=== PATIENT | male | born 1955 | race African-American/Black ===

== ENCOUNTER 2017-06-18 09:48 | Emergency (ER) | END 2017-06-18 13:04 | disposition home or self-care (01) ==

== ENCOUNTER 2017-07-08 11:48 | Inpatient (IN) | END 2017-07-15 22:40 | DRG 811 ==

== ENCOUNTER 2017-07-18 11:50 | Emergency (ER) | END 2017-07-18 18:47 | disposition home or self-care (01) ==

== ENCOUNTER 2017-11-03 09:43 | Inpatient (IN) | END 2017-11-07 19:25 | DRG 689 ==

== ENCOUNTER 2018-09-28 12:31 | Inpatient (IN) | payer MEDICARE, OTHER ==
[~2018-09-28] VITALS: Ht 177.8 cm; Wt 58.7 kg
[2018-09-28] VITALS (27 sets, daily range): BP systolic 74–115; BP diastolic 57–80; PULSE 72–76; RESP 20–21; Ht 177.8 cm; Wt 58.7 kg
[~2018-09-28 12:31] MED LIST: ACET-2047 PO; AMIN887L6 GTB; ASCO500C7 GTB; ASPI-817 GTB; ATOR20TA38 GTB; DONE5TAB46 GTB; FOLI-49 GTB; HYDR-3671 GTB; HYDR-4011 PO; ISOS10TA2 GTB; MULTI GTB; NIFE10CA GTB; PANT40TA4 PO; SULF1TAB31 PO
[2018-09-28] MEDS ORDERED: NORepinephrine 8MG/250 ML (PMX 250 ML ONE (12:38)
[2018-09-28] MEDS ORDERED: SODIUM CHLORIDE 0.9% 500 ML BAG IV* STA (12:42)
[2018-09-28] MEDS ORDERED: MEROPENEM 1 GM/50ML(PMX) 50 ML IVPB STA (13:19)
[2018-09-28] MEDS ORDERED: NORepinephrine 8MG/250 ML (PMX 250 ML IV SCH (13:30)
[2018-09-28] MEDS ORDERED: VANCOMYCIN 1 GM (PMX) 250 ML IVPB ONE (13:30)
[2018-09-28] MEDS ORDERED: SODIUM CHLORIDE 0.9% 1L BAG IV* STA (13:30)
--- NOTE | 2018-09-28 14:17 | ERD ---
ER Documentation Chief Complaint Chief Complaint SP FULL ARREST AND RETURN OF SPONTANEOUS CIRC AFTER 5 EPI IN FIELD. HPI The patient is a 73-year-old male, presenting to the ER because of acute cardiac arrest. The history is obtained from EMS. He is being treated for pneumonia with Fortaz and amikacin He was last seen normal around 11:30 PM. When EMS arrived at 12pm, he was being CPR for approximately 7 minutes by the nursing staff. He has tracheostomy, was having CPR and received 5 epinephrine IV proximally 3-5 minutes apart. He had ROSC at 12:20 PM upon arrival to the emergency department The history is obtained from EMS and medical record Past medical history: COPD, chronic respiratory failure, dysphagia, CAD, dy slipidemia, history of CVA, chronic encephalopathy, extremity contracture Past surgical history: Unknown except tracheostomy and G-tube ROS All systems reviewed and are negative except as per history of present illness. Medications Home Meds Reported Medications Magnesium Hydroxide* (Milk Of Magnesia*) 400 Mg/5 Ml Oral.susp, 30 ML GTB DAILY, ML 09/28/18 Docusate Sodium* (Colace*) 100 Mg Capsule, 100 MG GTB DAILY, #30 CAP 09/28/18 Acetaminophen* (Acetaminophen*) 650 Mg Tablet, 650 MG GTB Q4 PRN for PAIN LEVEL 1-3, #30 TAB 09/28/18 Acetaminophen* (Acetaminophen*) 500 MG Extra Strength Tablet, 1000 MG GTB Q4 PRN for PAIN LEVELL 4-10, TAB 09/28/18 Chlorhexidine Gluconate (Peridex) 473 Ml Mouthwash, 15 ML MM Q12, BOTTLE 09/28/18 Pantoprazole* (Protonix*) 40 Mg Tablet.dr, 40 MG GTB DAILY, TAB 09/28/18 Tamsulosin Hcl* (Flomax*) 0.4 Mg Cap.er.24h, 0.4 MG GTB DAILY, CAP 09/28/18 Famotidine* (Famotidine*) 20 Mg Tablet, 20 MG GTB DAILY, #30 TAB 09/28/18 Donepezil* (Aricept*) 5 Mg Tablet, 5 MG GTB DAILY, TAB 07/18/17 Atorvastatin Calcium* (Atorvastatin Calcium*) 20 Mg Tablet, 20 MG GTB QHS, #30 TAB 07/08/17 Discontinued Reported Medications Amino Acids/Protein Hydrolys (PRO-STAT AWC LIQUID) 887 Ml Liquid, 30 ML GTB TID 11/03/17 Acetaminophen* (Acetaminophen*) 650 Mg Tablet, 650 MG PO Q6H PRN for PAIN AND OR ELEVATED TEMP, #30 TAB 11/03/17 Pantoprazole* (Pantoprazole*) 40 Mg Tablet.dr, 40 MG PO BID, TAB 11/03/17 Ascorbic Acid* (Vitamin C*) 500 Mg Capsule.sa, 500 MG GTB DAILY, CAP 11/03/17 Hydrocodone/Acetaminophen ([place] 5-325 Tablet) 1 Each Tablet, 1 EACH PO Q4 PRN for SEVERE PAIN LEVEL 7-10, TAB 11/03/17 Isosorbide Dinitrate* (Isosorbide Dinitrate*) 10 Mg Tablet, 10 MG GTB TID, TAB 07/08/17 Multivitamins* (Theragran*) 1 Tab Tab, 1 TAB GTB DAILY, TAB 07/08/17 Folic Acid* (Folic Acid*) 1 Mg Tablet, 1 MG GTB DAILY, TAB 07/08/17 Aspirin* (Aspirin* EC) 81 Mg Tablet.dr, 81 MG GTB DAILY, TAB 07/08/17 Discontinued Scripts Nifedipine* (Procardia*) 10 Mg Capsule, 20 MG GTB TID, #30 CAP Prov:FREGOSO,MADDY V. CLAY MOLDER 11/07/17 Hydralazine Hcl* (Hydralazine Hcl*) 25 Mg Tab, 50 MG GTB TID, #90 TAB Prov:FREGOSO,MADDY V. CLAY MOLDER 11/07/17 Sulfamethoxazole/Trimethoprim* (Bactrim Ds* Tablet) 1 Each Tablet, 1 TAB PO BID for 7 Days, #14 TAB Prov:FREGOSO,MADDY V. CLAY MOLDER 11/06/17 Allergies Allergies: Coded Allergies: No Known Allergy (Unverified , 09/28/18) PMhx/Soc History of Surgery: Yes (gtube placement) Anesthesia Reaction: No Hx Neurological Disorder: Yes (dementia) Hx Respiratory Disorders: No Hx Cardiac Disorders: No Hx Psychiatric Problems: No Hx Alcohol Use: Yes (social drinking) Hx Substance Use: No Hx Tobacco Use: Yes Physical Exam Vitals Vital Signs Date Temp Pulse Resp B/P (MAP) Pulse Ox O2 O2 Flow FiO2 Time Delivery Rate 09/28/18 94.5 75 20 149/90 99 Mechanical 15:26 (109) Ventilator 09/28/18 50 23 98 40 15:12 09/28/18 95.0 78 20 154/95 99 Mechanical 15:00 (114) Ventilator 09/28/18 94.0 81 20 170/100 99 Mechanical 14:45 (123) Ventilator 09/28/18 81 20 157/105 99 Mechanical 14:30 (122) Ventilator 09/28/18 82 20 172/100 99 Mechanical 14:15 (124) Ventilator 09/28/18 84 20 146/90 99 Mechanical 14:00 (108) Ventilator 09/28/18 94.1 82 20 105/71 99 Mechanical 13:45 (82) Ventilator 09/28/18 84 20 135/85 99 Mechanical 13:30 (102) Ventilator 09/28/18 80 20 115/100 99 Mechanical 13:15 (105) Ventilator 09/28/18 43 20 96 100 13:05 09/28/18 94.0 83 20 102/72 99 Mechanical 13:00 (82) Ventilator 09/28/18 93.9 75 20 105/60 99 Mechanical 12:45 (75) Ventilator 09/28/18 95.0 65 20 55/32 (40) 98 12:35 Physical Exam Const: Severe acute distress. Head: Atraumatic. Eyes: Normal Conjunctiva. ENT: Normal External Ears, Nose and Mouth. Neck: Full range of motion. No meningismus.Trach Resp: Clear to auscultation anteriorly and laterally. Cardio: Regular bradycardic Abd: Soft, non distended, normal bowel sounds, non tender.GT Skin: Ecchymosis Back: No midline or flank tenderness. Ext: Contracted Neur: Unable to perform due to his condition Psych: Unable to perform due to his condition Result Diagram: 09/28/18 1330 09/28/18 1330 Results 24 hrs Laboratory Tests Test 09/28/18 12:34 09/28/18 12:39 09/28/18 13:30 09/28/18 13:31 Bedside Glucose 209 mg/dL 166 mg/dL Blood Gas Blood arterial Specimen Source Arterial Blood 09/28/2018 2:50:2 Date Drawn 9 PM Arterial Blood 7.480 pH (Temp corrected) Arterial Blood 33.2 mmhg pCO2 (Temp correct) Arterial Blood 578.2 mmHG pO2 (Temp corrected) Arterial Blood 24.2 mmol/L HCO3 Arterial Blood 1.1 mmol/L Base Excess Arterial Blood 99.7 mmHG Oxygen Saturatio n Amadeo Test ACCEPTAB Arterial Blood Left Radial Gas Puncture Site Arterial 0.3 % Blood Carboxyhem oglobin Arterial Blood 0.3 % Methemoglobin Blood Gas A-a O2 101.6 mmHg Differential Oxyhemoglobin 99.1 % Percent Blood Gas 37.0 C Temperature Blood Gas 20.0 Respiration Rate Blood Gas Actual 23 Respiration Rate Blood Gas VENT - AC Modality FiO2 100.0 % Blood Gas Tidal 500.0 mL Volume Blood Gas High 0 cmH2O PEEP Setting Blood Gas RT Notified Whom Blood Gas 09/28/2018 3:05:1 Notified Time 1 PM White Blood 22.9 10^3/ul Count Red Blood Count 3.84 10^6/ul Hemoglobin 9.9 g/dl Hematocrit 31.7 % Mean Corpuscular 82.6 fl Volume Mean Corpuscular 25.8 pg Hemoglobin Mean Corpuscular 31.2 g/dl Hemoglobin Eve nt Red Cell 21.2 % Distribution Width Platelet Count 271 10^3/UL Mean Platelet 10.6 fl Volume Immature 8.800 % Granulocytes % Neutrophils % % Segmented 59 % Neutrophils % (Manual) Band Neutrophils 12 % % (Manual) Lymphocytes % % Lymphocytes % 24 % (Manual) Monocytes % % Monocytes % 1 % (Manual) Eosinophils % % Eosinophils % 1 % (Manual) Basophils % % Metamyelocytes % 1 % (manual) Myelocytes % 2 % (Manual) Nucleated Red 0.4 /100WBC Blood Cells % Immature 2.010 10^3/ul Granulocytes # Neutrophils # 10^3/ul Neutrophils # 14.1 10^3/ul (Manual) Band Neutrophils 2.7 10^3/ul # Lymphocytes 5.4 10^3/ul (Manual) Lymphocytes # 10^3/ul Monocytes # 10^3/ul Monocytes # 0.2 10^3/ul (Manual) Eosinophils # 10^3/ul Basophils # 10^3/ul Metamyelocytes # 0.2 10^3/ul Myelocytes # 0.4 10^3/ul Nucleated Red 10^3/ul Blood Cells # Platelet NORMAL Estimate Giant Platelets 1 % Polychromasia 3+ Poikilocytosis 1+ Anisocytosis 2+ Microcytosis 2+ Prothrombin Time 16.7 Sec Prothrombin Time 1.3 Ratio INR 1.34 International Normalized Ratio Activated 47.0 Sec Partial Thrombop last Time Sodium Level 134 mmol/L Potassium Level 5.1 mmol/L Chloride Level 96 mmol/L Carbon Dioxide 24 mmol/L Level Anion Gap 14 Blood Urea 24 mg/dl Nitrogen Creatinine 0.69 mg/dl Est Glomerular > 60 mL/min Filtrat Rate mL/min Glucose Level 164 mg/dl Calcium Level 9.3 mg/dl Phosphorus Level 8.2 mg/dl Magnesium Level 2.0 mg/dl Total Bilirubin 0.3 mg/dl Direct Bilirubin 0.00 mg/dl Indirect 0.3 mg/dl Bilirubin Aspartate Amino 393 IU/L Transf (AST/SGOT ) Alanine 190 IU/L Aminotransferase (ALT/SGPT) Alkaline 322 IU/L Phosphatase Troponin I 0.127 ng/ml Total Protein 8.7 g/dl Albumin 3.1 g/dl Globulin 5.60 g/dl Albumin/Globulin 0.55 Ratio Lipase 160 U/L Ethyl Alcohol < 10.0 mg/dl Level Test 09/28/18 13:47 POC Venous 6.5 mmol/L Lactate Current Medications Medications Dose Sig/Deshawn Start Time Status Last (Trade) Ordered Route PRN Stop Time Admin Dose Reason Admin Sodium 500 ml ONCE STAT 09/28/18 DC 09/28/18 Chloride IV* 12:42 16:00 (NS) 09/28/18 13:17 Vancomycin 250 ml @ ONCE ONCE 09/28/18 DC HCl 125 mls/hr IVPB 13:30 09/28/18 15:29 50 ml @ ONCE STAT 09/28/18 DC 09/28/18 Meropenem/Sod 100 mls/hr IVPB 13:19 17:00 ium Chloride 09/28/18 13:48 250 ml @ TITRATE IV 09/28/18 DC 09/28/18 Norepinephrin 1.875 mls/ 13:30 12:30 e hr 09/28/18 19:28 Sodium 1,410 ml BOLUS OVER 2 09/28/18 DC 09/28/18 Chloride HOURS STAT 13:30 12:45 (NS) IV* 09/28/18 13:31 250 ml @ ud STK-MED 09/28/18 DC Norepinephrin ONCE .ROUTE 12:38 e 09/28/18 14:26 Aspirin 300 mg ONCE ONCE 09/28/18 DC (Aspirin) TX 15:30 09/28/18 15:31 Procedures/MDM [facility] [address] [address] Radiology Main Line: [phone] DIAGNOSTIC IMAGING REPORT Patient: JANETT CUEVAS : 1955 Age: 63 Sex: M MR #: [id number] DOS: 09/28/18 1239 Ordering MD: JOSE ANGEL PRESTON MD Location: E/R Room/Bed: PROCEDURE: CT Brain without contrast CLINICAL INDICATION: Return of spontaneous circulation TECHNIQUE: A CT of the brain was performed on multidetector high-resolution CT scanner utilizing axial sections from the skull base through the vertex without contrast. The scan was reviewed in soft tissue brain and high frequency resolution bone algorithm windows. Images were reviewed on a high-resolution PACS workstation. DICOM images are available. CTDI (mGy): 79.03 mGy and DLP(mGy-cm): 713.51 mGy.cm One or more of the following dose reduction techniques were used: - Automated exposure control. - Adjustment of the mA and/or kV according to patient size. Use of iterative reconstruction technique. COMPARISON: None available FINDINGS: Head positioning, obliquity and patient motion degrade image quality, potentially reducing diagnostic sensitivity for detection. The ventricles and sulci appear symmetric and normal in size and morphology, allowing for obliquity. There is no evidence of intracranial hemorrhage, mass effect, edema or midline shift, allowing for patient motion. No abnormal intra- axial or extra-axial fluid collections are seen. There is extensive low attenuation in the subcortical and periventricular white matter in the frontoparietal lobes. A low attenuation focus is identified in the inferior right frontal lobe at the level of the anterior commissure, either representing asymmetric perivascular space or lacunar infarct. Bilateral large cerebellar infarcts are identified. At the level of the foramen magnum, there are multiple osseous fragments, narrowing the canal at the cervicomedullary junction. There is diffuse asymmetric opacification of the left mastoid air cells. There is mild dependent opacification of the right mastoid air cells. There is mild mucosal thickening of the visualized ethmoid air cells. No acute osseous abnormality identified including the bony calvarium. The overlying scalp tissues are unremarkable. IMPRESSION: 1. No CT evidence of acute intracranial changes such as hemorrhage, mass effect, midline shift or herniation, allowing for obliquity and patient motion. 2. Extensive low attenuation in the subcortical and periventricular white matter in the frontoparietal lobes. Though commonly attributable to chronic small vessel ischemic disease, vasogenic edema or watershed ischemia cannot entirely be excluded in the acute setting. Bilateral cerebellar infarcts. Possible right basal ganglion infarct. Brain MRI is more suitable for the assessment of these findings. 3. Multiple osseous fragments within the foramen magnum, narrowing the canal. Again brain MRI can be helpful in assessing the cervicomedullary junction. If MRI is not an option, further imaging with cervical spine CT is also recommended. 4. Asymmetric diffuse opacification of the left mastoid air cells, which can be secondary to prolonged recumbency. Additional clinical correlation is recommended to exclude mastoiditis. These findings were discussed with ED physician Jose Angel Franklin at 09/28/2018 3:18:13 PM. RPTAT: EE Physician Francesca Date Time Electronically viewed and signed by Shaneka Jimenez Physician on 09/28/2018 15:20 BP/ CC: JOSE ANGEL PRESTON MD [phone] [address] [place] [address] Radiology Main Line: [phone] DIAGNOSTIC IMAGING REPORT Patient: JANETT CUEVAS : 1955 Age: 63 Sex: M MR #: [id number] DOS: 09/28/18 1239 Ordering MD: JOSE ANGEL PRESTON MD Location: E/R Room/Bed: PROCEDURE: XR Chest. CLINICAL INDICATION: Chest pain TECHNIQUE: Single frontal view of the chest was obtained COMPARISON: DR DOWLING 11/03/2017 FINDINGS: The heart is enlarged. The thoracic aorta is calcified. There is a tracheostomy tube in place. There is a right-sided transvenous catheter with its tip overlying the cavo- atrial junction. There are mild increased interstitial changes throughout the lungs. There is no pleural effusion or pneumothorax. RPTAT: AA IMPRESSION: Mild cardiomegaly. Mild pulmonary vascular congestion. Right-sided central line in place with no pneumothorax. Calcified aorta consistent with atherosclerotic disease. .Kevin Carranza MD, MD Date Time Electronically viewed and signed by .Kevin Carranza MD, MD on 09/28/2018 13:45 .S/ CC: JOSE ANGEL PRESTON MD [phone] UA Pending EKG: Read by emergency physician Rate/Rhythm: Normal Sinus Rhythm 84 beats/min QRS, ST, T-waves: No ST elevation, no T inversion, RBBB, LAFB, LVH Impression: Abnormal EKG MEDICAL MAKING DECISION: The patient is a 33-year-old male, presenting with ac layla cardiac arrest, status post PEA, acute septic shock, acute troponin elevation. He was treated with normal saline 30 mm/kg IV, Levophed drip, vancomycin IV, meropenem IV due to acute septic shock He did go to PEA at 1243p, treated with 1 mg of epinephrine IV with return of spontaneous circulation at 1245p He was treated with aspirin 300 mg suppository for acute troponin elevation The differential diagnoses considered include but are not limited to ACS, non- STEMI, aspiration pneumonia, UTI, pneumonia, pyelonephritis Central Line Placement by me: After the patient was consented and a time out was performed, appropriate hand hygiene was performed, the skin site was fully prepped and maximal sterile barrier technique was employed where the patient was sterilely draped, and the provider wore a mask and sterile gown and gloves. Anesthesia: 1% lidocaine locally Location: RIJ Device: Multiple lumen Technique: Seldinger technique. Secured with suture. Results: Venous return from all ports with easy saline flush. No complications. []Guide wire retrieved and disposed of. ED Ultrasound: Central line placed by me using concurrent ultrasound guidance done using sterile technique. Real time image archived in the medical record confirms vascular anatomy. Chest X-ray 1V Interpreted by me: Central line in SVC, Normal soft tissue, No evidence of pneumothorax. MDM: Patient's infectious symptoms have not stabilized and the patient is at risk of rapid decompensation. The patient will be admitted for careful hydration, antibiotic therapy, and infectious source control. SEVERE SEPSIS CRITERIA: Infectious source: unknown End organ damage indicated by: [Lactate > 2.0 mmol/L Hypotension (SBP < 90 or >40 mmHG drop or MAP < 65) Acute Resp Failure (sat < 92% w/o oxygen) SEPSIS MANAGEMENT Time of recognition of septic shock: 1400hr. 3 HOUR BUNDLE Blood cultures x 2 before broad-spectrum antibiotics: [Yes] 30 ml/kg NS bolus [Completed] Initial lactate []6.5 Repeat lactate Pending SEPTIC SHOCK ASSESSMENT: [Y] lactic acid > 4.0 [Y] Persistent hypotension (SBP < 90 or 40 mmHg drop, MAP < 65) despite 30 mL/kg IV fluid bolus VOLUME REASSESSMENT FOR SEPTIC SHOCK: Reevaluation Time: []1300 hr Temp []94, BP []102/72, HR []53, RR[]20, Pox []99% 100% Heart [bradycardic] Lungs [No crackles] Skin [Warm & dry] Cap Refill [Less than 2 seconds] Peripheral pulses [Radially present] PERSISTENT HYPOTENSION TREATMENT: Comfort care [No] Central line [Required] Vasopressor started Levophed I considered further perfusion assessment with CVP measurement, SCVO2, bedside ultrasound volume assessment, passive leg raise, trial of further fluid bolus. And proceeded with [30 ml/kg fluid bolus of NSS, broad spectrum antibiotics, and admission.] CRITICAL CARE Critical care time [35] minutes Emergent fluid management while maintaining close respiratory support. Provision of immediate and broad-spectrum antibiotic therapy. Simultaneous assessment for possible sources in order to direct targeted therapy. Consid eration for invasive and chemical support to prevent cardiopulmonary collapse. Critical care time is independent of procedures performed. Departure Diagnosis: Primary Impression: Cardiac arrest Additional Impressions: Septic shock Elevated troponin Anemia Abnormal LFTs Condition: Critical Comments I discussed the findings with the patient. I discussed the patient with Dr Mendoza at 3:20p , who was made aware of the lab, the treatment, the patient condition. The patient is admitted to ICU Disclaimer: Inadvertent spelling and grammatical errors are likely due to E HR/dictation software use and do not reflect on the overall quality of patient care. Also, please note that the electronic time recorded on this note does not necessarily reflect the actual time of the patient encounter. JOSE ANGEL PRESTON MD September 28, 2018 14:17
[2018-09-28] MEDS ORDERED: TAMS-14 GTB (14:24)
[2018-09-28] MEDS ORDERED: FAMO20TA18 GTB (14:24)
[2018-09-28] MEDS ORDERED: PANT40TA3 GTB (14:25)
[2018-09-28] MEDS ORDERED: CHLO473M4 MM (14:26)
[2018-09-28] MEDS ORDERED: ACET-141 GTB (14:28)
[2018-09-28] MEDS ORDERED: ACET-2047 GTB (14:28)
[2018-09-28] MEDS ORDERED: MAGN400O19 GTB (14:33)
[2018-09-28] MEDS ORDERED: DOCU-144 GTB (14:33)
[2018-09-28] MEDS ORDERED: ASPIRIN 300 MG SUPP PR ONE (15:30)
[2018-09-28] MEDS ORDERED: NACL 0.9% 3 ML SYG IV SCH (17:30)
[2018-09-28] MEDS ORDERED: ONDANSETRON 4 MG INJ IV PRN (17:30)
--- NOTE | 2018-09-28 17:43 | HP ---
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 #Cardiac arrest - Etiology unclear. Was PEA on arrival to ED. May have been hypoxic arrest related to trach like mucous plug or occlusion. - Patient has known very severe neurologic deficit. This precludes his eligibility for hypothermia protocol. - Currently off pressors, back on minimal vent settings. - Admit to ICU for overnight observation, then likely can downgrade to telemetry - Also infectious workup with blood, urine cultures - Per discussion with sister, patient is full code although I do not believe this is ethically the right decision. #Chronic disability after stroke - Patient trached, vent, not responsive, contractures - Supportive care - Continue tube feeds. #Acute diarrhea - After cardiac arrest patient is having unusual serous colored fluid, very large volume, coming from rectal tube. There is no stool. - Resume tube feeds. #Gastritis - Cont home H2 merlyn and PPI #Dyslipidemia - Cont home statin DVT: SCDs GI: PPI Result Diagram: 09/28/18 1330 09/28/18 1330 HPI/ROS Admit Date/Time Admit Date/Time September 28, 2018 Hx of Present Illness Mr. Alejandro is a 73 yo man trached and vent dependent who presents in acute cardiac arrest. History taken per sister via phone and per prior charting. Apparently the patient had several strokes, about 3 or 4, which left him severely disabled. For about 5 years he has been bedridden, minimally responsive, able to track with his eyes but unable to speak, write, or otherwise communicate. About 1 month ago he was hospitalized for L arm swelling. He developed pneumonia during this hospitalization and required tracheostomy, which he still has now. [facility] he was on a course of amikacin and ceftazidime. He was last seen normal around 11:30 PM last night. When EMS arrived at 12 noon, he was undergoing CPR for approximately 7 minutes by the nursing staff. He has tracheostomy, was having CPR and received 5 epinephrine IV proximally 3-5 minutes apart. He had ROSC at 12:20 PM upon arrival to the emergency department The patient arrived with a POLST signed by his sister Ana Maria Pelletier which says full code. I spoke to her on the phone and she confirmed this decision stands. She was unable to clarify further; as she was driving. ROS Subjective hx not possible: pt critical PMH/Family/Social Past Medical History Past medical history: COPD, chronic respiratory failure, dysphagia, CAD, dyslipidemia, history of CVA, chronic encephalopathy, extremity contracture Medications Current Medications Norepinephrine 250 ml @ 1.875 mls/ hr TITRATE IV Last administered on 09/28/18at 12:30; Admin Dose 1.875 MLS/HR; Start 09/28/18 at 13:30 IV Flush (NS 3 ml) 3 ml PER PROTOCOL IV ; Start 09/28/18 at 17:30 Ondansetron HCl (Zofran Inj) 4 mg Q6H PRN IV NAUSEA/VOMITING; Start 09/28/18 at 17:30 Pantoprazole (Protonix Iv) 40 mg DAILY@06 IV ; Start 09/29/18 at 06:00; Status UNV Coded Allergies: No Known Allergy (Unverified , 09/28/18) Past Surgical History Past surgical history: Unknown except tracheostomy and G-tube Family History Significant Family History: hypertension Social History Alcohol Use: none Smoking Status: Former smoker Drug Use: none Exam/Review of Systems Vital Signs Vitals Vital Signs Date Temp Pulse Resp B/P (MAP) Pulse Ox O2 O2 Flow FiO2 Time Delivery Rate 09/28/18 94.5 75 20 149/90 99 Mechanical 15:26 (109) Ventilator 09/28/18 40 15:12 Exam Exam Gen: Frail appearing man unresponsive in [facility]. Eyes: Pinpoint, nonreactive pupils bilaterally. No corneal reflex. Not tracking. HEENT: Drooling. Moist mucous membranes. Neck: No lymphadenopathy, no JVD. Card: Regular rate and rhythm; no murmurs Pulm: Ventilated breath sounds bilaterally. Abd: G tube in place, clean and dry. Soft nondistended. Ext: No cyanosis/clubbing/edema. Severely atrophied muscles. Neuro: Pupils pinpoint, nonreactive. Eyes don't open. Not responsive to sternal rub. Skin: Large keloid-like structure on right axilla and smaller nodule at G tube site. Rectal: rectal tube in place with serous light-orange colored fluid, no stool. ROSSANA MCKEON MD September 28, 2018 17:41
[2018-09-28] MEDS: FAMOTIDINE 20 MG INJ IV SCH ×2 (18:00→22:10)
--- NOTE | 2018-09-28 19:28 | CONS ---
Assessment/Plan Assessment/Plan Hospital Course (Demo Recall) 63-year-old -Malagasy male, resident of his nursing home facility, was brought to the emergency room because of cardiac arrest. Attempts in the emergency room to insert a Gilman catheter were not successful. A urologic consultation was requested. The patient himself is not communicative he is on a respirator through the tracheostomy which he had for a while also he does have a G-tube. 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 His bladder did not seem to be distended. I did prep the genital area and then tried a 16 [place]uran coud catheter and that was met with resistance. Therefore I proceeded to do urethral dilatation using filiforms and followers. I used a 3 [place]uran 4 [place]uran spiral tip and straight tip filiforms and attempted to have these go into his bladder but that was not successful I tried at one time to see if I could advance the follower on the filiform but that also did not go into the bladder. I therefore did not any further attempt to insert the catheter. We will place a condom catheter on him and should he not urinate and go into urinary retention then I could put a suprapubic tube. Consultation Date/Type/Reason Admit Date/Time September 28, 2018 Date of Consultation: September 28, 2018 Type of Consult Urology Reason for Consultation Difficulty inserting a Gilman catheter Requesting Provider: ROSSANA MCKEON MD Date/Time of Note DATE: 09/28/18 TIME: 19:17 Hx of Present Illness 63-year-old -Malagasy male, resident of his nursing home facility, was brought to the emergency room because of cardiac arrest. Attempts in the emergency room to insert a Gilman catheter were not successful. A urologic consultation was requested. The patient himself is not communicative he is on a respirator through the tracheostomy which he had for a while also he does have a G-tube. 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 Subjective hx not possible: pt non-verbal Eyes: no complaints Respiratory: other (Patient is on a respirator) Cardiovascular: other (Patient is status post cardiac arrest) Gastrointestinal: No vomiting Genitourinary: other (The penis has some edema at the frenular area) Musculoskeletal: no complaints Skin: no complaints Neurologic: other (Encephalopathic) Past Medical History Medical History: coronary artery disease, high cholesterol, other (History of strokes and dysphagia and respiratory failure, COPD) Home Meds Reported Medications Magnesium Hydroxide* (Milk Of Magnesia*) 400 Mg/5 Ml Oral.susp, 30 ML GTB DAILY, ML 09/28/18 Docusate Sodium* (Colace*) 100 Mg Capsule, 100 MG GTB DAILY, #30 CAP 09/28/18 Acetaminophen* (Acetaminophen*) 650 Mg Tablet, 650 MG GTB Q4 PRN for PAIN LEVEL 1-3, #30 TAB 09/28/18 Acetaminophen* (Acetaminophen*) 500 MG Extra Strength Tablet, 1000 MG GTB Q4 PRN for PAIN LEVELL 4-10, TAB 09/28/18 Chlorhexidine Gluconate (Peridex) 473 Ml Mouthwash, 15 ML MM Q12, BOTTLE 09/28/18 Pantoprazole* (Protonix*) 40 Mg Tablet.dr, 40 MG GTB DAILY, TAB 09/28/18 Tamsulosin Hcl* (Flomax*) 0.4 Mg Cap.er.24h, 0.4 MG GTB DAILY, CAP 09/28/18 Famotidine* (Famotidine*) 20 Mg Tablet, 20 MG GTB DAILY, #30 TAB 09/28/18 Donepezil* (Aricept*) 5 Mg Tablet, 5 MG GTB DAILY, TAB 07/18/17 Atorvastatin Calcium* (Atorvastatin Calcium*) 20 Mg Tablet, 20 MG GTB QHS, #30 TAB 07/08/17 Discontinued Reported Medications Amino Acids/Protein Hydrolys (PRO-STAT AWC LIQUID) 887 Ml Liquid, 30 ML GTB TID 11/03/17 Acetaminophen* (Acetaminophen*) 650 Mg Tablet, 650 MG PO Q6H PRN for PAIN AND OR ELEVATED TEMP, #30 TAB 11/03/17 Pantoprazole* (Pantoprazole*) 40 Mg Tablet.dr, 40 MG PO BID, TAB 11/03/17 Ascorbic Acid* (Vitamin C*) 500 Mg Capsule.sa, 500 MG GTB DAILY, CAP 11/03/17 Hydrocodone/Acetaminophen ([place] 5-325 Tablet) 1 Each Tablet, 1 EACH PO Q4 PRN for SEVERE PAIN LEVEL 7-10, TAB 11/03/17 Isosorbide Dinitrate* (Isosorbide Dinitrate*) 10 Mg Tablet, 10 MG GTB TID, TAB 07/08/17 Multivitamins* (Theragran*) 1 Tab Tab, 1 TAB GTB DAILY, TAB 07/08/17 Folic Acid* (Folic Acid*) 1 Mg Tablet, 1 MG GTB DAILY, TAB 07/08/17 Aspirin* (Aspirin* EC) 81 Mg Tablet.dr, 81 MG GTB DAILY, TAB 07/08/17 Discontinued Scripts Nifedipine* (Procardia*) 10 Mg Capsule, 20 MG GTB TID, #30 CAP Prov:FREGOSO,MADDY V[employer] 11/07/17 Hydralazine Hcl* (Hydralazine Hcl*) 25 Mg Tab, 50 MG GTB TID, #90 TAB Prov:FREGOSO,MADDY V[employer] 11/07/17 Sulfamethoxazole/Trimethoprim* (Bactrim Ds* Tablet) 1 Each Tablet, 1 TAB PO BID for 7 Days, #14 TAB Prov:FREGOSO,MADDY V[employer] 11/06/17 Medications Current Medications Norepinephrine 250 ml @ 1.875 mls/ hr TITRATE IV Last administered on 09/28/18at 12:30; Admin Dose 1.875 MLS/HR; Start 09/28/18 at 13:30 IV Flush (NS 3 ml) 3 ml PER PROTOCOL IV ; Start 09/28/18 at 17:30 Ondansetron HCl (Zofran Inj) 4 mg Q6H PRN IV NAUSEA/VOMITING; Start 09/28/18 at 17:30 Famotidine (Pepcid Iv) 20 mg DAILY IV ; Start 09/28/18 at 18:00 Allergies: Coded Allergies: No Known Allergy (Unverified , 09/28/18) Past Surgical History Past Surgical Hx: no surgical history Social History Alcohol Use: none Smoking Status: Former smoker Drug Use: none Exam/Review of Systems Exam Vitals Vital Signs Date Temp Pulse Resp B/P (MAP) Pulse Ox O2 O2 Flow FiO2 Time Delivery Rate 09/28/18 77 20 100 30 17:56 09/28/18 94.5 149/90 Mechanical 15:26 (109) Ventilator Constitutional: non-verbal Head: normocephalic Eyes: nl conjunctiva ENMT: other (Tracheostomy) Neck: other (Tracheostomy and is on a respirator) Respiratory: other (On a respirator) Gastrointestinal: other (As a rectal tube because of diarrhea) Genitourinary - Male: other (Penis has mild swelling in the frenular area) Musculoskeletal: other (Lower extremities contractures and sores in the heels) Neurological: unresponsive Skin: nl turgor Results Result Diagram: 09/28/18 1330 09/28/18 1330 Results 24hrs Laboratory Tests Test 09/28/18 12:34 09/28/18 12:39 09/28/18 13:30 09/28/18 13:31 Bedside Glucose 209 166 Blood Gas Blood arterial Specimen Source Arterial Blood 09/28/2018 2:50:2 Date Drawn 9 PM Arterial Blood pH 7.480 H (Temp corrected) Arterial Blood 33.2 L pCO2 (Temp correct) Arterial Blood 578.2 H pO2 (Temp corrected) Arterial Blood 24.2 HCO3 Arterial Blood 1.1 Base Excess Arterial Blood 99.7 H Oxygen Saturation Amadeo Test ACCEPTAB Arterial Blood Left Radial Gas Puncture Site Arterial 0.3 Blood Carboxyhemo globin Arterial Blood 0.3 Methemoglobin Blood Gas A-a O2 101.6 H Differential Oxyhemoglobin 99.1 H Percent Blood Gas 37.0 Temperature Blood Gas 20.0 Respiration Rate Blood Gas Actual 23 Respiration Rate Blood Gas VENT - AC Modality FiO2 100.0 Blood Gas Tidal 500.0 Volume Blood Gas High 0 PEEP Setting Blood Gas RT Notified Whom Blood Gas 09/28/2018 3:05:1 Notified Time 1 PM White Blood Count 22.9 #H Red Blood Count 3.84 L Hemoglobin 9.9 L Hematocrit 31.7 L Mean Corpuscular 82.6 Volume Mean Corpuscular 25.8 L Hemoglobin Mean Corpuscular 31.2 L Hemoglobin Concen t Red Cell 21.2 #H Distribution Width Platelet Count 271 # Mean Platelet 10.6 #H Volume Immature 8.800 H Granulocytes % Neutrophils % Segmented 59 Neutrophils % (Manual) Band Neutrophils 12 H % (Manual) Lymphocytes % Lymphocytes % 24 (Manual) Monocytes % Monocytes % 1 (Manual) Eosinophils % Eosinophils % 1 (Manual) Basophils % Metamyelocytes % 1 H (manual) Myelocytes % 2 H (Manual) Nucleated Red 0.4 H Blood Cells % Immature 2.010 H Granulocytes # Neutrophils # Neutrophils # 14.1 H (Manual) Band Neutrophils 2.7 H # Lymphocytes 5.4 H (Manual) Lymphocytes # Monocytes # Monocytes # 0.2 L (Manual) Eosinophils # Basophils # Metamyelocytes # 0.2 H Myelocytes # 0.4 H Nucleated Red Blood Cells # Platelet Estimate NORMAL Giant Platelets 1 H Polychromasia 3+ Poikilocytosis 1+ Anisocytosis 2+ Microcytosis 2+ Prothrombin Time 16.7 H Prothrombin Time 1.3 Ratio INR International 1.34 Normalized Ratio Activated 47.0 H Partial Thrombopl ast Time Sodium Level 134 L Potassium Level 5.1 Chloride Level 96 L Carbon Dioxide 24 Level Anion Gap 14 H Blood Urea 24 H Nitrogen Creatinine 0.69 Est Glomerular > 60 Filtrat Rate mL/min Glucose Level 164 Calcium Level 9.3 Phosphorus Level 8.2 H Magnesium Level 2.0 Total Bilirubin 0.3 Direct Bilirubin 0.00 Indirect 0.3 Bilirubin Aspartate Amino 393 H Transf (AST/SGOT) Alanine 190 H Aminotransferase (ALT/SGPT) Alkaline 322 H Phosphatase Troponin I 0.127 *H Total Protein 8.7 H Albumin 3.1 L Globulin 5.60 H Albumin/Globulin 0.55 Ratio Lipase 160 Ethyl Alcohol < 10.0 H Level Test 09/28/18 13:47 POC Venous 6.5 *H Lactate Medications Medication Current Medications Norepinephrine 250 ml @ 1.875 mls/ hr TITRATE IV Last administered on 09/28/18at 12:30; Admin Dose 1.875 MLS/HR; Start 09/28/18 at 13:30 IV Flush (NS 3 ml) 3 ml PER PROTOCOL IV ; Start 09/28/18 at 17:30 Ondansetron HCl (Zofran Inj) 4 mg Q6H PRN IV NAUSEA/VOMITING; Start 09/28/18 at 17:30 Famotidine (Pepcid Iv) 20 mg DAILY IV ; Start 09/28/18 at 18:00 LETY SALGADO MD September 28, 2018 19:28
[2018-09-28] MEDS ORDERED: EPINEPHrine 10 MCG/1ml (10 ML SYG) IV ONE (20:00)
[2018-09-28] MEDS ORDERED: VANCOMYCIN IV PER PHARMACY XX SCH (22:00)
[2018-09-28] MEDS: SOD CHLORIDE 0.9% 1,000 ML IV SCH (22:03)
[2018-09-28] MEDS: NORepinephrine 8MG/250 ML (PMX 250 ML IV SCH (22:09)
[2018-09-29] VITALS (105 sets, daily range): BP systolic 60–138; BP diastolic 45–82; PULSE 65–78; RESP 18–26
[2018-09-29] MEDS: MEROPENEM 1 GM/50ML(PMX) 50 ML IVPB SCH ×3 (00:42→21:11)
[2018-09-29] MEDS: VANCOMYCIN 750 MG (PMX) 250 ML IVPB SCH ×2 (04:01→19:43)
[2018-09-29] MEDS ORDERED: SOD CHLORIDE 0.9% 1,000 ML IV ONE (07:00)
--- NOTE | 2018-09-29 09:03 | PN ---
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 #Cardiac arrest - Etiology unclear. Was PEA on arrival to ED. May have been hypoxic arrest related to trach like mucous plug or occlusion. - Patient has known very severe neurologic deficit. This precludes his eligibility for hypothermia protocol. - Currently off pressors, back on minimal vent settings. - Admit to ICU for overnight observation, then likely can downgrade to telemetry - Also infectious workup with blood, urine cultures - Per discussion with sister, patient is full code although I do not believe this is ethically the right decision. #Seizure-like activity - Facial fasciculations may be seizure or myoclonic jerks. - Will get EEG, consult Dr. Svetlana Ott 500 IV BID- - Will avoid sedating medications including benzos unless seizure is proven. #Chronic disability after stroke - Patient trached, vent, not responsive, contractures - Supportive care - Continue tube feeds. #Acute diarrhea - After cardiac arrest patient is having unusual serous colored fluid, very large volume, coming from rectal tube. There is no stool. - Resume tube feeds. #Gastritis - Cont home H2 merlyn and PPI #Dyslipidemia - Cont home statin DVT: SCDs GI: PPI Result Diagram: 09/29/18 0400 09/29/18 0400 Subjective 24 Hr Interval Summary Free Text/Dictation No acute overnight events. Patient slightly hypotensive, on 9 mcg norepinephrine. Gilman attempted by Dr. Chand, unsuccessful. Now with condom cath. Patient appears to have seizure-like activity this morning with facial fasciculations. Exam/Review of Systems Exam Vitals Vital Signs Date Temp Pulse Resp B/P (MAP) Pulse Ox O2 O2 Flow FiO2 Time Delivery Rate 09/29/18 70 23 89/58 (68) 100 06:15 09/29/18 30 05:25 09/29/18 97.5 04:00 09/28/18 Mechanical 19:00 Ventilator Intake and Output 09/28/18 09/28/18 09/29/18 1515:00 23:00 07:00 IntakeIntake Total 81.8 ml 816.4 ml OutputOutput Total 335 ml 670 ml BalanceBalance -253.2 ml 146.4 ml Exam Gen: Frail appearing man unresponsive in bed. Eyes: Pinpoint, nonreactive pupils bilaterally. No corneal reflex. Not tracking. HEENT: Drooling. Moist mucous membranes. Neck: No lymphadenopathy, no JVD. Card: Regular rate and rhythm; no murmurs Pulm: Ventilated breath sounds bilaterally. Abd: G tube in place, clean and dry. Soft nondistended. Ext: No cyanosis/clubbing/edema. Severely atrophied muscles. Neuro: Pupils pinpoint, nonreactive. Not responsive to sternal rub. Facial fasciculations. Skin: Large keloid-like structure on right axilla and smaller nodule at G tube site. : Condom cath with clear yellow urine. Results Results 24hrs Laboratory Tests Test 09/28/18 12:34 09/28/18 12:39 09/28/18 13:30 09/28/18 13:31 Bedside Glucose 209 166 Blood Gas Blood arterial Specimen Source Arterial Blood 09/28/2018 2:50: Date Drawn 29 PM Arterial Blood 7.480 H pH (Temp corrected) Arterial Blood 33.2 L pCO2 (Temp correct) Arterial Blood 578.2 H pO2 (Temp corrected) Arterial Blood 24.2 HCO3 Arterial Blood 1.1 Base Excess Arterial Blood 99.7 H Oxygen Saturatio n Amadeo Test ACCEPTAB Arterial Blood Left Radial Gas Puncture Site Arterial 0.3 Blood Carboxyhem oglobin Arterial Blood 0.3 Methemoglobin Blood Gas A-a O2 101.6 H Differential Oxyhemoglobin 99.1 H Percent Blood Gas 37.0 Temperature Blood Gas 20.0 Respiration Rate Blood Gas Actual 23 Respiration Rate Blood Gas VENT - AC Modality FiO2 100.0 Blood Gas Tidal 500.0 Volume Blood Gas High 0 PEEP Setting Blood Gas RT Notified Whom Blood Gas 09/28/2018 3:05: Notified Time 11 PM White Blood 22.9 #H Count Red Blood Count 3.84 L Hemoglobin 9.9 L Hematocrit 31.7 L Mean Corpuscular 82.6 Volume Mean Corpuscular 25.8 L Hemoglobin Mean Corpuscular 31.2 L Hemoglobin Eve nt Red Cell 21.2 #H Distribution Width Platelet Count 271 # Mean Platelet 10.6 #H Volume Immature 8.800 H Granulocytes % Neutrophils % Segmented 59 Neutrophils % (Manual) Band Neutrophils 12 H % (Manual) Lymphocytes % Lymphocytes % 24 (Manual) Monocytes % Monocytes % 1 (Manual) Eosinophils % Eosinophils % 1 (Manual) Basophils % Metamyelocytes % 1 H (manual) Myelocytes % 2 H (Manual) Nucleated Red 0.4 H Blood Cells % Immature 2.010 H Granulocytes # Neutrophils # Neutrophils # 14.1 H (Manual) Band Neutrophils 2.7 H # Lymphocytes 5.4 H (Manual) Lymphocytes # Monocytes # Monocytes # 0.2 L (Manual) Eosinophils # Basophils # Metamyelocytes # 0.2 H Myelocytes # 0.4 H Nucleated Red Blood Cells # Platelet NORMAL Estimate Giant Platelets 1 H Polychromasia 3+ Poikilocytosis 1+ Anisocytosis 2+ Microcytosis 2+ Prothrombin Time 16.7 H Prothrombin Time 1.3 Ratio INR 1.34 International Normalized Ratio Activated 47.0 H Partial Thrombop last Time Sodium Level 134 L Potassium Level 5.1 Chloride Level 96 L Carbon Dioxide 24 Level Anion Gap 14 H Blood Urea 24 H Nitrogen Creatinine 0.69 Est Glomerular > 60 Filtrat Rate mL/min Glucose Level 164 Calcium Level 9.3 Phosphorus Level 8.2 H Magnesium Level 2.0 Total Bilirubin 0.3 Direct Bilirubin 0.00 Indirect 0.3 Bilirubin Aspartate Amino 393 H Transf (AST/SGOT ) Alanine 190 H Aminotransferase (ALT/SGPT) Alkaline 322 H Phosphatase Troponin I 0.127 *H Total Protein 8.7 H Albumin 3.1 L Globulin 5.60 H Albumin/Globulin 0.55 Ratio Lipase 160 Ethyl Alcohol < 10.0 H Level Test 09/28/18 13:47 09/28/18 19:23 09/28/18 22:02 09/29/18 04:00 POC Venous 6.5 *H Lactate Lactic Acid 4.9 *H 5.1 *H Level White Blood 28.6 #H Count Red Blood Count 3.60 L Hemoglobin 9.2 L Hematocrit 28.7 L Mean Corpuscular 79.7 L Volume Mean Corpuscular 25.6 L Hemoglobin Mean Corpuscular 32.1 Hemoglobin Eve nt Red Cell 20.9 H Distribution Width Platelet Count 210 # Mean Platelet 10.2 Volume Immature 1.000 H Granulocytes % Neutrophils % Lymphocytes % Monocytes % Eosinophils % Basophils % Nucleated Red 0.0 Blood Cells % Immature 0.290 H Granulocytes # Neutrophils # Lymphocytes # Monocytes # Eosinophils # Basophils # Nucleated Red Blood Cells # Sodium Level 137 Potassium Level 4.2 Chloride Level 103 Carbon Dioxide 28 Level Anion Gap 6 # Blood Urea 33 H Nitrogen Creatinine 1.01 Est Glomerular > 60 Filtrat Rate mL/min Glucose Level 86 # Hemoglobin A1c 5.5 Calcium Level 8.9 Phosphorus Level 3.8 # Magnesium Level 1.5 L Total Bilirubin 0.2 Direct Bilirubin 0.00 Indirect 0.2 Bilirubin Aspartate Amino 279 H Transf (AST/SGOT ) Alanine 138 H Aminotransferase (ALT/SGPT) Alkaline 229 H Phosphatase Total Protein 7.9 Albumin 2.8 L Globulin 5.10 H Albumin/Globulin 0.54 Ratio Test 09/29/18 07:00 09/29/18 07:01 Blood Gas Blood arterial Blood arterial Specimen Source Arterial Blood 09/29/2018 7:15: 09/29/2018 7:15: Date Drawn 55 AM 00 AM Arterial Blood 7.511 H 7.509 H pH (Temp corrected) Arterial Blood 33.3 L 35.9 pCO2 (Temp correct) Arterial Blood 130.9 H 134.0 H pO2 (Temp corrected) Arterial Blood 26.0 27.9 H HCO3 Arterial Blood 3.5 H 4.7 H Base Excess Amadeo Test ACCEPTAB ACCEPTAB Arterial Blood Right Radial Right Radial Gas Puncture Site Blood Gas A-a O2 43.9 H 37.7 H Differential Blood Gas 37.0 37.0 Temperature Blood Gas 20.0 20.0 Respiration Rate Blood Gas Actual 20 20 Respiration Rate Blood Gas VENT - AC VENT - AC Modality FiO2 30.0 30.0 Blood Gas Tidal 500.0 500.0 Volume Blood Gas Low 5.0 5.0 PEEP Setting Blood Gas TM TM Notified Whom Blood Gas 09/29/2018 7:48: 09/29/2018 7:52: Notified Time 37 AM 44 AM Arterial Blood 98.4 H Oxygen Saturatio n Arterial 0.3 Blood Carboxyhem oglobin Arterial Blood 0.5 Methemoglobin Oxyhemoglobin 97.6 Percent Medications Medication Current Medications IV Flush (NS 3 ml) 3 ml PER PROTOCOL IV ; Start 09/28/18 at 17:30 Ondansetron HCl (Zofran Inj) 4 mg Q6H PRN IV NAUSEA/VOMITING; Start 09/28/18 at 17:30 Famotidine (Pepcid Iv) 20 mg DAILY IV Last administered on 09/28/18at 22:10; Admin Dose 20 MG; Start 09/28/18 at 18:00 Norepinephrine 250 ml @ 1.875 mls/ hr TITRATE IV Last administered on 09/28/18at 22:09; Admin Dose 1.875 MLS/HR; Start 09/28/18 at 19:30 Vancomycin HCl (Vanco Iv Per Pharmacy) VANCOMYCIN PER PHARMACY PER PROTOCOL XX ; Start 09/28/18 at 22:00 Meropenem/Sodium Chloride 50 ml @ 100 mls/hr Q12 IVPB Last administered on 09/29/18at 00:42; Admin Dose 100 MLS/HR; Start 09/29/18 at 01:00 Sodium Chloride 1,000 ml @ 80 mls/hr [id number] IV Last administered on 09/28/18at 22:03; Admin Dose 80 MLS/HR; Start 09/28/18 at 22:00 Vancomycin/Sodium Chloride 250 ml @ 125 mls/hr Q12H IVPB Last administered on 09/29/18at 04:01; Admin Dose 125 MLS/HR; Start 09/29/18 at 05:00 Levetiracetam 100 ml @ 400 mls/hr Q12 IVPB ; Start 09/29/18 at 10:00 ROSSANA MCKEON MD September 29, 2018 09:03
[2018-09-29] MEDS ORDERED: LORAZEPAM 2 MG INJ IV PRN (10:00)
[2018-09-29] MEDS: SOD CHLORIDE 0.9% 1,000 ML IV SCH ×2 (10:54→23:00)
--- NOTE | 2018-09-29 11:47 | CONS ---
Assessment/Plan Assessment/Plan Hospital Course 63 yo M with extensive neurologic hx and multiple comorbidities who presents to the ICU following a cardiac arrest. TTM was deferred d/t pt's poor neurologic status at baseline. He was noted to have face and arm twitching, for which neurology is consulted. The clinical picture suggests seizures in the context of hypoxic ischemic cerebral injury. CTH is without obvious acute intracranial pathology. P: EEG to further exclude NCS OK to cont Keppra as scheduled. Load with dilantin 1g and start maintenance 100 TID; titrate PRN to goal level ~20 Ativan IV PRN seizure >5 min or for cluster ASA for secondary stroke prevention MRI brain when medically able Will follow clinically, to recommend neurologic studies, as necessary Consultation Date/Type/Reason Admit Date/Time September 28, 2018 Type of Consult Neurology Reason for Consultation eval for seizures Requesting Provider: ROSSANA MCKEON MD Date/Time of Note DATE: 09/29/18 TIME: 11:47 Hx of Present Illness The pt is currently unable to contribute a hx. In the ICU, the pt was noted to develop face/arm twitching, concerning for seizures. It is additionally elsewhere noted: Hx of Present Illness Mr. Alejandro is a 73 yo man trached and vent dependent who presents in acute cardiac arrest. History taken per sister via phone and per prior charting. Apparently the patient had several strokes, about 3 or 4, which left him severely disabled. For about 5 years he has been bedridden, minimally responsive, able to track with his eyes but unable to speak, write, or otherwise communicate. About 1 month ago he was hospitalized for L arm swelling. He developed pneumonia during this hospitalization and required tracheostomy, which he still has now. He was discharged to his care home where he was on a course of amikacin and ceftazidime. He was last seen normal around 11:30 PM last night. When EMS arrived at 12 noon, he was undergoing CPR for approximately 7 minutes by the nursing staff. He has tracheostomy, was having CPR and received 5 epinephrine IV proximally 3-5 mi nutes apart. He had ROSC at 12:20 PM upon arrival to the emergency department The patient arrived with a POLST signed by his sister Ana Maria Pelletier which says full code. I spoke to her on the phone and she confirmed this decision stands. She was unable to clarify further; as she was driving. Subjective hx not possible: pt non-verbal, pt critical, pt critical status Exam/Review of Systems Exam Vitals Vital Signs Date Temp Pulse Resp B/P (MAP) Pulse Ox O2 O2 Flow FiO2 Time Delivery Rate 09/29/18 70 08:00 09/29/18 23 89/58 (68) 100 06:15 09/29/18 30 05:25 09/29/18 97.5 04:00 09/28/18 Mechanical 19:00 Ventilator Intake and Output 09/28/18 09/28/18 09/29/18 1515:00 23:00 07:00 IntakeIntake Total 81.8 ml 816.4 ml OutputOutput Total 335 ml 670 ml BalanceBalance -253.2 ml 146.4 ml Exam PE: Gen Appearance: No Apparent Distress HEENT: trached Cardiovascular: Regular rate Abdomen: Soft; PEG Extremities: Dry NE: The patient was comatose. Cranial nerve examination was limited by mental status. Pupils were pinpoint. There was no afferent pupillary defect. Funduscopic examination was limited. Face was grossly symmetric, w/ present corneal and cough reflexes. Tone was increased in the upper extremities. Muscle bulk was normal. I did not see fasciculations. The patient withdrew his RUE to noxious stimuli; he did not withdraw his other extremities. Coordination and gait testing was limited by mental status. Arm and leg reflexes were symmetric. Nicholson's sign was absent. Plantar responses were mute. Results Result Diagram: 09/29/18 0400 09/29/18 0400 Results 24hrs Laboratory Tests Test 09/28/18 12:34 09/28/18 12:39 09/28/18 13:30 09/28/18 13:31 Bedside Glucose 209 166 Blood Gas Blood arterial Specimen Source Arterial Blood 09/28/2018 2:50: Date Drawn 29 PM Arterial Blood 7.480 H pH (Temp corrected) Arterial Blood 33.2 L pCO2 (Temp correct) Arterial Blood 578.2 H pO2 (Temp corrected) Arterial Blood 24.2 HCO3 Arterial Blood 1.1 Base Excess Arterial Blood 99.7 H Oxygen Saturatio n Amadeo Test ACCEPTAB Arterial Blood Left Radial Gas Puncture Site Arterial 0.3 Blood Carboxyhem oglobin Arterial Blood 0.3 Methemoglobin Blood Gas A-a O2 101.6 H Differential Oxyhemoglobin 99.1 H Percent Blood Gas 37.0 Temperature Blood Gas 20.0 Respiration Rate Blood Gas Actual 23 Respiration Rate Blood Gas VENT - AC Modality FiO2 100.0 Blood Gas Tidal 500.0 Volume Blood Gas High 0 PEEP Setting Blood Gas RT Notified Whom Blood Gas 09/28/2018 3:05: Notified Time 11 PM White Blood 22.9 #H Count Red Blood Count 3.84 L Hemoglobin 9.9 L Hematocrit 31.7 L Mean Corpuscular 82.6 Volume Mean Corpuscular 25.8 L Hemoglobin Mean Corpuscular 31.2 L Hemoglobin Eve nt Red Cell 21.2 #H Distribution Width Platelet Count 271 # Mean Platelet 10.6 #H Volume Immature 8.800 H Granulocytes % Neutrophils % Segmented 59 Neutrophils % (Manual) Band Neutrophils 12 H % (Manual) Lymphocytes % Lymphocytes % 24 (Manual) Monocytes % Monocytes % 1 (Manual) Eosinophils % Eosinophils % 1 (Manual) Basophils % Metamyelocytes % 1 H (manual) Myelocytes % 2 H (Manual) Nucleated Red 0.4 H Blood Cells % Immature 2.010 H Granulocytes # Neutrophils # Neutrophils # 14.1 H (Manual) Band Neutrophils 2.7 H # Lymphocytes 5.4 H (Manual) Lymphocytes # Monocytes # Monocytes # 0.2 L (Manual) Eosinophils # Basophils # Metamyelocytes # 0.2 H Myelocytes # 0.4 H Nucleated Red Blood Cells # Platelet NORMAL Estimate Giant Platelets 1 H Polychromasia 3+ Poikilocytosis 1+ Anisocytosis 2+ Microcytosis 2+ Prothrombin Time 16.7 H Prothrombin Time 1.3 Ratio INR 1.34 International Normalized Ratio Activated 47.0 H Partial Thrombop last Time Sodium Level 134 L Potassium Level 5.1 Chloride Level 96 L Carbon Dioxide 24 Level Anion Gap 14 H Blood Urea 24 H Nitrogen Creatinine 0.69 Est Glomerular > 60 Filtrat Rate mL/min Glucose Level 164 Calcium Level 9.3 Phosphorus Level 8.2 H Magnesium Level 2.0 Total Bilirubin 0.3 Direct Bilirubin 0.00 Indirect 0.3 Bilirubin Aspartate Amino 393 H Transf (AST/SGOT ) Alanine 190 H Aminotransferase (ALT/SGPT) Alkaline 322 H Phosphatase Troponin I 0.127 *H Total Protein 8.7 H Albumin 3.1 L Globulin 5.60 H Albumin/Globulin 0.55 Ratio Lipase 160 Ethyl Alcohol < 10.0 H Level Test 09/28/18 13:47 09/28/18 19:23 09/28/18 22:02 09/29/18 04:00 POC Venous 6.5 *H Lactate Lactic Acid 4.9 *H 5.1 *H Level White Blood 28.6 #H Count Red Blood Count 3.60 L Hemoglobin 9.2 L Hematocrit 28.7 L Mean Corpuscular 79.7 L Volume Mean Corpuscular 25.6 L Hemoglobin Mean Corpuscular 32.1 Hemoglobin Eve nt Red Cell 20.9 H Distribution Width Platelet Count 210 # Mean Platelet 10.2 Volume Immature 1.000 H Granulocytes % Neutrophils % Segmented 80 H Neutrophils % (Manual) Band Neutrophils 15 H % (Manual) Lymphocytes % Lymphocytes % 4 L (Manual) Monocytes % Monocytes % 1 (Manual) Eosinophils % Basophils % Nucleated Red 0.0 Blood Cells % Immature 0.290 H Granulocytes # Neutrophils # Neutrophils # 24.1 H (Manual) Band Neutrophils 4.2 H # Lymphocytes 1.1 (Manual) Lymphocytes # Monocytes # Monocytes # 0.2 L (Manual) Eosinophils # Basophils # Nucleated Red Blood Cells # Platelet NORMAL Estimate Polychromasia 1+ Hypochromasia 1+ Poikilocytosis 1+ Anisocytosis 1+ Microcytosis 1+ Macrocytosis 1+ Target Cells 1+ Sodium Level 137 Potassium Level 4.2 Chloride Level 103 Carbon Dioxide 28 Level Anion Gap 6 # Blood Urea 33 H Nitrogen Creatinine 1.01 Est Glomerular > 60 Filtrat Rate mL/min Glucose Level 86 # Hemoglobin A1c 5.5 Calcium Level 8.9 Phosphorus Level 3.8 # Magnesium Level 1.5 L Total Bilirubin 0.2 Direct Bilirubin 0.00 Indirect 0.2 Bilirubin Aspartate Amino 279 H Transf (AST/SGOT ) Alanine 138 H Aminotransferase (ALT/SGPT) Alkaline 229 H Phosphatase Total Protein 7.9 Albumin 2.8 L Globulin 5.10 H Albumin/Globulin 0.54 Ratio Test 09/29/18 07:01 Blood Gas Blood arterial Specimen Source Arterial Blood 09/29/2018 7:15: Date Drawn 00 AM Arterial Blood 7.509 H pH (Temp corrected) Arterial Blood 35.9 pCO2 (Temp correct) Arterial Blood 134.0 H pO2 (Temp corrected) Arterial Blood 27.9 H HCO3 Arterial Blood 4.7 H Base Excess Arterial Blood 98.4 H Oxygen Saturatio n Amadeo Test ACCEPTAB Arterial Blood Right Radial Gas Puncture Site Arterial 0.3 Blood Carboxyhem oglobin Arterial Blood 0.5 Methemoglobin Blood Gas A-a O2 37.7 H Differential Oxyhemoglobin 97.6 Percent Blood Gas 37.0 Temperature Blood Gas 20.0 Respiration Rate Blood Gas Actual 20 Respiration Rate Blood Gas VENT - AC Modality FiO2 30.0 Blood Gas Tidal 500.0 Volume Blood Gas Low 5.0 PEEP Setting Blood Gas TM Notified Whom Blood Gas 09/29/2018 7:52: Notified Time 44 AM Medications Medication Current Medications IV Flush (NS 3 ml) 3 ml PER PROTOCOL IV ; Start 09/28/18 at 17:30 Ondansetron HCl (Zofran Inj) 4 mg Q6H PRN IV NAUSEA/VOMITING; Start 09/28/18 at 17:30 Famotidine (Pepcid Iv) 20 mg DAILY IV Last administered on 09/28/18at 22:10; Admin Dose 20 MG; Start 09/28/18 at 18:00 Norepinephrine 250 ml @ 1.875 mls/ hr TITRATE IV Last administered on 09/28/18at 22:09; Admin Dose 1.875 MLS/HR; Start 09/28/18 at 19:30 Vancomycin HCl (Vanco Iv Per Pharmacy) VANCOMYCIN PER PHARMACY PER PROTOCOL XX ; Start 09/28/18 at 22:00 Meropenem/Sodium Chloride 50 ml @ 100 mls/hr Q12 IVPB Last administered on 09/29/18at 09:51; Admin Dose 100 MLS/HR; Start 09/29/18 at 01:00 Sodium Chloride 1,000 ml @ 80 mls/hr [id number] IV Last administered on 09/29/18at 10:54; Admin Dose 80 MLS/HR; Start 09/28/18 at 22:00 Vancomycin/Sodium Chloride 250 ml @ 125 mls/hr Q12H IVPB Last administered on 09/29/18at 04:01; Admin Dose 125 MLS/HR; Start 09/29/18 at 05:00 Levetiracetam 100 ml @ 400 mls/hr Q12 IVPB ; Start 09/29/18 at 10:00 Enoxaparin Sodium (Lovenox) 40 mg DAILY SC ; Start 09/30/18 at 09:00 Miscellaneous Information (*Rx Drug Level Order Reminder*) VANCO TROUGH ON 09/16... 0400 ONCE XX ; Start 09/30/18 at 04:00; Stop 09/30/18 at 04:01 Lorazepam (Ativan) 1 mg Q10MIN PRN IV SEIZURES Last administered on 09/29/18at 10:52; Admin Dose 1 MG; Start 09/29/18 at 10:00 Zinc Sulfate (Zinc Sulfate) 220 mg DAILY GTB ; Start 09/30/18 at 09:00 Multivitamins (Multivitamin) 30 ml DAILY GTB ; Start 09/30/18 at 09:00 Ascorbic Acid (Vitamin C) 500 mg DAILY GTB ; Start 09/30/18 at 09:00 Past Medical History reviewed Medical History: coronary artery disease, high cholesterol, other (History of strokes and dysphagia and respiratory failure, COPD) Home Meds Reported Medications Magnesium Hydroxide* (Milk Of Magnesia*) 400 Mg/5 Ml Oral.susp, 30 ML GTB DAILY, ML 09/28/18 Docusate Sodium* (Colace*) 100 Mg Capsule, 100 MG GTB DAILY, #30 CAP 09/28/18 Acetaminophen* (Acetaminophen*) 650 Mg Tablet, 650 MG GTB Q4 PRN for PAIN LEVEL 1-3, #30 TAB 09/28/18 Acetaminophen* (Acetaminophen*) 500 MG Extra Strength Tablet, 1000 MG GTB Q4 PRN for PAIN LEVELL 4-10, TAB 09/28/18 Chlorhexidine Gluconate (Peridex) 473 Ml Mouthwash, 15 ML MM Q12, BOTTLE 09/28/18 Pantoprazole* (Protonix*) 40 Mg Tablet.dr, 40 MG GTB DAILY, TAB 09/28/18 Tamsulosin Hcl* (Flomax*) 0.4 Mg Cap.er.24h, 0.4 MG GTB DAILY, CAP 09/28/18 Famotidine* (Famotidine*) 20 Mg Tablet, 20 MG GTB DAILY, #30 TAB 09/28/18 Donepezil* (Aricept*) 5 Mg Tablet, 5 MG GTB DAILY, TAB 07/18/17 Atorvastatin Calcium* (Atorvastatin Calcium*) 20 Mg Tablet, 20 MG GTB QHS, #30 TAB 07/08/17 Discontinued Reported Medications Amino Acids/Protein Hydrolys (PRO-STAT AWC LIQUID) 887 Ml Liquid, 30 ML GTB TID 11/03/17 Acetaminophen* (Acetaminophen*) 650 Mg Tablet, 650 MG PO Q6H PRN for PAIN AND OR ELEVATED TEMP, #30 TAB 11/03/17 Pantoprazole* (Pantoprazole*) 40 Mg Tablet.dr, 40 MG PO BID, TAB 11/03/17 Ascorbic Acid* (Vitamin C*) 500 Mg Capsule.sa, 500 MG GTB DAILY, CAP 11/03/17 Hydrocodone/Acetaminophen ([place] 5-325 Tablet) 1 Each Tablet, 1 EACH PO Q4 PRN for SEVERE PAIN LEVEL 7-10, TAB 11/03/17 Isosorbide Dinitrate* (Isosorbide Dinitrate*) 10 Mg Tablet, 10 MG GTB TID, TAB 07/08/17 Multivitamins* (Theragran*) 1 Tab Tab, 1 TAB GTB DAILY, TAB 07/08/17 Folic Acid* (Folic Acid*) 1 Mg Tablet, 1 MG GTB DAILY, TAB 07/08/17 Aspirin* (Aspirin* EC) 81 Mg Tablet.dr, 81 MG GTB DAILY, TAB 07/08/17 Discontinued Scripts Nifedipine* (Procardia*) 10 Mg Capsule, 20 MG GTB TID, #30 CAP Prov:FREGOSOMADDY V. COSMETOLOGIST APPRENTICE 11/07/17 Hydralazine Hcl* (Hydralazine Hcl*) 25 Mg Tab, 50 MG GTB TID, #90 TAB Prov:FREGOSOELISEOA V. COSMETOLOGIST APPRENTICE 11/07/17 Sulfamethoxazole/Trimethoprim* (Bactrim Ds* Tablet) 1 Each Tablet, 1 TAB PO BID for 7 Days, #14 TAB Prov:FREGOSOMADDY V. COSMETOLOGIST APPRENTICE 11/06/17 Medications Current Medications IV Flush (NS 3 ml) 3 ml PER PROTOCOL IV ; Start 09/28/18 at 17:30 Ondansetron HCl (Zofran Inj) 4 mg Q6H PRN IV NAUSEA/VOMITING; Start 09/28/18 at 17:30 Famotidine (Pepcid Iv) 20 mg DAILY IV Last administered on 09/28/18at 22:10; Admin Dose 20 MG; Start 09/28/18 at 18:00 Norepinephrine 250 ml @ 1.875 mls/ hr TITRATE IV Last administered on 09/28/18at 22:09; Admin Dose 1.875 MLS/HR; Start 09/28/18 at 19:30 Vancomycin HCl (Vanco Iv Per Pharmacy) VANCOMYCIN PER PHARMACY PER PROTOCOL XX ; Start 09/28/18 at 22:00 Meropenem/Sodium Chloride 50 ml @ 100 mls/hr Q12 IVPB Last administered on 09/29/18at 09:51; Admin Dose 100 MLS/HR; Start 09/29/18 at 01:00 Sodium Chloride 1,000 ml @ 80 mls/hr [id number] IV Last administered on 09/29/18at 10:54; Admin Dose 80 MLS/HR; Start 09/28/18 at 22:00 Vancomycin/Sodium Chloride 250 ml @ 125 mls/hr Q12H IVPB Last administered on 09/29/18at 04:01; Admin Dose 125 MLS/HR; Start 09/29/18 at 05:00 Levetiracetam 100 ml @ 400 mls/hr Q12 IVPB ; Start 09/29/18 at 10:00 Enoxaparin Sodium (Lovenox) 40 mg DAILY SC ; Start 09/30/18 at 09:00 Miscellaneous Information (*Rx Drug Level Order Reminder*) VANCO TROUGH ON 09/16. .. 0400 ONCE XX ; Start 09/30/18 at 04:00; Stop 09/30/18 at 04:01 Lorazepam (Ativan) 1 mg Q10MIN PRN IV SEIZURES Last administered on 09/29/18at 10:52; Admin Dose 1 MG; Start 09/29/18 at 10:00 Zinc Sulfate (Zinc Sulfate) 220 mg DAILY GTB ; Start 09/30/18 at 09:00 Multivitamins (Multivitamin) 30 ml DAILY GTB ; Start 09/30/18 at 09:00 Ascorbic Acid (Vitamin C) 500 mg DAILY GTB ; Start 09/30/18 at 09:00 Allergies: Coded Allergies: No Known Allergy (Unverified , 09/28/18) Past Surgical History reviewed Past Surgical Hx: no surgical history Social History reviewed Alcohol Use: none Smoking Status: Former smoker Drug Use: none ANTONY SOLORZANO NP September 29, 2018 11:47 AZALIA ENRIQUE September 30, 2018 06:54
[2018-09-29] MEDS: LEVETIRACETAM 500 MG (PMX) 100 ML IVPB SCH ×2 (13:05→20:52)
[2018-09-29] MEDS: NORepinephrine 8MG/250 ML (PMX 250 ML IV SCH (13:09)
[2018-09-29] MEDS ORDERED: PHENYTOIN 1,000 MG in SOD CHLORIDE 0.9% 100 ML IV ONE (13:30)
[2018-09-29] MEDS ORDERED: PHENYTOIN 100 MG INJ IV SCH (14:00)
--- NOTE | 2018-09-29 14:04 | CONS ---
DATE OF ADMISSION: 09/28/2018 DATE OF CONSULTATION: TYPE OF CONSULTATION: Pulmonary. REASON FOR CONSULTATION: Ventilator management. Thank you, Dr. Mckeon, for this consultation. HISTORY OF PRESENT ILLNESS: This is an unfortunate 63-year-old gentleman with multiple medical probl ems including severe encephalopathy, vent-dependent respiratory failure following prior history of se melvin stroke, dysphagia with G-tube, recurrent sepsis, came in yesterday following cardiopulmonary arr est at [facility] with subsequent spontaneous return of circulation. He was transferre d to intensive care unit where he has required vasopressor support, continuous mechanical ventilation and remains in persistent vegetative state. PAST MEDICAL HISTORY: As above. MEDICATIONS: Per chart. ALLERGIES: NONE. SOCIAL HISTORY: He is an ex-smoker, no alcohol, no history of drug use. FAMILY HISTORY: Noncontributory. SYSTEMS REVIEW: A 12-point review of systems is unable to perform. PHYSICAL EXAMINATION: GENERAL: Elderly-appearing gentleman, unresponsive on mechanical ventilation. HEENT: His pupils are fixed and dilated. VITAL SIGNS: Temperature 98, pulse is 70, blood pressure 89/58, O2 saturation 96%, FiO2 of 30%. NECK: Trach site is clean and intact. CARDIAC: S1, S2. No added sounds or murmurs. CHEST: Diminished air entry bilaterally. ABDOMEN: Soft, nontender. No guarding or rebound. EXTREMITIES: No cyanosis, clubbing. A 1+ edema. NEUROLOGIC: Unable to assess vegetative state. LABORATORIES: White count 28.6, hemoglobin 9.2, platelets 210. BUN 33, creatinine 1.01. Arterial b lood gas: pH 7.5, pCO2 of 35, pO2 of 134. DIAGNOSTIC DATA: Chest x-ray was reviewed which demonstrated no infiltrates or effusions. IMPRESSION AND PLAN: 1. Cardiopulmonary arrest. 2. History of prior cerebrovascular accident with severe encephalopathy and vegetative state. 3. Septic shock, possible brain . 4. History of dysphagia. PLAN: 1. Neuro evaluation for brain examination. 2. Continue vasopressor. 3. Antibiotics. 4. DVT and GI prophylaxis. Dictated By: LES CONDE MD SV/NTS Conf#: [id number] DID#: [id number] CC: ROSSANA MCKEON MD;*EndCC*
[2018-09-29] MEDS ORDERED: MAGNESIUM SULFATE 2 GM/50 ML 50 ML IVPB ONE (17:00)
--- NOTE | 2018-09-29 19:06 | CONS ---
Consult Date/Type/Reason Admit Date/Time September 28, 2018 at 15:36 Initial Consult Date 09/28/18 Type of Consultation: Urology Reason for Consultation Difficulty inserting a Gilman catheter to monitor his urine output following a cardiac arrest. Requesting Provider: ROSSANA MCKEON MD Date/Time of Note DATE: 09/29/18 TIME: 19:00 Subjective The patient general condition is unchanged. He still nonreactive and all encephalopathic and is on levophed Objective Vitals Vital Signs Date Temp Pulse Resp B/P (MAP) Pulse Ox O2 O2 Flow FiO2 Time Delivery Rate 09/29/18 71 20 100 30 17:20 09/29/18 88/63 (71) Mechanical 14:00 Ventilator 09/29/18 98.0 12:00 Intake and Output 09/28/18 09/28/18 09/29/18 1515:00 23:00 07:00 IntakeIntake Total 81.8 ml 833.275 ml OutputOutput Total 335 ml 670 ml BalanceBalance -253.2 ml 163.275 ml Exam Patient has a condom catheter on and he had about 40 mL of clear urine Results/Medications Result Diagram: 09/29/18 0400 09/29/18 0400 Results 24 hrs Laboratory Tests Test 09/28/18 19:23 09/28/18 22:02 09/29/18 04:00 09/29/18 07:01 Lactic Acid Level 4.9 *H 5.1 *H White Blood Count 28.6 #H Red Blood Count 3.60 L Hemoglobin 9.2 L Hematocrit 28.7 L Mean Corpuscular 79.7 L Volume Mean Corpuscular 25.6 L Hemoglobin Mean Corpuscular 32.1 Hemoglobin Concen t Red Cell 20.9 H Distribution Width Platelet Count 210 # Mean Platelet 10.2 Volume Immature 1.000 H Granulocytes % Neutrophils % Segmented 80 H Neutrophils % (Manual) Band Neutrophils 15 H % (Manual) Lymphocytes % Lymphocytes % 4 L (Manual) Monocytes % Monocytes % 1 (Manual) Eosinophils % Basophils % Nucleated Red 0.0 Blood Cells % Immature 0.290 H Granulocytes # Neutrophils # Neutrophils # 24.1 H (Manual) Band Neutrophils 4.2 H # Lymphocytes 1.1 (Manual) Lymphocytes # Monocytes # Monocytes # 0.2 L (Manual) Eosinophils # Basophils # Nucleated Red Blood Cells # Platelet Estimate NORMAL Polychromasia 1+ Hypochromasia 1+ Poikilocytosis 1+ Anisocytosis 1+ Microcytosis 1+ Macrocytosis 1+ Target Cells 1+ Sodium Level 137 Potassium Level 4.2 Chloride Level 103 Carbon Dioxide 28 Level Anion Gap 6 # Blood Urea 33 H Nitrogen Creatinine 1.01 Est Glomerular > 60 Filtrat Rate mL/min Glucose Level 86 # Hemoglobin A1c 5.5 Calcium Level 8.9 Phosphorus Level 3.8 # Magnesium Level 1.5 L Total Bilirubin 0.2 Direct Bilirubin 0.00 Indirect 0.2 Bilirubin Aspartate Amino 279 H Transf (AST/SGOT) Alanine 138 H Aminotransferase (ALT/SGPT) Alkaline 229 H Phosphatase Total Protein 7.9 Albumin 2.8 L Globulin 5.10 H Albumin/Globulin 0.54 Ratio Blood Gas Blood arterial Specimen Source Arterial Blood 09/29/2018 7:15:0 Date Drawn 0 AM Arterial Blood pH 7.509 H (Temp corrected) Arterial Blood 35.9 pCO2 (Temp correct) Arterial Blood 134.0 H pO2 (Temp corrected) Arterial Blood 27.9 H HCO3 Arterial Blood 4.7 H Base Excess Arterial Blood 98.4 H Oxygen Saturation Amadeo Test ACCEPTAB Arterial Blood Right Radial Gas Puncture Site Arterial 0.3 Blood Carboxyhemo globin Arterial Blood 0.5 Methemoglobin Blood Gas A-a O2 37.7 H Differential Oxyhemoglobin 97.6 Percent Blood Gas 37.0 Temperature Blood Gas 20.0 Respiration Rate Blood Gas Actual 20 Respiration Rate Blood Gas VENT - AC Modality FiO2 30.0 Blood Gas Tidal 500.0 Volume Blood Gas Low 5.0 PEEP Setting Blood Gas TM Notified Whom Blood Gas 09/29/2018 7:52:4 Notified Time 4 AM Test 09/29/18 16:21 Phenytoin 15.7 (Dilantin) Level Home Meds Reported Medications Magnesium Hydroxide* (Milk Of Magnesia*) 400 Mg/5 Ml Oral.susp, 30 ML GTB DAILY, ML 09/28/18 Docusate Sodium* (Colace*) 100 Mg Capsule, 100 MG GTB DAILY, #30 CAP 09/28/18 Acetaminophen* (Acetaminophen*) 650 Mg Tablet, 650 MG GTB Q4 PRN for PAIN LEVEL 1-3, #30 TAB 09/28/18 Acetaminophen* (Acetaminophen*) 500 MG Extra Strength Tablet, 1000 MG GTB Q4 PRN for PAIN LEVELL 4-10, TAB 09/28/18 Chlorhexidine Gluconate (Peridex) 473 Ml Mouthwash, 15 ML MM Q12, BOTTLE 09/28/18 Pantoprazole* (Protonix*) 40 Mg Tablet.dr, 40 MG GTB DAILY, TAB 09/28/18 Tamsulosin Hcl* (Flomax*) 0.4 Mg Cap.er.24h, 0.4 MG GTB DAILY, CAP 09/28/18 Famotidine* (Famotidine*) 20 Mg Tablet, 20 MG GTB DAILY, #30 TAB 09/28/18 Donepezil* (Aricept*) 5 Mg Tablet, 5 MG GTB DAILY, TAB 07/18/17 Atorvastatin Calcium* (Atorvastatin Calcium*) 20 Mg Tablet, 20 MG GTB QHS, #30 TAB 07/08/17 Discontinued Reported Medications Amino Acids/Protein Hydrolys (PRO-STAT AWC LIQUID) 887 Ml Liquid, 30 ML GTB TID 11/03/17 Acetaminophen* (Acetaminophen*) 650 Mg Tablet, 650 MG PO Q6H PRN for PAIN AND OR ELEVATED TEMP, #30 TAB 11/03/17 Pantoprazole* (Pantoprazole*) 40 Mg Tablet.dr, 40 MG PO BID, TAB 11/03/17 Ascorbic Acid* (Vitamin C*) 500 Mg Capsule.sa, 500 MG GTB DAILY, CAP 11/03/17 Hydrocodone/Acetaminophen ([place] 5-325 Tablet) 1 Each Tablet, 1 EACH PO Q4 PRN for SEVERE PAIN LEVEL 7-10, TAB 11/03/17 Isosorbide Dinitrate* (Isosorbide Dinitrate*) 10 Mg Tablet, 10 MG GTB TID, TAB 07/08/17 Multivitamins* (Theragran*) 1 Tab Tab, 1 TAB GTB DAILY, TAB 07/08/17 Folic Acid* (Folic Acid*) 1 Mg Tablet, 1 MG GTB DAILY, TAB 07/08/17 Aspirin* (Aspirin* EC) 81 Mg Tablet.dr, 81 MG GTB DAILY, TAB 07/08/17 Discontinued Scripts Nifedipine* (Procardia*) 10 Mg Capsule, 20 MG GTB TID, #30 CAP Prov:MADDY FREGOSO V. CALCULATION REVIEWER 11/07/17 Hydralazine Hcl* (Hydralazine Hcl*) 25 Mg Tab, 50 MG GTB TID, #90 TAB Prov:FREGOSO,MADDY V. CALCULATION REVIEWER 11/07/17 Sulfamethoxazole/Trimethoprim* (Bactrim Ds* Tablet) 1 Each Tablet, 1 TAB PO BID for 7 Days, #14 TAB Prov:MADDY FREGOSO V. CALCULATION REVIEWER 11/06/17 Medications Current Medications IV Flush (NS 3 ml) 3 ml PER PROTOCOL IV ; Start 09/28/18 at 17:30 Ondansetron HCl (Zofran Inj) 4 mg Q6H PRN IV NAUSEA/VOMITING; Start 09/28/18 at 17:30 Famotidine (Pepcid Iv) 20 mg DAILY IV Last administered on 09/28/18at 22:10; Admin Dose 20 MG; Start 09/28/18 at 18:00 Norepinephrine 250 ml @ 1.875 mls/ hr TITRATE IV Last administered on 09/29/18at 13:09; Admin Dose 1.875 MLS/HR; Start 09/28/18 at 19:30 Vancomycin HCl (Vanco Iv Per Pharmacy) VANCOMYCIN PER PHARMACY PER PROTOCOL XX ; Start 09/28/18 at 22:00 Meropenem/Sodium Chloride 50 ml @ 100 mls/hr Q12 IVPB Last administered on 09/29/18at 09:51; Admin Dose 100 MLS/HR; Start 09/29/18 at 01:00 Sodium Chloride 1,000 ml @ 80 mls/hr [id number] IV Last administered on 09/29/18at 10:54; Admin Dose 80 MLS/HR; Start 09/28/18 at 22:00 Vancomycin/Sodium Chloride 250 ml @ 125 mls/hr Q12H IVPB Last administered on 09/29/18at 04:01; Admin Dose 125 MLS/HR; Start 09/29/18 at 05:00 Levetiracetam 100 ml @ 400 mls/hr Q12 IVPB Last administered on 09/29/18at 13:05; Admin Dose 400 MLS/HR; Start 09/29/18 at 10:00 Enoxaparin Sodium (Lovenox) 40 mg DAILY SC ; Start 09/30/18 at 09:00 Miscellaneous Information (*Rx Drug Level Order Reminder*) VANCO TROUGH ON 09/16... 0400 ONCE XX ; Start 09/30/18 at 04:00; Stop 09/30/18 at 04:01 Lorazepam (Ativan) 1 mg Q10MIN PRN IV SEIZURES Last administered on 09/29/18at 10:52; Admin Dose 1 MG; Start 09/29/18 at 10:00 Zinc Sulfate (Zinc Sulfate) 220 mg DAILY GTB ; Start 09/30/18 at 09:00 Multivitamins (Multivitamin) 30 ml DAILY GTB ; Start 09/30/18 at 09:00 Ascorbic Acid (Vitamin C) 500 mg DAILY GTB ; Start 09/30/18 at 09:00 Aspirin (Aspirin) 81 mg DAILY PO ; Start 09/30/18 at 09:00 Phenytoin (Dilantin) 100 mg Q8 IV ; Start 09/29/18 at 22:00 Assessment/Plan Hospital Course (Demo Recall) 63-year-old -[place] male, resident of his halfway facility, was brought to the emergency room because of cardiac arrest. Attempts in the emergency room to insert a Gilman catheter were not successful. A urologic consultation was requested. The patient himself is not communicative he is on a respirator through the tracheostomy which he had for a while also he does have a G-tube. 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 His bladder did not seem to be distended. I did prep the genital area and then tried a 16 Polish coud catheter and that was met with resistance. Therefore I proceeded to do urethral dilatation using filiforms and followers. I used a 3 Polish 4 Polish spiral tip and straight tip filiforms and attempted to have these go into his bladder but that was not successful I tried at one time to see if I could advance the follower on the filiform but that also did not go into the bladder. I therefore did not any further attempt to insert the catheter. We placed a condom catheter and the patient has voided about 40 mL of clear urine the whole day. He is on vasopressor levophed. Bladder is not distended and there is no urinary retention. Urologically will continue with the condom catheter and should he get better then I could try again to insert a Gilman catheter or if he goes into urinary retention I will put a suprapubic tube LETY SALGADO MD September 29, 2018 19:06
[2018-09-29] MEDS: PHENYTOIN 100 MG INJ IV SCH (22:45)
[2018-09-30] VITALS (103 sets, daily range): BP systolic 72–145; BP diastolic 53–84; PULSE 57–72; RESP 10–19
[2018-09-30] MEDS: SOD CHLORIDE 0.9% 1,000 ML IV SCH ×2 (02:05→13:49)
[2018-09-30] MEDS: NORepinephrine 8MG/250 ML (PMX 250 ML IV SCH ×2 (03:17→22:39)
[2018-09-30] MEDS: PHENYTOIN 100 MG INJ IV SCH ×3 (05:21→22:36)
--- NOTE | 2018-09-30 07:03 | EEG ---
EEG NOTE Report Details DATE OF TEST: 09/29/18 HISTORY: The patient is a 63-year-old M who presents with twitching movement s/p cardiac arrest. This EEG is requested to rule out nonconvulsive status epilepticus. SEDATION: ? CONDITIONS OF RECORDING: This EEG was recorded digitally on the [employer] machine, using the International 10-20 System of electrodes plus anterior temporals and Nz. STATES SAMPLED: Comatose. FINDINGS: The background is discontinuous...though grossly symmetric.. Brief active intervals are predominated by polymorphic delta activity. The normal [id number] frequency-amplitude gradient was absent. Photic stimulation does not elicit any definite driving responses or epileptiform discharges. Hyperventilation was not performed. No epileptiform discharges were seen. IMPRESSION: Abnormal electroencephalogram due to: severe diffuse slowing. AZALIA ENRIQUE September 30, 2018 07:03
[2018-09-30] MEDS ORDERED: VANCOMYCIN 750 MG (PMX) 250 ML IVPB SCH (08:00)
[2018-09-30] MEDS: LEVETIRACETAM 500 MG (PMX) 100 ML IVPB SCH ×2 (08:42→20:32)
[2018-09-30] MEDS: ZINC SULFATE 220 MG CAP GTB SCH (08:42)
[2018-09-30] MEDS: ASCORBIC ACID 500 MG TAB GTB SCH (08:42)
[2018-09-30] MEDS: ASPIRIN 81 MG TAB PO SCH (08:42)
[2018-09-30] MEDS: MULTIVITAMINS 30 ML CUP GTB SCH (08:42)
[2018-09-30] MEDS: MEROPENEM 1 GM/50ML(PMX) 50 ML IVPB SCH ×2 (08:44→20:32)
[2018-09-30] MEDS: DAKINS 0.0125%(1/40) 473 ML SOLUTION TP SCH ×2 (08:45→20:32)
[2018-09-30] MEDS: FAMOTIDINE 20 MG INJ IV SCH (08:55)
[2018-09-30] MEDS ORDERED: ENOXAPARIN 40 MG/0.4 ML SYG SC SCH (09:00)
--- NOTE | 2018-09-30 10:18 | PN ---
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 #Cardiac arrest - Etiology unclear. Was PEA on arrival to ED. May have been hypoxic arrest relat ed to trach like mucous plug or occlusion. - Patient has known very severe neurologic deficit. This precludes his eligibility for hypothermia protocol. - Still on pressors. - Minimal vent settings. - Also infectious workup with blood, urine cultures - Per discussion with sister, patient is full code although I do not believe this is ethically the right decision. #Facial twitching - Facial fasciculations likely myoclonic jerks. - EEG negative for seizure activity. - Neurology started keppra and phenytoin, these can likely be tapered off. - Will avoid sedating medications including benzos unless seizure is proven. #Oliguric CASTRO - On 09/30 patient stopping producing urine, bladder scan shows 200 cc. - Dr. Chand unable to get Gilman. Currently has condom cath. - New CASTRO with Cr to 1.8. - Due to his absence of meaningful neurologic function, would not offer dialysis to this patient. #Chronic disability after stroke - Patient trached, vent, not responsive, contractures - Supportive care - Continue tube feeds. #Acute diarrhea - After cardiac arrest patient is having unusual serous colored fluid, very large volume, coming from rectal tube. There is no stool. - Resume tube feeds. #Gastritis - Cont home H2 merlyn and PPI #Dyslipidemia - Cont home statin DVT: SCDs GI: PPI Result Diagram: 09/30/1845409/30/18454 Subjective 24 Hr Interval Summary Free Text/Dictation No acute overnight events. EEG yesterday no seizure activity. Still on norepinephrine. Patient now anuric. Has condom cath. Bladder scan this morning shows 200 cc. Exam/Review of Systems Exam Vitals Vital Signs Date Temp Pulse Resp B/P (MAP) Pulse Ox O2 O2 Flow FiO2 Time Delivery Rate 09/30/18 64 18 104/68 100 09:30 (80) 5/15/19 Mechanical 08:45 Ventilator Trach Collar 09/30/18 97.3 08:00 09/30/18 30 08:00 Intake and Output 09/29/18 09/29/18 09/30/18 1515:00 23:00 07:00 IntakeIntake Total 1580.625 ml 1333.125 ml 907.7705 ml OutputOutput Total 40 ml 450 ml 175 ml BalanceBalance 1540.625 ml 883.125 ml 732.7705 ml Exam Gen: Frail appearing man unresponsive in bed. Eyes: Pinpoint, nonreactive pupils bilaterally. No corneal reflex. Not tracking. HEENT: Drooling. Moist mucous membranes. Neck: No lymphadenopathy, no JVD. Card: Regular rate and rhythm; no murmurs Pulm: Ventilated breath sounds bilaterally. Abd: G tube in place, clean and dry. Soft nondistended. Ext: No cyanosis/clubbing/edema. Severely atrophied muscles. Neuro: Pupils pinpoint, nonreactive. Not responsive to sternal rub. Skin: Large keloid-like structure on right axilla and smaller nodule at G tube site. : Condom cath Results Results 24hrs Laboratory Tests Test 09/29/18 16:21 09/30/18 04:55 09/30/18 07:01 Phenytoin (Dilantin) Level 15.7 15.8 White Blood Count 18.4 #H Red Blood Count 3.12 L Hemoglobin 8.0 L Hematocrit 24.7 L Mean Corpuscular Volume 79.2 L Mean Corpuscular Hemoglobin 25.6 L Mean Corpuscular Hemoglobin Concent 32.4 Red Cell Distribution Width 21.6 H Platelet Count 220 Mean Platelet Volume 11.4 H Immature Granulocytes % 0.500 H Neutrophils % 84.3 H Lymphocytes % 8.2 L Monocytes % 6.7 Eosinophils % 0.2 Basophils % 0.1 Nucleated Red Blood Cells % 0.1 H Immature Granulocytes # 0.100 H Neutrophils # 15.5 H Lymphocytes # 1.5 Monocytes # 1.2 H Eosinophils # 0.0 Basophils # 0.0 Nucleated Red Blood Cells # 0.0 Sodium Level 139 Potassium Level 3.9 Chloride Level 107 Carbon Dioxide Level 25 Anion Gap 7 Blood Urea Nitrogen 42 H Creatinine 1.60 H Est Glomerular Filtrat Rate mL/min 53 L Glucose Level 123 Lactic Acid Level 1.2 Calcium Level 8.8 Phosphorus Level 3.7 Magnesium Level 2.0 Vancomycin Level Trough 26.3 *H Medications Medication Current Medications IV Flush (NS 3 ml) 3 ml PER PROTOCOL IV ; Start 09/28/18 at 17:30 Ondansetron HCl (Zofran Inj) 4 mg Q6H PRN IV NAUSEA/VOMITING; Start 09/28/18 at 17:30 Famotidine (Pepcid Iv) 20 mg DAILY IV Last administered on 09/30/18 08:55; Admin Dose 20 MG; Start 09/28/18 at 18:00 Norepinephrine 250 ml @ 1.875 mls/ hr TITRATE IV Last administered on 09/30/18 03:17; Admin Dose 15 MLS/HR; Start 09/28/18 at 19:30 Vancomycin HCl (Vanco Iv Per Pharmacy) VANCOMYCIN PER PHARMACY PER PROTOCOL XX ; Start 09/28/18 at 22:00 Meropenem/Sodium Chloride 50 ml @ 100 mls/hr Q12 IVPB Last administered on 09/30/18 08:44; Admin Dose 100 MLS/HR; Start 09/29/18 at 01:00 Sodium Chloride 1,000 ml @ 80 mls/hr [id number] IV Last administered on 09/30/18 02:05; Admin Dose 80 MLS/HR; Start 09/28/18 at 22:00 Levetiracetam 100 ml @ 400 mls/hr Q12 IVPB Last administered on 09/30/18 08:42; Admin Dose 400 MLS/HR; Start 09/29/18 at 10:00 Enoxaparin Sodium (Lovenox) 40 mg DAILY SC Last administered on 09/30/18 08:55; Admin Dose 40 MG; Start 09/30/18 at 09:00 Lorazepam (Ativan) 1 mg Q10MIN PRN IV SEIZURES Last administered on 09/29/18 10:52; Admin Dose 1 MG; Start 09/29/18 at 10:00 Zinc Sulfate (Zinc Sulfate) 220 mg DAILY GTB Last administered on 09/30/18 08:42; Admin Dose 220 MG; Start 09/30/18 at 09:00 Multivitamins (Multivitamin) 30 ml DAILY GTB Last administered on 09/30/18 08:42; Admin Dose 30 ML; Start 09/30/18 at 09:00 Ascorbic Acid (Vitamin C) 500 mg DAILY GTB Last administered on 09/30/18 08:42 ; Admin Dose 500 MG; Start 09/30/18 at 09:00 Aspirin (Aspirin) 81 mg DAILY PO Last administered on 09/30/18 08:42; Admin Dose 81 MG; Start 09/30/18 at 09:00 Phenytoin (Dilantin) 100 mg Q8 IV Last administered on 09/30/18at 05:21; Admin Dose 100 MG; Start 09/29/18 at 22:00 Vancomycin/Sodium Chloride 250 ml @ 125 mls/hr Q12H IVPB ; Start 09/30/18 at 08:00; Status Hold Sodium Hypochlorite (Dakins Diluted ()) 1 applic BID TP Last administered on 09/30/18 08:45; Admin Dose 1 APPLIC; Start 09/30/18 at 09:00 ROSSANA MCKEON MD September 30, 2018 10:17
--- NOTE | 2018-09-30 12:15 | CONS ---
Consult Date/Type/Reason Admit Date/Time September 28, 2018 at 15:36 Initial Consult Date 09/28/18 Type of Consult Pulmonary Requesting Provider: ROSSANA MCKEON MD Date/Time of Note DATE: 09/30/18 TIME: 12:12 Subjective Patient remains unresponsive on mechanical ventilation. Absent gag and pupil reflex. No spontaneous respiratory effort and now no urine output. Objective Vital Signs Date Temp Pulse Resp B/P (MAP) Pulse Ox O2 O2 Flow FiO2 Time Delivery Rate 09/30/18 61 18 107/67 100 11:30 (80) 09/30/18 Mechanical 11:00 Ventilator Trach Collar 09/30/18 97.3 08:00 09/30/18 30 08:00 Intake and Output 09/29/18 09/29/18 09/30/18 1414:59 22:59 06:59 IntakeIntake Total 1504.375 ml 1319.375 ml 901.5205 ml OutputOutput Total 40 ml 450 ml 175 ml BalanceBalance 1464.375 ml 869.375 ml 726.5205 ml Exam PHYSICAL EXAMINATION: GENERAL: Elderly-appearing gentleman, unresponsive on mechanical ventilation. HEENT: His pupils are fixed and dilated. VITAL SIGNS: NECK: Trach site is clean and intact. CARDIAC: S1, S2. No added sounds or murmurs. CHEST: Diminished air entry bilaterally. ABDOMEN: Soft, nontender. No guarding or rebound. EXTREMITIES: No cyanosis, clubbing. A 1+ edema. NEUROLOGIC: Unable to assess vegetative state. Vent Setting Ventilator Support Mode: AC Fraction of Inspired Oxygen pe: 30 Positive End Expiratory Pressu: 5.0 Results/Medications Result Diagram: 09/30/18 0455 09/30/18 0455 Results 24 hrs Laboratory Tests Test 09/29/18 16:21 09/30/18 04:55 09/30/18 07:01 Phenytoin (Dilantin) Level 15.7 15.8 White Blood Count 18.4 #H Red Blood Count 3.12 L Hemoglobin 8.0 L Hematocrit 24.7 L Mean Corpuscular Volume 79.2 L Mean Corpuscular Hemoglobin 25.6 L Mean Corpuscular Hemoglobin Concent 32.4 Red Cell Distribution Width 21.6 H Platelet Count 220 Mean Platelet Volume 11.4 H Immature Granulocytes % 0.500 H Neutrophils % 84.3 H Lymphocytes % 8.2 L Monocytes % 6.7 Eosinophils % 0.2 Basophils % 0.1 Nucleated Red Blood Cells % 0.1 H Immature Granulocytes # 0.100 H Neutrophils # 15.5 H Lymphocytes # 1.5 Monocytes # 1.2 H Eosinophils # 0.0 Basophils # 0.0 Nucleated Red Blood Cells # 0.0 Sodium Level 139 Potassium Level 3.9 Chloride Level 107 Carbon Dioxide Level 25 Anion Gap 7 Blood Urea Nitrogen 42 H Creatinine 1.60 H Est Glomerular Filtrat Rate mL/min 53 L Glucose Level 123 Lactic Acid Level 1.2 Calcium Level 8.8 Phosphorus Level 3.7 Magnesium Level 2.0 Vancomycin Level Trough 26.3 *H Medications Current Medications IV Flush (NS 3 ml) 3 ml PER PROTOCOL IV ; Start 09/28/18 at 17:30 Ondansetron HCl (Zofran Inj) 4 mg Q6H PRN IV NAUSEA/VOMITING; Start 09/28/18 at 17:30 Famotidine (Pepcid Iv) 20 mg DAILY IV Last administered on 09/30/18at 08:55; Admin Dose 20 MG; Start 09/28/18 at 18:00 Norepinephrine 250 ml @ 1.875 mls/ hr TITRATE IV Last administered on 09/30/18at 03:17; Admin Dose 15 MLS/HR; Start 09/28/18 at 19:30 Vancomycin HCl (Vanco Iv Per Pharmacy) VANCOMYCIN PER PHARMACY PER PROTOCOL XX ; Start 09/28/18 at 22:00 Meropenem/Sodium Chloride 50 ml @ 100 mls/hr Q12 IVPB Last administered on 09/30/18at 08:44; Admin Dose 100 MLS/HR; Start 09/29/18 at 01:00 Sodium Chloride 1,000 ml @ 80 mls/hr [id number] IV Last administered on 09/30/18at 02:05; Admin Dose 80 MLS/HR; Start 09/28/18 at 22:00 Levetiracetam 100 ml @ 400 mls/hr Q12 IVPB Last administered on 09/30/18at 08:42; Admin Dose 400 MLS/HR; Start 09/29/18 at 10:00 Lorazepam (Ativan) 1 mg Q10MIN PRN IV SEIZURES Last administered on 09/29/18at 10:52; Admin Dose 1 MG; Start 09/29/18 at 10:00 Zinc Sulfate (Zinc Sulfate) 220 mg DAILY GTB Last administered on 09/30/18 08:42; Admin Dose 220 MG; Start 09/30/18 at 09:00 Multivitamins (Multivitamin) 30 ml DAILY GTB Last administered on 09/30/18 08:42; Admin Dose 30 ML; Start 09/30/18 at 09:00 Ascorbic Acid (Vitamin C) 500 mg DAILY GTB Last administered on 09/30/18 08:4 2; Admin Dose 500 MG; Start 09/30/18 at 09:00 Aspirin (Aspirin) 81 mg DAILY PO Last administered on 09/30/18 08:42; Admin Dose 81 MG; Start 09/30/18 at 09:00 Phenytoin (Dilantin) 100 mg Q8 IV Last administered on 09/30/18 05:21; Admin Dose 100 MG; Start 09/29/18 at 22:00 Sodium Hypochlorite (Dakins Diluted (40)) 1 applic BID TP Last administered on 09/30/18 08:45; Admin Dose 1 APPLIC; Start 09/30/18 at 09:00 Heparin Sodium (Porcine) (Heparin (5000 Units/1ml)) 5,000 unit BID SC ; Start 10/01/18 at 09:00 Vancomycin HCl 250 ml @ 125 mls/hr Q24H IVPB ; Start 09/30/18 at 20:00 Assessment/Plan Hospital Course (Demo Recall) IMPRESSION AND PLAN: 1. Cardiopulmonary arrest. 2. Probable significant anoxic brain injury. 3. Septic shock, staph bacteremia noted. 4. History of dysphagia. 5. Acute renal failure probable ATN injury PLAN: 1. EEG and clinical findings noted. Likely severe anoxic brain injury 2. Continue vasopressor as needed. 3. Antibiotics. 4. DVT and GI prophylaxis. 5. Continue IV fluids Critical care time 40 minutes. Long discussion with family at bedside today. Explained patient's current condition and extremely poor prognosis given clinical findings. Also explained acute renal failure in addition to severe encephalopathy likely anoxic resulting in patient being ventilator dependent almost indefinitely. Family considering goals of care including CODE STATUS and possible transition to comfort care. LES CONDE MD, [facility] September 30, 2018 12:15
--- NOTE | 2018-09-30 14:32 | CONS ---
Assessment/Plan Assessment/Plan Hospital Course 63 yo M with extensive neurologic hx and multiple comorbidities who presents to the ICU following a cardiac arrest. TTM was deferred d/t pt's poor neurologic status at baseline. He was noted to have face and arm twitching, for which neurology is consulted. The clinical picture suggests seizures in the context of hypoxic ischemic cerebral injury. CTH is without obvious acute intracranial pathology. EEG is without epileptiform activity, though diffusely slow. P: OK to cont Keppra as scheduled. Cont dilantin 100 TID; titrate PRN to goal level 10-20 Ativan IV PRN seizure >5 min or for cluster ASA for secondary stroke prevention MRI brain when medically able Will follow clinically, to recommend neurologic studies, as necessary Consultation Date/Type/Reason Admit Date/Time September 28, 2018 at 15:36 Type of Consult Neurology Reason for Consultation eval for seizures Requesting Provider: ROSSANA MCKEON MD Date/Time of Note DATE: 09/30/18 TIME: 14:31 24 HR Interval Summary Free Text/Dictation Continues critical care. On levophed gtt. No reported seizure episodes/facial or arm twitching today. Exam Vital Signs Vitals Vital Signs Date Temp Pulse Resp B/P (MAP) Pulse Ox O2 O2 Flow FiO2 Time Delivery Rate 09/30/18 60 18 92/62 (72) 100 13:45 09/30/18 30 13:40 09/30/18 Mechanical 13:00 Ventilator 09/30/18 97.3 12:00 Intake and Output 09/29/18 09/29/18 09/30/18 1515:00 23:00 07:00 IntakeIntake Total 1580.625 ml 1333.125 ml 907.7705 ml OutputOutput Total 40 ml 450 ml 175 ml BalanceBalance 1540.625 ml 883.125 ml 732.7705 ml Exam PE: Gen Appearance: No Apparent Distress HEENT: trached Cardiovascular: Regular rate Abdomen: Soft; PEG Extremities: Dry NE: The patient was comatose. Cranial nerve examination was limited by mental status. Pupils were pinpoint. There was no afferent pupillary defect. Funduscopic examination was limited. Face was grossly symmetric, w/ present corneal and cough reflexes. Tone was increased in the upper extremities. Muscle bulk was normal. I did not see fasciculations. The patient did not withdraw his extremities to noxious stimuli. Coordination and gait testing was limited by mental status. Arm and leg reflexes were symmetric. Nicholson's sign was absent. Plantar responses were mute. ANTONY SOLORZANO NP September 30, 2018 14:32 AZALIA ENRIQUE October 01, 2018 07:06
--- NOTE | 2018-09-30 19:42 | PN ---
Date/Time of Note Date/Time of Note DATE: 09/30/18 TIME: 19:39 Assessment/Plan VTE Prophylaxis Risk score (from Ns)>0 risk: 9 SCD applied (from Ns): Yes Pharmacological prophylaxis: other Lines/Catheters IV Catheter Type (from Nrsg): Central Line Central line still needed: Yes Urinary Cath still in place: No Assessment/Plan Hospital Course 63-year-old male admitted to the hospital after cardiac arrest. Attempts to insert a Gilman catheter were not successful. Patient had a renal ultrasound done and that showed: 1. Diffusely increased renal cortical echogenicity bilaterally, consistent with medical renal disease. 2. Trace bilateral perinephric fluid. 3. Thickened urinary bladder wall with bladder debris and calcifications, concerning for stasis and possible infection/cystitis. Therefore I will try another time tomorrow morning to insert a Gilman catheter and if that is not successful and if it is agreeable with his family we will try to insert a suprapubic tube. Result Diagram: 09/30/18 0455 09/30/18 0455 Results 24hrs Laboratory Tests Test 09/30/18 04:55 09/30/18 07:01 White Blood Count 18.4 #H Red Blood Count 3.12 L Hemoglobin 8.0 L Hematocrit 24.7 L Mean Corpuscular Volume 79.2 L Mean Corpuscular Hemoglobin 25.6 L Mean Corpuscular Hemoglobin Concent 32.4 Red Cell Distribution Width 21.6 H Platelet Count 220 Mean Platelet Volume 11.4 H Immature Granulocytes % 0.500 H Neutrophils % 84.3 H Lymphocytes % 8.2 L Monocytes % 6.7 Eosinophils % 0.2 Basophils % 0.1 Nucleated Red Blood Cells % 0.1 H Immature Granulocytes # 0.100 H Neutrophils # 15.5 H Lymphocytes # 1.5 Monocytes # 1.2 H Eosinophils # 0.0 Basophils # 0.0 Nucleated Red Blood Cells # 0.0 Sodium Level 139 Potassium Level 3.9 Chloride Level 107 Carbon Dioxide Level 25 Anion Gap 7 Blood Urea Nitrogen 42 H Creatinine 1.60 H Est Glomerular Filtrat Rate mL/min 53 L Glucose Level 123 Lactic Acid Level 1.2 Calcium Level 8.8 Phosphorus Level 3.7 Magnesium Level 2.0 Phenytoin (Dilantin) Level 15.8 Vancomycin Level Trough 26.3 *H Subjective 24 Hr Interval Summary Free Text/Dictation Patient is nonverbal and has no urine output. There is no drainage through the condom catheter. Subjective hx not possible: pt non-verbal Exam/Review of Systems Exam Vitals Vital Signs Date Temp Pulse Resp B/P (MAP) Pulse Ox O2 O2 Flow FiO2 Time Delivery Rate 09/30/18 60 18 135/80 100 Mechanical 18:00 (98) Ventilator 09/30/18 30 17:40 09/30/18 97.6 16:00 Intake and Output 09/29/18 09/29/18 09/30/18 1414:59 22:59 06:59 IntakeIntake Total 1504.375 ml 1319.375 ml 901.5205 ml OutputOutput Total 40 ml 450 ml 175 ml BalanceBalance 1464.375 ml 869.375 ml 726.5205 ml Exam Renal ultrasound was reported as: 1. Diffusely increased renal cortical echogenicity bilaterally, consistent with medical renal disease. 2. Trace bilateral perinephric fluid. 3. Thickened urinary bladder wall with bladder debris and calcifications, concerning for stasis and possible infection/cystitis. The bladder has over 200 mL. Results Results 24hrs Laboratory Tests Test 09/30/18 04:55 09/30/18 07:01 White Blood Count 18.4 #H Red Blood Count 3.12 L Hemoglobin 8.0 L Hematocrit 24.7 L Mean Corpuscular Volume 79.2 L Mean Corpuscular Hemoglobin 25.6 L Mean Corpuscular Hemoglobin Concent 32.4 Red Cell Distribution Width 21.6 H Platelet Count 220 Mean Platelet Volume 11.4 H Immature Granulocytes % 0.500 H Neutrophils % 84.3 H Lymphocytes % 8.2 L Monocytes % 6.7 Eosinophils % 0.2 Basophils % 0.1 Nucleated Red Blood Cells % 0.1 H Immature Granulocytes # 0.100 H Neutrophils # 15.5 H Lymphocytes # 1.5 Monocytes # 1.2 H Eosinophils # 0.0 Basophils # 0.0 Nucleated Red Blood Cells # 0.0 Sodium Level 139 Potassium Level 3.9 Chloride Level 107 Carbon Dioxide Level 25 Anion Gap 7 Blood Urea Nitrogen 42 H Creatinine 1.60 H Est Glomerular Filtrat Rate mL/min 53 L Glucose Level 123 Lactic Acid Level 1.2 Calcium Level 8.8 Phosphorus Level 3.7 Magnesium Level 2.0 Phenytoin (Dilantin) Level 15.8 Vancomycin Level Trough 26.3 *H Medications Medication Current Medications IV Flush (NS 3 ml) 3 ml PER PROTOCOL IV ; Start 09/28/18 at 17:30 Ondansetron HCl (Zofran Inj) 4 mg Q6H PRN IV NAUSEA/VOMITING; Start 09/28/18 at 17:30 Famotidine (Pepcid Iv) 20 mg DAILY IV Last administered on 09/30/18 08:55; Admin Dose 20 MG; Start 09/28/18 at 18:00 Norepinephrine 250 ml @ 1.875 mls/ hr TITRATE IV Last administered on 09/30/18 03:17; Admin Dose 15 MLS/HR; Start 09/28/18 at 19:30 Vancomycin HCl (Vanco Iv Per Pharmacy) VANCOMYCIN PER PHARMACY PER PROTOCOL XX ; Start 09/28/18 at 22:00 Meropenem/Sodium Chloride 50 ml @ 100 mls/hr Q12 IVPB Last administered on 09/30/18 08:44; Admin Dose 100 MLS/HR; Start 09/29/18 at 01:00 Sodium Chloride 1,000 ml @ 80 mls/hr [id number] IV Last administered on 09/30/18 13:49; Admin Dose 80 MLS/HR; Start 09/28/18 at 22:00 Levetiracetam 100 ml @ 400 mls/hr Q12 IVPB Last administered on 09/30/18 08:42; Admin Dose 400 MLS/HR; Start 09/29/18 at 10:00 Lorazepam (Ativan) 1 mg Q10MIN PRN IV SEIZURES Last administered on 09/29/18 10:52; Admin Dose 1 MG; Start 09/29/18 at 10:00 Zinc Sulfate (Zinc Sulfate) 220 mg DAILY GTB Last administered on 09/30/18 08:42; Admin Dose 220 MG; Start 09/30/18 at 09:00 Multivitamins (Multivitamin) 30 ml DAILY GTB Last administered on 09/30/18 08:42; Admin Dose 30 ML; Start 09/30/18 at 09:00 Ascorbic Acid (Vitamin C) 500 mg DAILY GTB Last administered on 09/30/18 08:42; Admin Dose 500 MG; Start 09/30/18 at 09:00 Aspirin (Aspirin) 81 mg DAILY PO Last administered on 5/15/19at 08:42; Admin Dose 81 MG; Start 09/30/18 at 09:00 Phenytoin (Dilantin) 100 mg Q8 IV Last administered on 09/30/18at 13:45; Admin Dose 100 MG; Start 09/29/18 at 22:00 Sodium Hypochlorite (Dakins Diluted ()) 1 applic BID TP Last administered on 09/30/18at 08:45; Admin Dose 1 APPLIC; Start 09/30/18 at 09:00 Heparin Sodium (Porcine) (Heparin (5000 Units/1ml)) 5,000 unit BID SC ; Start 10/01/18 at 09:00 Vancomycin HCl 250 ml @ 125 mls/hr Q24H IVPB ; Start 09/30/18 at 20:00 LETY SALGADO MD September 30, 2018 19:42
[2018-09-30] MEDS: VANCOMYCIN 1 GM 250 ML IVPB SCH (20:32)
[2018-10-01] VITALS (97 sets, daily range): BP systolic 72–206; BP diastolic 50–88; PULSE 40–71; RESP 0–20
[2018-10-01] MEDS ORDERED: DOPamine-D5W 1.6 MG/ML 250 ML ONE (02:39)
[2018-10-01] MEDS: DOPamine-D5W 1.6 MG/ML 250 ML IV SCH (02:53)
[2018-10-01] MEDS: SOD CHLORIDE 0.9% 1,000 ML IV SCH ×2 (04:47→14:00)
[2018-10-01] MEDS: PHENYTOIN 100 MG INJ IV SCH ×3 (05:39→21:16)
[2018-10-01] MEDS ORDERED: POTASSIUM CHLORIDE 50 ML IVPB SCH (07:30)
--- NOTE | 2018-10-01 09:45 | CONS ---
Consult Date/Type/Reason Admit Date/Time September 28, 2018 at 15:36 Initial Consult Date 09/28/18 Type of Consult Pulmonary Requesting Provider: ROSSANA MCKEON MD Date/Time of Note DATE: 10/01/18 TIME: 09:44 Subjective Patient remains somnolent on mechanical ventilation. Continues dopamine for bradycardia. Objective Vital Signs Date Temp Pulse Resp B/P (MAP) Pulse Ox O2 O2 Flow FiO2 Time Delivery Rate 10/01/18 51 18 104/64 95 06:15 (77) 10/01/18 Mechanical 06:00 Ventilator 10/01/18 30 05:39 10/01/18 97.8 04:00 Intake and Output 09/30/18 09/30/18 10/01/18 1515:00 23:00 07:00 IntakeIntake Total 1054.375 ml 1320.00 ml 1108.34 ml OutputOutput Total 0 ml 0 ml 405 ml BalanceBalance 1054.375 ml 1320.00 ml 703.34 ml Exam PHYSICAL EXAMINATION: GENERAL: Elderly-appearing gentleman, unresponsive on mechanical ventilation. HEENT: His pupils are fixed and dilated. VITAL SIGNS: NECK: Trach site is clean and intact. CARDIAC: S1, S2. No added sounds or murmurs. CHEST: Diminished air entry bilaterally. ABDOMEN: Soft, nontender. No guarding or rebound. EXTREMITIES: No cyanosis, clubbing. A 1+ edema. NEUROLOGIC: Unable to assess vegetative state. Vent Setting Ventilator Support Mode: AC Fraction of Inspired Oxygen pe: 30 Positive End Expiratory Pressu: 5.0 Results/Medications Result Diagram: 10/01/18 0440 10/01/18 0440 Results 24 hrs Laboratory Tests Test 10/01/18 02:37 10/01/18 04:40 10/01/18 07:00 Urine Color POLLY Urine Clarity CLOUDY A Urine pH 5.0 Urine Specific Raphine 1.016 Urine Ketones NEGATIVE Urine Nitrite NEGATIVE Urine Bilirubin NEGATIVE Urine Urobilinogen NEGATIVE Urine Leukocyte Esterase 3+ H Urine Microscopic RBC 129 H Urine Microscopic WBC > 182 H Urine Squamous FEW Epithelial Cells Urine Bacteria FEW A Urine Yeast (Budding) MANY A Urine Hemoglobin 3+ H Urine Glucose NEGATIVE Urine Total Protein 2+ H Urine Opiates Screen Positive Urine Barbiturates Negative Urine Amphetamines Screen Negative Urine Benzodiazepines Screen Negative Urine Cocaine Screen Negative Urine Cannabinoids Negative White Blood Count 11.0 #H Red Blood Count 2.92 L Hemoglobin 7.6 L Hematocrit 23.0 L Mean Corpuscular Volume 78.8 L Mean Corpuscular Hemoglobin 26.0 L Mean Corpuscular 33.0 Hemoglobin Concent Red Cell Distribution Width 21.7 H Platelet Count 154 # Mean Platelet Volume 11.3 H Immature Granulocytes % 0.400 Neutrophils % 82.7 H Lymphocytes % 9.2 L Monocytes % 6.9 Eosinophils % 0.5 Basophils % 0.3 Nucleated Red Blood Cells % 0.0 Immature Granulocytes # 0.040 H Neutrophils # 9.1 H Lymphocytes # 1.0 Monocytes # 0.8 Eosinophils # 0.1 Basophils # 0.0 Nucleated Red Blood Cells # 0.0 Sodium Level 141 Potassium Level 3.3 L Chloride Level 111 H Carbon Dioxide Level 25 Anion Gap 5 Blood Urea Nitrogen 43 H Creatinine 1.86 H Est Glomerular Filtrat 44 L Rate mL/min Glucose Level 120 Calcium Level 8.8 Phosphorus Level 3.3 Magnesium Level 2.1 Blood Gas Specimen Source Blood arterial Arterial Blood Date Drawn 10/01/2018 7:23:09 AM Arterial Blood pH 7.505 H (Temp corrected) Arterial Blood pCO2 28.1 L (Temp correct) Arterial Blood pO2 97.4 (Temp corrected) Arterial Blood HCO3 21.7 L Arterial Blood Base Excess -0.8 Arterial Blood 97.0 Oxygen Saturation Amadeo Test ACCEPTAB Arterial Blood Gas Right Radial Puncture Site Arterial 0.3 Blood Carboxyhemoglobin Arterial Blood Methemoglobin 0.3 Blood Gas A-a O2 83.5 H Differential Oxyhemoglobin Percent 96.4 Blood Gas Temperature 37.0 Blood Gas Respiration Rate 18.0 Blood Gas Actual 18 Respiration Rate Blood Gas Modality VENT - AC FiO2 30.0 Blood Gas Tidal Volume 500.0 Blood Gas Low PEEP Setting 5.0 Blood Gas Notified Whom TM Blood Gas Notified Time 10/01/2018 7:48:41 AM Medications Current Medications IV Flush (NS 3 ml) 3 ml PER PROTOCOL IV ; Start 09/28/18 at 17:30 Ondansetron HCl (Zofran Inj) 4 mg Q6H PRN IV NAUSEA/VOMITING; Start 09/28/18 at 17:30 Famotidine (Pepcid Iv) 20 mg DAILY IV Last administered on 09/30/18at 08:55; Admin Dose 20 MG; Start 09/28/18 at 18:00 Norepinephrine 250 ml @ 1.875 mls/ hr TITRATE IV Last administered on 09/30/18 22:39; Admin Dose 11.25 MLS/HR; Start 09/28/18 at 19:30 Vancomycin HCl (Vanco Iv Per Pharmacy) VANCOMYCIN PER PHARMACY PER PROTOCOL XX ; Start 09/28/18 at 22:00 Meropenem/Sodium Chloride 50 ml @ 100 mls/hr Q12 IVPB Last administered on 09/30/18 20:32; Admin Dose 100 MLS/HR; Start 09/29/18 at 01:00 Sodium Chloride 1,000 ml @ 80 mls/hr [id number] IV Last administered on 10/01/18 04:47; Admin Dose 80 MLS/HR; Start 09/28/18 at 22:00 Levetiracetam 100 ml @ 400 mls/hr Q12 IVPB Last administered on 09/30/18 20:32; Admin Dose 400 MLS/HR; Start 09/29/18 at 10:00 Lorazepam (Ativan) 1 mg Q10MIN PRN IV SEIZURES Last administered on 09/29/18 10:52; Admin Dose 1 MG; Start 09/29/18 at 10:00 Zinc Sulfate (Zinc Sulfate) 220 mg DAILY GTB Last administered on 09/30/18 08:42; Admin Dose 220 MG; Start 09/30/18 at 09:00 Multivitamins (Multivitamin) 30 ml DAILY GTB Last administered on 09/30/18 08:42; Admin Dose 30 ML; Start 09/30/18 at 09:00 Ascorbic Acid (Vitamin C) 500 mg DAILY GTB Last administered on 09/30/18 08:42; Admin Dose 500 MG; Start 09/30/18 at 09:00 Aspirin (Aspirin) 81 mg DAILY PO Last administered on 09/30/18 08:42; Admin Dose 81 MG; Start 09/30/18 at 09:00 Phenytoin (Dilantin) 100 mg Q8 IV Last administered on 10/01/18 05:39; Admin Dose 100 MG; Start 09/29/18 at 22:00 Sodium Hypochlorite (Dakins Diluted ()) 1 applic BID TP Last administered on 09/30/18 20:32; Admin Dose 1 APPLIC; Start 09/30/18 at 09:00 Heparin Sodium (Porcine) (Heparin (5000 Units/1ml)) 5,000 unit BID SC ; Start 10/01/18 at 09:00 Vancomycin HCl 250 ml @ 125 mls/hr Q24H IVPB Last administered on 09/30/18at 20:32; Admin Dose 125 MLS/HR; Start 09/30/18 at 20:00 Dopamine HCl/ Dextrose 250 ml @ 4.403 mls/ hr TITRATE IV Last administered on 10/01/18at 02:53; Admin Dose 8.805 MLS/HR; Start 10/01/18 at 03:00 Potassium Chloride 50 ml @ 25 mls/hr Q2H IVPB ; Start 10/01/18 at 07:30; Stop 10/01/18 at 11:29 Potassium Chloride (Potassium Chloride Pwd/Soln) 40 meq ONCE ONCE GTB ; Start 10/01/18 at 10:00; Stop 10/01/18 at 10:01; Status UNV Assessment/Plan Hospital Course (Demo Recall) IMPRESSION AND PLAN: 1. Cardiopulmonary arrest. 2. Probable significant anoxic brain injury. 3. Status post septic shock, staph bacteremia noted. 4. History of dysphagia. 5. Acute renal failure probable ATN injury 6. Significant bradycardia requiring chronotropic support PLAN: 1. EEG and clinical findings noted. Likely severe anoxic brain injury 2. Continue vasopressor as needed. Cardiology recommendations 3. Antibiotics. 4. DVT and GI prophylaxis. 5. Continue IV fluids, continue tube feeding as tolerated Critical care time 40 minutes. Consider palliative care consult [facility] CONDE [facility], [facility] October 01, 2018 09:45
--- NOTE | 2018-10-01 09:59 | PN ---
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 #Cardiac arrest - Etiology unclear. Was PEA on arrival to ED. May have been hypoxic arrest r elated to trach like mucous plug or occlusion. - Patient has known very severe neurologic deficit. This precludes his eligibility for hypothermia protocol. - Norepinephrine started initially; when weaned off patient developed bradycardia. Now on dopamine gtt. - Minimal vent settings. - Per discussion with sister, patient is full code although I do not believe this is ethically the right decision. #Bacteremia - Blood culture x1 growing staph luginensis. - I believe this is contaminant. Will repeat cultures. Continue Abx for now. No signs of sepsis. #Facial twitching - Facial fasciculations likely myoclonic jerks. - EEG negative for seizure activity. - Neurology started keppra and phenytoin, these can likely be tapered off. - Will avoid sedating medications including benzos unless seizure is proven. #Oliguric CASTRO - On 09/30 patient stopping producing urine, bladder scan shows 200 cc. - Dr. Chand unable to get Gilman. Currently has condom cath. - New CASTRO with rising Cr - Due to his absence of meaningful neurologic function, would not offer dialysis to this patient. - Dr. Bernstein consulted. #Chronic disability after stroke - Patient trached, vent, not responsive, contractures - Supportive care - Continue tube feeds. #Acute diarrhea - Since cardiac arrest. - C diff pending - Rectal tube. #Gastritis - Cont home H2 merlyn and PPI #Dyslipidemia - Cont home statin DVT: SCDs GI: PPI 45 minutes critical care time spent on this patient. Result Diagram: 10/01/1843910/01/18439 Results 24hrs Laboratory Tests Test 10/01/18 02:37 10/01/18 04:40 10/01/18 07:00 Urine Color POLLY Urine Clarity CLOUDY A Urine pH 5.0 Urine Specific Hector 1.016 Urine Ketones NEGATIVE Urine Nitrite NEGATIVE Urine Bilirubin NEGATIVE Urine Urobilinogen NEGATIVE Urine Leukocyte Esterase 3+ H Urine Microscopic RBC 129 H Urine Microscopic WBC > 182 H Urine Squamous FEW Epithelial Cells Urine Bacteria FEW A Urine Yeast (Budding) MANY A Urine Hemoglobin 3+ H Urine Glucose NEGATIVE Urine Total Protein 2+ H Urine Opiates Screen Positive Urine Barbiturates Negative Urine Amphetamines Screen Negative Urine Benzodiazepines Screen Negative Urine Cocaine Screen Negative Urine Cannabinoids Negative White Blood Count 11.0 #H Red Blood Count 2.92 L Hemoglobin 7.6 L Hematocrit 23.0 L Mean Corpuscular Volume 78.8 L Mean Corpuscular Hemoglobin 26.0 L Mean Corpuscular 33.0 Hemoglobin Concent Red Cell Distribution Width 21.7 H Platelet Count 154 # Mean Platelet Volume 11.3 H Immature Granulocytes % 0.400 Neutrophils % 82.7 H Lymphocytes % 9.2 L Monocytes % 6.9 Eosinophils % 0.5 Basophils % 0.3 Nucleated Red Blood Cells % 0.0 Immature Granulocytes # 0.040 H Neutrophils # 9.1 H Lymphocytes # 1.0 Monocytes # 0.8 Eosinophils # 0.1 Basophils # 0.0 Nucleated Red Blood Cells # 0.0 Sodium Level 141 Potassium Level 3.3 L Chloride Level 111 H Carbon Dioxide Level 25 Anion Gap 5 Blood Urea Nitrogen 43 H Creatinine 1.86 H Est Glomerular Filtrat 44 L Rate mL/min Glucose Level 120 Calcium Level 8.8 Phosphorus Level 3.3 Magnesium Level 2.1 Blood Gas Specimen Source Blood arterial Arterial Blood Date Drawn 10/01/2018 7:23:09 AM Arterial Blood pH 7.505 H (Temp corrected) Arterial Blood pCO2 28.1 L (Temp correct) Arterial Blood pO2 97.4 (Temp corrected) Arterial Blood HCO3 21.7 L Arterial Blood Base Excess -0.8 Arterial Blood 97.0 Oxygen Saturation Amadeo Test ACCEPTAB Arterial Blood Gas Right Radial Puncture Site Arterial 0.3 Blood Carboxyhemoglobin Arterial Blood Methemoglobin 0.3 Blood Gas A-a O2 83.5 H Differential Oxyhemoglobin Percent 96.4 Blood Gas Temperature 37.0 Blood Gas Respiration Rate 18.0 Blood Gas Actual 18 Respiration Rate Blood Gas Modality VENT - AC FiO2 30.0 Blood Gas Tidal Volume 500.0 Blood Gas Low PEEP Setting 5.0 Blood Gas Notified Whom TM Blood Gas Notified Time 10/01/2018 7:48:41 AM Subjective 24 Hr Interval Summary Free Text/Dictation No acute overnight events. Patient remains unresponsive. Grew bradycardic when norepinephrine weaned off last night. Started on dopamine gtt instead. Exam/Review of Systems Exam Vitals Vital Signs Date Temp Pulse Resp B/P (MAP) Pulse Ox O2 O2 Flow FiO2 Time Delivery Rate 10/01/18 51 18 104/64 95 06:15 (77) 10/01/18 Mechanical 06:00 Ventilator 10/01/18 30 05:39 10/01/18 97.8 04:00 Intake and Output 09/30/18 09/30/18 10/01/18 1515:00 23:00 07:00 IntakeIntake Total 1054.375 ml 1320.00 ml 1108.34 ml OutputOutput Total 0 ml 0 ml 405 ml BalanceBalance 1054.375 ml 1320.00 ml 703.34 ml Exam Gen: Frail appearing man unresponsive in bed. Eyes: Pinpoint, nonreactive pupils bilaterally. No corneal reflex. Not tracking. HEENT: Drooling. Moist mucous membranes. Neck: No lymphadenopathy, no JVD. Card: Regular rate and rhythm; no murmurs Pulm: Ventilated breath sounds bilaterally. Abd: G tube in place, clean and dry. Soft nondistended. Ext: No cyanosis/clubbing/edema. Severely atrophied muscles. Neuro: Pupils pinpoint, nonreactive. Slight L arm flexion in response to sternal rub. Skin: Large keloid-like structure on right axilla and smaller nodule at G tube site. : Condom cath Results Results 24hrs Laboratory Tests Test 10/01/18 02:37 10/01/18 04:40 10/01/18 07:00 Urine Color POLLY Urine Clarity CLOUDY A Urine pH 5.0 Urine Specific Hector 1.016 Urine Ketones NEGATIVE Urine Nitrite NEGATIVE Urine Bilirubin NEGATIVE Urine Urobilinogen NEGATIVE Urine Leukocyte Esterase 3+ H Urine Microscopic RBC 129 H Urine Microscopic WBC > 182 H Urine Squamous FEW Epithelial Cells Urine Bacteria FEW A Urine Yeast (Budding) MANY A Urine Hemoglobin 3+ H Urine Glucose NEGATIVE Urine Total Protein 2+ H Urine Opiates Screen Positive Urine Barbiturates Negative Urine Amphetamines Screen Negative Urine Benzodiazepines Screen Negative Urine Cocaine Screen Negative Urine Cannabinoids Negative White Blood Count 11.0 #H Red Blood Count 2.92 L Hemoglobin 7.6 L Hematocrit 23.0 L Mean Corpuscular Volume 78.8 L Mean Corpuscular Hemoglobin 26.0 L Mean Corpuscular 33.0 Hemoglobin Concent Red Cell Distribution Width 21.7 H Platelet Count 154 # Mean Platelet Volume 11.3 H Immature Granulocytes % 0.400 Neutrophils % 82.7 H Lymphocytes % 9.2 L Monocytes % 6.9 Eosinophils % 0.5 Basophils % 0.3 Nucleated Red Blood Cells % 0.0 Immature Granulocytes # 0.040 H Neutrophils # 9.1 H Lymphocytes # 1.0 Monocytes # 0.8 Eosinophils # 0.1 Basophils # 0.0 Nucleated Red Blood Cells # 0.0 Sodium Level 141 Potassium Level 3.3 L Chloride Level 111 H Carbon Dioxide Level 25 Anion Gap 5 Blood Urea Nitrogen 43 H Creatinine 1.86 H Est Glomerular Filtrat 44 L Rate mL/min Glucose Level 120 Calcium Level 8.8 Phosphorus Level 3.3 Magnesium Level 2.1 Blood Gas Specimen Source Blood arterial Arterial Blood Date Drawn 10/01/2018 7:23:09 AM Arterial Blood pH 7.505 H (Temp corrected) Arterial Blood pCO2 28.1 L (Temp correct) Arterial Blood pO2 97.4 (Temp corrected) Arterial Blood HCO3 21.7 L Arterial Blood Base Excess -0.8 Arterial Blood 97.0 Oxygen Saturation Amadeo Test ACCEPTAB Arterial Blood Gas Right Radial Puncture Site Arterial 0.3 Blood Carboxyhemoglobin Arterial Blood Methemoglobin 0.3 Blood Gas A-a O2 83.5 H Differential Oxyhemoglobin Percent 96.4 Blood Gas Temperature 37.0 Blood Gas Respiration Rate 18.0 Blood Gas Actual 18 Respiration Rate Blood Gas Modality VENT - AC FiO2 30.0 Blood Gas Tidal Volume 500.0 Blood Gas Low PEEP Setting 5.0 Blood Gas Notified Whom TM Blood Gas Notified Time 10/01/2018 7:48:41 AM Medications Medication Current Medications IV Flush (NS 3 ml) 3 ml PER PROTOCOL IV ; Start 09/28/18 at 17:30 Ondansetron HCl (Zofran Inj) 4 mg Q6H PRN IV NAUSEA/VOMITING; Start 09/28/18 at 17:30 Famotidine (Pepcid Iv) 20 mg DAILY IV Last administered on 09/30/18at 08:55; Admin Dose 20 MG; Start 09/28/18 at 18:00 Norepinephrine 250 ml @ 1.875 mls/ hr TITRATE IV Last administered on 09/30/18at 22:39; Admin Dose 11.25 MLS/HR; Start 09/28/18 at 19:30 Vancomycin HCl (Vanco Iv Per Pharmacy) VANCOMYCIN PER PHARMACY PER PROTOCOL XX ; Start 09/28/18 at 22:00 Meropenem/Sodium Chloride 50 ml @ 100 mls/hr Q12 IVPB Last administered on 09/30/18 20:32; Admin Dose 100 MLS/HR; Start 09/29/18 at 01:00 Sodium Chloride 1,000 ml @ 80 mls/hr [id number] IV Last administered on 10/01/18 04:47; Admin Dose 80 MLS/HR; Start 09/28/18 at 22:00 Levetiracetam 100 ml @ 400 mls/hr Q12 IVPB Last administered on 09/30/18 20:32; Admin Dose 400 MLS/HR; Start 09/29/18 at 10:00 Lorazepam (Ativan) 1 mg Q10MIN PRN IV SEIZURES Last administered on 09/29/18 10:52; Admin Dose 1 MG; Start 09/29/18 at 10:00 Zinc Sulfate (Zinc Sulfate) 220 mg DAILY GTB Last administered on 09/30/18 08:42; Admin Dose 220 MG; Start 09/30/18 at 09:00 Multivitamins (Multivitamin) 30 ml DAILY GTB Last administered on 09/30/18 08:42; Admin Dose 30 ML; Start 09/30/18 at 09:00 Ascorbic Acid (Vitamin C) 500 mg DAILY GTB Last administered on 09/30/18 08:42; Admin Dose 500 MG; Start 09/30/18 at 09:00 Aspirin (Aspirin) 81 mg DAILY PO Last administered on 09/30/18 08:42; Admin Dose 81 MG; Start 09/30/18 at 09:00 Phenytoin (Dilantin) 100 mg Q8 IV Last administered on 10/01/18 05:39; Admin Dose 100 MG; Start 09/29/18 at 22:00 Sodium Hypochlorite (Dakins Diluted (40)) 1 applic BID TP Last administered on 09/30/18 20:32; Admin Dose 1 APPLIC; Start 09/30/18 at 09:00 Heparin Sodium (Porcine) (Heparin (5000 Units/1ml)) 5,000 unit BID SC ; Start 10/01/18 at 09:00 Vancomycin HCl 250 ml @ 125 mls/hr Q24H IVPB Last administered on 09/30/18at 20:32; Admin Dose 125 MLS/HR; Start 09/30/18 at 20:00 Dopamine HCl/ Dextrose 250 ml @ 4.403 mls/ hr TITRATE IV Last administered on 10/01/18at 02:53; Admin Dose 8.805 MLS/HR; Start 10/01/18 at 03:00 Potassium Chloride 50 ml @ 25 mls/hr Q2H IVPB ; Start 10/01/18 at 07:30; Stop 10/01/18 at 11:29 Potassium Chloride (Potassium Chloride Pwd/Soln) 40 meq ONCE ONCE GTB ; Start 10/01/18 at 10:00; Stop 10/01/18 at 10:01 ROSSANA MCKEON MD October 01, 2018 09:59
[2018-10-01] MEDS ORDERED: POTASSIUM CHLORIDE 20 MEQ POWDER FOR ORAL SOLN GTB ONE (10:00)
[2018-10-01] MEDS: ZINC SULFATE 220 MG CAP GTB SCH (10:46)
[2018-10-01] MEDS: ASCORBIC ACID 500 MG TAB GTB SCH (10:46)
[2018-10-01] MEDS: MULTIVITAMINS 30 ML CUP GTB SCH (10:46)
[2018-10-01] MEDS: MEROPENEM 1 GM/50ML(PMX) 50 ML IVPB SCH ×2 (10:46→21:00)
[2018-10-01] MEDS: ASPIRIN 81 MG TAB PO SCH (10:47)
[2018-10-01] MEDS: DAKINS 0.0125%(1/40) 473 ML SOLUTION TP SCH ×2 (10:48→21:01)
[2018-10-01] MEDS: HEPARIN 5,000 UNIT/1 ML VIAL SC SCH ×2 (10:48→21:08)
[2018-10-01] MEDS: FAMOTIDINE 20 MG INJ IV SCH (10:52)
--- NOTE | 2018-10-01 12:32 | PN ---
Date/Time of Note Date/Time of Note DATE: 10/01/18 TIME: 12:29 Assessment/Plan VTE Prophylaxis Risk score (from Nsg)>0 risk: 13 SCD applied (from Nsg): Yes Pharmacological prophylaxis: other Lines/Catheters IV Catheter Type (from Nrsg): Central Line Central line still needed: Yes Urinary Cath still in place: No Assessment/Plan Hospital Course 63-year-old male admitted to the hospital after cardiac arrest. Attempts to insert a Gilman catheter were not successful. Patient had a renal ultrasound done and that showed: 1. Diffusely increased renal cortical echogenicity bilaterally, consistent with medical renal disease. 2. Trace bilateral perinephric fluid. 3. Thickened urinary bladder wall with bladder debris and calcifications, concerning for stasis and possible infection/cystitis. The patient appears to have urinated as the towels around his penis are wet. I did try to dilate him using the filiforms on the followers however the filiform would not go into his bladder. Therefore I recommend to keep a condom catheter on him and check his bladder with a bladder scan and should he go into urinary retention then we would have to put the suprapubic tube. Result Diagram: 10/01/18 0440 10/01/18439 Results 24hrs Laboratory Tests Test 10/01/18 02:37 10/01/18 04:40 10/01/18 07:00 10/01/18 10:10 Urine Color POLLY RED Urine Clarity CLOUDY A SLIGHTLY CLOUDY A Urine pH 5.0 7.0 Urine Specific 1.016 1.009 [place] Urine Ketones NEGATIVE NEGATIVE Urine Nitrite NEGATIVE NEGATIVE Urine Bilirubin NEGATIVE NEGATIVE Urine NEGATIVE NEGATIVE Urobilinogen Urine Leukocyte 3+ H 2+ H Esterase Urine 129 H > 182 H Microscopic RBC Urine > 182 H 156 H Microscopic WBC Urine Squamous FEW FEW Epithelial Cells Urine Bacteria FEW A FEW A Urine Yeast MANY A (Budding) Urine Hemoglobin 3+ H 3+ H Urine Glucose NEGATIVE 1+ H Urine Total 2+ H 82.0 H Protein Urine Opiates Positive Screen Urine Negative Barbiturates Urine Negative Amphetamines Screen Urine Negative Benzodiazepines Screen Urine Cocaine Negative Screen Urine Negative Cannabinoids White Blood 11.0 #H Count Red Blood Count 2.92 L Hemoglobin 7.6 L Hematocrit 23.0 L Mean Corpuscular 78.8 L Volume Mean Corpuscular 26.0 L Hemoglobin Mean Corpuscular 33.0 Hemoglobin Eve nt Red Cell 21.7 H Distribution Width Platelet Count 154 # Mean Platelet 11.3 H Volume Immature 0.400 Granulocytes % Neutrophils % 82.7 H Lymphocytes % 9.2 L Monocytes % 6.9 Eosinophils % 0.5 Basophils % 0.3 Nucleated Red 0.0 Blood Cells % Immature 0.040 H Granulocytes # Neutrophils # 9.1 H Lymphocytes # 1.0 Monocytes # 0.8 Eosinophils # 0.1 Basophils # 0.0 Nucleated Red 0.0 Blood Cells # Sodium Level 141 Potassium Level 3.3 L Chloride Level 111 H Carbon Dioxide 25 Level Anion Gap 5 Blood Urea 43 H Nitrogen Creatinine 1.86 H Est Glomerular 44 L Filtrat Rate mL/min Glucose Level 120 Calcium Level 8.8 Phosphorus Level 3.3 Magnesium Level 2.1 Blood Gas Blood arterial Specimen Source Arterial Blood 10/01/2018 7:23: Date Drawn 09 AM Arterial Blood 7.505 H pH (Temp corrected) Arterial Blood 28.1 L pCO2 (Temp correct) Arterial Blood 97.4 pO2 (Temp corrected) Arterial Blood 21.7 L HCO3 Arterial Blood -0.8 Base Excess Arterial Blood 97.0 Oxygen Saturatio n Amadeo Test ACCEPTAB Arterial Blood Right Radial Gas Puncture Site Arterial 0.3 Blood Carboxyhem oglobin Arterial Blood 0.3 Methemoglobin Blood Gas A-a O2 83.5 H Differential Oxyhemoglobin 96.4 Percent Blood Gas 37.0 Temperature Blood Gas 18.0 Respiration Rate Blood Gas Actual 18 Respiration Rate Blood Gas VENT - AC Modality FiO2 30.0 Blood Gas Tidal 500.0 Volume Blood Gas Low 5.0 PEEP Setting Blood Gas TM Notified Whom Blood Gas 10/01/2018 7:48: Notified Time 41 AM Urine Random 20.08 Creatinine Urine Random 118 H Sodium Subjective 24 Hr Interval Summary Free Text/Dictation Patient remains encephalopathic, does not react to pain, he is on a respirator a nd has tracheostomy and a G-tube in place Exam/Review of Systems Exam Vitals Vital Signs Date Temp Pulse Resp B/P (MAP) Pulse Ox O2 O2 Flow FiO2 Time Delivery Rate 10/01/18 45 18 126/68 100 Mechanical 11:45 (87) Ventilator 10/01/18 95.7 08:00 10/01/18 30 05:39 Intake and Output 09/30/18 09/30/18 10/01/18 1515:00 23:00 07:00 IntakeIntake Total 1054.375 ml 1320.00 ml 1138.34 ml OutputOutput Total 0 ml 0 ml 405 ml BalanceBalance 1054.375 ml 1320.00 ml 733.34 ml Exam Patient has voided in the towels and the urine appears to be clear. Results Results 24hrs Laboratory Tests Test 10/01/18 02:37 10/01/18 04:40 10/01/18 07:00 10/01/18 10:10 Urine Color POLLY RED Urine Clarity CLOUDY A SLIGHTLY CLOUDY A Urine pH 5.0 7.0 Urine Specific 1.016 1.009 [place] Urine Ketones NEGATIVE NEGATIVE Urine Nitrite NEGATIVE NEGATIVE Urine Bilirubin NEGATIVE NEGATIVE Urine NEGATIVE NEGATIVE Urobilinogen Urine Leukocyte 3+ H 2+ H Esterase Urine 129 H > 182 H Microscopic RBC Urine > 182 H 156 H Microscopic WBC Urine Squamous FEW FEW Epithelial Cells Urine Bacteria FEW A FEW A Urine Yeast MANY A (Budding) Urine Hemoglobin 3+ H 3+ H Urine Glucose NEGATIVE 1+ H Urine Total 2+ H 82.0 H Protein Urine Opiates Positive Screen Urine Negative Barbiturates Urine Negative Amphetamines Screen Urine Negative Benzodiazepines Screen Urine Cocaine Negative Screen Urine Negative Cannabinoids White Blood 11.0 #H Count Red Blood Count 2.92 L Hemoglobin 7.6 L Hematocrit 23.0 L Mean Corpuscular 78.8 L Volume Mean Corpuscular 26.0 L Hemoglobin Mean Corpuscular 33.0 Hemoglobin Eve nt Red Cell 21.7 H Distribution Width Platelet Count 154 # Mean Platelet 11.3 H Volume Immature 0.400 Granulocytes % Neutrophils % 82.7 H Lymphocytes % 9.2 L Monocytes % 6.9 Eosinophils % 0.5 Basophils % 0.3 Nucleated Red 0.0 Blood Cells % Immature 0.040 H Granulocytes # Neutrophils # 9.1 H Lymphocytes # 1.0 Monocytes # 0.8 Eosinophils # 0.1 Basophils # 0.0 Nucleated Red 0.0 Blood Cells # Sodium Level 141 Potassium Level 3.3 L Chloride Level 111 H Carbon Dioxide 25 Level Anion Gap 5 Blood Urea 43 H Nitrogen Creatinine 1.86 H Est Glomerular 44 L Filtrat Rate mL/min Glucose Level 120 Calcium Level 8.8 Phosphorus Level 3.3 Magnesium Level 2.1 Blood Gas Blood arterial Specimen Source Arterial Blood 10/01/2018 7:23: Date Drawn 09 AM Arterial Blood 7.505 H pH (Temp corrected) Arterial Blood 28.1 L pCO2 (Temp correct) Arterial Blood 97.4 pO2 (Temp corrected) Arterial Blood 21.7 L HCO3 Arterial Blood -0.8 Base Excess Arterial Blood 97.0 Oxygen Saturatio n Amadeo Test ACCEPTAB Arterial Blood Right Radial Gas Puncture Site Arterial 0.3 Blood Carboxyhem oglobin Arterial Blood 0.3 Methemoglobin Blood Gas A-a O2 83.5 H Differential Oxyhemoglobin 96.4 Percent Blood Gas 37.0 Temperature Blood Gas 18.0 Respiration Rate Blood Gas Actual 18 Respiration Rate Blood Gas VENT - AC Modality FiO2 30.0 Blood Gas Tidal 500.0 Volume Blood Gas Low 5.0 PEEP Setting Blood Gas TM Notified Whom Blood Gas 10/01/2018 7:48: Notified Time 41 AM Urine Random 20.08 Creatinine Urine Random 118 H Sodium Medications Medication Current Medications IV Flush (NS 3 ml) 3 ml PER PROTOCOL IV ; Start 09/28/18 at 17:30 Ondansetron HCl (Zofran Inj) 4 mg Q6H PRN IV NAUSEA/VOMITING; Start 09/28/18 at 17:30 Famotidine (Pepcid Iv) 20 mg DAILY IV Last administered on 10/01/18at 10:52; Admin Dose 20 MG; Start 09/28/18 at 18:00 Norepinephrine 250 ml @ 1.875 mls/ hr TITRATE IV Last administered on 09/30/18 at 22:39; Admin Dose 11.25 MLS/HR; Start 09/28/18 at 19:30 Vancomycin HCl (Vanco Iv Per Pharmacy) VANCOMYCIN PER PHARMACY PER PROTOCOL XX ; Start 09/28/18 at 22:00 Meropenem/Sodium Chloride 50 ml @ 100 mls/hr Q12 IVPB Last administered on 10/01/18at 10:46; Admin Dose 100 MLS/HR; Start 09/29/18 at 01:00 Sodium Chloride 1,000 ml @ 50 mls/hr Q20H IV Last administered on 10/01/18at 04:47; Admin Dose 80 MLS/HR; Start 09/28/18 at 22:00 Levetiracetam 100 ml @ 400 mls/hr Q12 IVPB Last administered on 09/30/18at 20:32; Admin Dose 400 MLS/HR; Start 09/29/18 at 10:00 Lorazepam (Ativan) 1 mg Q10MIN PRN IV SEIZURES Last administered on 09/29/18 10:52; Admin Dose 1 MG; Start 09/29/18 at 10:00 Zinc Sulfate (Zinc Sulfate) 220 mg DAILY GTB Last administered on 10/01/18 10:46; Admin Dose 220 MG; Start 09/30/18 at 09:00 Multivitamins (Multivitamin) 30 ml DAILY GTB Last administered on 10/01/18 10: 46; Admin Dose 30 ML; Start 09/30/18 at 09:00 Ascorbic Acid (Vitamin C) 500 mg DAILY GTB Last administered on 10/01/18 10:46; Admin Dose 500 MG; Start 09/30/18 at 09:00 Aspirin (Aspirin) 81 mg DAILY PO Last administered on 10/01/18 10:47; Admin Dose 81 MG; Start 09/30/18 at 09:00 Phenytoin (Dilantin) 100 mg Q8 IV Last administered on 10/01/18 05:39; Admin Dose 100 MG; Start 09/29/18 at 22:00 Sodium Hypochlorite (Dakins Diluted (40)) 1 applic BID TP Last administered on 10/01/18 10:48; Admin Dose 1 APPLIC; Start 09/30/18 at 09:00 Heparin Sodium (Porcine) (Heparin (5000 Units/1ml)) 5,000 unit BID SC Last administered on 10/01/18 10:48; Admin Dose 5,000 UNIT; Start 10/01/18 at 09:00 Vancomycin HCl 250 ml @ 125 mls/hr Q24H IVPB Last administered on 09/30/18 20:32; Admin Dose 125 MLS/HR; Start 09/30/18 at 20:00 Dopamine HCl/ Dextrose 250 ml @ 4.403 mls/ hr TITRATE IV Last administered on 10/01/18 02:53; Admin Dose 8.805 MLS/HR; Start 10/01/18 at 03:00 Mupirocin (Bactroban) 1 applic BID TOP ; Start 10/01/18 at 21:00 LETY SALGADO MD October 01, 2018 12:32
[2018-10-01] MEDS: LEVETIRACETAM 500 MG (PMX) 100 ML IVPB SCH ×2 (13:10→21:00)
--- NOTE | 2018-10-01 14:16 | CONS ---
Assessment/Plan Assessment/Plan Hospital Course 63 yo M with extensive neurologic hx and multiple comorbidities who presents to the ICU following a cardiac arrest. TTM was deferred d/t pt's poor neurologic status at baseline. He was noted to have face and arm twitching, for which neurology is consulted. The clinical picture suggests seizures in the context of hypoxic ischemic cerebral injury. CTH is without obvious acute intracranial pathology. EEG is without epileptiform activity, though diffusely slow. P: OK to cont Keppra as scheduled. Hold Dilantin; repeat level in am Ativan IV PRN seizure >5 min or for cluster ASA for secondary stroke prevention MRI brain when medically able Will follow clinically\ Consultation Date/Type/Reason Admit Date/Time September 28, 2018 at 15:36 Type of Consult Neurology Reason for Consultation eval for seizures Requesting Provider: ROSSANA MCKEON MD Date/Time of Note DATE: 10/01/18 TIME: 14:16 24 HR Interval Summary Free Text/Dictation Continues critical care. Pt's HR dropped to the 50s; on dopamine gtt. Pt's family reportedly wishes the pt to be full code. Exam Vital Signs Vitals Vital Signs Date Temp Pulse Resp B/P (MAP) Pulse Ox O2 O2 Flow FiO2 Time Delivery Rate 10/01/18 45 18 126/68 100 Mechanical 11:45 (87) Ventilator 10/01/18 95.7 08:00 10/01/18 30 05:39 Intake and Output 09/30/18 09/30/18 10/01/18 1515:00 23:00 07:00 IntakeIntake Total 1054.375 ml 1320.00 ml 1138.34 ml OutputOutput Total 0 ml 0 ml 405 ml BalanceBalance 1054.375 ml 1320.00 ml 733.34 ml Exam PE: Gen Appearance: No Apparent Distress HEENT: trached Cardiovascular: Regular rate Abdomen: Soft; PEG Extremities: Dry NE: The patient was comatose. Cranial nerve examination was limited by mental status. Pupils were pinpoint. There was no afferent pupillary defect. Funduscopic examination was limited. Face was grossly symmetric, w/ present corneal and cough reflexes. Tone was increased in the upper extremities. Muscle bulk was normal. I did not see fasciculations. The patient minimally withdrew his upper extremities to noxious stimuli. Coordination and gait testing was limited by mental status. Arm and leg reflexes were symmetric. Nicholson's sign was absent. Plantar responses were mute. ANTONY SOLORZANO NP October 01, 2018 14:16 AZALIA ENRIQUE October 02, 2018 15:06
--- NOTE | 2018-10-01 16:55 | CONS ---
DATE OF ADMISSION: 09/28/2018 DATE OF CONSULTATION: 10/01/2018 TYPE OF CONSULTATION: Nephrology. REASON FOR CONSULTATION: Acute kidney injury. HISTORY OF PRESENT ILLNESS: This is a 63-year-old male with a past medical history of ventilator-dep endent respiratory failure, history of chronic encephalopathy, history of dysphagia. Prior history o f CVA, who presents to the [facility] after cardiac arrest. The patient apparently was noted at a skilled nurse facility to be unresponsive. EMS services were called. The patient un derwent CPR. Patient received 5 doses of epinephrine and had return of spontaneous circulation. The patient was transferred to [facility] Emergency Room. In the Emergency Room, the patient w as stabilized, had a CT scan of the brain that showed no acute findings. The patient was transferred to the intensive care unit. In the intensive care unit, the patient has been on full ventilatory mccollum pport. The patient has been on dopamine, was previously on Levophed. Following intensive care unit, the patient also noted to have bacteremia, was placed on IV antibiotics. The patient was also seen by neurology. Possible urinary retention. In terms of patient's renal history, on admission the patient has a creatinine of 0.65 mg/dL. The pa esant's creatinine has increased to 1.86 mg/dL. Patient's urinary output is minimal. As stated abov e, the patient has been hypotensive and on pressors during the hospital course. There have been no r eports of hemoptysis, hematemesis, or hematochezia. PAST MEDICAL HISTORY: As stated above, history of chronic encephalopathy, history of chronic respira tory failure, history of dysphagia, history of coronary artery disease, history of dyslipidemia, hist ory of CVA, history of extremity contracture. PAST SURGICAL HISTORY: Status post trach, status post PEG. FAMILY HISTORY: Unknown. SOCIAL HISTORY: Lives at skilled nurse facility. MEDICATIONS: The patient's medications have been reviewed. ALLERGIES: Have been reviewed. REVIEW OF SYSTEMS: Unable to do adequate review of systems as patient is obtunded. Pertinent positi ves as obtained by reviewing records, speaking to hospital staff, stated in HPI, otherwise negative. PHYSICAL EXAMINATION: VITAL SIGNS: Blood pressure is 126/68, respiration 18, pulse 45, temperature 98.6. HEENT: Head is normocephalic. NECK: Supple. HEART: Regular rate. LUNGS: Show diminished breath sounds at base. ABDOMEN: Soft, nontender to palpation without rebound or guarding. EXTREMITIES: Negative for clubbing, cyanosis, no edema. DERMATOLOGIC: No rashes. MUSCULOSKELETAL: No joint effusion. NEUROLOGIC: The patient is obtunded. MEDICATIONS: Have been reviewed. LABORATORY DATA: Has been reviewed. IMAGING STUDIES: Have been reviewed. CULTURES: Have been reviewed. ASSESSMENT AND PLAN: 1. Nonoliguric acute kidney injury with previous baseline creatinine of 0.69 mg/dL. Etiology of acu te kidney injury secondary to acute tubular necrosis due to ischemic hypoperfusion, shock. The patie nt's urinalysis shows evidence of pyuria, hematuria, FENa greater than 1% and nephrotic range protein uria approximately 4 grams per gram of creatinine. However, this is likely secondary to acute tubula r necrosis. Lower suspicion for acute glomerulonephritis or vasculitis given patient's clinical pres entation. Recommendation at this point is to continue current medical management. Continue pressor support to maintain MAP of 65. Continue gentle IV hydration. Continue supportive care, renally dose meds, avoid nephrotoxins. 2. Anemia. Continue to monitor hemoglobin and hematocrit levels. We will check an iron panel. Fede l give Epogen as needed. 3. Mineral bone disorder. Monitor calcium and phosphorus levels. 4. Mixed acid-base disorder. Patient has a respiratory alkalosis and metabolic alkalosis. Will con tinue to monitor. 5. Hypokalemia, replete with potassium chloride. 6. Cardiac arrest. Etiology is unclear, possible TIA. Continue to monitor. Follow up with cardiol finn. 7. Bradycardia. The patient is currently on dopamine, continue to monitor. 8. Bacteremia, systemic inflammatory response syndrome. Possible sepsis. Patient's cultures have b een reviewed. Continue current antibiotic regimen. 9. Ventilator dependent respiratory failure. Vent settings and arterial blood gas has been reviewed . Continue to monitor. 10. Dysphagia. Continue tube feeding. 11. History of chronic encephalopathy. Continue to monitor. 12. Urinary retention. Continue to monitor. Follow up with urology. 13. History of gastritis. Continue proton pump inhibitor. 14. Dyslipidemia. Continue statin therapy. Thank you, Dr. Mckeon, for this interesting consult. It will be a pleasure to follow patient with you throughout the hospital course. Dictated By: DOT MCALLISTER/NTS Conf#: [id number] DID#: [id number] CC: ROSSANA MCKEON MD;*End*
[2018-10-01] MEDS: VANCOMYCIN 1 GM 250 ML IVPB SCH (20:59)
[2018-10-01] MEDS: MUPIROCIN 2% 22 GM OINT TOP SCH (21:00)
[2018-10-02] VITALS (106 sets, daily range): BP systolic 72–151; BP diastolic 48–81; PULSE 58–80; RESP 0–23
[2018-10-02] MEDS: DOPamine-D5W 1.6 MG/ML 250 ML IV SCH (01:02)
[2018-10-02] MEDS: PHENYTOIN 100 MG INJ IV SCH ×2 (06:47→14:52)
--- NOTE | 2018-10-02 08:11 | PN ---
DATE: 10/02/2018 SUBJECTIVE: The patient is critically ill on pressor support. The patient's urinary output has impr zackery. No other acute events noted. No hemoptysis, hematemesis or hematochezia. OBJECTIVE: VITAL SIGNS: Blood pressure is 105/59, respirations 18, pulse 73, temperature 98.6. HEENT: Head is normocephalic. NECK: Shows trach. HEART: Regular rate. LUNGS: Show diminished breath sounds at the base. ABDOMEN: Soft, nontender to palpation without rebound or guarding. EXTREMITIES: Negative for clubbing, cyanosis, no edema. DERMATOLOGIC: No rashes. MUSCULOSKELETAL: No joint effusion. NEUROLOGIC: No change in exam. MEDICATIONS: Reviewed. LABORATORY DATA: Reviewed. Urinalysis was reviewed. IMAGING STUDIES: Renal ultrasound was reviewed. ASSESSMENT AND PLAN: 1. Nonoliguric acute kidney injury with a previous baseline creatinine of 0.69 mg/dL. Etiology of a cute kidney injury is secondary to acute tubular necrosis due to ischemic hypoperfusion, shock. The patient remains in injury phase of acute tubular necrosis as renal function is declining. Creatinine continues to trend upward. The patient's urinary output; however, has improved. At this point, stephen marquez current treatment plan, supportive care, renally dose all medications, continue pressor support to maintain MAP of 65. 2. Anemia. Continue to monitor hemoglobin and hematocrit levels. 3. Mineral bone disorder, monitor calcium and phosphorus levels. 4. Mixed acid base disorder. The patient has a respiratory alkalosis. Continue to monitor. 5. Hypokalemia. Continue to monitor and replete. 6. Cardiac arrest. Etiology is unclear. Continue to monitor. 7. Bradycardia. The patient remains on dopamine. 8. Shock, possibly septic, neurogenic. The patient is on pressor support and antibiotic therapy, co ntinue. Cultures have been reviewed. The patient does have noted bacteremia. We will continue curr ent medical management. Continue IV antibiotics. We will give the patient IV albumin for volume exp ansion. Monitor closely. 9. Ventilator-dependent respiratory failure. Vent settings and ABG was reviewed. Continue to monit or. 10. Dysphagia. Continue tube feeding. 11. Chronic encephalopathy. 12. Urinary retention. Continue to monitor. Follow up with urology. 13. Dyslipidemia. Continue statin therapy. 14. History of gastritis. Continue proton pump inhibitor. Dictated By: DOT MCALLISTER/NTS Conf#: [id number] DID#: [id number] CC: LES CONDE MD; ROSSANA MCKEON MD;*EndCC*
[2018-10-02] MEDS: DAKINS 0.0125%(1/40) 473 ML SOLUTION TP SCH ×2 (09:32→20:59)
[2018-10-02] MEDS: ASCORBIC ACID 500 MG TAB GTB SCH (09:32)
[2018-10-02] MEDS: FAMOTIDINE 20 MG INJ IV SCH (09:32)
[2018-10-02] MEDS: ASPIRIN 81 MG TAB PO SCH (09:32)
[2018-10-02] MEDS: ZINC SULFATE 220 MG CAP GTB SCH (09:32)
[2018-10-02] MEDS: ALBUMIN HUMAN 25% 100 ML IV SCH ×3 (09:34→23:56)
[2018-10-02] MEDS: HEPARIN 5,000 UNIT/1 ML VIAL SC SCH ×2 (09:35→21:02)
[2018-10-02] MEDS: MEROPENEM 1 GM/50ML(PMX) 50 ML IVPB SCH ×2 (09:35→20:59)
[2018-10-02] MEDS: MUPIROCIN 2% 22 GM OINT TOP SCH ×2 (09:38→20:59)
[2018-10-02] MEDS: LEVETIRACETAM 500 MG (PMX) 100 ML IVPB SCH ×2 (09:38→20:59)
[2018-10-02] MEDS: MULTIVITAMINS 30 ML CUP GTB SCH (09:39)
--- NOTE | 2018-10-02 10:14 | PN ---
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 #Cardiac arrest - Etiology unclear. Was PEA on arrival to ED. May have been hypoxic arrest related to trach like mucous plug or occlusion. - Patient has known very severe neurologic deficit. This precludes his eligibility for hypothermia protocol. - Currently requiring norepinephrine and dopamine gtt. - Minimal vent settings. - Per discussion with sister, patient is full code although I do not believe this is ethically the right decision. - Dr. Flores following. #Bacteremia - Blood culture x1 growing staph luginensis. - I believe this is contaminant. Will repeat cultures. Continue Abx for now. No signs of sepsis. #Facial twitching - Facial fasciculations likely myoclonic jerks. - EEG negative for seizure activity. - Neurology started keppra and phenytoin, these can likely be tapered off. - Will avoid sedating medications including benzos unless seizure is proven. #Oliguric CASTRO - Dr. Chand unable to get Gilman. Currently has condom cath. - New CASTRO with rising Cr - Due to his absence of meaningful neurologic function, would not offer dialysis to this patient. - Dr. Bernstein consulted. #Chronic disability after stroke - Patient trached, vent, not responsive, contractures - Supportive care - Continue tube feeds. #Acute diarrhea - Resolved - If no rectal tube output over next 24-48 hours, it can likely be pulled. #Gastritis - Cont home H2 merlyn and PPI #Dyslipidemia - Cont home statin DVT: SCDs GI: PPI 45 minutes critical care time spent on this patient. Result Diagram: 10/02/1845010/02/18450 Subjective 24 Hr Interval Summary Free Text/Dictation Since yesterday, patient no longer has cough and gag reflex. Started producing urine again via Gilman. High residuals on tube feeds, no output on rectal tube. Exam/Review of Systems Exam Vitals Vital Signs Date Temp Pulse Resp B/P (MAP) Pulse Ox O2 O2 Flow FiO2 Time Delivery Rate 10/02/18 70 18 99/60 (73) 99 08:15 10/02/18 97.2 Mechanical 08:00 Ventilator 10/02/18 30 05:06 Intake and Output 10/01/18 10/01/18 10/02/18 1515:00 23:00 07:00 IntakeIntake Total 355 ml 742.393 ml 296.557 ml OutputOutput Total 550 ml 625 ml 310 ml BalanceBalance -195 ml 117.393 ml -13.443 ml Exam Gen: Frail appearing man unresponsive in bed. Eyes: Pinpoint, nonreactive pupils bilaterally. No corneal reflex. Not tracking. HEENT: Drooling. Moist mucous membranes. Neck: No lymphadenopathy, no JVD. Card: Regular rate and rhythm; no murmurs Pulm: Ventilated breath sounds bilaterally. Abd: G tube in place, clean and dry. Soft nondistended. Ext: No cyanosis/clubbing/edema. Severely atrophied muscles. Neuro: Pupils pinpoint, nonreactive. Slight L arm flexion in response to sternal rub. Skin: Large keloid-like structure on right axilla and smaller nodule at G tube site. : Condom cath Results Results 24hrs Laboratory Tests Test 10/01/18 10:10 10/02/18 04:51 Urine Color RED Urine Clarity SLIGHTLY CLOUDY A Urine pH 7.0 Urine Specific [place] 1.009 Urine Ketones NEGATIVE Urine Nitrite NEGATIVE Urine Bilirubin NEGATIVE Urine Urobilinogen NEGATIVE Urine Leukocyte Esterase 2+ H Urine Microscopic RBC > 182 H Urine Microscopic WBC 156 H Urine Squamous Epithelial Cells FEW Urine Bacteria FEW A Urine Hemoglobin 3+ H Urine Random Creatinine 20.08 Urine Random Sodium 118 H Urine Glucose 1+ H Urine Total Protein 82.0 H White Blood Count 8.6 # Red Blood Count 2.87 L Hemoglobin 7.5 L Hematocrit 22.7 L Mean Corpuscular Volume 79.1 L Mean Corpuscular Hemoglobin 26.1 L Mean Corpuscular Hemoglobin Concent 33.0 Red Cell Distribution Width 21.3 H Platelet Count 144 Mean Platelet Volume 10.7 H Immature Granulocytes % 0.600 H Neutrophils % 83.3 H Lymphocytes % 9.0 L Monocytes % 6.9 Eosinophils % 0.1 Basophils % 0.1 Nucleated Red Blood Cells % 0.0 Immature Granulocytes # 0.050 H Neutrophils # 7.2 Lymphocytes # 0.8 Monocytes # 0.6 Eosinophils # 0.0 Basophils # 0.0 Nucleated Red Blood Cells # 0.0 Sodium Level 141 Potassium Level 4.2 Chloride Level 113 H Carbon Dioxide Level 24 Anion Gap 4 L Blood Urea Nitrogen 45 H Creatinine 2.08 H Est Glomerular Filtrat Rate mL/min 39 L Glucose Level 91 Calcium Level 8.8 Phosphorus Level 3.5 Magnesium Level 2.0 Medications Medication Current Medications IV Flush (NS 3 ml) 3 ml PER PROTOCOL IV ; Start 09/28/18 at 17:30 Ondansetron HCl (Zofran Inj) 4 mg Q6H PRN IV NAUSEA/VOMITING; Start 09/28/18 at 17:30 Famotidine (Pepcid Iv) 20 mg DAILY IV Last administered on 10/02/18 09:32; Admin Dose 20 MG; Start 09/28/18 at 18:00 Norepinephrine 250 ml @ 1.875 mls/ hr TITRATE IV Last administered on 09/30/18 22:39; Admin Dose 11.25 MLS/HR; Start 09/28/18 at 19:30 Vancomycin HCl (Vanco Iv Per Pharmacy) VANCOMYCIN PER PHARMACY PER PROTOCOL XX ; Start 09/28/18 at 22:00 Meropenem/Sodium Chloride 50 ml @ 100 mls/hr Q12 IVPB Last administered on 10/02/18 09:35; Admin Dose 100 MLS/HR; Start 09/29/18 at 01:00 Levetiracetam 100 ml @ 400 mls/hr Q12 IVPB Last administered on 10/02/18 09:38; Admin Dose 400 MLS/HR; Start 09/29/18 at 10:00 Lorazepam (Ativan) 1 mg Q10MIN PRN IV SEIZURES Last administered on 09/29/18 10:52; Admin Dose 1 MG; Start 09/29/18 at 10:00 Zinc Sulfate (Zinc Sulfate) 220 mg DAILY GTB Last administered on 10/02/18 09:32; Admin Dose 220 MG; Start 09/30/18 at 09:00 Multivitamins (Multivitamin) 30 ml DAILY GTB Last administered on 10/02/18 0 9:39; Admin Dose 30 ML; Start 09/30/18 at 09:00 Ascorbic Acid (Vitamin C) 500 mg DAILY GTB Last administered on 10/02/18 09:32; Admin Dose 500 MG; Start 09/30/18 at 09:00 Aspirin (Aspirin) 81 mg DAILY PO Last administered on 10/02/18 09:32; Admin Dose 81 MG; Start 09/30/18 at 09:00 Phenytoin (Dilantin) 100 mg Q8 IV Last administered on 10/02/18 06:47; Admin Dose 100 MG; Start 09/29/18 at 22:00 Sodium Hypochlorite (Dakins Diluted ()) 1 applic BID TP Last administered on 10/02/18 09:32; Admin Dose 1 APPLIC; Start 09/30/18 at 09:00 Heparin Sodium (Porcine) (Heparin (5000 Units/1ml)) 5,000 unit BID SC Last administered on 10/02/18 09:35; Admin Dose 5,000 UNIT; Start 10/01/18 at 09:00 Vancomycin HCl 250 ml @ 125 mls/hr Q24H IVPB Last administered on 10/01/18 20:59; Admin Dose 125 MLS/HR; Start 09/30/18 at 20:00 Dopamine HCl/ Dextrose 250 ml @ 4.403 mls/ hr TITRATE IV Last administered on 10/02/18 01:02; Admin Dose 11.006 MLS/HR; Start 10/01/18 at 03:00 Mupirocin (Bactroban) 1 applic BID TOP Last administered on 10/02/18 09:38; Admin Dose 1 APPLIC; Start 10/01/18 at 21:00 Albumin Human 100 ml @ 100 mls/hr Q8H IV Last administered on 10/02/18 09:34; Admin Dose 100 MLS/HR; Start 10/02/18 at 08:00; Stop 10/03/18 at 00:59 ROSSANA MCKEON MD October 02, 2018 10:14
--- NOTE | 2018-10-02 11:23 | CONS ---
Consult Date/Type/Reason Admit Date/Time September 28, 2018 at 15:36 Initial Consult Date 09/28/18 Type of Consult Pulmonary Requesting Provider: ROSSANA MCKEON MD Date/Time of Note DATE: 10/02/18 TIME: 11:22 Subjective No significant changes. Remains unresponsive on mechanical ventilation with vasopressor support. Objective Vital Signs Date Temp Pulse Resp B/P (MAP) Pulse Ox O2 O2 Flow FiO2 Time Delivery Rate 10/02/18 77 23 128/72 100 Mechanical 11:00 (90) Ventilator 10/02/18 97.2 08:00 10/02/18 30 05:06 Intake and Output 10/01/18 10/01/18 10/02/18 1414:59 22:59 06:59 IntakeIntake Total 316 ml 652.637 ml 436.313 ml OutputOutput Total 350 ml 765 ml 370 ml BalanceBalance -34 ml -112.363 ml 66.313 ml Exam PHYSICAL EXAMINATION: GENERAL: Elderly-appearing gentleman, unresponsive on mechanical ventilation. HEENT: His pupils are fixed and dilated. VITAL SIGNS: NECK: Trach site is clean and intact. CARDIAC: S1, S2. No added sounds or murmurs. CHEST: Diminished air entry bilaterally. ABDOMEN: Soft, nontender. No guarding or rebound. EXTREMITIES: No cyanosis, clubbing. A 1+ edema. NEUROLOGIC: Unable to assess vegetative state. Vent Setting Ventilator Support Mode: AC Fraction of Inspired Oxygen pe: 30 Positive End Expiratory Pressu: 5.0 Results/Medications Result Diagram: 10/02/18 0451 10/02/18 0451 Results 24 hrs Laboratory Tests Test 10/02/18 04:51 10/02/18 10:46 White Blood Count 8.6 # Red Blood Count 2.87 L Hemoglobin 7.5 L Hematocrit 22.7 L Mean Corpuscular Volume 79.1 L Mean Corpuscular Hemoglobin 26.1 L Mean Corpuscular Hemoglobin Concent 33.0 Red Cell Distribution Width 21.3 H Platelet Count 144 Mean Platelet Volume 10.7 H Immature Granulocytes % 0.600 H Neutrophils % 83.3 H Lymphocytes % 9.0 L Monocytes % 6.9 Eosinophils % 0.1 Basophils % 0.1 Nucleated Red Blood Cells % 0.0 Immature Granulocytes # 0.050 H Neutrophils # 7.2 Lymphocytes # 0.8 Monocytes # 0.6 Eosinophils # 0.0 Basophils # 0.0 Nucleated Red Blood Cells # 0.0 Sodium Level 141 Potassium Level 4.2 Chloride Level 113 H Carbon Dioxide Level 24 Anion Gap 4 L Blood Urea Nitrogen 45 H Creatinine 2.08 H Est Glomerular Filtrat Rate mL/min 39 L Glucose Level 91 Calcium Level 8.8 Phosphorus Level 3.5 Magnesium Level 2.0 Lab Scanned Report REFERENCE LAB Medications Current Medications IV Flush (NS 3 ml) 3 ml PER PROTOCOL IV ; Start 09/28/18 at 17:30 Ondansetron HCl (Zofran Inj) 4 mg Q6H PRN IV NAUSEA/VOMITING; Start 09/28/18 at 17:30 Famotidine (Pepcid Iv) 20 mg DAILY IV Last administered on 10/02/18 09:32; Admin Dose 20 MG; Start 09/28/18 at 18:00 Norepinephrine 250 ml @ 1.875 mls/ hr TITRATE IV Last administered on 09/30/18 22:39; Admin Dose 11.25 MLS/HR; Start 09/28/18 at 19:30 Vancomycin HCl (Vanco Iv Per Pharmacy) VANCOMYCIN PER PHARMACY PER PROTOCOL XX ; Start 09/28/18 at 22:00 Meropenem/Sodium Chloride 50 ml @ 100 mls/hr Q12 IVPB Last administered on 10/02/18 09:35; Admin Dose 100 MLS/HR; Start 09/29/18 at 01:00 Levetiracetam 100 ml @ 400 mls/hr Q12 IVPB Last administered on 10/02/18 09:38; Admin Dose 400 MLS/HR; Start 09/29/18 at 10:00 Lorazepam (Ativan) 1 mg Q10MIN PRN IV SEIZURES Last administered on 09/29/18 10:52; Admin Dose 1 MG; Start 09/29/18 at 10:00 Zinc Sulfate (Zinc Sulfate) 220 mg DAILY GTB Last administered on 10/02/18 09:32; Admin Dose 220 MG; Start 09/30/18 at 09:00 Multivitamins (Multivitamin) 30 ml DAILY GTB Last administered on 10/02/18 09:39; Admin Dose 30 ML; Start 09/30/18 at 09:00 Ascorbic Acid (Vitamin C) 500 mg DAILY GTB Last administered on 10/02/18 09:32; Admin Dose 500 MG; Start 09/30/18 at 09:00 Aspirin (Aspirin) 81 mg DAILY PO Last administered on 10/02/18 09:32; Admin Dose 81 MG; Start 09/30/18 at 09:00 Phenytoin (Dilantin) 100 mg Q8 IV Last administered on 10/02/18 06:47; Admin Dose 100 MG; Start 09/29/18 at 22:00 Sodium Hypochlorite (Dakins Diluted ()) 1 applic BID TP Last administered on 10/02/18 09:32; Admin Dose 1 APPLIC; Start 09/30/18 at 09:00 Heparin Sodium (Porcine) (Heparin (5000 Units/1ml)) 5,000 unit BID SC Last administered on 10/02/18 09:35; Admin Dose 5,000 UNIT; Start 10/01/18 at 09:00 Vancomycin HCl 250 ml @ 125 mls/hr Q24H IVPB Last administered on 10/01/18 20:59; Admin Dose 125 MLS/HR; Start 09/30/18 at 20:00 Dopamine HCl/ Dextrose 250 ml @ 4.403 mls/ hr TITRATE IV Last administered on 10/02/18 01:02; Admin Dose 11.006 MLS/HR; Start 10/01/18 at 03:00 Mupirocin (Bactroban) 1 applic BID TOP Last administered on 10/02/18 09:38; Admin Dose 1 APPLIC; Start 10/01/18 at 21:00 Albumin Human 100 ml @ 100 mls/hr Q8H IV Last administered on 10/02/18 09:34; Admin Dose 100 MLS/HR; Start 10/02/18 at 08:00; Stop 10/03/18 at 00:59 Assessment/Plan Hospital Course (Demo Recall) IMPRESSION AND PLAN: 1. Cardiopulmonary arrest. 2. Probable significant anoxic brain injury. 3. Status post septic shock, staph bacteremia noted. 4. History of dysphagia. 5. Acute renal failure probable ATN injury 6. Significant bradycardia requiring chronotropic support 7. Significant decubitus ulcer PLAN: 1. EEG and clinical findings noted. Likely severe anoxic brain injury 2. Continue vasopressor as needed. Cardiology recommendations 3. Antibiotics. 4. DVT and GI prophylaxis. 5. Continue IV fluids, continue tube feeding as tolerated 6. Continue wound care Critical care time 40 minutes. Palliative care consult discussed goals of care. Overall prognosis extremely poor. LES CONDE MD, [facility] October 02, 2018 11:23
--- NOTE | 2018-10-02 11:51 | CONS ---
Assessment/Plan Assessment/Plan Assessment/Plan (Daily) S/P cardiac arrest respiratory failure encephalopathy renal insufficiency chronic dementia multiple CVA's by histrory malnutrition debility Will contact family today if possible will meet with the ksister tomorrow. Consultation Date/Type/Reason Admit Date/Time September 28, 2018 at 15:36 Date/Time of Note DATE: 10/02/18 TIME: 11:47 Hx of Present Illness All information is taken from patient's medical records. Accordingly patient is a 73-year-old gentleman has history of CVA multiple times left and severely disabled written for the last 5 years noncommunicative. Patient was a resident of a [facility] unit prior to being transferred to this hospital. It is documented that patient had a cardiac arrest on about September 28 underwent cardiopulmonary resuscitation for approximately 7 minutes relief return of spontaneous circulation achieved patient was admitted through the emergency room. According medical records patient's POLST signed by sister states full code. I am asked to speak to family members concerning ongoing level of care in this gentleman who has poor quality of life prior to this hospitalization. Unable to obtain Past Medical History Medical History: coronary artery disease, high cholesterol, other (Stroke syndrome) Home Meds Reported Medications Magnesium Hydroxide* (Milk Of Magnesia*) 400 Mg/5 Ml Oral.susp, 30 ML GTB DAILY, ML 09/28/18 Docusate Sodium* (Colace*) 100 Mg Capsule, 100 MG GTB DAILY, #30 CAP 09/28/18 Acetaminophen* (Acetaminophen*) 650 Mg Tablet, 650 MG GTB Q4 PRN for PAIN LEVEL 1-3, #30 TAB 09/28/18 Acetaminophen* (Acetaminophen*) 500 MG Extra Strength Tablet, 1000 MG GTB Q4 PRN for PAIN LEVELL 4-10, TAB 09/28/18 Chlorhexidine Gluconate (Peridex) 473 Ml Mouthwash, 15 ML MM Q12, BOTTLE 09/28/18 Pantoprazole* (Protonix*) 40 Mg Tablet.dr, 40 MG GTB DAILY, TAB 09/28/18 Tamsulosin Hcl* (Flomax*) 0.4 Mg Cap.er.24h, 0.4 MG GTB DAILY, CAP 09/28/18 Famotidine* (Famotidine*) 20 Mg Tablet, 20 MG GTB DAILY, #30 TAB 09/28/18 Donepezil* (Aricept*) 5 Mg Tablet, 5 MG GTB DAILY, TAB 07/18/17 Atorvastatin Calcium* (Atorvastatin Calcium*) 20 Mg Tablet, 20 MG GTB QHS, #30 TAB 07/08/17 Discontinued Reported Medications Amino Acids/Protein Hydrolys (PRO-STAT AWC LIQUID) 887 Ml Liquid, 30 ML GTB TID 11/03/17 Acetaminophen* (Acetaminophen*) 650 Mg Tablet, 650 MG PO Q6H PRN for PAIN AND OR ELEVATED TEMP, #30 TAB 11/03/17 Pantoprazole* (Pantoprazole*) 40 Mg Tablet.dr, 40 MG PO BID, TAB 11/03/17 Ascorbic Acid* (Vitamin C*) 500 Mg Capsule.sa, 500 MG GTB DAILY, CAP 11/03/17 Hydrocodone/Acetaminophen ([place] 5-325 Tablet) 1 Each Tablet, 1 EACH PO Q4 PRN for SEVERE PAIN LEVEL 7-10, TAB 11/03/17 Isosorbide Dinitrate* (Isosorbide Dinitrate*) 10 Mg Tablet, 10 MG GTB TID, TAB 07/08/17 Multivitamins* (Theragran*) 1 Tab Tab, 1 TAB GTB DAILY, TAB 07/08/17 Folic Acid* (Folic Acid*) 1 Mg Tablet, 1 MG GTB DAILY, TAB 07/08/17 Aspirin* (Aspirin* EC) 81 Mg Tablet.dr, 81 MG GTB DAILY, TAB 07/08/17 Discontinued Scripts Nifedipine* (Procardia*) 10 Mg Capsule, 20 MG GTB TID, #30 CAP Prov:MADDY FREGOSO V. TRAINING PROGRAM DEVELOPER 11/07/17 Hydralazine Hcl* (Hydralazine Hcl*) 25 Mg Tab, 50 MG GTB TID, #90 TAB Prov:FREGOSOMADDY V. TRAINING PROGRAM DEVELOPER 11/07/17 Sulfamethoxazole/Trimethoprim* (Bactrim Ds* Tablet) 1 Each Tablet, 1 TAB PO BID for 7 Days, #14 TAB Prov:MADDY FREGOSO V. TRAINING PROGRAM DEVELOPER 11/06/17 Medications Current Medications IV Flush (NS 3 ml) 3 ml PER PROTOCOL IV ; Start 09/28/18 at 17:30 Ondansetron HCl (Zofran Inj) 4 mg Q6H PRN IV NAUSEA/VOMITING; Start 09/28/18 at 17:30 Famotidine (Pepcid Iv) 20 mg DAILY IV Last administered on 10/02/18 09:32; Admin Dose 20 MG; Start 09/28/18 at 18:00 Norepinephrine 250 ml @ 1.875 mls/ hr TITRATE IV Last administered on 09/30/18 22:39; Admin Dose 11.25 MLS/HR; Start 09/28/18 at 19:30 Vancomycin HCl (Vanco Iv Per Pharmacy) VANCOMYCIN PER PHARMACY PER PROTOCOL XX ; Start 09/28/18 at 22:00 Meropenem/Sodium Chloride 50 ml @ 100 mls/hr Q12 IVPB Last administered on 10/02/18 09:35; Admin Dose 100 MLS/HR; Start 09/29/18 at 01:00 Levetiracetam 100 ml @ 400 mls/hr Q12 IVPB Last administered on 10/02/18 09:38; Admin Dose 400 MLS/HR; Start 09/29/18 at 10:00 Lorazepam (Ativan) 1 mg Q10MIN PRN IV SEIZURES Last administered on 09/29/18 10:52; Admin Dose 1 MG; Start 09/29/18 at 10:00 Zinc Sulfate (Zinc Sulfate) 220 mg DAILY GTB Last administered on 10/02/18 09:32; Admin Dose 220 MG; Start 09/30/18 at 09:00 Multivitamins (Multivitamin) 30 ml DAILY GTB Last administered on 10/02/18 09:39; Admin Dose 30 ML; Start 09/30/18 at 09:00 Ascorbic Acid (Vitamin C) 500 mg DAILY GTB Last administered on 10/02/18 09:32; Admin Dose 500 MG; Start 09/30/18 at 09:00 Aspirin (Aspirin) 81 mg DAILY PO Last administered on 10/02/18 09:32; Admin Dose 81 MG; Start 09/30/18 at 09:00 Phenytoin (Dilantin) 100 mg Q8 IV Last administered on 10/02/18 06:47; Admin Dose 100 MG; Start 09/29/18 at 22:00 Sodium Hypochlorite (Dakins Diluted (40)) 1 applic BID TP Last administered on 10/02/18 09:32; Admin Dose 1 APPLIC; Start 09/30/18 at 09:00 Heparin Sodium (Porcine) (Heparin (5000 Units/1ml)) 5,000 unit BID SC Last administered on 10/02/18at 09:35; Admin Dose 5,000 UNIT; Start 10/01/18 at 09:00 Vancomycin HCl 250 ml @ 125 mls/hr Q24H IVPB Last administered on 10/01/18at 20:59; Admin Dose 125 MLS/HR; Start 09/30/18 at 20:00 Dopamine HCl/ Dextrose 250 ml @ 4.403 mls/ hr TITRATE IV Last administered on 10/02/18at 01:02; Admin Dose 11.006 MLS/HR; Start 10/01/18 at 03:00 Mupirocin (Bactroban) 1 applic BID TOP Last administered on 10/02/18at 09:38; Admin Dose 1 APPLIC; Start 10/01/18 at 21:00 Albumin Human 100 ml @ 100 mls/hr Q8H IV Last administered on 10/02/18at 09:34; Admin Dose 100 MLS/HR; Start 10/02/18 at 08:00; Stop 10/03/18 at 00:59 Allergies: Coded Allergies: No Known Allergy (Unverified , 10/02/18) Past Surgical History Past Surgical Hx: no surgical history Social History Alcohol Use: none Smoking Status: Former smoker Drug Use: none, other (Unknown) Exam/Review of Systems Exam Vitals Vital Signs Date Temp Pulse Resp B/P (MAP) Pulse Ox O2 O2 Flow FiO2 Time Delivery Rate 10/02/18 77 23 128/72 100 Mechanical 11:00 (90) Ventilator 10/02/18 97.2 08:00 10/02/18 30 08:00 Intake and Output 10/01/18 10/01/18 10/02/18 1515:00 23:00 07:00 IntakeIntake Total 355 ml 742.393 ml 301.557 ml OutputOutput Total 550 ml 625 ml 320 ml BalanceBalance -195 ml 117.393 ml -18.443 ml Constitutional: non-verbal, distress, frail Head: No normocephalic, No atraumatic, No lacerations, No hematomas, No other Eyes: other (Bilateral exophthalmic globes pupils equally round nonreactive to light bilateral pinpoint pupils 1 to 2 mm bilaterally, anicteric sclera) ENMT: other (Trached) Neck: supple Respiratory: congested cough, crackles/rales, diminished breath sounds, intercostal retraction Cardiovascular: regular rate and rhythm, nl pulses Neurological: other (Nonresponsive to any verbal or tactile stimulation) Results Result Diagram: 10/02/18 0451 10/02/18 0451 Results 24hrs Laboratory Tests Test 10/02/18 04:51 10/02/18 10:46 White Blood Count 8.6 # Red Blood Count 2.87 L Hemoglobin 7.5 L Hematocrit 22.7 L Mean Corpuscular Volume 79.1 L Mean Corpuscular Hemoglobin 26.1 L Mean Corpuscular Hemoglobin Concent 33.0 Red Cell Distribution Width 21.3 H Platelet Count 144 Mean Platelet Volume 10.7 H Immature Granulocytes % 0.600 H Neutrophils % 83.3 H Lymphocytes % 9.0 L Monocytes % 6.9 Eosinophils % 0.1 Basophils % 0.1 Nucleated Red Blood Cells % 0.0 Immature Granulocytes # 0.050 H Neutrophils # 7.2 Lymphocytes # 0.8 Monocytes # 0.6 Eosinophils # 0.0 Basophils # 0.0 Nucleated Red Blood Cells # 0.0 Sodium Level 141 Potassium Level 4.2 Chloride Level 113 H Carbon Dioxide Level 24 Anion Gap 4 L Blood Urea Nitrogen 45 H Creatinine 2.08 H Est Glomerular Filtrat Rate mL/min 39 L Glucose Level 91 Calcium Level 8.8 Phosphorus Level 3.5 Magnesium Level 2.0 Lab Scanned Report REFERENCE LAB Medications Medication Current Medications IV Flush (NS 3 ml) 3 ml PER PROTOCOL IV ; Start 09/28/18 at 17:30 Ondansetron HCl (Zofran Inj) 4 mg Q6H PRN IV NAUSEA/VOMITING; Start 09/28/18 at 17:30 Famotidine (Pepcid Iv) 20 mg DAILY IV Last administered on 10/02/18at 09:32; Admin Dose 20 MG; Start 09/28/18 at 18:00 Norepinephrine 250 ml @ 1.875 mls/ hr TITRATE IV Last administered on 09/30/18at 22:39; Admin Dose 11.25 MLS/HR; Start 09/28/18 at 19:30 Vancomycin HCl (Vanco Iv Per Pharmacy) VANCOMYCIN PER PHARMACY PER PROTOCOL XX ; Start 09/28/18 at 22:00 Meropenem/Sodium Chloride 50 ml @ 100 mls/hr Q12 IVPB Last administered on 10/02/18 09:35; Admin Dose 100 MLS/HR; Start 09/29/18 at 01:00 Levetiracetam 100 ml @ 400 mls/hr Q12 IVPB Last administered on 10/02/18 09:38; Admin Dose 400 MLS/HR; Start 09/29/18 at 10:00 Lorazepam (Ativan) 1 mg Q10MIN PRN IV SEIZURES Last administered on 09/29/18 10:52; Admin Dose 1 MG; Start 09/29/18 at 10:00 Zinc Sulfate (Zinc Sulfate) 220 mg DAILY GTB Last administered on 10/02/18 09:32; Admin Dose 220 MG; Start 09/30/18 at 09:00 Multivitamins (Multivitamin) 30 ml DAILY GTB Last administered on 10/02/18 09:39; Admin Dose 30 ML; Start 09/30/18 at 09:00 Ascorbic Acid (Vitamin C) 500 mg DAILY GTB Last administered on 10/02/18 09:32; Admin Dose 500 MG; Start 09/30/18 at 09:00 Aspirin (Aspirin) 81 mg DAILY PO Last administered on 10/02/18 09:32; Admin Dose 81 MG; Start 09/30/18 at 09:00 Phenytoin (Dilantin) 100 mg Q8 IV Last administered on 10/02/18 06:47; Admin Dose 100 MG; Start 09/29/18 at 22:00 Sodium Hypochlorite (Dakins Diluted (40)) 1 applic BID TP Last administered on 10/02/18 09:32; Admin Dose 1 APPLIC; Start 09/30/18 at 09:00 Heparin Sodium (Porcine) (Heparin (5000 Units/1ml)) 5,000 unit BID SC Last administered on 10/02/18 09:35; Admin Dose 5,000 UNIT; Start 10/01/18 at 09:00 Vancomycin HCl 250 ml @ 125 mls/hr Q24H IVPB Last administered on 10/01/18 20:59; Admin Dose 125 MLS/HR; Start 09/30/18 at 20:00 Dopamine HCl/ Dextrose 250 ml @ 4.403 mls/ hr TITRATE IV Last administered on 10/02/18 01:02; Admin Dose 11.006 MLS/HR; Start 10/01/18 at 03:00 Mupirocin (Bactroban) 1 applic BID TOP Last administered on 10/02/18at 09:38; Admin Dose 1 APPLIC; Start 10/01/18 at 21:00 Albumin Human 100 ml @ 100 mls/hr Q8H IV Last administered on 10/02/18at 09:34; Admin Dose 100 MLS/HR; Start 10/02/18 at 08:00; Stop 10/03/18 at 00:59 LUZ CUMMINS October 02, 2018 11:51
--- NOTE | 2018-10-02 15:32 | CONS ---
Assessment/Plan Assessment/Plan Hospital Course 63 yo M with extensive neurologic hx and multiple comorbidities who presents to the ICU following a cardiac arrest. TTM was deferred d/t pt's poor neurologic status at baseline. He was noted to have face and arm twitching, for which neurology is consulted. The clinical picture suggests seizures in the context of hypoxic ischemic cerebral injury. CTH is without obvious acute intracranial pathology. EEG is without epileptiform activity, though diffusely slow. P: OK to cont Keppra as scheduled. Hold Dilantin; await repeat level Ativan IV PRN seizure >5 min or for cluster ASA for secondary stroke prevention MRI brain when medically able Will follow clinically\ Consultation Date/Type/Reason Admit Date/Time September 28, 2018 at 15:36 Type of Consult Neurology Reason for Consultation ams Requesting Provider: ROSSANA MCKEON MD Date/Time of Note DATE: 10/02/18 TIME: 15:30 24 HR Interval Summary Free Text/Dictation Continues icu care Exam Vital Signs Vitals Vital Signs Date Temp Pulse Resp B/P (MAP) Pulse Ox O2 O2 Flow FiO2 Time Delivery Rate 10/02/18 66 14 115/67 96 14:45 (83) 10/02/18 Mechanical 14:30 Ventilator 10/02/18 30 12:40 10/02/18 97.9 12:00 Intake and Output 10/01/18 10/01/18 10/02/18 1515:00 23:00 07:00 IntakeIntake Total 355 ml 742.393 ml 301.557 ml OutputOutput Total 550 ml 625 ml 320 ml BalanceBalance -195 ml 117.393 ml -18.443 ml Exam PE: Gen Appearance: No Apparent Distress HEENT: trached Cardiovascular: Regular rate Abdomen: Soft; PEG Extremities: Dry NE: The patient was comatose. Cranial nerve examination was limited by mental status. Pupils were pinpoint. There was no afferent pupillary defect. Funduscopic examination was limited. Face was grossly symmetric, w/ present corneal and cough reflexes. Tone was increased in the upper extremities. Muscle bulk was normal. I did not see fasciculations. The patient minimally withdrew his upper extremities to noxious stimuli. Coordination and gait testing was limited by mental status. Arm and leg reflexes were symmetric. Nicholson's sign was absent. Plantar responses were mute. AZALIA ENRIQUE October 02, 2018 15:32
[2018-10-03] VITALS (106 sets, daily range): BP systolic 79–134; BP diastolic 47–86; PULSE 54–99; RESP 16–19
[2018-10-03] MEDS: DOPamine-D5W 1.6 MG/ML 250 ML IV SCH (06:30)
[2018-10-03] MEDS: NORepinephrine 8MG/250 ML (PMX 250 ML IV SCH (06:40)
--- NOTE | 2018-10-03 09:13 | PN ---
DATE: 10/03/2018 SUBJECTIVE: The patient is critically ill on pressor support, being weaned off. The patient on full ventilator support. No neurological improvement. No other events noted. OBJECTIVE: VITAL SIGNS: Blood pressure is 105/62, respiration 18, pulse 58, temperature 98.6. HEENT: Head is normocephalic. NECK: Supple. HEART: Regular rate. LUNGS: Show diminished breath sounds at the base. ABDOMEN: Soft, nontender to palpation without rebound or guarding. EXTREMITIES: Negative for clubbing, cyanosis, no edema. DERMATOLOGIC: No rashes. MUSCULOSKELETAL: No joint effusion. NEUROLOGIC: No change in exam. MEDICATIONS: The patient's medications have been reviewed. LABORATORY DATA: Has been reviewed. MEDICATIONS: Have been reviewed. IMAGING STUDIES: Have been reviewed. CULTURES: Have been reviewed. ASSESSMENT AND PLAN: 1. Nonoliguric acute kidney injury. Previous baseline creatinine of 0.69 mg/dL. Etiology of acute kidney injury secondary to acute tubular necrosis due to ischemic hypoperfusion and shock. The patie nt appears to be entering maintenance phase of acute tubular necrosis as renal function has stabilize d in the last 24 hours. Urinary output has increased. At this point, continue current treatment bee n. Continue supportive care, renally dose all meds, avoid nephrotoxins. Continue treating underlyin g shock. 2. Anemia. Continue to monitor hemoglobin and hematocrit levels. 3. Mineral bone disorder, monitor calcium and phosphorus levels. 4. Hypokalemia. Continue to monitor and replete as needed. 5. Cardiac arrest. Etiology may be secondary to PA. The patient is status post spontaneous return of circulation. Continue to monitor. Follow up with Cardiology. 6. Shock. Etiology may be multifactorial, septic, questionable cardiac, neurogenic. The patient is being weaned off pressor support. Continue current medical management. Continue volume expansion w ith IV albumin. Continue antibiotic therapy, monitor closely. 7. Ventilator dependent respiratory failure. Vent settings and arterial blood gas was reviewed. Co ntinue to monitor. 8. Dysphagia. Continue tube feeding. 9. Iggfr-[id number] encephalopathy. The patient had no change in mental status. Continue to monito r. 10. Dyslipidemia. Continue statin therapy. 11. History of gastritis. Continue proton pump inhibitor. Dictated By: ODT MCALLISTER/SHILO Conf#: [id number] DID#: [id number] CC: ROSSANA MCKEON MD;*EndCC*
[2018-10-03] MEDS: ALBUMIN HUMAN 25% 100 ML IV SCH ×3 (09:28→23:59)
[2018-10-03] MEDS: MULTIVITAMINS 30 ML CUP GTB SCH (09:28)
[2018-10-03] MEDS: ASPIRIN 81 MG TAB PO SCH (09:28)
[2018-10-03] MEDS: ZINC SULFATE 220 MG CAP GTB SCH (09:28)
[2018-10-03] MEDS: ASCORBIC ACID 500 MG TAB GTB SCH (09:28)
[2018-10-03] MEDS: LEVETIRACETAM 500 MG (PMX) 100 ML IVPB SCH ×2 (09:28→21:22)
[2018-10-03] MEDS: FAMOTIDINE 20 MG INJ IV SCH (09:28)
[2018-10-03] MEDS: MEROPENEM 1 GM/50ML(PMX) 50 ML IVPB SCH ×2 (09:28→21:22)
[2018-10-03] MEDS: HEPARIN 5,000 UNIT/1 ML VIAL SC SCH ×2 (09:29→21:00)
[2018-10-03] MEDS: DAKINS 0.0125%(1/40) 473 ML SOLUTION TP SCH ×2 (09:30→21:23)
[2018-10-03] MEDS: MUPIROCIN 2% 22 GM OINT TOP SCH ×2 (09:30→21:22)
--- NOTE | 2018-10-03 09:32 | CONS ---
Consult Date/Type/Reason Admit Date/Time September 28, 2018 at 15:36 Initial Consult Date 09/28/18 Type of Consult Pulmonary Requesting Provider: ROSSANA MCKEON MD Date/Time of Note DATE: 10/03/18 TIME: 09:31 Subjective Withdraws to painful stimuli otherwise no significant neurological changes. Continues Levophed and dopamine. Low hemoglobin noted. No active bleeding seen. Objective Vital Signs Date Temp Pulse Resp B/P (MAP) Pulse Ox O2 O2 Flow FiO2 Time Delivery Rate 10/03/18 58 18 105/62 100 07:00 (76) 10/03/18 Mechanical 06:00 Ventilator 10/03/18 30 05:17 10/03/18 97.4 04:00 Intake and Output 10/02/18 10/02/18 10/03/18 1414:59 22:59 06:59 IntakeIntake Total 621.0 ml 596.442 ml 145.440 ml OutputOutput Total 65 ml 385 ml 690 ml BalanceBalance 556.0 ml 211.442 ml -544.560 ml Exam PHYSICAL EXAMINATION: GENERAL: Elderly-appearing gentleman, unresponsive on mechanical ventilation. HEENT: His pupils are fixed and dilated. VITAL SIGNS: NECK: Trach site is clean and intact. CARDIAC: S1, S2. No added sounds or murmurs. CHEST: Diminished air entry bilaterally. ABDOMEN: Soft, nontender. No guarding or rebound. EXTREMITIES: No cyanosis, clubbing. A 1+ edema. NEUROLOGIC: Unable to assess vegetative state. Vent Setting Ventilator Support Mode: AC Fraction of Inspired Oxygen pe: 30 Positive End Expiratory Pressu: 5.0 Results/Medications Result Diagram: 10/03/18 0851 10/03/18 0442 Results 24 hrs Laboratory Tests Test 10/02/18 10:46 10/02/18 15:48 10/02/18 18:45 10/03/18 04:42 Lab Scanned Report REFERENCE LAB Phenytoin 19.8 18.3 (Dilantin) Level Vancomycin Level 33.9 *H Trough White Blood Count 7.6 Red Blood Count 2.62 L Hemoglobin 6.8 *L Hematocrit 20.6 L Mean Corpuscular 78.6 L Volume Mean Corpuscular 26.0 L Hemoglobin Mean Corpuscular 33.0 Hemoglobin Concent Red Cell 20.9 H Distribution Width Platelet Count 149 Mean Platelet 10.7 H Volume Immature 0.500 H Granulocytes % Neutrophils % 73.9 Lymphocytes % 15.5 Monocytes % 8.8 Eosinophils % 1.0 Basophils % 0.3 Nucleated Red 0.0 Blood Cells % Immature 0.040 H Granulocytes # Neutrophils # 5.6 Lymphocytes # 1.2 Monocytes # 0.7 Eosinophils # 0.1 Basophils # 0.0 Nucleated Red 0.0 Blood Cells # Sodium Level 140 Potassium Level 3.6 Chloride Level 112 H Carbon Dioxide 23 Level Anion Gap 5 Blood Urea 43 H Nitrogen Creatinine 1.99 H Est Glomerular 41 L Filtrat Rate mL/min Glucose Level 95 Calcium Level 8.9 Phosphorus Level 3.4 Magnesium Level 1.9 Iron Level 33 L Total Iron Binding 157 L Capacity Percent Iron 21 L Saturation Ferritin 330.0 H Test 10/03/18 08:51 White Blood Count 8.4 Red Blood Count 2.65 L Hemoglobin 6.7 *L Hematocrit 20.7 L Mean Corpuscular 78.1 L Volume Mean Corpuscular 25.3 L Hemoglobin Mean Corpuscular 32.4 Hemoglobin Concent Red Cell 21.0 H Distribution Width Platelet Count 136 L Mean Platelet 11.6 H Volume Immature 0.500 H Granulocytes % Neutrophils % 77.3 H Lymphocytes % 13.3 L Monocytes % 7.5 Eosinophils % 1.3 Basophils % 0.1 Nucleated Red 0.0 Blood Cells % Immature 0.040 H Granulocytes # Neutrophils # 6.5 Lymphocytes # 1.1 Monocytes # 0.6 Eosinophils # 0.1 Basophils # 0.0 Nucleated Red 0.0 Blood Cells # Medications Current Medications IV Flush (NS 3 ml) 3 ml PER PROTOCOL IV ; Start 09/28/18 at 17:30 Ondansetron HCl (Zofran Inj) 4 mg Q6H PRN IV NAUSEA/VOMITING; Start 09/28/18 at 17:30 Famotidine (Pepcid Iv) 20 mg DAILY IV Last administered on 10/03/18at 09:28; Admin Dose 20 MG; Start 09/28/18 at 18:00 Norepinephrine 250 ml @ 1.875 mls/ hr TITRATE IV Last administered on 10/03at 06:40; Admin Dose 1.875 MLS/HR; Start 09/28/18 at 19:30 Vancomycin HCl (Vanco Iv Per Pharmacy) VANCOMYCIN PER PHARMACY PER PROTOCOL XX ; Start 09/28/18 at 22:00 Meropenem/Sodium Chloride 50 ml @ 100 mls/hr Q12 IVPB Last administered on 10/03/18 09:28; Admin Dose 100 MLS/HR; Start 09/29/18 at 01:00 Levetiracetam 100 ml @ 400 mls/hr Q12 IVPB Last administered on 10/03/18 09:28; Admin Dose 400 MLS/HR; Start 09/29/18 at 10:00 Lorazepam (Ativan) 1 mg Q10MIN PRN IV SEIZURES Last administered on 09/29/18 10:52; Admin Dose 1 MG; Start 09/29/18 at 10:00 Zinc Sulfate (Zinc Sulfate) 220 mg DAILY GTB Last administered on 10/03/18 09:28; Admin Dose 220 MG; Start 09/30/18 at 09:00 Multivitamins (Multivitamin) 30 ml DAILY GTB Last administered on 10/03/18 09:28; Admin Dose 30 ML; Start 09/30/18 at 09:00 Ascorbic Acid (Vitamin C) 500 mg DAILY GTB Last administered on 10/03/18 09:28; Admin Dose 500 MG; Start 09/30/18 at 09:00 Aspirin (Aspirin) 81 mg DAILY PO Last administered on 10/03/18 09:28; Admin Dose 81 MG; Start 09/30/18 at 09:00 Sodium Hypochlorite (Dakins Diluted (40)) 1 applic BID TP Last administered on 10/03/18 09:30; Admin Dose 1 APPLIC; Start 09/30/18 at 09:00 Heparin Sodium (Porcine) (Heparin (5000 Units/1ml)) 5,000 unit BID SC Last administered on 10/03/18 09:29; Admin Dose 5,000 UNIT; Start 10/01/18 at 09:00 Dopamine HCl/ Dextrose 250 ml @ 4.403 mls/ hr TITRATE IV Last administered on 10/03/18 06:30; Admin Dose 6.604 MLS/HR; Start 10/01/18 at 03:00 Mupirocin (Bactroban) 1 applic BID TOP Last administered on 10/03/18 09:30; Admin Dose 1 APPLIC; Start 10/01/18 at 21:00 Ferric Sodium Gluconate Complex 125 mg/Sodium Chloride 110 ml @ 110 mls/hr DAILY@1300 IVPB ; Start 10/03/18 at 13:00; Stop 10/07/18 at 13:59 Albumin Human 100 ml @ 100 mls/hr Q8H IV Last administered on 10/03/18at 09:28; Admin Dose 100 MLS/HR; Start 10/03/18 at 08:00; Stop 10/04/18 at 00:59 Assessment/Plan Hospital Course (Demo Recall) IMPRESSION: 1. Cardiopulmonary arrest. 2. Probable significant anoxic brain injury. 3. Status post septic shock, staph bacteremia noted. 4. History of dysphagia. 5. Acute renal failure probable ATN injury 6. Significant bradycardia requiring chronotropic support 7. Significant decubitus ulcer 8. Significant anemia but no active bleeding noted. PLAN: 1. EEG and clinical findings noted. Likely severe anoxic brain injury 2. Continue vasopressor as needed. Cardiology recommendations 3. Antibiotics. 4. DVT and GI prophylaxis. 5. Continue IV fluids, continue tube feeding as tolerated 6. Continue wound care 7. Transfusion 1 unit packed red blood cells monitor H&H. Critical care time 40 minutes. Palliative care consult appreciated. Family wish to continue aggressive solomon sures including full code. Overall prognosis extremely poor. LES CONDE MD, [facility] October 03, 2018 09:32
--- NOTE | 2018-10-03 10:39 | CONS ---
Consult Date/Type/Reason Admit Date/Time September 28, 2018 at 15:36 Initial Consult Date 09/28/18 Type of Consultation: Urology Reason for Consultation Not able to insert the Gilman catheter Requesting Provider: ROSSANA MCKEON MD Date/Time of Note DATE: 10/03/18 TIME: 10:36 Subjective The patient remains encephalopathic, on respirator through tracheostomy and has a G-tube. Objective Vitals Vital Signs Date Temp Pulse Resp B/P (MAP) Pulse Ox O2 O2 Flow FiO2 Time Delivery Rate 10/03/18 58 18 105/62 100 07:00 (76) 10/03/18 Mechanical 06:00 Ventilator 10/03/18 30 05:17 10/03/18 97.4 04:00 Intake and Output 10/02/18 10/02/18 10/03/18 1515:00 23:00 07:00 IntakeIntake Total 611.6 ml 595.522 ml 129.760 ml OutputOutput Total 65 ml 550 ml 515 ml BalanceBalance 546.6 ml 45.522 ml -385.240 ml Exam He has a condom catheter on and there is urine in the tubing that appears to be clear. The bladder did not feel distended Results/Medications Result Diagram: 10/03/18 0851 10/03/18 0442 Results 24 hrs Laboratory Tests Test 10/02/18 10:46 10/02/18 15:48 10/02/18 18:45 10/03/18 04:42 Lab Scanned Report REFERENCE LAB Phenytoin 19.8 18.3 (Dilantin) Level Vancomycin Level 33.9 *H Trough White Blood Count 7.6 Red Blood Count 2.62 L Hemoglobin 6.8 *L Hematocrit 20.6 L Mean Corpuscular 78.6 L Volume Mean Corpuscular 26.0 L Hemoglobin Mean Corpuscular 33.0 Hemoglobin Concent Red Cell 20.9 H Distribution Width Platelet Count 149 Mean Platelet 10.7 H Volume Immature 0.500 H Granulocytes % Neutrophils % 73.9 Lymphocytes % 15.5 Monocytes % 8.8 Eosinophils % 1.0 Basophils % 0.3 Nucleated Red 0.0 Blood Cells % Immature 0.040 H Granulocytes # Neutrophils # 5.6 Lymphocytes # 1.2 Monocytes # 0.7 Eosinophils # 0.1 Basophils # 0.0 Nucleated Red 0.0 Blood Cells # Sodium Level 140 Potassium Level 3.6 Chloride Level 112 H Carbon Dioxide 23 Level Anion Gap 5 Blood Urea 43 H Nitrogen Creatinine 1.99 H Est Glomerular 41 L Filtrat Rate mL/min Glucose Level 95 Calcium Level 8.9 Phosphorus Level 3.4 Magnesium Level 1.9 Iron Level 33 L Total Iron Binding 157 L Capacity Percent Iron 21 L Saturation Ferritin 330.0 H Test 10/03/18 08:51 White Blood Count 8.4 Red Blood Count 2.65 L Hemoglobin 6.7 *L Hematocrit 20.7 L Mean Corpuscular 78.1 L Volume Mean Corpuscular 25.3 L Hemoglobin Mean Corpuscular 32.4 Hemoglobin Concent Red Cell 21.0 H Distribution Width Platelet Count 136 L Mean Platelet 11.6 H Volume Immature 0.500 H Granulocytes % Neutrophils % 77.3 H Lymphocytes % 13.3 L Monocytes % 7.5 Eosinophils % 1.3 Basophils % 0.1 Nucleated Red 0.0 Blood Cells % Immature 0.040 H Granulocytes # Neutrophils # 6.5 Lymphocytes # 1.1 Monocytes # 0.6 Eosinophils # 0.1 Basophils # 0.0 Nucleated Red 0.0 Blood Cells # Home Meds Reported Medications Magnesium Hydroxide* (Milk Of Magnesia*) 400 Mg/5 Ml Oral.susp, 30 ML GTB DAILY, ML 09/28/18 Docusate Sodium* (Colace*) 100 Mg Capsule, 100 MG GTB DAILY, #30 CAP 09/28/18 Acetaminophen* (Acetaminophen*) 650 Mg Tablet, 650 MG GTB Q4 PRN for PAIN LEVEL 1-3, #30 TAB 09/28/18 Acetaminophen* (Acetaminophen*) 500 MG Extra Strength Tablet, 1000 MG GTB Q4 PRN for PAIN LEVELL 4-10, TAB 09/28/18 Chlorhexidine Gluconate (Peridex) 473 Ml Mouthwash, 15 ML MM Q12, BOTTLE 09/28/18 Pantoprazole* (Protonix*) 40 Mg Tablet.dr, 40 MG GTB DAILY, TAB 09/28/18 Tamsulosin Hcl* (Flomax*) 0.4 Mg Cap.er.24h, 0.4 MG GTB DAILY, CAP 09/28/18 Famotidine* (Famotidine*) 20 Mg Tablet, 20 MG GTB DAILY, #30 TAB 09/28/18 Donepezil* (Aricept*) 5 Mg Tablet, 5 MG GTB DAILY, TAB 07/18/17 Atorvastatin Calcium* (Atorvastatin Calcium*) 20 Mg Tablet, 20 MG GTB QHS, #30 TAB 07/08/17 Discontinued Reported Medications Amino Acids/Protein Hydrolys (PRO-STAT AWC LIQUID) 887 Ml Liquid, 30 ML GTB TID 11/03/17 Acetaminophen* (Acetaminophen*) 650 Mg Tablet, 650 MG PO Q6H PRN for PAIN AND OR ELEVATED TEMP, #30 TAB 11/03/17 Pantoprazole* (Pantoprazole*) 40 Mg Tablet.dr, 40 MG PO BID, TAB 11/03/17 Ascorbic Acid* (Vitamin C*) 500 Mg Capsule.sa, 500 MG GTB DAILY, CAP 11/03/17 Hydrocodone/Acetaminophen ([place] 5-325 Tablet) 1 Each Tablet, 1 EACH PO Q4 PRN for SEVERE PAIN LEVEL 7-10, TAB 11/03/17 Isosorbide Dinitrate* (Isosorbide Dinitrate*) 10 Mg Tablet, 10 MG GTB TID, TAB 07/08/17 Multivitamins* (Theragran*) 1 Tab Tab, 1 TAB GTB DAILY, TAB 07/08/17 Folic Acid* (Folic Acid*) 1 Mg Tablet, 1 MG GTB DAILY, TAB 07/08/17 Aspirin* (Aspirin* EC) 81 Mg Tablet.dr, 81 MG GTB DAILY, TAB 07/08/17 Discontinued Scripts Nifedipine* (Procardia*) 10 Mg Capsule, 20 MG GTB TID, #30 CAP Prov:[employer] 11/07/17 Hydralazine Hcl* (Hydralazine Hcl*) 25 Mg Tab, 50 MG GTB TID, #90 TAB Prov:[employer] 11/07/17 Sulfamethoxazole/Trimethoprim* (Bactrim Ds* Tablet) 1 Each Tablet, 1 TAB PO BID for 7 Days, #14 TAB Prov:[employer] 11/06/17 Medications Current Medications IV Flush (NS 3 ml) 3 ml PER PROTOCOL IV ; Start 09/28/18 at 17:30 Ondansetron HCl (Zofran Inj) 4 mg Q6H PRN IV NAUSEA/VOMITING; Start 09/28/18 at 17:30 Famotidine (Pepcid Iv) 20 mg DAILY IV Last administered on 10/03/18 09:28; Admin Dose 20 MG; Start 09/28/18 at 18:00 Norepinephrine 250 ml @ 1.875 mls/ hr TITRATE IV Last administered on 10/03/18 06:40; Admin Dose 1.875 MLS/HR; Start 09/28/18 at 19:30 Vancomycin HCl (Vanco Iv Per Pharmacy) VANCOMYCIN PER PHARMACY PER PROTOCOL XX ; Start 09/28/18 at 22:00 Meropenem/Sodium Chloride 50 ml @ 100 mls/hr Q12 IVPB Last administered on 10/03/18 09:28; Admin Dose 100 MLS/HR; Start 09/29/18 at 01:00 Levetiracetam 100 ml @ 400 mls/hr Q12 IVPB Last administered on 10/03/18:28; Admin Dose 400 MLS/HR; Start 09/29/18 at 10:00 Lorazepam (Ativan) 1 mg Q10MIN PRN IV SEIZURES Last administered on 09/29/18 10:52; Admin Dose 1 MG; Start 09/29/18 at 10:00 Zinc Sulfate (Zinc Sulfate) 220 mg DAILY GTB Last administered on 10/03/18 09:28; Admin Dose 220 MG; Start 09/30/18 at 09:00 Multivitamins (Multivitamin) 30 ml DAILY GTB Last administered on 10/03/18 09:28; Admin Dose 30 ML; Start 09/30/18 at 09:00 Ascorbic Acid (Vitamin C) 500 mg DAILY GTB Last administered on 10/03/18 09:28; Admin Dose 500 MG; Start 09/30/18 at 09:00 Aspirin (Aspirin) 81 mg DAILY PO Last administered on 10/03/18 09:28; Admin Dose 81 MG; Start 09/30/18 at 09:00 Sodium Hypochlorite (Dakins Diluted (40)) 1 applic BID TP Last administered on 10/03/18 09:30; Admin Dose 1 APPLIC; Start 09/30/18 at 09:00 Heparin Sodium (Porcine) (Heparin (5000 Units/1ml)) 5,000 unit BID SC Last administered on 10/03/18 09:29; Admin Dose 5,000 UNIT; Start 5/16/19 at 09:00 Dopamine HCl/ Dextrose 250 ml @ 4.403 mls/ hr TITRATE IV Last administered on 10/03/18at 06:30; Admin Dose 6.604 MLS/HR; Start 10/01/18 at 03:00 Mupirocin (Bactroban) 1 applic BID TOP Last administered on 10/03/18at 09:30; Admin Dose 1 APPLIC; Start 10/01/18 at 21:00 Ferric Sodium Gluconate Complex 125 mg/Sodium Chloride 110 ml @ 110 mls/hr DAILY@1300 IVPB ; Start 10/03/18 at 13:00; Stop 10/07/18 at 13:59 Albumin Human 100 ml @ 100 mls/hr Q8H IV Last administered on 10/03/18at 09:28; Admin Dose 100 MLS/HR; Start 10/03/18 at 08:00; Stop 10/04/18 at 00:59 Assessment/Plan Hospital Course (Demo Recall) 63-year-old -[place] male, resident of his retirement facility, was brought to the emergency room because of cardiac arrest. Attempts in the emerge ncy room to insert a Gilman catheter were not successful. A urologic consultation was requested. The patient himself is not communicative he is on a respirator through the tracheostomy which he had for a while also he does have a G-tube. 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 His bladder did not seem to be distended. I did prep the genital area and then tried a 16 [place] coud catheter and that was met with resistance. Therefore I proceeded to do urethral dilatation using filiforms and followers. I used a 3 [place] 4 [place] spiral tip and straight tip filiforms and attempted to have these go into his bladder but that was not successful I tried at one time to see if I could advance the follower on the filiform but that also did not go into the bladder. I therefore did not any further attempt to insert the catheter. Since then he has had a condom catheter on and has voided clear urine. The bladder is not distended. Continue present treatment. If he goes into urinary retention and the family agrees then we could put a suprapubic tube LETY SALGADO MD October 03, 2018 10:39
--- NOTE | 2018-10-03 14:21 | PN ---
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 #Cardiac arrest - Etiology unclear. Was PEA on arrival to ED. May have been hypoxic arrest related to trach like mucous plug or occlusion. - Patient has known very severe neurologic deficit. This precludes his eligibility for hypothermia protocol. -Wean off pressors - Minimal vent settings. - Per discussion with sister, patient is full code - Dr. Flores following. #Bacteremia - Blood culture x1 growing staph luginensis. - I believe this is contaminant. Will repeat cultures. Continue Abx for now. No signs of sepsis. #Facial twitching - Facial fasciculations likely myoclonic jerks. - EEG negative for seizure activity. - Neurology started keppra and phenytoin, these can likely be tapered off. - Will avoid sedating medications including benzos unless seizure is proven. #Oliguric CASTRO - Dr. Chand unable to get Gilman. Currently has condom cath. - New CASTRO with rising Cr - Due to his absence of meaningful neurologic function, would not offer dialysis to this patient. - Dr. Bernstein consulted. #Chronic disability after stroke - Patient trached, vent, not responsive, contractures - Supportive care - Continue tube feeds. #Acute diarrhea - Resolved - If no rectal tube output over next 24-48 hours, it can likely be pulled. #Gastritis - Cont home H2 merlyn and PPI #Dyslipidemia - Cont home statin #UTI secondary to Gilman catheter -Culture growing multidrug-resistant organisms -ID consultation obtained -Continue vancomycin and meropenem DVT: Heparin GI: PPI Result Diagram: 10/03/18 0851 10/03/18 0442 Results 24hrs Laboratory Tests Test 10/02/18 15:48 10/02/18 18:45 10/03/18 04:42 10/03/18 08:51 Phenytoin (Dilantin) 19.8 18.3 Level Vancomycin Level 33.9 *H Trough White Blood Count 7.6 8.4 Red Blood Count 2.62 L 2.65 L Hemoglobin 6.8 *L 6.7 *L Hematocrit 20.6 L 20.7 L Mean Corpuscular 78.6 L 78.1 L Volume Mean Corpuscular 26.0 L 25.3 L Hemoglobin Mean Corpuscular 33.0 32.4 Hemoglobin Concent Red Cell 20.9 H 21.0 H Distribution Width Platelet Count 149 136 L Mean Platelet Volume 10.7 H 11.6 H Immature 0.500 H 0.500 H Granulocytes % Neutrophils % 73.9 77.3 H Lymphocytes % 15.5 13.3 L Monocytes % 8.8 7.5 Eosinophils % 1.0 1.3 Basophils % 0.3 0.1 Nucleated Red Blood 0.0 0.0 Cells % Immature 0.040 H 0.040 H Granulocytes # Neutrophils # 5.6 6.5 Lymphocytes # 1.2 1.1 Monocytes # 0.7 0.6 Eosinophils # 0.1 0.1 Basophils # 0.0 0.0 Nucleated Red Blood 0.0 0.0 Cells # Sodium Level 140 Potassium Level 3.6 Chloride Level 112 H Carbon Dioxide Level 23 Anion Gap 5 Blood Urea Nitrogen 43 H Creatinine 1.99 H Est Glomerular 41 L Filtrat Rate mL/min Glucose Level 95 Calcium Level 8.9 Phosphorus Level 3.4 Magnesium Level 1.9 Iron Level 33 L Total Iron Binding 157 L Capacity Percent Iron 21 L Saturation Ferritin 330.0 H Subjective 24 Hr Interval Summary Subjective hx not possible: pt non-verbal Exam/Review of Systems Exam Vitals Vital Signs Date Temp Pulse Resp B/P (MAP) Pulse Ox O2 O2 Flow FiO2 Time Delivery Rate 10/03/18 63 18 105/72 99 Mechanical 14:00 (83) Ventilator 10/03/18 98.0 12:00 10/03/18 30 05:17 Intake and Output 10/02/18 10/02/18 10/03/18 1515:00 23:00 07:00 IntakeIntake Total 611.6 ml 595.522 ml 129.760 ml OutputOutput Total 65 ml 550 ml 515 ml BalanceBalance 546.6 ml 45.522 ml -385.240 ml Constitutional: non-verbal ENMT: intubated Respiratory: clear to auscultation Cardiovascular: regular rate and rhythm Gastrointestinal: soft; No distended Musculoskeletal: nl extremities to inspection Results Results 24hrs Laboratory Tests Test 10/02/18 15:48 10/02/18 18:45 10/03/18 04:42 10/03/18 08:51 Phenytoin (Dilantin) 19.8 18.3 Level Vancomycin Level 33.9 *H Trough White Blood Count 7.6 8.4 Red Blood Count 2.62 L 2.65 L Hemoglobin 6.8 *L 6.7 *L Hematocrit 20.6 L 20.7 L Mean Corpuscular 78.6 L 78.1 L Volume Mean Corpuscular 26.0 L 25.3 L Hemoglobin Mean Corpuscular 33.0 32.4 Hemoglobin Concent Red Cell 20.9 H 21.0 H Distribution Width Platelet Count 149 136 L Mean Platelet Volume 10.7 H 11.6 H Immature 0.500 H 0.500 H Granulocytes % Neutrophils % 73.9 77.3 H Lymphocytes % 15.5 13.3 L Monocytes % 8.8 7.5 Eosinophils % 1.0 1.3 Basophils % 0.3 0.1 Nucleated Red Blood 0.0 0.0 Cells % Immature 0.040 H 0.040 H Granulocytes # Neutrophils # 5.6 6.5 Lymphocytes # 1.2 1.1 Monocytes # 0.7 0.6 Eosinophils # 0.1 0.1 Basophils # 0.0 0.0 Nucleated Red Blood 0.0 0.0 Cells # Sodium Level 140 Potassium Level 3.6 Chloride Level 112 H Carbon Dioxide Level 23 Anion Gap 5 Blood Urea Nitrogen 43 H Creatinine 1.99 H Est Glomerular 41 L Filtrat Rate mL/min Glucose Level 95 Calcium Level 8.9 Phosphorus Level 3.4 Magnesium Level 1.9 Iron Level 33 L Total Iron Binding 157 L Capacity Percent Iron 21 L Saturation Ferritin 330.0 H Medications Medication Current Medications IV Flush (NS 3 ml) 3 ml PER PROTOCOL IV ; Start 09/28/18 at 17:30 Ondansetron HCl (Zofran Inj) 4 mg Q6H PRN IV NAUSEA/VOMITING; Start 09/28/18 at 17:30 Famotidine (Pepcid Iv) 20 mg DAILY IV Last administered on 10/03/18at 09:28; Admin Dose 20 MG; Start 09/28/18 at 18:00 Norepinephrine 250 ml @ 1.875 mls/ hr TITRATE IV Last administered on 10/03/18at 06:40; Admin Dose 1.875 MLS/HR; Start 09/28/18 at 19:30 Vancomycin HCl (Vanco Iv Per Pharmacy) VANCOMYCIN PER PHARMACY PER PROTOCOL XX ; Start 09/28/18 at 22:00 Meropenem/Sodium Chloride 50 ml @ 100 mls/hr Q12 IVPB Last administered on 09:28; Admin Dose 100 MLS/HR; Start 09/29/18 at 01:00 Levetiracetam 100 ml @ 400 mls/hr Q12 IVPB Last administered on 10/03/18 09:28; Admin Dose 400 MLS/HR; Start 09/29/18 at 10:00 Lorazepam (Ativan) 1 mg Q10MIN PRN IV SEIZURES Last administered on 09/29/18 10:52; Admin Dose 1 MG; Start 09/29/18 at 10:00 Zinc Sulfate (Zinc Sulfate) 220 mg DAILY GTB Last administered on 10/03/18 09: 28; Admin Dose 220 MG; Start 09/30/18 at 09:00 Multivitamins (Multivitamin) 30 ml DAILY GTB Last administered on 10/03/18:28; Admin Dose 30 ML; Start 09/30/18 at 09:00 Ascorbic Acid (Vitamin C) 500 mg DAILY GTB Last administered on 10/03/18 09:28; Admin Dose 500 MG; Start 09/30/18 at 09:00 Aspirin (Aspirin) 81 mg DAILY PO Last administered on 10/03/18 09:28; Admin Dose 81 MG; Start 09/30/18 at 09:00 Sodium Hypochlorite (Dakins Diluted (40)) 1 applic BID TP Last administered on 10/03/18 09:30; Admin Dose 1 APPLIC; Start 09/30/18 at 09:00 Heparin Sodium (Porcine) (Heparin (5000 Units/1ml)) 5,000 unit BID SC Last administered on 10/03/18 09:29; Admin Dose 5,000 UNIT; Start 10/01/18 at 09:00 Dopamine HCl/ Dextrose 250 ml @ 4.403 mls/ hr TITRATE IV Last administered on 10/03/18 06:30; Admin Dose 6.604 MLS/HR; Start 10/01/18 at 03:00 Mupirocin (Bactroban) 1 applic BID TOP Last administered on 10/03/18 09:30; Admin Dose 1 APPLIC; Start 10/01/18 at 21:00 Ferric Sodium Gluconate Complex 125 mg/Sodium Chloride 110 ml @ 110 mls/hr DAILY@1300 IVPB ; Start 10/03/18 at 13:00; Stop 10/07/18 at 13:59 Albumin Human 100 ml @ 100 mls/hr Q8H IV Last administered on 10/03/18at 09:28; Admin Dose 100 MLS/HR; Start 10/03/18 at 08:00; Stop 10/04/18 at 00:59 RAMOS NOLAN October 03, 2018 14:21
--- NOTE | 2018-10-03 15:59 | CONS ---
Assessment/Plan Assessment/Plan Assessment/Plan (Daily) Family members have left a message that they do not want to meet with me any other doctors to discuss code change or level of care. Suggested bioethics they would be no benefit in coding this gentleman and would significantly cause pain and suffering at the end of his life. Consultation Date/Type/Reason Admit Date/Time September 28, 2018 at 15:36 Initial Consult Date 09/28/18 Requesting Provider: ROSSANA MCKEON MD Date/Time of Note DATE: 10/03/18 TIME: 15:59 24 HR Interval Summary Free Text/Dictation Hx of Present Illness All information is taken from patient's medical records. Accordingly patient is a 73-year-old gentleman has history of CVA multiple times left and severely disabled written for the last 5 years noncommunicative. Patient was a [facility] a jail unit prior to being transferred to this hospital. It is documented that patient had a cardiac arrest on about September 28 underwent cardiopulmonary resuscitation for approximately 7 minutes relief return of spontaneous circulation achieved patient was admitted through the emergency room. According medical records patient's POLST signed by sister states full code. I am asked to speak to family members concerning ongoing level of care in this gentleman who has poor quality of life prior to this hospitalization. Unable to obtain Exam/Review of Systems Exam Vitals Vital Signs Date Temp Pulse Resp B/P (MAP) Pulse Ox O2 O2 Flow FiO2 Time Delivery Rate 10/03/18 63 18 105/72 99 Mechanical 14:00 (83) Ventilator 10/03/18 98.0 12:00 10/03/18 30 08:00 Intake and Output 10/02/18 10/02/18 10/03/18 1515:00 23:00 07:00 IntakeIntake Total 611.6 ml 595.522 ml 140.435 ml OutputOutput Total 65 ml 550 ml 515 ml BalanceBalance 546.6 ml 45.522 ml -374.565 ml Results Result Diagram: 10/03/18 0851 10/03/18 0442 Results 24hrs Laboratory Tests Test 10/02/18 18:45 10/03/18 04:42 10/03/18 08:51 Vancomycin Level Trough 33.9 *H White Blood Count 7.6 8.4 Red Blood Count 2.62 L 2.65 L Hemoglobin 6.8 *L 6.7 *L Hematocrit 20.6 L 20.7 L Mean Corpuscular Volume 78.6 L 78.1 L Mean Corpuscular Hemoglobin 26.0 L 25.3 L Mean Corpuscular Hemoglobin Concent 33.0 32.4 Red Cell Distribution Width 20.9 H 21.0 H Platelet Count 149 136 L Mean Platelet Volume 10.7 H 11.6 H Immature Granulocytes % 0.500 H 0.500 H Neutrophils % 73.9 77.3 H Lymphocytes % 15.5 13.3 L Monocytes % 8.8 7.5 Eosinophils % 1.0 1.3 Basophils % 0.3 0.1 Nucleated Red Blood Cells % 0.0 0.0 Immature Granulocytes # 0.040 H 0.040 H Neutrophils # 5.6 6.5 Lymphocytes # 1.2 1.1 Monocytes # 0.7 0.6 Eosinophils # 0.1 0.1 Basophils # 0.0 0.0 Nucleated Red Blood Cells # 0.0 0.0 Sodium Level 140 Potassium Level 3.6 Chloride Level 112 H Carbon Dioxide Level 23 Anion Gap 5 Blood Urea Nitrogen 43 H Creatinine 1.99 H Est Glomerular Filtrat Rate mL/min 41 L Glucose Level 95 Calcium Level 8.9 Phosphorus Level 3.4 Magnesium Level 1.9 Iron Level 33 L Total Iron Binding Capacity 157 L Percent Iron Saturation 21 L Ferritin 330.0 H Phenytoin (Dilantin) Level 18.3 Medications Medication Current Medications IV Flush (NS 3 ml) 3 ml PER PROTOCOL IV ; Start 09/28/18 at 17:30 Ondansetron HCl (Zofran Inj) 4 mg Q6H PRN IV NAUSEA/VOMITING; Start 09/28/18 at 17:30 Famotidine (Pepcid Iv) 20 mg DAILY IV Last administered on 10/03/18at 09:28; Admin Dose 20 MG; Start 09/28/18 at 18:00 Norepinephrine 250 ml @ 1.875 mls/ hr TITRATE IV Last administered on 10/03/18at 06:40; Admin Dose 1.875 MLS/HR; Start 09/28/18 at 19:30 Vancomycin HCl (Vanco Iv Per Pharmacy) VANCOMYCIN PER PHARMACY PER PROTOCOL XX ; Start 09/28/18 at 22:00 Meropenem/Sodium Chloride 50 ml @ 100 mls/hr Q12 IVPB Last administered on 10/03/18at 09:28; Admin Dose 100 MLS/HR; Start 09/29/18 at 01:00 Levetiracetam 100 ml @ 400 mls/hr Q12 IVPB Last administered on 10/03/18: 28; Admin Dose 400 MLS/HR; Start 09/29/18 at 10:00 Lorazepam (Ativan) 1 mg Q10MIN PRN IV SEIZURES Last administered on 09/29/18 10:52; Admin Dose 1 MG; Start 09/29/18 at 10:00 Zinc Sulfate (Zinc Sulfate) 220 mg DAILY GTB Last administered on 10/03/18:28; Admin Dose 220 MG; Start 09/30/18 at 09:00 Multivitamins (Multivitamin) 30 ml DAILY GTB Last administered on 10/03/18; Admin Dose 30 ML; Start 09/30/18 at 09:00 Ascorbic Acid (Vitamin C) 500 mg DAILY GTB Last administered on 10/03/18; Admin Dose 500 MG; Start 09/30/18 at 09:00 Aspirin (Aspirin) 81 mg DAILY PO Last administered on 10/03/18:; Admin Dose 81 MG; Start 09/30/18 at 09:00 Sodium Hypochlorite (Dakins Diluted (40)) 1 applic BID TP Last administered on 10/03/18 09:30; Admin Dose 1 APPLIC; Start 09/30/18 at 09:00 Heparin Sodium (Porcine) (Heparin (5000 Units/1ml)) 5,000 unit BID SC Last administered on 10/03/18 09:29; Admin Dose 5,000 UNIT; Start 10/01/18 at 09:00 Dopamine HCl/ Dextrose 250 ml @ 4.403 mls/ hr TITRATE IV Last administered on 10/03/18 06:30; Admin Dose 6.604 MLS/HR; Start 10/01/18 at 03:00 Mupirocin (Bactroban) 1 applic BID TOP Last administered on 10/03/18 09:30; Admin Dose 1 APPLIC; Start 10/01/18 at 21:00 Ferric Sodium Gluconate Complex 125 mg/Sodium Chloride 110 ml @ 110 mls/hr DAILY@1300 IVPB ; Start 10/03/18 at 13:00; Stop 10/07/18 at 13:59 Albumin Human 100 ml @ 100 mls/hr Q8H IV Last administered on 10/03/18at 09:28; Admin Dose 100 MLS/HR; Start 10/03/18 at 08:00; Stop 10/04/18 at 00:59 LUZ CUMMINS October 03, 2018 15:59
[2018-10-03] MEDS: SOD FERRIC GLUC COMPLX 125 MG in SOD CHLORIDE 0.9% 100 ML IVPB SCH (16:29)
[2018-10-04] VITALS (105 sets, daily range): BP systolic 92–139; BP diastolic 52–75; PULSE 51–67; RESP 16–19
[2018-10-04] MEDS ORDERED: SOD CHLORIDE 0.9% 250 ML IV* ONE (06:01)
[2018-10-04] MEDS: LEVETIRACETAM 500 MG (PMX) 100 ML IVPB SCH ×2 (09:33→20:42)
[2018-10-04] MEDS: MEROPENEM 1 GM/50ML(PMX) 50 ML IVPB SCH ×2 (09:33→20:42)
[2018-10-04] MEDS: MULTIVITAMINS 30 ML CUP GTB SCH (09:33)
[2018-10-04] MEDS: ASCORBIC ACID 500 MG TAB GTB SCH (09:34)
[2018-10-04] MEDS: ZINC SULFATE 220 MG CAP GTB SCH (09:34)
[2018-10-04] MEDS: MUPIROCIN 2% 22 GM OINT TOP SCH ×2 (09:34→20:41)
[2018-10-04] MEDS: DAKINS 0.0125%(1/40) 473 ML SOLUTION TP SCH ×2 (09:44→20:42)
[2018-10-04] MEDS: FAMOTIDINE 20 MG INJ IV SCH (09:44)
--- NOTE | 2018-10-04 10:01 | CONS ---
Consult Date/Type/Reason Admit Date/Time September 28, 2018 at 15:36 Initial Consult Date 09/28/18 Type of Consult Pulmonary Requesting Provider: ROSSANA MCKEON MD Date/Time of Note DATE: 10/04/18 TIME: 09:59 Subjective No significant events. Remains mostly somnolent. Off Levophed on dopamine. Neurologically unchanged. Objective Vital Signs Date Temp Pulse Resp B/P (MAP) Pulse Ox O2 O2 Flow FiO2 Time Delivery Rate 10/04/18 56 08:00 10/04/18 112/63 100 06:45 (79) 10/04/18 Mechanical 06:00 Ventilator 10/04/18 30 05:20 10/04/18 99.1 04:00 Intake and Output 10/03/18 10/03/18 10/04/18 1515:00 23:00 07:00 IntakeIntake Total 451.650 ml 1070.4 ml 676.812 ml OutputOutput Total 395 ml 465 ml BalanceBalance 451.650 ml 675.4 ml 211.812 ml Exam PHYSICAL EXAMINATION: GENERAL: Elderly-appearing gentleman, unresponsive on mechanical ventilation. HEENT: His pupils are fixed and dilated. VITAL SIGNS: NECK: Trach site is clean and intact. CARDIAC: S1, S2. No added sounds or murmurs. CHEST: Diminished air entry bilaterally. ABDOMEN: Soft, nontender. No guarding or rebound. EXTREMITIES: No cyanosis, clubbing. A 1+ edema. NEUROLOGIC: Unable to assess vegetative state. Vent Setting Ventilator Support Mode: AC Fraction of Inspired Oxygen pe: 30 Positive End Expiratory Pressu: 5.0 Results/Medications Result Diagram: 10/04/18 0421 10/04/18 0421 Results 24 hrs Laboratory Tests Test 10/03/18 18:45 10/04/18 04:21 Hemoglobin 7.3 L 6.9 *L Hematocrit 21.9 L 20.4 L White Blood Count 7.8 Red Blood Count 2.51 L Mean Corpuscular Volume 81.3 L Mean Corpuscular Hemoglobin 27.5 L Mean Corpuscular Hemoglobin Concent 33.8 Red Cell Distribution Width 20.6 H Platelet Count 131 L Mean Platelet Volume 11.3 H Immature Granulocytes % 0.500 H Neutrophils % 81.2 H Lymphocytes % 10.9 L Monocytes % 6.5 Eosinophils % 0.8 Basophils % 0.1 Nucleated Red Blood Cells % 0.0 Immature Granulocytes # 0.040 H Neutrophils # 6.3 Lymphocytes # 0.9 Monocytes # 0.5 Eosinophils # 0.1 Basophils # 0.0 Nucleated Red Blood Cells # 0.0 Sodium Level 141 Potassium Level 3.8 Chloride Level 113 H Carbon Dioxide Level 23 Anion Gap 5 Blood Urea Nitrogen 40 H Creatinine 1.87 H Est Glomerular Filtrat Rate mL/min 44 L Glucose Level 89 Calcium Level 9.3 Phosphorus Level 3.5 Magnesium Level 1.9 Medications Current Medications IV Flush (NS 3 ml) 3 ml PER PROTOCOL IV ; Start 09/28/18 at 17:30 Ondansetron HCl (Zofran Inj) 4 mg Q6H PRN IV NAUSEA/VOMITING; Start 09/28/18 at 17:30 Famotidine (Pepcid Iv) 20 mg DAILY IV Last administered on 10/04/18 09:44; Admin Dose 20 MG; Start 09/28/18 at 18:00 Norepinephrine 250 ml @ 1.875 mls/ hr TITRATE IV Last administered on 10/03/18 06:40; Admin Dose 1.875 MLS/HR; Start 09/28/18 at 19:30 Vancomycin HCl (Vanco Iv Per Pharmacy) VANCOMYCIN PER PHARMACY PER PROTOCOL XX ; Start 09/28/18 at 22:00 Meropenem/Sodium Chloride 50 ml @ 100 mls/hr Q12 IVPB Last administered on 10/04/18 09:33; Admin Dose 100 MLS/HR; Start 09/29/18 at 01:00 Levetiracetam 100 ml @ 400 mls/hr Q12 IVPB Last administered on 10/04/18 09:33; Admin Dose 400 MLS/HR; Start 09/29/18 at 10:00 Lorazepam (Ativan) 1 mg Q10MIN PRN IV SEIZURES Last administered on 09/29/18 10:52; Admin Dose 1 MG; Start 09/29/18 at 10:00 Zinc Sulfate (Zinc Sulfate) 220 mg DAILY GTB Last administered on 10/04/18 09:34; Admin Dose 220 MG; Start 09/30/18 at 09:00 Multivitamins (Multivitamin) 30 ml DAILY GTB Last administered on 10/04/18 09:33; Admin Dose 30 ML; Start 09/30/18 at 09:00 Ascorbic Acid (Vitamin C) 500 mg DAILY GTB Last administered on 10/04/18 09:34; Admin Dose 500 MG; Start 09/30/18 at 09:00 Aspirin (Aspirin) 81 mg DAILY PO Last administered on 10/03/18 09:28; Admin Dose 81 MG; Start 09/30/18 at 09:00; Status Hold Sodium Hypochlorite (Dakins Diluted ()) 1 applic BID TP Last administered on 10/04/18 09:44; Admin Dose 1 APPLIC; Start 09/30/18 at 09:00 Heparin Sodium (Porcine) (Heparin (5000 Units/1ml)) 5,000 unit BID SC Last administered on 10/03/18 09:29; Admin Dose 5,000 UNIT; Start 10/01/18 at 09:00; Status Hold Dopamine HCl/ Dextrose 250 ml @ 4.403 mls/ hr TITRATE IV Last administered on 10/03/18 06:30; Admin Dose 6.604 MLS/HR; Start 10/01/18 at 03:00 Mupirocin (Bactroban) 1 applic BID TOP Last administered on 10/04/18 09:34; Admin Dose 1 APPLIC; Start 10/01/18 at 21:00 Ferric Sodium Gluconate Complex 125 mg/Sodium Chloride 110 ml @ 110 mls/hr DA JEN@1300 IVPB Last administered on 10/03/18 16:29; Admin Dose 110 MLS/HR; Start 10/03/18 at 13:00; Stop 10/07/18 at 13:59 Assessment/Plan Hospital Course (Demo Recall) IMPRESSION: 1. Cardiopulmonary arrest. 2. Probable significant anoxic brain injury. 3. Status post septic shock, staph bacteremia noted. 4. History of dysphagia. 5. Acute renal failure probable ATN injury 6. Significant bradycardia requiring chronotropic support 7. Significant decubitus ulcer 8. Significant anemia but no active bleeding noted. PLAN: 1. EEG and clinical findings noted. Likely severe anoxic brain injury, neurology recommendations 2. Continue vasopressor as needed. Cardiology recommendations 3. Antibiotics. De-escalate 4. DVT and GI prophylaxis. 5. Continue IV fluids, continue tube feeding as tolerated 6. Continue wound care 7. Transfusion PRBCs. Critical care time 40 minutes. Palliative care consult appreciated. Extremely poor prognosis L[facility] CONDE [facility] October 04, 2018 10:01
--- NOTE | 2018-10-04 10:44 | CONS ---
Assessment/Plan Assessment/Plan Assessment/Plan (Daily) No change in patient's overall clinical condition,will wait to hear from [employer] to discuss Committee meeting. Consultation Date/Type/Reason Admit Date/Time September 28, 2018 at 15:36 Initial Consult Date 09/28/18 Requesting Provider: ROSSANA MCKEON MD Date/Time of Note DATE: 10/04/18 TIME: 10:42 Exam/Review of Systems Exam Vitals Vital Signs Date Temp Pulse Resp B/P (MAP) Pulse Ox O2 O2 Flow FiO2 Time Delivery Rate 10/04/18 56 08:00 10/04/18 112/63 100 06:45 (79) 10/04/18 Mechanical 06:00 Ventilator 10/04/18 30 05:20 10/04/18 99.1 04:00 Intake and Output 10/03/18 10/03/18 10/04/18 1515:00 23:00 07:00 IntakeIntake Total 451.650 ml 1070.4 ml 676.812 ml OutputOutput Total 395 ml 465 ml BalanceBalance 451.650 ml 675.4 ml 211.812 ml Results Result Diagram: 10/04/18 0421 10/04/18 0421 Results 24hrs Laboratory Tests Test 10/03/18 18:45 10/04/18 04:21 Hemoglobin 7.3 L 6.9 *L Hematocrit 21.9 L 20.4 L White Blood Count 7.8 Red Blood Count 2.51 L Mean Corpuscular Volume 81.3 L Mean Corpuscular Hemoglobin 27.5 L Mean Corpuscular Hemoglobin Concent 33.8 Red Cell Distribution Width 20.6 H Platelet Count 131 L Mean Platelet Volume 11.3 H Immature Granulocytes % 0.500 H Neutrophils % 81.2 H Lymphocytes % 10.9 L Monocytes % 6.5 Eosinophils % 0.8 Basophils % 0.1 Nucleated Red Blood Cells % 0.0 Immature Granulocytes # 0.040 H Neutrophils # 6.3 Lymphocytes # 0.9 Monocytes # 0.5 Eosinophils # 0.1 Basophils # 0.0 Nucleated Red Blood Cells # 0.0 Sodium Level 141 Potassium Level 3.8 Chloride Level 113 H Carbon Dioxide Level 23 Anion Gap 5 Blood Urea Nitrogen 40 H Creatinine 1.87 H Est Glomerular Filtrat Rate mL/min 44 L Glucose Level 89 Calcium Level 9.3 Phosphorus Level 3.5 Magnesium Level 1.9 Medications Medication Current Medications IV Flush (NS 3 ml) 3 ml PER PROTOCOL IV ; Start 09/28/18 at 17:30 Ondansetron HCl (Zofran Inj) 4 mg Q6H PRN IV NAUSEA/VOMITING; Start 09/28/18 at 17:30 Famotidine (Pepcid Iv) 20 mg DAILY IV Last administered on 10/04/18 09:44; Admin Dose 20 MG; Start 09/28/18 at 18:00 Norepinephrine 250 ml @ 1.875 mls/ hr TITRATE IV Last administered on 10/03/18 06:40; Admin Dose 1.875 MLS/HR; Start 09/28/18 at 19:30 Vancomycin HCl (Vanco Iv Per Pharmacy) VANCOMYCIN PER PHARMACY PER PROTOCOL XX ; Start 09/28/18 at 22:00 Meropenem/Sodium Chloride 50 ml @ 100 mls/hr Q12 IVPB Last administered on 10/04/18 09:33; Admin Dose 100 MLS/HR; Start 09/29/18 at 01:00 Levetiracetam 100 ml @ 400 mls/hr Q12 IVPB Last administered on 10/04/18 09:33; Admin Dose 400 MLS/HR; Start 09/29/18 at 10:00 Lorazepam (Ativan) 1 mg Q10MIN PRN IV SEIZURES Last administered on 09/29/18 10:52; Admin Dose 1 MG; Start 09/29/18 at 10:00 Zinc Sulfate (Zinc Sulfate) 220 mg DAILY GTB Last administered on 10/04/18 09:34; Admin Dose 220 MG; Start 09/30/18 at 09:00 Multivitamins (Multivitamin) 30 ml DAILY GTB Last administered on 10/04/18 09:33; Admin Dose 30 ML; Start 09/30/18 at 09:00 Ascorbic Acid (Vitamin C) 500 mg DAILY GTB Last administered on 10/04/18 09:34; Admin Dose 500 MG; Start 09/30/18 at 09:00 Aspirin (Aspirin) 81 mg DAILY PO Last administered on 10/03/18 09:28; Admin Dose 81 MG; Start 09/30/18 at 09:00; Status Hold Sodium Hypochlorite (Dakins Diluted ()) 1 applic BID TP Last administered on 10/04/18 09:44; Admin Dose 1 APPLIC; Start 09/30/18 at 09:00 Heparin Sodium (Porcine) (Heparin (5000 Units/1ml)) 5,000 unit BID SC Last administered on 10/03/18 09:29; Admin Dose 5,000 UNIT; Start 10/01/18 at 09:00; Status Hold Dopamine HCl/ Dextrose 250 ml @ 4.403 mls/ hr TITRATE IV Last administered on 10/03/18 06:30; Admin Dose 6.604 MLS/HR; Start 10/01/18 at 03:00 Mupirocin (Bactroban) 1 applic BID TOP Last administered on 10/04/18 09:34; Admin Dose 1 APPLIC; Start 10/01/18 at 21:00 Ferric Sodium Gluconate Complex 125 mg/Sodium Chloride 110 ml @ 110 mls/hr DAILY@1300 IVPB Last administered on 10/03/18 16:29; Admin Dose 110 MLS/HR; Start 10/03/18 at 13:00; Stop 10/07/18 at 13:59 Miscellaneous Information (*Rx Drug Level Order Reminder*) RANDOM VANCOMYCIN LEVEL 5... ONCE ONCE XX ; Start 10/05/18 at 05:00; Stop 10/05/18 at 05:01 LUZ CUMMINS October 04, 2018 10:44
--- NOTE | 2018-10-04 11:49 | PN ---
DATE: 10/04/2018 SUBJECTIVE: The patient is in serious critical but stable condition. The patient is being weaned of f pressor support, currently only on dopamine. Urinary output has been adequate. The patient is pen ding blood transfusion. OBJECTIVE: VITAL SIGNS: Blood pressure is 112/63, respiration 19, pulse 56, temperature 98.7. HEENT: Head is normocephalic. NECK: Supple. HEART: Regular rate. LUNGS: Show diminished breath sounds at the base. ABDOMEN: Soft, nontender to palpation without rebound or guarding. EXTREMITIES: Negative for clubbing, cyanosis, no edema. DERMATOLOGIC: No rashes. MUSCULOSKELETAL: No joint effusion. NEUROLOGIC: No change in exam. MEDICATIONS: The patient's medications have been reviewed. LABORATORY DATA: Has been reviewed. ASSESSMENT AND PLAN: 1. Nonoliguric acute kidney injury with previous baseline creatinine 0.69 mg/dL. Etiology of acute kidney injury secondary to acute tubular necrosis due to ischemic hypoperfusion, shock. The patient currently is in maintenance phase of acute tubular necrosis as renal function stabilized. At this po int, continue current treatment plans, supportive care, renally dose all meds. 2. Anemia. Monitor hemoglobin and hematocrit levels. The patient is pending blood transfusion. Alphonse cervantes is completing course of IV iron. 3. Mineral bone disorder, monitor calcium and phosphorus level. 4. Hyperkalemia, improved. 5. Cardiac arrest. Etiology may have been secondary to PEA. Continue to monitor. 6. Shock. Etiology may be multifactorial, septic, questionable cardiac, questionable neurogenic. T he patient is being weaned off pressor support. Continue current medical management and antibiotic t herapy. 7. Ventilator-dependent respiratory failure. Vent settings and ABG was reviewed. Continue to monit or. 8. Dysphagia. Continue tube feeding. 9. Ischemic chronic encephalopathy. Patient has had no significant change in mental status. Contin ue to monitor. 10. Dyslipidemia. Continue statin therapy. 11. History of gastritis. Continue proton pump inhibitor. Dictated By: DOT CONROY DO NR/NTS Conf#: [id number] DID#: [id number] CC: RAMOS NOLAN MD; TRUPTI EDGAR MD; ROSSANA MCKEON MD;*End*
--- NOTE | 2018-10-04 12:08 | PN ---
Date/Time of Note Date/Time of Note DATE: 10/04/18 TIME: 12:06 Assessment/Plan VTE Prophylaxis Risk score (from Nsg)>0 risk: 6 Pharmacological prophylaxis: heparin Lines/Catheters Urinary Cath still in place: No Assessment/Plan Hospital Course 63 yo man severely disabled years after stroke, now trach and vent dependent and vegetative; presents after cardiac arrest. #Cardiac arrest - Etiology unclear. Was PEA on arrival to ED. May have been hypoxic arrest related to trach like mucous plug or occlusion. - Patient has known very severe neurologic deficit. This precludes his eligibility for hypothermia protocol. -Wean off pressors - Minimal vent settings. - Per discussion with sister, patient is full code - Dr. Flores following. #Bacteremia - Blood culture x1 growing staph luginensis, likely contaminant, replete blood cultures are negative - Continue Abx for now. No signs of sepsis -ID consultation obtained #Facial twitching - Facial fasciculations likely myoclonic jerks. - EEG negative for seizure activity. - Neurology started keppra and phenytoin, these can likely be tapered off. - Will avoid sedating medications including benzos unless seizure is proven. #Oliguric CASTRO - Dr. Chand unable to get Gilman. Currently has condom cath. - New CASTRO with rising Cr - Due to his absence of meaningful neurologic function, would not offer dialysis to this patient. - Dr. Bernstein consulted. #Chronic disability after stroke - Patient trached, vent, not responsive, contractures - Supportive care - Continue tube feeds. #Acute diarrhea - Resolved - If no rectal tube output over next 24-48 hours, it can likely be pulled. #Gastritis - Cont home H2 merlyn and PPI #Dyslipidemia - Cont home statin #UTI secondary to Gilman catheter -Culture growing multidrug-resistant organisms -ID consultation obtained -Continue vancomycin and meropenem #Anemia likely of chronic disease and/or acute blood loss from GI bleed -Transfuse 1 unit today -No evidence of melena or shari bleed at this time, stool guaiac was positive DVT: Heparin GI: PPI Result Diagram: 10/04/1842010/04/181 Results 24hrs Laboratory Tests Test 10/03/18 18:45 10/04/18 04:21 Hemoglobin 7.3 L 6.9 *L Hematocrit 21.9 L 20.4 L White Blood Count 7.8 Red Blood Count 2.51 L Mean Corpuscular Volume 81.3 L Mean Corpuscular Hemoglobin 27.5 L Mean Corpuscular Hemoglobin Concent 33.8 Red Cell Distribution Width 20.6 H Platelet Count 131 L Mean Platelet Volume 11.3 H Immature Granulocytes % 0.500 H Neutrophils % 81.2 H Lymphocytes % 10.9 L Monocytes % 6.5 Eosinophils % 0.8 Basophils % 0.1 Nucleated Red Blood Cells % 0.0 Immature Granulocytes # 0.040 H Neutrophils # 6.3 Lymphocytes # 0.9 Monocytes # 0.5 Eosinophils # 0.1 Basophils # 0.0 Nucleated Red Blood Cells # 0.0 Sodium Level 141 Potassium Level 3.8 Chloride Level 113 H Carbon Dioxide Level 23 Anion Gap 5 Blood Urea Nitrogen 40 H Creatinine 1.87 H Est Glomerular Filtrat Rate mL/min 44 L Glucose Level 89 Calcium Level 9.3 Phosphorus Level 3.5 Magnesium Level 1.9 Subjective 24 Hr Interval Summary Subjective hx not possible: pt non-verbal Exam/Review of Systems Exam Vitals Vital Signs Date Temp Pulse Resp B/P (MAP) Pulse Ox O2 O2 Flow FiO2 Time Delivery Rate 10/04/18 56 19 104/71 100 Mechanical 11:45 (82) Ventilator 10/04/18 30 05:20 10/04/18 99.1 04:00 Intake and Output 10/03/18 10/03/18 10/04/18 1515:00 23:00 07:00 IntakeIntake Total 451.650 ml 1070.4 ml 676.812 ml OutputOutput Total 395 ml 465 ml BalanceBalance 451.650 ml 675.4 ml 211.812 ml Constitutional: non-verbal Respiratory: clear to auscultation Cardiovascular: regular rate and rhythm Gastrointestinal: soft; No distended Musculoskeletal: nl extremities to inspection Results Results 24hrs Laboratory Tests Test 10/03/18 18:45 10/04/18 04:21 Hemoglobin 7.3 L 6.9 *L Hematocrit 21.9 L 20.4 L White Blood Count 7.8 Red Blood Count 2.51 L Mean Corpuscular Volume 81.3 L Mean Corpuscular Hemoglobin 27.5 L Mean Corpuscular Hemoglobin Concent 33.8 Red Cell Distribution Width 20.6 H Platelet Count 131 L Mean Platelet Volume 11.3 H Immature Granulocytes % 0.500 H Neutrophils % 81.2 H Lymphocytes % 10.9 L Monocytes % 6.5 Eosinophils % 0.8 Basophils % 0.1 Nucleated Red Blood Cells % 0.0 Immature Granulocytes # 0.040 H Neutrophils # 6.3 Lymphocytes # 0.9 Monocytes # 0.5 Eosinophils # 0.1 Basophils # 0.0 Nucleated Red Blood Cells # 0.0 Sodium Level 141 Potassium Level 3.8 Chloride Level 113 H Carbon Dioxide Level 23 Anion Gap 5 Blood Urea Nitrogen 40 H Creatinine 1.87 H Est Glomerular Filtrat Rate mL/min 44 L Glucose Level 89 Calcium Level 9.3 Phosphorus Level 3.5 Magnesium Level 1.9 Medications Medication Current Medications IV Flush (NS 3 ml) 3 ml PER PROTOCOL IV ; Start 09/28/18 at 17:30 Ondansetron HCl (Zofran Inj) 4 mg Q6H PRN IV NAUSEA/VOMITING; Start 09/28/18 at 17:30 Famotidine (Pepcid Iv) 20 mg DAILY IV Last administered on 10/04/18 09:44; Admin Dose 20 MG; Start 09/28/18 at 18:00 Norepinephrine 250 ml @ 1.875 mls/ hr TITRATE IV Last administered on 10/03/18 06:40; Admin Dose 1.875 MLS/HR; Start 09/28/18 at 19:30 Vancomycin HCl (Vanco Iv Per Pharmacy) VANCOMYCIN PER PHARMACY PER PROTOCOL XX ; Start 09/28/18 at 22:00 Meropenem/Sodium Chloride 50 ml @ 100 mls/hr Q12 IVPB Last administered on 10/04/18 09:33; Admin Dose 100 MLS/HR; Start 09/29/18 at 01:00 Levetiracetam 100 ml @ 400 mls/hr Q12 IVPB Last administered on 10/04/18 09:33; Admin Dose 400 MLS/HR; Start 09/29/18 at 10:00 Lorazepam (Ativan) 1 mg Q10MIN PRN IV SEIZURES Last administered on 09/29/18 10:52; Admin Dose 1 MG; Start 09/29/18 at 10:00 Zinc Sulfate (Zinc Sulfate) 220 mg DAILY GTB Last administered on 10/04/18 09:34; Admin Dose 220 MG; Start 09/30/18 at 09:00 Multivitamins (Multivitamin) 30 ml DAILY GTB Last administered on 10/04/18 09:33; Admin Dose 30 ML; Start 09/30/18 at 09:00 Ascorbic Acid (Vitamin C) 500 mg DAILY GTB Last administered on 10/04/18 09:34; Admin Dose 500 MG; Start 09/30/18 at 09:00 Aspirin (Aspirin) 81 mg DAILY PO Last administered on 10/03/18 09:28; Admin Dose 81 MG; Start 09/30/18 at 09:00; Status Hold Sodium Hypochlorite (Dakins Diluted ()) 1 applic BID TP Last administered on 10/04/18 09:44; Admin Dose 1 APPLIC; Start 09/30/18 at 09:00 Heparin Sodium (Porcine) (Heparin (5000 Units/1ml)) 5,000 unit BID SC Last administered on 10/03/18 09:29; Admin Dose 5,000 UNIT; Start 10/01/18 at 09:00; Status Hold Dopamine HCl/ Dextrose 250 ml @ 4.403 mls/ hr TITRATE IV Last administered on 10/03/18 06:30; Admin Dose 6.604 MLS/HR; Start 10/01/18 at 03:00 Mupirocin (Bactroban) 1 applic BID TOP Last administered on 10/04/18 09:34; Admin Dose 1 APPLIC; Start 10/01/18 at 21:00 Ferric Sodium Gluconate Complex 125 mg/Sodium Chloride 110 ml @ 110 mls/hr DAILY@1300 IVPB Last administered on 10/03/18 16:29; Admin Dose 110 MLS/HR; Start 10/03/18 at 13:00; Stop 10/07/18 at 13:59 Miscellaneous Information (*Rx Drug Level Order Reminder*) RANDOM VANCOMYCIN LEVEL 5... ONCE ONCE XX ; Start 10/05/18 at 05:00; Stop 10/05/18 at 05:01 RAMOS NOLAN October 04, 2018 12:08
--- NOTE | 2018-10-04 14:40 | CONS ---
Assessment/Plan Assessment/Plan Hospital Course (Demo Recall) No acute events overnight. Patient is noncommunicative on low-dose of dopamine drip in no distress. He is hypothermic, sanjuanita hugger. WBC 7.8 H&H 6.9 and 20.4 platelets 131 neutrophils 81.2 BUN 40 creatinine 1.87 Microbiology: Blood culture on admission grew staph, MRSA swab came back positi ve, stool for C. difficile negative, urine culture grew Acinetobacter, Klebsiella and Nancie albicans Indwelling's: Trach PEG right IJ triple lumen catheter Physical examination: This is a chronically ill-appearing elderly man who is noncommunicative and in no distress. Head atraumatic normocephalic neck is supple chest rise symmetrical breath sounds diminished bases. Heart: S1-S2. Abdomen soft bowel sounds hypoactive extremities without edema. Skin patient has unstageable sacral wound and pressure sores on his feet Assessment: 1. Shock, status post PEA cardiac arrest 2. Multidrug-resistant UTI 3. MRSA nares colonization 4. Staph bacteremia consistent with contaminant 5. Acute possibly on chronic kidney disease 6. Chronic encephalopathy with a history of CVA Plan: We are going to add fluconazole to the regimen change antibiotics to doxycycline and colistin to cover multidrug-resistant organisms that he grows in the urine, urology rec-s noted, may need placement of SP cath if gets retention as attempt to insert Gilman failed Consultation Date/Type/Reason Admit Date/Time September 28, 2018 at 15:36 Initial Consult Date 09/28/18 Type of Consult id Requesting Provider: ROSSANA MCKEON MD Date/Time of Note DATE: 10/04/18 TIME: 14:39 Exam/Review of Systems Exam Vitals Vital Signs Date Temp Pulse Resp B/P (MAP) Pulse Ox O2 O2 Flow FiO2 Time Delivery Rate 10/04/18 55 12:00 10/04/18 104/71 100 Mechanical 11:45 (82) Ventilator 10/04/18 30 11:40 10/04/18 98.3 08:00 Intake and Output 10/03/18 10/03/18 10/04/18 1515:00 23:00 07:00 IntakeIntake Total 451.650 ml 1070.4 ml 676.812 ml OutputOutput Total 395 ml 465 ml BalanceBalance 451.650 ml 675.4 ml 211.812 ml Results Result Diagram: 10/04/18 0421 10/04/18 0421 Results 24hrs Laboratory Tests Test 10/03/18 18:45 10/04/18 04:21 Hemoglobin 7.3 L 6.9 *L Hematocrit 21.9 L 20.4 L White Blood Count 7.8 Red Blood Count 2.51 L Mean Corpuscular Volume 81.3 L Mean Corpuscular Hemoglobin 27.5 L Mean Corpuscular Hemoglobin Concent 33.8 Red Cell Distribution Width 20.6 H Platelet Count 131 L Mean Platelet Volume 11.3 H Immature Granulocytes % 0.500 H Neutrophils % 81.2 H Lymphocytes % 10.9 L Monocytes % 6.5 Eosinophils % 0.8 Basophils % 0.1 Nucleated Red Blood Cells % 0.0 Immature Granulocytes # 0.040 H Neutrophils # 6.3 Lymphocytes # 0.9 Monocytes # 0.5 Eosinophils # 0.1 Basophils # 0.0 Nucleated Red Blood Cells # 0.0 Sodium Level 141 Potassium Level 3.8 Chloride Level 113 H Carbon Dioxide Level 23 Anion Gap 5 Blood Urea Nitrogen 40 H Creatinine 1.87 H Est Glomerular Filtrat Rate mL/min 44 L Glucose Level 89 Calcium Level 9.3 Phosphorus Level 3.5 Magnesium Level 1.9 Medications Medication Current Medications IV Flush (NS 3 ml) 3 ml PER PROTOCOL IV ; Start 09/28/18 at 17:30 Ondansetron HCl (Zofran Inj) 4 mg Q6H PRN IV NAUSEA/VOMITING; Start 09/28/18 at 17:30 Famotidine (Pepcid Iv) 20 mg DAILY IV Last administered on 10/04/18at 09:44; Admin Dose 20 MG; Start 09/28/18 at 18:00 Norepinephrine 250 ml @ 1.875 mls/ hr TITRATE IV Last administered on 10/03/18at 06:40; Admin Dose 1.875 MLS/HR; Start 09/28/18 at 19:30 Vancomycin HCl (Vanco Iv Per Pharmacy) VANCOMYCIN PER PHARMACY PER PROTOCOL XX ; Start 09/28/18 at 22:00 Meropenem/Sodium Chloride 50 ml @ 100 mls/hr Q12 IVPB Last administered on 10/04/18at 09:33; Admin Dose 100 MLS/HR; Start 09/29/18 at 01:00 Levetiracetam 100 ml @ 400 mls/hr Q12 IVPB Last administered on 10/04/18 09:33; Admin Dose 400 MLS/HR; Start 09/29/18 at 10:00 Lorazepam (Ativan) 1 mg Q10MIN PRN IV SEIZURES Last administered on 09/29/18 10:52; Admin Dose 1 MG; Start 09/29/18 at 10:00 Zinc Sulfate (Zinc Sulfate) 220 mg DAILY GTB Last administered on 10/04/18 09:34; Admin Dose 220 MG; Start 09/30/18 at 09:00 Multivitamins (Multivitamin) 30 ml DAILY GTB Last administered on 10/04/18 09:33; Admin Dose 30 ML; Start 09/30/18 at 09:00 Ascorbic Acid (Vitamin C) 500 mg DAILY GTB Last administered on 10/04/18 09:34; Admin Dose 500 MG; Start 09/30/18 at 09:00 Aspirin (Aspirin) 81 mg DAILY PO Last administered on 10/03/18 09:28; Admin Dose 81 MG; Start 09/30/18 at 09:00; Status Hold Sodium Hypochlorite (Dakins Diluted (40)) 1 applic BID TP Last administered on 10/04/18 09:44; Admin Dose 1 APPLIC; Start 09/30/18 at 09:00 Heparin Sodium (Porcine) (Heparin (5000 Units/1ml)) 5,000 unit BID SC Last administered on 10/03/18 09:29; Admin Dose 5,000 UNIT; Start 10/01/18 at 09:00; Status Hold Dopamine HCl/ Dextrose 250 ml @ 4.403 mls/ hr TITRATE IV Last administered on 10/03/18 06:30; Admin Dose 6.604 MLS/HR; Start 10/01/18 at 03:00 Mupirocin (Bactroban) 1 applic BID TOP Last administered on 10/04/18 09:34; Admin Dose 1 APPLIC; Start 10/01/18 at 21:00 Ferric Sodium Gluconate Complex 125 mg/Sodium Chloride 110 ml @ 110 mls/hr DA JEN@1300 IVPB Last administered on 10/03/18 16:29; Admin Dose 110 MLS/HR; Start 10/03/18 at 13:00; Stop 10/07/18 at 13:59 Miscellaneous Information (*Rx Drug Level Order Reminder*) RANDOM VANCOMYCIN LEVEL 5... ONCE ONCE XX ; Start 10/05/18 at 05:00; Stop 10/05/18 at 05:01 MELANIA SHAH NP October 04, 2018 14:40
[2018-10-04] MEDS: SOD FERRIC GLUC COMPLX 125 MG in SOD CHLORIDE 0.9% 100 ML IVPB SCH (15:52)
[2018-10-04] MEDS: FLUCONAZOLE 100 MG TAB PO SCH (17:47)
[2018-10-04] MEDS: DOPamine-D5W 1.6 MG/ML 250 ML IV SCH (17:48)
[2018-10-04] MEDS: COLISTIMETHATE 75 MG in SOD CHLORIDE 0.9% 100 ML IVPB SCH (18:22)
[2018-10-04] MEDS: DOXYCYCLINE 100 MG in SOD CHLORIDE 0.9% 250 ML IVPB SCH (20:42)
[2018-10-05] VITALS (103 sets, daily range): BP systolic 70–173; BP diastolic 46–91; PULSE 43–71; RESP 16–18
--- NOTE | 2018-10-05 07:39 | CONS ---
DATE OF ADMISSION: 09/28/2018 DATE OF CONSULTATION: 10/03/2018 TYPE OF CONSULTATION: Infectious Disease. REASON FOR CONSULTATION: Antibiotic management. HISTORY OF PRESENT ILLNESS: Samm Alejandro is a 63-year-old male who presents to the emergency room with acute cardiac arrest. The patient was treated for pneumonia with Fortaz and amikacin. He was last seen at 11:30 p.m. the evening prior to admission. He was given CPR at midnight for 7 minutes b y the nursing staff. He has a tracheostomy and received 5 doses of epinephrine 3 and 5 minutes apart . PAST MEDICAL HISTORY: 1. COPD. 2. Chronic respiratory failure. 3. Dysphagia. 4. Coronary artery disease. 5. Dyslipidemia. 6. History of cerebrovascular accident. 7. Chronic encephalopathy. 8. Extremity contractures. 9. G-tube placement and tracheostomy. 10. The patient also has senile dementia. FAMILY HISTORY: Noncontributory. SOCIAL HISTORY: He drinks and smoked in the past. He does not abuse drugs. ANCILLARY LABORATORY DATA: On admission, his white count was 22.9, H and H of 9.9 and 31.7, platelet count of 271,000. BUN and creatinine 24/0.69, glucose of 164. HOSPITAL COURSE: The patient was severely disabled years after a stroke, is vegetative and presents here after cardiac arrest. He was seen by Dr. Chand because there was difficulty inserting a Gilman catheter. He has a history of multiple strokes in the past and left him disabled and unable to talk . He had a code blue. He was seen by Neurology. He had face and arm twitching. Microbiology: He had Staph lugdunensis in his blood, 1 out of 2. There is methicillin-resistant staphylococcus and ur ine cultures growing Klebsiella pneumoniae, carbapenemase, Acinetobacter baumannii and Nancie albica ns. The acineto was sensitive to gentamicin, but the Klebsiella pneumoniae was resistant to everythi ng. He also had Nancie albicans. The patient is on vancomycin and meropenem. Chest x-ray showed b ibasilar opacities which may be on the basis of atelectasis or infiltrate and thoracic aortic atheros clerotic calcifications. Renal ultrasound: Diffusely increased renal cortical echogenicity bilatera lly with medical renal disease, trace bilateral perinephric fluid, urinary bladder with bladder debri s and calcifications concerning for stasis and possible infection and cystitis. Blood cultures are n egative. The patient was seen also by Dr. Bernstein for acute kidney injury or nonoliguric acute renal failure with previous baseline creatinine of 0.69. PHYSICAL EXAMINATION: GENERAL: This is an elderly appearing male who is unresponsive on mechanical ventilation. VITAL SIGNS: Stable. He is afebrile. HEENT: Pupils are fixed and dilated. HEENT otherwise within normal limits. He has a tracheostomy s ite clean and intact. Lymph nodes not palpable. CHEST: Decreased breath sounds at the bases. HEART: Without murmur or gallop. ABDOMEN: Soft and nontender without organosplenomegaly or masses. EXTREMITIES: Without cyanosis or clubbing. 1+ edema. RECTAL AND GENITAL: Deferred. NEUROLOGIC: The patient is vegetative. White count is 8.6, seen by Dr. Flores. The patient is a FULL CODE. The blood culture was believe d to be a contaminant. The patient is on vancomycin and meropenem. His white count is ____ and his neutrophils were 77.3. IMPRESSION AND PLAN: I think that the patient is colonized rather than infected with his urine. I jose haddad I would take him off of his meropenem. I might take him off of all of his medications at this point including the vancomycin. His chest x-ray shows bibasilar opacities which may be on the basis of atelectasis or infiltrate, so we may want to continue him on antibiotics for this reason. Ravi r, I prefer not to treat his Klebsiella pneumoniae which I would treat with Colistin because I feel t hat he is colonized rather than infected. I will dictate my findings to the hospitalist and to the a forementioned physicians. Dictated By: TRUPTI EDGAR MD, JD/NTS Conf#: [id number] DID#: [id number] CC: ROSSANA MCKEON MD;*End*
--- NOTE | 2018-10-05 08:47 | PN ---
DATE: 10/05/2018 SUBJECTIVE: The patient is in serious but stable condition. On low dose dopamine. No other events noted. OBJECTIVE: VITAL SIGNS: Blood pressure is 100/60, respirations 18, pulse 59, temperature 98.6. HEENT: Head is normocephalic. NECK: Supple. HEART: Regular rate. LUNGS: Show diminished breath sounds at the base. ABDOMEN: Soft, nontender to palpation without rebound or guarding. EXTREMITIES: Negative for clubbing, cyanosis. Trace edema. DERMATOLOGIC: No rashes. MUSCULOSKELETAL: No joint effusion. NEUROLOGIC: No change in exam. MEDICATIONS: Reviewed. LABORATORY DATA: Reviewed. ASSESSMENT AND PLAN: 1. Nonoliguric acute kidney injury with previous baseline creatinine of 0.69 mg/dL. Etiology of acu te kidney injury is secondary to acute tubular necrosis due to ischemic hypoperfusion, shock. The pa tient's renal function appears to have stabilized around a creatinine of 1.7 to 2.0 mg/dL. At this point, continue current treatment plan, supportive care, renally dose all medications. 2. Anemia. Continue to monitor hemoglobin and hematocrit levels. The patient is status post blood transfusion. 3. Mineral bone disorder. Monitor calcium and phosphorus levels. 4. Hypokalemia, improved. 5. Cardiac arrest secondary to PA, improved. 6. Shock. Etiology may be multifactorial, questionable septic, questionable cardiac, possible neuro genic. The patient is being weaned off pressor support. Continue to monitor. Continue antibiotic t herapy. 7. Ventilator dependent respiratory failure. Vent settings and ABG was reviewed. Continue to monit or. 8. Dysphagia. Continue tube feeding. 9. History of chronic encephalopathy. Continue to monitor. 10. Dyslipidemia. Continue statin therapy. 11. Gastritis. Continue proton pump inhibitor. Dictated By: DOT CONROY DO NR/NTS Conf#: [id number] DID#: [id number] CC: ROSSANA MCKEON MD; TRUPTI EDGAR MD; RAMOS NOLAN MD;*EndCC*
[2018-10-05] MEDS: MUPIROCIN 2% 22 GM OINT TOP SCH ×2 (08:59→21:21)
[2018-10-05] MEDS: LEVETIRACETAM 500 MG (PMX) 100 ML IVPB SCH ×2 (08:59→21:20)
[2018-10-05] MEDS: MEROPENEM 1 GM/50ML(PMX) 50 ML IVPB SCH (08:59)
[2018-10-05] MEDS: DAKINS 0.0125%(1/40) 473 ML SOLUTION TP SCH ×2 (08:59→21:21)
[2018-10-05] MEDS: ASCORBIC ACID 500 MG TAB GTB SCH (09:00)
[2018-10-05] MEDS: DOXYCYCLINE 100 MG in SOD CHLORIDE 0.9% 250 ML IVPB SCH ×2 (09:00→21:20)
[2018-10-05] MEDS: FLUCONAZOLE 100 MG TAB PO SCH (09:00)
[2018-10-05] MEDS: COLISTIMETHATE 75 MG in SOD CHLORIDE 0.9% 100 ML IVPB SCH (09:00)
[2018-10-05] MEDS: MULTIVITAMINS 30 ML CUP GTB SCH (09:00)
[2018-10-05] MEDS: ASPIRIN 81 MG TAB PO SCH (09:00)
[2018-10-05] MEDS: ZINC SULFATE 220 MG CAP GTB SCH (09:00)
[2018-10-05] MEDS: HEPARIN 5,000 UNIT/1 ML VIAL SC SCH ×2 (09:00→21:38)
[2018-10-05] MEDS: FAMOTIDINE 20 MG INJ IV SCH (09:02)
--- NOTE | 2018-10-05 10:15 | CONS ---
Assessment/Plan Assessment/Plan Assessment/Plan (Daily) Briefly spoke with Dr Shukla and requested Bioethics consult for code change. Consultation Date/Type/Reason Admit Date/Time September 28, 2018 at 15:36 Initial Consult Date 09/28/18 Requesting Provider: ROSSANA MCKEON MD Date/Time of Note DATE: 10/05/18 TIME: 10:08 Exam/Review of Systems Exam Vitals Vital Signs Date Temp Pulse Resp B/P (MAP) Pulse Ox O2 O2 Flow FiO2 Time Delivery Rate 10/05/18 52 18 99 30 09:20 10/05/18 100/60 Mechanical 06:00 (73) Ventilator 10/05/18 97.7 04:00 Intake and Output 10/04/18 10/04/18 10/05/18 1414:59 22:59 06:59 IntakeIntake Total 865.2 ml 1325.2 ml 653.0 ml OutputOutput Total 330 ml 395 ml 320 ml BalanceBalance 535.2 ml 930.2 ml 333.0 ml Results Result Diagram: 10/05/18 0450 10/05/18 0430 Results 24hrs Laboratory Tests Test 10/05/18 04:30 10/05/18 04:50 10/05/18 06:25 Sodium Level 143 Potassium Level 3.9 Chloride Level 114 H Carbon Dioxide Level 22 Anion Gap 7 Blood Urea Nitrogen 39 H Creatinine 1.75 H Est Glomerular Filtrat 48 L Rate mL/min Glucose Level 75 Calcium Level 9.3 Phosphorus Level 2.9 Magnesium Level 1.8 White Blood Count 7.8 Red Blood Count 2.98 L Hemoglobin 8.4 #L Hematocrit 25.0 #L Mean Corpuscular Volume 83.9 Mean Corpuscular Hemoglobin 28.2 L Mean Corpuscular 33.6 Hemoglobin Concent Red Cell Distribution Width 20.5 H Platelet Count 140 Mean Platelet Volume 12.1 H Immature Granulocytes % 0.400 Neutrophils % 68.7 Lymphocytes % 19.6 Monocytes % 9.5 Eosinophils % 1.7 Basophils % 0.1 Nucleated Red Blood Cells % 0.0 Immature Granulocytes # 0.030 Neutrophils # 5.4 Lymphocytes # 1.5 Monocytes # 0.7 Eosinophils # 0.1 Basophils # 0.0 Nucleated Red Blood Cells # 0.0 Random Vancomycin Level 20.9 Lab Scanned Report REFERENCE LAB Medications Medication Current Medications IV Flush (NS 3 ml) 3 ml PER PROTOCOL IV ; Start 09/28/18 at 17:30 Ondansetron HCl (Zofran Inj) 4 mg Q6H PRN IV NAUSEA/VOMITING; Start 09/28/18 at 17:30 Famotidine (Pepcid Iv) 20 mg DAILY IV Last administered on 10/05/18 09:02; Admin Dose 20 MG; Start 09/28/18 at 18:00 Norepinephrine 250 ml @ 1.875 mls/ hr TITRATE IV Last administered on 10/03/18 06:40; Admin Dose 1.875 MLS/HR; Start 09/28/18 at 19:30 Vancomycin HCl (Vanco Iv Per Pharmacy) VANCOMYCIN PER PHARMACY PER PROTOCOL XX ; Start 09/28/18 at 22:00 Meropenem/Sodium Chloride 50 ml @ 100 mls/hr Q12 IVPB Last administered on 10/05/18 08:59; Admin Dose 100 MLS/HR; Start 09/29/18 at 01:00 Levetiracetam 100 ml @ 400 mls/hr Q12 IVPB Last administered on 10/05/18 08:59; Admin Dose 400 MLS/HR; Start 09/29/18 at 10:00 Lorazepam (Ativan) 1 mg Q10MIN PRN IV SEIZURES Last administered on 09/29/18 10:52; Admin Dose 1 MG; Start 09/29/18 at 10:00 Zinc Sulfate (Zinc Sulfate) 220 mg DAILY GTB Last administered on 10/05/18 09:00; Admin Dose 220 MG; Start 09/30/18 at 09:00 Multivitamins (Multivitamin) 30 ml DAILY GTB Last administered on 10/05/18 09:00; Admin Dose 30 ML; Start 09/30/18 at 09:00 Ascorbic Acid (Vitamin C) 500 mg DAILY GTB Last administered on 10/05/18 09:00; Admin Dose 500 MG; Start 09/30/18 at 09:00 Aspirin (Aspirin) 81 mg DAILY PO Last administered on 10/03/18 09:28; Admin Dose 81 MG; Start 09/30/18 at 09:00 Sodium Hypochlorite (Dakins Diluted ()) 1 applic BID TP Last administered on 10/05/18 08:59; Admin Dose 1 APPLIC; Start 09/30/18 at 09:00 Heparin Sodium (Porcine) (Heparin (5000 Units/1ml)) 5,000 unit BID SC Last administered on 10/03/18 09:29; Admin Dose 5,000 UNIT; Start 10/01/18 at 09:00 Dopamine HCl/ Dextrose 250 ml @ 4.403 mls/ hr TITRATE IV Last administered on 10/04/18 17:48; Admin Dose 4.403 MLS/HR; Start 10/01/18 at 03:00 Mupirocin (Bactroban) 1 applic BID TOP Last administered on 10/05/18 08:59; Admin Dose 1 APPLIC; Start 10/01/18 at 21:00 Ferric Sodium Gluconate Complex 125 mg/Sodium Chloride 110 ml @ 110 mls/hr DAILY@1300 IVPB Last administered on 10/04/18 15:52; Admin Dose 110 MLS/HR; Start 10/03/18 at 13:00; Stop 10/07/18 at 13:59 Colistimethate Sodium 75 mg/ Sodium Chloride 100 ml @ 200 mls/hr DAILY IVPB Last administered on 10/05/18 09:00; Admin Dose 200 MLS/HR; Start 10/04/18 at 15:00 Doxycycline Hyclate 100 mg/ Sodium Chloride 250 ml @ 250 mls/hr Q12 IVPB Last administered on 10/05/18 09:00; Admin Dose 250 MLS/HR; Start 10/04/18 at 21:00 Fluconazole (Diflucan) 100 mg DAILY PO Last administered on 10/05/18 09:00; Admin Dose 100 MG; Start 10/04/18 at 15:00 LUZ CUMMINS October 05, 2018 10:15
--- NOTE | 2018-10-05 10:48 | CONS ---
Consult Date/Type/Reason Admit Date/Time September 28, 2018 at 15:36 Initial Consult Date 09/28/18 Type of Consult Pulmonary Requesting Provider: ROSSANA MCKEON MD Date/Time of Note DATE: 10/05/18 TIME: 10:47 Subjective Bradycardia this morning. Required increasing dopamine infusion. Objective Vital Signs Date Temp Pulse Resp B/P (MAP) Pulse Ox O2 O2 Flow FiO2 Time Delivery Rate 10/05/18 52 18 99 30 09:20 10/05/18 100/60 Mechanical 06:00 (73) Ventilator 10/05/18 97.7 04:00 Intake and Output 10/04/18 10/04/18 10/05/18 1515:00 23:00 07:00 IntakeIntake Total 865.2 ml 1325.2 ml 603.6 ml OutputOutput Total 305 ml 385 ml 290 ml BalanceBalance 560.2 ml 940.2 ml 313.6 ml Exam PHYSICAL EXAMINATION: GENERAL: Elderly-appearing gentleman, unresponsive on mechanical ventilation. HEENT: His pupils are fixed and dilated. VITAL SIGNS: NECK: Trach site is clean and intact. CARDIAC: S1, S2. No added sounds or murmurs. CHEST: Diminished air entry bilaterally. ABDOMEN: Soft, nontender. No guarding or rebound. EXTREMITIES: No cyanosis, clubbing. A 1+ edema. NEUROLOGIC: Unable to assess vegetative state. Vent Setting Ventilator Support Mode: AC Fraction of Inspired Oxygen pe: 30 Positive End Expiratory Pressu: 5.0 Results/Medications Result Diagram: 10/05/18 0450 10/05/18 0430 Results 24 hrs Laboratory Tests Test 10/05/18 04:30 10/05/18 04:50 10/05/18 06:25 Sodium Level 143 Potassium Level 3.9 Chloride Level 114 H Carbon Dioxide Level 22 Anion Gap 7 Blood Urea Nitrogen 39 H Creatinine 1.75 H Est Glomerular Filtrat 48 L Rate mL/min Glucose Level 75 Calcium Level 9.3 Phosphorus Level 2.9 Magnesium Level 1.8 White Blood Count 7.8 Red Blood Count 2.98 L Hemoglobin 8.4 #L Hematocrit 25.0 #L Mean Corpuscular Volume 83.9 Mean Corpuscular Hemoglobin 28.2 L Mean Corpuscular 33.6 Hemoglobin Concent Red Cell Distribution Width 20.5 H Platelet Count 140 Mean Platelet Volume 12.1 H Immature Granulocytes % 0.400 Neutrophils % 68.7 Lymphocytes % 19.6 Monocytes % 9.5 Eosinophils % 1.7 Basophils % 0.1 Nucleated Red Blood Cells % 0.0 Immature Granulocytes # 0.030 Neutrophils # 5.4 Lymphocytes # 1.5 Monocytes # 0.7 Eosinophils # 0.1 Basophils # 0.0 Nucleated Red Blood Cells # 0.0 Random Vancomycin Level 20.9 Lab Scanned Report REFERENCE LAB Medications Current Medications IV Flush (NS 3 ml) 3 ml PER PROTOCOL IV ; Start 09/28/18 at 17:30 Ondansetron HCl (Zofran Inj) 4 mg Q6H PRN IV NAUSEA/VOMITING; Start 09/28/18 at 17:30 Famotidine (Pepcid Iv) 20 mg DAILY IV Last administered on 10/05/18 09:02; Admin Dose 20 MG; Start 09/28/18 at 18:00 Norepinephrine 250 ml @ 1.875 mls/ hr TITRATE IV Last administered on 10/03/18 06:40; Admin Dose 1.875 MLS/HR; Start 09/28/18 at 19:30 Vancomycin HCl (Vanco Iv Per Pharmacy) VANCOMYCIN PER PHARMACY PER PROTOCOL XX ; Start 09/28/18 at 22:00 Meropenem/Sodium Chloride 50 ml @ 100 mls/hr Q12 IVPB Last administered on 10/05/18 08:59; Admin Dose 100 MLS/HR; Start 09/29/18 at 01:00 Levetiracetam 100 ml @ 400 mls/hr Q12 IVPB Last administered on 10/05/18 08:59; Admin Dose 400 MLS/HR; Start 09/29/18 at 10:00 Lorazepam (Ativan) 1 mg Q10MIN PRN IV SEIZURES Last administered on 09/29/18 10:52; Admin Dose 1 MG; Start 09/29/18 at 10:00 Zinc Sulfate (Zinc Sulfate) 220 mg DAILY GTB Last administered on 10/05/18 09:00; Admin Dose 220 MG; Start 09/30/18 at 09:00 Multivitamins (Multivitamin) 30 ml DAILY GTB Last administered on 10/05/18 09:00; Admin Dose 30 ML; Start 09/30/18 at 09:00 Ascorbic Acid (Vitamin C) 500 mg DAILY GTB Last administered on 10/05/18 09:00; Admin Dose 500 MG; Start 09/30/18 at 09:00 Aspirin (Aspirin) 81 mg DAILY PO Last administered on 10/03/18 09:28; Admin Dose 81 MG; Start 09/30/18 at 09:00 Sodium Hypochlorite (Dakins Diluted (40)) 1 applic BID TP Last administered on 10/05/18 08:59; Admin Dose 1 APPLIC; Start 09/30/18 at 09:00 Heparin Sodium (Porcine) (Heparin (5000 Units/1ml)) 5,000 unit BID SC Last administered on 10/03/18 09:29; Admin Dose 5,000 UNIT; Start 10/01/18 at 09:00 Dopamine HCl/ Dextrose 250 ml @ 4.403 mls/ hr TITRATE IV Last administered on 10/04/18 17:48; Admin Dose 4.403 MLS/HR; Start 10/01/18 at 03:00 Mupirocin (Bactroban) 1 applic BID TOP Last administered on 10/05/18 08:59; Admin Dose 1 APPLIC; Start 10/01/18 at 21:00 Ferric Sodium Gluconate Complex 125 mg/Sodium Chloride 110 ml @ 110 mls/hr DAILY@1300 IVPB Last administered on 10/04/18 15:52; Admin Dose 110 MLS/HR; Start 10/03/18 at 13:00; Stop 10/07/18 at 13:59 Colistimethate Sodium 75 mg/ Sodium Chloride 100 ml @ 200 mls/hr DAILY IVPB Last administered on 10/05/18 09:00; Admin Dose 200 MLS/HR; Start 10/04/18 at 15:00 Doxycycline Hyclate 100 mg/ Sodium Chloride 250 ml @ 250 mls/hr Q12 IVPB Last administered on 10/05/18 09:00; Admin Dose 250 MLS/HR; Start 10/04/18 at 21:00 Fluconazole (Diflucan) 100 mg DAILY PO Last administered on 10/05/18 09:00; Admin Dose 100 MG; Start 10/04/18 at 15:00 Assessment/Plan Hospital Course (Demo Recall) IMPRESSION: 1. Cardiopulmonary arrest. 2. Probable significant anoxic brain injury. 3. Status post septic shock, staph bacteremia noted. 4. History of dysphagia. 5. Acute renal failure probable ATN injury 6. Significant bradycardia requiring chronotropic support 7. Significant decubitus ulcer 8. Significant anemia but no active bleeding noted. PLAN: 1. EEG and clinical findings noted. Likely severe anoxic brain injury, neurology recommendations 2. Continue vasopressor as needed. Cardiology recommendations 3. Antibiotics. De-escalate 4. DVT and GI prophylaxis. 5. Continue IV fluids, continue tube feeding as tolerated 6. Continue wound care Critical care time 40 minutes. Palliative care consult appreciated. May require bioethics consultation. Extremely poor prognosis LES CONDE MD, [facility] October 05, 2018 10:48
--- NOTE | 2018-10-05 11:27 | PN ---
Date/Time of Note Date/Time of Note DATE: 10/05/18 TIME: 11:24 Assessment/Plan VTE Prophylaxis Risk score (from Nsg)>0 risk: 10 Pharmacological prophylaxis: heparin Lines/Catheters Urinary Cath still in place: No Assessment/Plan Hospital Course 63 yo man severely disabled years after stroke, now trach and vent dependent and vegetative; presents after cardiac arrest. #Cardiac arrest - Etiology unclear. Was PEA on arrival to ED. May have been hypoxic arrest related to trach like mucous plug or occlusion. - Patient has known very severe neurologic deficit. This precludes his eligibility for hypothermia protocol. -Wean off pressors - Minimal vent settings. - Per discussion with sister, patient is full code - Dr. Flores following #Vegetative state -Patient with history of multiple strokes and now anoxic encephalopathy with no reflexes noted and decorticate posturing -Neurology following #Bacteremia - Blood culture x1 growing staph luginensis, likely contaminant, replete blood cultures are negative - Continue Abx for now. No signs of sepsis -ID consultation appreciated #Facial twitching - Facial fasciculations likely myoclonic jerks. - EEG negative for seizure activity. - Neurology started keppra and phenytoin, these can likely be tapered off. - Will avoid sedating medications including benzos unless seizure is proven. #Oliguric CASTRO - Dr. Chand unable to get Gilman. Currently has condom cath. - New CASTRO with rising Cr - Due to his absence of meaningful neurologic function, would not offer dialysis to this patient. - Dr. Bernstein consulted. #Chronic disability after stroke - Patient trached, vent, not responsive, contractures - Supportive care - Continue tube feeds. #Acute diarrhea - Resolved - If no rectal tube output over next 24-48 hours, it can likely be pulled. #Gastritis - Cont home H2 merlyn and PPI #Dyslipidemia - Cont home statin #UTI secondary to Gilman catheter -Culture growing multidrug-resistant organisms -ID consultation obtained -Continue vancomycin and meropenem #Anemia likely of chronic disease and/or acute blood loss from GI bleed -Transfuse 1 unit today -No evidence of melena or shari bleed at this time, stool guaiac was positive DVT: Heparin GI: PPI DC planning: Patient with vegetative state and poor prognosis, family continues to want aggressive care including full code, bioethics meeting this coming Friday Result Diagram: 10/05/18 0450 10/05/18 0430 Results 24hrs Laboratory Tests Test 10/05/18 04:30 10/05/18 04:50 10/05/18 06:25 Sodium Level 143 Potassium Level 3.9 Chloride Level 114 H Carbon Dioxide Level 22 Anion Gap 7 Blood Urea Nitrogen 39 H Creatinine 1.75 H Est Glomerular Filtrat 48 L Rate mL/min Glucose Level 75 Calcium Level 9.3 Phosphorus Level 2.9 Magnesium Level 1.8 White Blood Count 7.8 Red Blood Count 2.98 L Hemoglobin 8.4 #L Hematocrit 25.0 #L Mean Corpuscular Volume 83.9 Mean Corpuscular Hemoglobin 28.2 L Mean Corpuscular 33.6 Hemoglobin Concent Red Cell Distribution Width 20.5 H Platelet Count 140 Mean Platelet Volume 12.1 H Immature Granulocytes % 0.400 Neutrophils % 68.7 Lymphocytes % 19.6 Monocytes % 9.5 Eosinophils % 1.7 Basophils % 0.1 Nucleated Red Blood Cells % 0.0 Immature Granulocytes # 0.030 Neutrophils # 5.4 Lymphocytes # 1.5 Monocytes # 0.7 Eosinophils # 0.1 Basophils # 0.0 Nucleated Red Blood Cells # 0.0 Random Vancomycin Level 20.9 Lab Scanned Report REFERENCE LAB Subjective 24 Hr Interval Summary Subjective hx not possible: pt non-verbal Exam/Review of Systems Exam Vitals Vital Signs Date Temp Pulse Resp B/P (MAP) Pulse Ox O2 O2 Flow FiO2 Time Delivery Rate 10/05/18 52 18 99 30 09:20 10/05/18 100/60 Mechanical 06:00 (73) Ventilator 10/05/18 97.7 04:00 Intake and Output 10/04/18 10/04/18 10/05/18 1515:00 23:00 07:00 IntakeIntake Total 865.2 ml 1325.2 ml 603.6 ml OutputOutput Total 305 ml 385 ml 290 ml BalanceBalance 560.2 ml 940.2 ml 313.6 ml Constitutional: non-verbal ENMT: intubated Respiratory: clear to auscultation Cardiovascular: regular rate and rhythm Gastrointestinal: soft; No distended Musculoskeletal: nl extremities to inspection Results Results 24hrs Laboratory Tests Test 10/05/18 04:30 10/05/18 04:50 10/05/18 06:25 Sodium Level 143 Potassium Level 3.9 Chloride Level 114 H Carbon Dioxide Level 22 Anion Gap 7 Blood Urea Nitrogen 39 H Creatinine 1.75 H Est Glomerular Filtrat 48 L Rate mL/min Glucose Level 75 Calcium Level 9.3 Phosphorus Level 2.9 Magnesium Level 1.8 White Blood Count 7.8 Red Blood Count 2.98 L Hemoglobin 8.4 #L Hematocrit 25.0 #L Mean Corpuscular Volume 83.9 Mean Corpuscular Hemoglobin 28.2 L Mean Corpuscular 33.6 Hemoglobin Concent Red Cell Distribution Width 20.5 H Platelet Count 140 Mean Platelet Volume 12.1 H Immature Granulocytes % 0.400 Neutrophils % 68.7 Lymphocytes % 19.6 Monocytes % 9.5 Eosinophils % 1.7 Basophils % 0.1 Nucleated Red Blood Cells % 0.0 Immature Granulocytes # 0.030 Neutrophils # 5.4 Lymphocytes # 1.5 Monocytes # 0.7 Eosinophils # 0.1 Basophils # 0.0 Nucleated Red Blood Cells # 0.0 Random Vancomycin Level 20.9 Lab Scanned Report REFERENCE LAB Medications Medication Current Medications IV Flush (NS 3 ml) 3 ml PER PROTOCOL IV ; Start 09/28/18 at 17:30 Ondansetron HCl (Zofran Inj) 4 mg Q6H PRN IV NAUSEA/VOMITING; Start 09/28/18 at 17:30 Famotidine (Pepcid Iv) 20 mg DAILY IV Last administered on 10/05/18at 09:02; Admin Dose 20 MG; Start 09/28/18 at 18:00 Norepinephrine 250 ml @ 1.875 mls/ hr TITRATE IV Last administered on 10/03/18at 06:40; Admin Dose 1.875 MLS/HR; Start 09/28/18 at 19:30 Vancomycin HCl (Vanco Iv Per Pharmacy) VANCOMYCIN PER PHARMACY PER PROTOCOL XX ; Start 09/28/18 at 22:00 Meropenem/Sodium Chloride 50 ml @ 100 mls/hr Q12 IVPB Last administered on 10/05/18at 08:59; Admin Dose 100 MLS/HR; Start 09/29/18 at 01:00 Levetiracetam 100 ml @ 400 mls/hr Q12 IVPB Last administered on 10/05/18at 08:59; Admin Dose 400 MLS/HR; Start 09/29/18 at 10:00 Lorazepam (Ativan) 1 mg Q10MIN PRN IV SEIZURES Last administered on 09/29/18at 10:52; Admin Dose 1 MG; Start 09/29/18 at 10:00 Zinc Sulfate (Zinc Sulfate) 220 mg DAILY GTB Last administered on 10/05/18 09:00; Admin Dose 220 MG; Start 09/30/18 at 09:00 Multivitamins (Multivitamin) 30 ml DAILY GTB Last administered on 10/05/18 09:00; Admin Dose 30 ML; Start 09/30/18 at 09:00 Ascorbic Acid (Vitamin C) 500 mg DAILY GTB Last administered on 10/05/18 09:00; Admin Dose 500 MG; Start 09/30/18 at 09:00 Aspirin (Aspirin) 81 mg DAILY PO Last administered on 10/03/18 09:28; Admin Dose 81 MG; Start 09/30/18 at 09:00 Sodium Hypochlorite (Dakins Diluted (40)) 1 applic BID TP Last administered on 10/05/18 08:59; Admin Dose 1 APPLIC; Start 09/30/18 at 09:00 Heparin Sodium (Porcine) (Heparin (5000 Units/1ml)) 5,000 unit BID SC Last administered on 10/03/18 09:29; Admin Dose 5,000 UNIT; Start 10/01/18 at 09:00 Dopamine HCl/ Dextrose 250 ml @ 4.403 mls/ hr TITRATE IV Last administered on 10/04/18 17:48; Admin Dose 4.403 MLS/HR; Start 10/01/18 at 03:00 Mupirocin (Bactroban) 1 applic BID TOP Last administered on 10/05/18 08:59; Admin Dose 1 APPLIC; Start 10/01/18 at 21:00 Ferric Sodium Gluconate Complex 125 mg/Sodium Chloride 110 ml @ 110 mls/hr DAILY@1300 IVPB Last administered on 10/04/18 15:52; Admin Dose 110 MLS/HR; Start 10/03/18 at 13:00; Stop 10/07/18 at 13:59 Colistimethate Sodium 75 mg/ Sodium Chloride 100 ml @ 200 mls/hr DAILY IVPB Last administered on 10/05/18 09:00; Admin Dose 200 MLS/HR; Start 10/04/18 at 15:00 Doxycycline Hyclate 100 mg/ Sodium Chloride 250 ml @ 250 mls/hr Q12 IVPB Last administered on 10/05/18at 09:00; Admin Dose 250 MLS/HR; Start 10/04/18 at 21:00 Fluconazole (Diflucan) 100 mg DAILY PO Last administered on 10/05/18at 09:00; Admin Dose 100 MG; Start 10/04/18 at 15:00 RAMOS NOLAN October 05, 2018 11:27
--- NOTE | 2018-10-05 12:00 | CONS ---
Assessment/Plan Assessment/Plan Hospital Course (Demo Recall) Remains unchanged on low-dose dopamine drip no fevers overnight, family at bedside, temperature 98 on blanket warmer WBC 7.8 H&H 8.4 and 25 platelets 140 neutrophils 68.7 BUN 39 creatinine 1.75 Microbiology: Blood culture on admission grew staph, MRSA swab came back positive, stool for C. difficile negative, urine culture grew Acinetobacter, Klebsiella and Nancie albicans Indwelling's: Trach PEG right IJ triple lumen catheter Antimicrobials: Colistin, fluconazole, doxycycline Physical examination: This is a chronically ill-appearing elderly man who is noncommunicative and in no distress. Head atraumatic normocephalic neck is supple chest rise symmetrical breath sounds diminished bases. Heart: S1-S2. Abdomen soft bowel sounds hypoactive extremities without edema. Skin patient has unstageable sacral wound and pressure sores on his feet Assessment: 1. Shock, status post PEA cardiac arrest 2. Multidrug-resistant UTI 3. MRSA nares colonization 4. Staph bacteremia consistent with contaminant 5. Acute possibly on chronic kidney disease 6. Acute on chronic encephalopathy likely anoxia 7. History of CVA Plan: Patient remains unchanged, continue present care and antibiotics, plan for bio ethic committee to address patient's status Consultation Date/Type/Reason Admit Date/Time September 28, 2018 at 15:36 Initial Consult Date 09/28/18 Type of Consult id Requesting Provider: ROSSANA MCKEON MD Date/Time of Note DATE: 10/05/18 TIME: 11:58 Exam/Review of Systems Exam Vitals Vital Signs Date Temp Pulse Resp B/P (MAP) Pulse Ox O2 O2 Flow FiO2 Time Delivery Rate 10/05/18 51 18 90/65 (73) 94 11:15 10/05/18 30 11:00 10/05/18 Mechanical 11:00 Ventilator 10/05/18 98.0 08:00 Intake and Output 10/04/18 10/04/18 10/05/18 1515:00 23:00 07:00 IntakeIntake Total 865.2 ml 1325.2 ml 603.6 ml OutputOutput Total 305 ml 385 ml 290 ml BalanceBalance 560.2 ml 940.2 ml 313.6 ml Results Result Diagram: 10/05/18 0450 10/05/18 0430 Results 24hrs Laboratory Tests Test 10/05/18 04:30 10/05/18 04:50 10/05/18 06:25 Sodium Level 143 Potassium Level 3.9 Chloride Level 114 H Carbon Dioxide Level 22 Anion Gap 7 Blood Urea Nitrogen 39 H Creatinine 1.75 H Est Glomerular Filtrat 48 L Rate mL/min Glucose Level 75 Calcium Level 9.3 Phosphorus Level 2.9 Magnesium Level 1.8 White Blood Count 7.8 Red Blood Count 2.98 L Hemoglobin 8.4 #L Hematocrit 25.0 #L Mean Corpuscular Volume 83.9 Mean Corpuscular Hemoglobin 28.2 L Mean Corpuscular 33.6 Hemoglobin Concent Red Cell Distribution Width 20.5 H Platelet Count 140 Mean Platelet Volume 12.1 H Immature Granulocytes % 0.400 Neutrophils % 68.7 Lymphocytes % 19.6 Monocytes % 9.5 Eosinophils % 1.7 Basophils % 0.1 Nucleated Red Blood Cells % 0.0 Immature Granulocytes # 0.030 Neutrophils # 5.4 Lymphocytes # 1.5 Monocytes # 0.7 Eosinophils # 0.1 Basophils # 0.0 Nucleated Red Blood Cells # 0.0 Random Vancomycin Level 20.9 Lab Scanned Report REFERENCE LAB Medications Medication Current Medications IV Flush (NS 3 ml) 3 ml PER PROTOCOL IV ; Start 09/28/18 at 17:30 Ondansetron HCl (Zofran Inj) 4 mg Q6H PRN IV NAUSEA/VOMITING; Start 09/28/18 at 17:30 Famotidine (Pepcid Iv) 20 mg DAILY IV Last administered on 10/05/18 09:02; Admin Dose 20 MG; Start 09/28/18 at 18:00 Norepinephrine 250 ml @ 1.875 mls/ hr TITRATE IV Last administered on 10/03/18at 06:40; Admin Dose 1.875 MLS/HR; Start 09/28/18 at 19:30 Levetiracetam 100 ml @ 400 mls/hr Q12 IVPB Last administered on 10/05/18at 08:59; Admin Dose 400 MLS/HR; Start 09/29/18 at 10:00 Lorazepam (Ativan) 1 mg Q10MIN PRN IV SEIZURES Last administered on 09/29/18at 10:52; Admin Dose 1 MG; Start 09/29/18 at 10:00 Zinc Sulfate (Zinc Sulfate) 220 mg DAILY GTB Last administered on 5/20/19at 09:00; Admin Dose 220 MG; Start 09/30/18 at 09:00 Multivitamins (Multivitamin) 30 ml DAILY GTB Last administered on 10/05/18 09:00; Admin Dose 30 ML; Start 09/30/18 at 09:00 Ascorbic Acid (Vitamin C) 500 mg DAILY GTB Last administered on 10/05/18 09:00; Admin Dose 500 MG; Start 09/30/18 at 09:00 Aspirin (Aspirin) 81 mg DAILY PO Last administered on 10/03/18 09:28; Admin Dose 81 MG; Start 09/30/18 at 09:00 Sodium Hypochlorite (Dakins Diluted ()) 1 applic BID TP Last administered on 10/05/18 08:59; Admin Dose 1 APPLIC; Start 09/30/18 at 09:00 Heparin Sodium (Porcine) (Heparin (5000 Units/1ml)) 5,000 unit BID SC Last administered on 10/03/18 09:29; Admin Dose 5,000 UNIT; Start 10/01/18 at 09:00 Dopamine HCl/ Dextrose 250 ml @ 4.403 mls/ hr TITRATE IV Last administered on 10/04/18 17:48; Admin Dose 4.403 MLS/HR; Start 10/01/18 at 03:00 Mupirocin (Bactroban) 1 applic BID TOP Last administered on 10/05/18 08:59; Admin Dose 1 APPLIC; Start 10/01/18 at 21:00 Ferric Sodium Gluconate Complex 125 mg/Sodium Chloride 110 ml @ 110 mls/hr DAILY@1300 IVPB Last administered on 10/04/18 15:52; Admin Dose 110 MLS/HR; Start 10/03/18 at 13:00; Stop 10/07/18 at 13:59 Colistimethate Sodium 75 mg/ Sodium Chloride 100 ml @ 200 mls/hr DAILY IVPB Last administered on 10/05/18 09:00; Admin Dose 200 MLS/HR; Start 10/04/18 at 15:00 Doxycycline Hyclate 100 mg/ Sodium Chloride 250 ml @ 250 mls/hr Q12 IVPB Last administered on 10/05/18 09:00; Admin Dose 250 MLS/HR; Start 10/04/18 at 21:00 Fluconazole (Diflucan) 100 mg DAILY PO Last administered on 10/05/18at 09:00; Admin Dose 100 MG; Start 10/04/18 at 15:00 MELANIA SHAH NP October 05, 2018 12:00
[2018-10-05] MEDS: SOD FERRIC GLUC COMPLX 125 MG in SOD CHLORIDE 0.9% 100 ML IVPB SCH (12:35)
[2018-10-06] VITALS (93 sets, daily range): BP systolic 82–129; BP diastolic 47–71; PULSE 40–64; RESP 18–28
--- NOTE | 2018-10-06 07:05 | CONS ---
Assessment/Plan Assessment/Plan Assessment/Plan (Daily) S/P cardiac arrest respiratory failure encephalopathy renal insufficiency chronic dementia multiple CVA's by histrory malnutrition debility Waiting for decision for Bioethics consult Consultation Date/Type/Reason Admit Date/Time September 28, 2018 at 15:36 Initial Consult Date 09/28/18 Requesting Provider: ROSSANA MCKEON MD Date/Time of Note DATE: 10/06/18 TIME: 07:04 Exam/Review of Systems Exam Vitals Vital Signs Date Temp Pulse Resp B/P (MAP) Pulse Ox O2 O2 Flow FiO2 Time Delivery Rate 10/06/18 51 18 95/60 (72) 96 05:45 10/06/18 Mechanical 05:00 Ventilator 10/06/18 98.2 04:15 10/05/18 40 20:00 Intake and Output 10/05/18 10/05/18 10/06/18 1515:00 23:00 07:00 IntakeIntake Total 1316.4 ml 930.8 ml 612.4 ml OutputOutput Total 385 ml 370 ml 250 ml BalanceBalance 931.4 ml 560.8 ml 362.4 ml Results Result Diagram: 10/06/18 0500 10/06/18 0400 Results 24hrs Laboratory Tests Test 10/06/18 04:00 10/06/18 05:00 10/06/18 05:08 Sodium Level 142 Potassium Level 3.9 Chloride Level 114 H Carbon Dioxide Level 21 Anion Gap 7 Blood Urea Nitrogen 43 H Creatinine 1.49 H Est Glomerular Filtrat 57 L Rate mL/min Glucose Level 105 Calcium Level 9.0 Phosphorus Level 2.6 Magnesium Level 1.5 L White Blood Count 9.8 # Red Blood Count 2.87 L Hemoglobin 8.0 L Hematocrit 24.3 L Mean Corpuscular Volume 84.7 Mean Corpuscular Hemoglobin 27.9 L Mean Corpuscular 32.9 Hemoglobin Concent Red Cell Distribution Width 21.1 H Platelet Count 145 Mean Platelet Volume 11.2 H Immature Granulocytes % 0.600 H Neutrophils % 77.6 H Lymphocytes % 13.1 L Monocytes % 7.0 Eosinophils % 1.6 Basophils % 0.1 Nucleated Red Blood Cells % 0.0 Immature Granulocytes # 0.060 H Neutrophils # 7.6 H Lymphocytes # 1.3 Monocytes # 0.7 Eosinophils # 0.2 Basophils # 0.0 Nucleated Red Blood Cells # 0.0 Lab Scanned Report BLOOD TRANSFUSION Medications Medication Current Medications IV Flush (NS 3 ml) 3 ml PER PROTOCOL IV ; Start 09/28/18 at 17:30 Ondansetron HCl (Zofran Inj) 4 mg Q6H PRN IV NAUSEA/VOMITING; Start 09/28/18 at 17:30 Famotidine (Pepcid Iv) 20 mg DAILY IV Last administered on 10/05/18 09:02; Admin Dose 20 MG; Start 09/28/18 at 18:00 Norepinephrine 250 ml @ 1.875 mls/ hr TITRATE IV Last administered on 10/03/18 06:40; Admin Dose 1.875 MLS/HR; Start 09/28/18 at 19:30 Levetiracetam 100 ml @ 400 mls/hr Q12 IVPB Last administered on 10/05/18 21:20; Admin Dose 400 MLS/HR; Start 09/29/18 at 10:00 Lorazepam (Ativan) 1 mg Q10MIN PRN IV SEIZURES Last administered on 09/29/18 10:52; Admin Dose 1 MG; Start 09/29/18 at 10:00 Zinc Sulfate (Zinc Sulfate) 220 mg DAILY GTB Last administered on 10/05/18 09:00; Admin Dose 220 MG; Start 09/30/18 at 09:00 Multivitamins (Multivitamin) 30 ml DAILY GTB Last administered on 10/05/18 09:00; Admin Dose 30 ML; Start 09/30/18 at 09:00 Ascorbic Acid (Vitamin C) 500 mg DAILY GTB Last administered on 10/05/18 09:00; Admin Dose 500 MG; Start 09/30/18 at 09:00 Aspirin (Aspirin) 81 mg DAILY PO Last administered on 10/03/18 09:28; Admin Dose 81 MG; Start 09/30/18 at 09:00 Sodium Hypochlorite (Dakins Diluted ()) 1 applic BID TP Last administered on 10/05/18 21:21; Admin Dose 1 APPLIC; Start 09/30/18 at 09:00 Heparin Sodium (Porcine) (Heparin (5000 Units/1ml)) 5,000 unit BID SC Last administered on 10/05/18 21:38; Admin Dose 5,000 UNIT; Start 10/01/18 at 09:00 Dopamine HCl/ Dextrose 250 ml @ 4.403 mls/ hr TITRATE IV Last administered on 10/04/18at 17:48; Admin Dose 4.403 MLS/HR; Start 10/01/18 at 03:00 Mupirocin (Bactroban) 1 applic BID TOP Last administered on 10/05/18at 21:21; Admin Dose 1 APPLIC; Start 10/01/18 at 21:00 Ferric Sodium Gluconate Complex 125 mg/Sodium Chloride 110 ml @ 110 mls/hr DAILY@1300 IVPB Last administered on 10/05/18at 12:35; Admin Dose 110 MLS/HR; Start 10/03/18 at 13:00; Stop 10/07/18 at 13:59 Colistimethate Sodium 75 mg/ Sodium Chloride 100 ml @ 200 mls/hr DAILY IVPB [place] [facility] administered on 10/05/18at 09:00; Admin Dose 200 MLS/HR; Start 10/04/18 at 15:00 Doxycycline Hyclate 100 mg/ Sodium Chloride 250 ml @ 250 mls/hr Q12 IVPB Last administered on 10/05/18at 21:20; Admin Dose 250 MLS/HR; Start 10/04/18 at 21:00 Fluconazole (Diflucan) 100 mg DAILY PO Last administered on 10/05/18 09:00; Admin Dose 100 MG; Start 10/04/18 at 15:00 LUZ CUMMINS October 06, 2018 07:05
[2018-10-06] MEDS ORDERED: MAGNESIUM SULFATE 2 GM/50 ML 50 ML IVPB ONE (08:00)
--- NOTE | 2018-10-06 08:17 | PN ---
DATE: 10/06/2018 SUBJECTIVE: The patient is stable. No events overnight. No fevers, chills, nausea or vomiting. OBJECTIVE: VITAL SIGNS: Blood pressure is 95/60, respirations 18, pulse 61, temperature 98.6. HEENT: Head is normocephalic. NECK: Supple. HEART: Regular rate. LUNGS: Show diminished breath sounds at the base. ABDOMEN: Soft, nontender to palpation without rebound or guarding. EXTREMITIES: Negative for clubbing, cyanosis, no edema. DERMATOLOGIC: No rashes. MUSCULOSKELETAL: No joint effusion. NEUROLOGIC: No change in exam. MEDICATIONS: Reviewed. LABORATORY DATA: Reviewed. ASSESSMENT AND PLAN: 1. Nonoliguric acute kidney injury with previous baseline creatinine of 0.69 mg/dL. Etiology of acu te kidney injury is secondary to acute tubular necrosis due to ischemic hypoperfusion and shock. The patient's renal function stabilized and slowly improving. Continue current treatment plan, supporti ve care, renally dose all medications. 2. Anemia. Continue to monitor hemoglobin and hematocrit levels. 3. Mineral bone disorder. Monitor calcium and phosphorus levels. 4. Cardiac arrest secondary to PA. 5. Shock, etiology is multifactorial, questionable septic, cardiac. The patient is currently off pr essor support. Continue to monitor. 6. Ventilator dependent respiratory failure. Vent settings and ABG was reviewed. Continue to monit or. 7. Bradycardia. The patient is on low-dose dopamine. 8. Dysphagia. Continue tube feeding. 9. Chronic encephalopathy. 10. Dyslipidemia. Continue statin therapy. 11. Gastritis. Continue proton pump inhibitor. Dictated By: DOT CONROY DO NR/SHILO Conf#: [id number] DID#: [id number] CC: TRUPTI EDGAR MD; ROSSANA MCKEON MD; RAMOS NOLAN MD;*EndCC*
[2018-10-06] MEDS: LEVETIRACETAM 500 MG (PMX) 100 ML IVPB SCH ×2 (08:26→21:12)
[2018-10-06] MEDS: DOXYCYCLINE 100 MG in SOD CHLORIDE 0.9% 250 ML IVPB SCH ×2 (08:27→21:12)
[2018-10-06] MEDS: COLISTIMETHATE 75 MG in SOD CHLORIDE 0.9% 100 ML IVPB SCH (08:27)
[2018-10-06] MEDS: FAMOTIDINE 20 MG INJ IV SCH (08:32)
[2018-10-06] MEDS: ASCORBIC ACID 500 MG TAB GTB SCH (08:33)
[2018-10-06] MEDS: ZINC SULFATE 220 MG CAP GTB SCH (08:33)
[2018-10-06] MEDS: ASPIRIN 81 MG TAB PO SCH (08:33)
[2018-10-06] MEDS: FLUCONAZOLE 100 MG TAB PO SCH (08:33)
[2018-10-06] MEDS: MUPIROCIN 2% 22 GM OINT TOP SCH ×2 (08:34→21:12)
[2018-10-06] MEDS: MULTIVITAMINS 30 ML CUP GTB SCH (08:34)
[2018-10-06] MEDS: DAKINS 0.0125%(1/40) 473 ML SOLUTION TP SCH ×2 (08:38→21:13)
[2018-10-06] MEDS: HEPARIN 5,000 UNIT/1 ML VIAL SC SCH ×2 (08:40→21:17)
--- NOTE | 2018-10-06 08:42 | CONS ---
Consult Date/Type/Reason Admit Date/Time September 28, 2018 at 15:36 Initial Consult Date 09/28/18 Type of Consult Pulmonary Requesting Provider: ROSSANA MCKEON MD Date/Time of Note DATE: 10/06/18 TIME: 08:41 Subjective No changes. Continues Levophed and dopamine. Neurologically unchanged. Tube feeding as tolerated. Objective Vital Signs Date Temp Pulse Resp B/P (MAP) Pulse Ox O2 O2 Flow FiO2 Time Delivery Rate 10/06/18 51 18 95/60 (72) 96 05:45 10/06/18 Mechanical 05:00 Ventilator 10/06/18 98.2 04:15 10/05/18 40 20:00 Intake and Output 10/05/18 10/05/18 10/06/18 1515:00 23:00 07:00 IntakeIntake Total 1316.4 ml 930.8 ml 612.4 ml OutputOutput Total 385 ml 370 ml 250 ml BalanceBalance 931.4 ml 560.8 ml 362.4 ml Exam PHYSICAL EXAMINATION: GENERAL: Elderly-appearing gentleman, unresponsive on mechanical ventilation. HEENT: His pupils are fixed and dilated. VITAL SIGNS: NECK: Trach site is clean and intact. CARDIAC: S1, S2. No added sounds or murmurs. CHEST: Diminished air entry bilaterally. ABDOMEN: Soft, nontender. No guarding or rebound. EXTREMITIES: No cyanosis, clubbing. Edema +2 NEUROLOGIC: Unable to assess, vegetative state. Vent Setting Ventilator Support Mode: AC Fraction of Inspired Oxygen pe: 40 Positive End Expiratory Pressu: 5.0 Results/Medications Result Diagram: 10/06/18 0500 10/06/18 0400 Results 24 hrs Laboratory Tests Test 10/06/18 04:00 10/06/18 05:00 10/06/18 05:08 Sodium Level 142 Potassium Level 3.9 Chloride Level 114 H Carbon Dioxide Level 21 Anion Gap 7 Blood Urea Nitrogen 43 H Creatinine 1.49 H Est Glomerular Filtrat 57 L Rate mL/min Glucose Level 105 Calcium Level 9.0 Phosphorus Level 2.6 Magnesium Level 1.5 L White Blood Count 9.8 # Red Blood Count 2.87 L Hemoglobin 8.0 L Hematocrit 24.3 L Mean Corpuscular Volume 84.7 Mean Corpuscular Hemoglobin 27.9 L Mean Corpuscular 32.9 Hemoglobin Concent Red Cell Distribution Width 21.1 H Platelet Count 145 Mean Platelet Volume 11.2 H Immature Granulocytes % 0.600 H Neutrophils % 77.6 H Lymphocytes % 13.1 L Monocytes % 7.0 Eosinophils % 1.6 Basophils % 0.1 Nucleated Red Blood Cells % 0.0 Immature Granulocytes # 0.060 H Neutrophils # 7.6 H Lymphocytes # 1.3 Monocytes # 0.7 Eosinophils # 0.2 Basophils # 0.0 Nucleated Red Blood Cells # 0.0 Lab Scanned Report BLOOD TRANSFUSION Medications Current Medications IV Flush (NS 3 ml) 3 ml PER PROTOCOL IV ; Start 09/28/18 at 17:30 Ondansetron HCl (Zofran Inj) 4 mg Q6H PRN IV NAUSEA/VOMITING; Start 09/28/18 at 17:30 Famotidine (Pepcid Iv) 20 mg DAILY IV Last administered on 10/06/18 08:32; Admin Dose 20 MG; Start 09/28/18 at 18:00 Norepinephrine 250 ml @ 1.875 mls/ hr TITRATE IV Last administered on 10/03/18 06:40; Admin Dose 1.875 MLS/HR; Start 09/28/18 at 19:30 Levetiracetam 100 ml @ 400 mls/hr Q12 IVPB Last administered on 10/06/18 08:26; Admin Dose 400 MLS/HR; Start 09/29/18 at 10:00 Lorazepam (Ativan) 1 mg Q10MIN PRN IV SEIZURES Last administered on 09/29/18 10:52; Admin Dose 1 MG; Start 09/29/18 at 10:00 Zinc Sulfate (Zinc Sulfate) 220 mg DAILY GTB Last administered on 10/06/18 08:33; Admin Dose 220 MG; Start 09/30/18 at 09:00 Multivitamins (Multivitamin) 30 ml DAILY GTB Last administered on 10/06/18 08:34; Admin Dose 30 ML; Start 09/30/18 at 09:00 Ascorbic Acid (Vitamin C) 500 mg DAILY GTB Last administered on 10/06/18 08:33; Admin Dose 500 MG; Start 09/30/18 at 09:00 Aspirin (Aspirin) 81 mg DAILY PO Last administered on 10/06/18 08:33; Admin Dose 81 MG; Start 09/30/18 at 09:00 Sodium Hypochlorite (Dakins Diluted (40)) 1 applic BID TP Last administered on 10/05/18 21:21; Admin Dose 1 APPLIC; Start 09/30/18 at 09:00 Heparin Sodium (Porcine) (Heparin (5000 Units/1ml)) 5,000 unit BID SC Last administered on 10/05/18 21:38; Admin Dose 5,000 UNIT; Start 10/01/18 at 09:00 Dopamine HCl/ Dextrose 250 ml @ 4.403 mls/ hr TITRATE IV Last administered on 10/04/18 17:48; Admin Dose 4.403 MLS/HR; Start 10/01/18 at 03:00 Mupirocin (Bactroban) 1 applic BID TOP Last administered on 10/06/18 08:34; Admin Dose 1 APPLIC; Start 10/01/18 at 21:00 Ferric Sodium Gluconate Complex 125 mg/Sodium Chloride 110 ml @ 110 mls/hr DAILY@1300 IVPB Last administered on 10/05/18 12:35; Admin Dose 110 MLS/HR; Start 10/03/18 at 13:00; Stop 10/07/18 at 13:59 Colistimethate Sodium 75 mg/ Sodium Chloride 100 ml @ 200 mls/hr DAILY IVPB Last administered on 10/06/18 08:27; Admin Dose 200 MLS/HR; Start 10/04/18 at 15:00 Doxycycline Hyclate 100 mg/ Sodium Chloride 250 ml @ 250 mls/hr Q12 IVPB Last administered on 10/06/18 08:27; Admin Dose 250 MLS/HR; Start 10/04/18 at 21:00 Fluconazole (Diflucan) 100 mg DAILY PO Last administered on 10/06/18 08:33; Admin Dose 100 MG; Start 10/04/18 at 15:00 Magnesium Sulfate 50 ml @ 25 mls/hr ONCE ONCE IVPB Last administered on 10/06/18 08:26; Admin Dose 25 MLS/HR; Start 10/06/18 at 08:00; Stop 10/06/18 at 09:59 Assessment/Plan Hospital Course (Demo Recall) IMPRESSION: 1. Cardiopulmonary arrest. 2. Probable significant anoxic brain injury. 3. Status post septic shock, staph bacteremia noted. 4. History of dysphagia. 5. Acute renal failure probable ATN injury 6. Significant bradycardia requiring chronotropic support 7. Significant decubitus ulcer 8. Significant anemia but no active bleeding noted. PLAN: 1. Continue neurology recommendations supportive care 2. Continue vasopressor as needed. Cardiology recommendations 3. Continue mechanical ventilation unable to wean 4. DVT and GI prophylaxis. 5. Continue IV fluids, continue tube feeding as tolerated 6. Continue wound care Critical care time 40 minutes. Palliative care consult appreciated. Bioethics meeting scheduled for tomorrow. Extremely poor prognosis [facility] CONDE MD, [facility] October 06, 2018 08:42
--- NOTE | 2018-10-06 09:09 | CONS ---
Assessment/Plan Assessment/Plan Assessment/Plan (Daily) S/P cardiac arrest respiratory failure encephalopathy renal insufficiency chronic dementia multiple CVA's by histrory malnutrition debility Bioethics conference tomorrow Consultation Date/Type/Reason Admit Date/Time September 28, 2018 at 15:36 Initial Consult Date 09/28/18 Requesting Provider: ROSSANA MCKEON MD Date/Time of Note DATE: 10/06/18 TIME: 09:06 Exam/Review of Systems Exam Vitals Vital Signs Date Temp Pulse Resp B/P (MAP) Pulse Ox O2 O2 Flow FiO2 Time Delivery Rate 10/06/18 48 18 95 07:30 10/06/18 95/60 (72) 05:45 10/06/18 Mechanical 05:00 Ventilator 10/06/18 98.2 04:15 10/05/18 40 20:00 Intake and Output 10/05/18 10/05/18 10/06/18 1515:00 23:00 07:00 IntakeIntake Total 1316.4 ml 930.8 ml 612.4 ml OutputOutput Total 385 ml 370 ml 250 ml BalanceBalance 931.4 ml 560.8 ml 362.4 ml Results Result Diagram: 10/06/18 0500 10/06/18 0400 Results 24hrs Laboratory Tests Test 10/06/18 04:00 10/06/18 05:00 10/06/18 05:08 Sodium Level 142 Potassium Level 3.9 Chloride Level 114 H Carbon Dioxide Level 21 Anion Gap 7 Blood Urea Nitrogen 43 H Creatinine 1.49 H Est Glomerular Filtrat 57 L Rate mL/min Glucose Level 105 Calcium Level 9.0 Phosphorus Level 2.6 Magnesium Level 1.5 L White Blood Count 9.8 # Red Blood Count 2.87 L Hemoglobin 8.0 L Hematocrit 24.3 L Mean Corpuscular Volume 84.7 Mean Corpuscular Hemoglobin 27.9 L Mean Corpuscular 32.9 Hemoglobin Concent Red Cell Distribution Width 21.1 H Platelet Count 145 Mean Platelet Volume 11.2 H Immature Granulocytes % 0.600 H Neutrophils % 77.6 H Lymphocytes % 13.1 L Monocytes % 7.0 Eosinophils % 1.6 Basophils % 0.1 Nucleated Red Blood Cells % 0.0 Immature Granulocytes # 0.060 H Neutrophils # 7.6 H Lymphocytes # 1.3 Monocytes # 0.7 Eosinophils # 0.2 Basophils # 0.0 Nucleated Red Blood Cells # 0.0 Lab Scanned Report BLOOD TRANSFUSION Medications Medication Current Medications IV Flush (NS 3 ml) 3 ml PER PROTOCOL IV ; Start 09/28/18 at 17:30 Ondansetron HCl (Zofran Inj) 4 mg Q6H PRN IV NAUSEA/VOMITING; Start 09/28/18 at 17:30 Famotidine (Pepcid Iv) 20 mg DAILY IV Last administered on 10/06/18 08:32; Admin Dose 20 MG; Start 09/28/18 at 18:00 Norepinephrine 250 ml @ 1.875 mls/ hr TITRATE IV Last administered on 10/03/18 06:40; Admin Dose 1.875 MLS/HR; Start 09/28/18 at 19:30 Levetiracetam 100 ml @ 400 mls/hr Q12 IVPB Last administered on 10/06/18 08:26; Admin Dose 400 MLS/HR; Start 09/29/18 at 10:00 Lorazepam (Ativan) 1 mg Q10MIN PRN IV SEIZURES Last administered on 09/29/18 10:52; Admin Dose 1 MG; Start 09/29/18 at 10:00 Zinc Sulfate (Zinc Sulfate) 220 mg DAILY GTB Last administered on 10/06/18 08:33; Admin Dose 220 MG; Start 09/30/18 at 09:00 Multivitamins (Multivitamin) 30 ml DAILY GTB Last administered on 10/06/18 08:34; Admin Dose 30 ML; Start 09/30/18 at 09:00 Ascorbic Acid (Vitamin C) 500 mg DAILY GTB Last administered on 10/06/18 08:3 3; Admin Dose 500 MG; Start 09/30/18 at 09:00 Aspirin (Aspirin) 81 mg DAILY PO Last administered on 10/06/18 08:33; Admin Dose 81 MG; Start 09/30/18 at 09:00 Sodium Hypochlorite (Dakins Diluted ()) 1 applic BID TP Last administered on 10/06/18 08:38; Admin Dose 1 APPLIC; Start 09/30/18 at 09:00 Heparin Sodium (Porcine) (Heparin (5000 Units/1ml)) 5,000 unit BID SC Last administered on 10/06/18 08:40; Admin Dose 5,000 UNIT; Start 10/01/18 at 09:00 Dopamine HCl/ Dextrose 250 ml @ 4.403 mls/ hr TITRATE IV Last administered on 10/04/18 17:48; Admin Dose 4.403 MLS/HR; Start 10/01/18 at 03:00 Mupirocin (Bactroban) 1 applic BID TOP Last administered on 10/06/18 08:34; Admin Dose 1 APPLIC; Start 10/01/18 at 21:00 Ferric Sodium Gluconate Complex 125 mg/Sodium Chloride 110 ml @ 110 mls/hr DAILY@1300 IVPB Last administered on 10/05/18 12:35; Admin Dose 110 MLS/HR; Start 10/03/18 at 13:00; Stop 10/07/18 at 13:59 Colistimethate Sodium 75 mg/ Sodium Chloride 100 ml @ 200 mls/hr DAILY IVPB Last administered on 10/06/18 08:27; Admin Dose 200 MLS/HR; Start 10/04/18 at 15:00 Doxycycline Hyclate 100 mg/ Sodium Chloride 250 ml @ 250 mls/hr Q12 IVPB Last administered on 10/06/18 08:27; Admin Dose 250 MLS/HR; Start 10/04/18 at 21:00 Fluconazole (Diflucan) 100 mg DAILY PO Last administered on 10/06/18 08:33; Admin Dose 100 MG; Start 10/04/18 at 15:00 Magnesium Sulfate 50 ml @ 25 mls/hr ONCE ONCE IVPB Last administered on 10/06/18 08:26; Admin Dose 25 MLS/HR; Start 10/06/18 at 08:00; Stop 10/06/18 at 09:59 LUZ CUMMINS October 06, 2018 09:09
--- NOTE | 2018-10-06 10:10 | CONS ---
Assessment/Plan Assessment/Plan Hospital Course 63 yo M with extensive neurologic hx and multiple comorbidities who presents to the ICU following a cardiac arrest. TTM was deferred d/t pt's poor neurologic status at baseline. He was noted to have face and arm twitching, for which neurology is consulted. The clinical picture suggests seizures in the context of hypoxic ischemic cerebral injury....now resolved. CTH is without obvious acute intracranial pathology. EEG was without epileptiform activity, though diffusely slow. His prognosis for meaningful neurologic recovery is probably poor. P: OK to cont Keppra as scheduled. Ativan IV PRN seizure >5 min or for cluster ASA for secondary stroke prevention MRI brain when medically able Will follow clinically Consultation Date/Type/Reason Admit Date/Time September 28, 2018 at 15:36 Type of Consult Neurology Reason for Consultation ams Requesting Provider: ROSSANA MCKEON MD Date/Time of Note DATE: 10/06/18 TIME: 10:08 24 HR Interval Summary Free Text/Dictation Continues icu care Exam Vital Signs Vitals Vital Signs Date Temp Pulse Resp B/P (MAP) Pulse Ox O2 O2 Flow FiO2 Time Delivery Rate 10/06/18 61 122/63 97 09:30 (82) 10/06/18 20 09:00 10/06/18 97.4 08:00 10/06/18 Mechanical 05:00 Ventilator 10/05/18 40 20:00 Intake and Output 10/05/18 10/05/18 10/06/18 1515:00 23:00 07:00 IntakeIntake Total 1316.4 ml 930.8 ml 612.4 ml OutputOutput Total 385 ml 370 ml 250 ml BalanceBalance 931.4 ml 560.8 ml 362.4 ml AZALIA ENRIQUE October 06, 2018 10:09
[2018-10-06] MEDS: SOD FERRIC GLUC COMPLX 125 MG in SOD CHLORIDE 0.9% 100 ML IVPB SCH (12:59)
--- NOTE | 2018-10-06 13:56 | CONS ---
Assessment/Plan Assessment/Plan Hospital Course (Demo Recall) Patient remains unchanged, on low-dose dopamine, noncommunicative in no distress. Hypothermic. WBC 9.8 platelets 145 neutrophils 77.6 BUN 43 creatinine 1.49 Microbiology: Blood culture on admission grew staph, MRSA swab came back positive, stool for C. difficile negative, urine culture grew Acinetobacter, Klebsiella and Nancie albicans Indwelling's: Trach PEG right IJ triple lumen catheter Antimicrobials: Colistin, fluconazole, doxycycline Physical examination: This is a chronically ill-appearing elderly man who is noncommunicative and in no distress. Head atraumatic normocephalic neck is supple chest rise symmetrical breath sounds diminished bases. Heart: S1-S2. Abdomen soft bowel sounds hypoactive extremities without edema. Skin patient has unstageable sacral wound and pressure sores on his feet Assessment: 1. Shock, status post PEA cardiac arrest 2. Multidrug-resistant UTI 3. MRSA nares colonization 4. Staph bacteremia consistent with contaminant 5. Acute possibly on chronic kidney disease 6. Acute on chronic encephalopathy likely anoxia 7. History of CVA Plan: Patient remains unchanged, continue present care and antibiotics, pending bio ethic committee Consultation Date/Type/Reason Admit Date/Time September 28, 2018 at 15:36 Initial Consult Date 09/28/18 Type of Consult id Requesting Provider: ROSSANA MCKEON MD Date/Time of Note DATE: 10/06/18 TIME: 13:54 Exam/Review of Systems Exam Vitals Vital Signs Date Temp Pulse Resp B/P (MAP) Pulse Ox O2 O2 Flow FiO2 Time Delivery Rate 10/06/18 57 18 99 13:05 10/06/18 100/63 12:15 (75) 10/06/18 97.2 12:00 10/06/18 Mechanical 05:00 Ventilator 10/05/18 40 20:00 Intake and Output 10/05/18 10/05/18 10/06/18 1515:00 23:00 07:00 IntakeIntake Total 1316.4 ml 930.8 ml 612.4 ml OutputOutput Total 385 ml 370 ml 250 ml BalanceBalance 931.4 ml 560.8 ml 362.4 ml Results Result Diagram: 10/06/18 0500 10/06/18 0400 Results 24hrs Laboratory Tests Test 10/06/18 04:00 10/06/18 05:00 10/06/18 05:08 Sodium Level 142 Potassium Level 3.9 Chloride Level 114 H Carbon Dioxide Level 21 Anion Gap 7 Blood Urea Nitrogen 43 H Creatinine 1.49 H Est Glomerular Filtrat 57 L Rate mL/min Glucose Level 105 Calcium Level 9.0 Phosphorus Level 2.6 Magnesium Level 1.5 L White Blood Count 9.8 # Red Blood Count 2.87 L Hemoglobin 8.0 L Hematocrit 24.3 L Mean Corpuscular Volume 84.7 Mean Corpuscular Hemoglobin 27.9 L Mean Corpuscular 32.9 Hemoglobin Concent Red Cell Distribution Width 21.1 H Platelet Count 145 Mean Platelet Volume 11.2 H Immature Granulocytes % 0.600 H Neutrophils % 77.6 H Lymphocytes % 13.1 L Monocytes % 7.0 Eosinophils % 1.6 Basophils % 0.1 Nucleated Red Blood Cells % 0.0 Immature Granulocytes # 0.060 H Neutrophils # 7.6 H Lymphocytes # 1.3 Monocytes # 0.7 Eosinophils # 0.2 Basophils # 0.0 Nucleated Red Blood Cells # 0.0 Lab Scanned Report BLOOD TRANSFUSION Medications Medication Current Medications IV Flush (NS 3 ml) 3 ml PER PROTOCOL IV ; Start 09/28/18 at 17:30 Ondansetron HCl (Zofran Inj) 4 mg Q6H PRN IV NAUSEA/VOMITING; Start 09/28/18 at 17:30 Famotidine (Pepcid Iv) 20 mg DAILY IV Last administered on 10/06/18at 08:32; Admin Dose 20 MG; Start 09/28/18 at 18:00 Norepinephrine 250 ml @ 1.875 mls/ hr TITRATE IV Last administered on 10/03/18at 06:40; Admin Dose 1.875 MLS/HR; Start 09/28/18 at 19:30 Levetiracetam 100 ml @ 400 mls/hr Q12 IVPB Last administered on 10/06/18 08:26; Admin Dose 400 MLS/HR; Start 09/29/18 at 10:00 Lorazepam (Ativan) 1 mg Q10MIN PRN IV SEIZURES Last administered on 09/29/18at 10:52; Admin Dose 1 MG; Start 09/29/18 at 10:00 Zinc Sulfate (Zinc Sulfate) 220 mg DAILY GTB Last administered on 10/06/18 08:33; Admin Dose 220 MG; Start 09/30/18 at 09:00 Multivitamins (Multivitamin) 30 ml DAILY GTB Last administered on 10/06/18 08:34; Admin Dose 30 ML; Start 09/30/18 at 09:00 Ascorbic Acid (Vitamin C) 500 mg DAILY GTB Last administered on 10/06/18 08:33; Admin Dose 500 MG; Start 09/30/18 at 09:00 Aspirin (Aspirin) 81 mg DAILY PO Last administered on 10/06/18 08:33; Admin Dose 81 MG; Start 09/30/18 at 09:00 Sodium Hypochlorite (Dakins Diluted ()) 1 applic BID TP Last administered on 10/06/18 08:38; Admin Dose 1 APPLIC; Start 09/30/18 at 09:00 Heparin Sodium (Porcine) (Heparin (5000 Units/1ml)) 5,000 unit BID SC Last administered on 10/06/18 08:40; Admin Dose 5,000 UNIT; Start 10/01/18 at 09:00 Dopamine HCl/ Dextrose 250 ml @ 4.403 mls/ hr TITRATE IV Last administered on 10/04/18 17:48; Admin Dose 4.403 MLS/HR; Start 10/01/18 at 03:00 Mupirocin (Bactroban) 1 applic BID TOP Last administered on 10/06/18 08:34; Admin Dose 1 APPLIC; Start 10/01/18 at 21:00 Ferric Sodium Gluconate Complex 125 mg/Sodium Chloride 110 ml @ 110 mls/hr DAILY@1300 IVPB Last administered on 10/06/18 12:59; Admin Dose 110 MLS/HR; Start 10/03/18 at 13:00; Stop 10/07/18 at 13:59 Doxycycline Hyclate 100 mg/ Sodium Chloride 250 ml @ 250 mls/hr Q12 IVPB Last administered on 10/06/18 08:27; Admin Dose 250 MLS/HR; Start 10/04/18 at 21:00 Fluconazole (Diflucan) 100 mg DAILY PO Last administered on 10/06/18 08:33; Admin Dose 100 MG; Start 10/04/18 at 15:00 Colistimethate Sodium 100 mg/ Sodium Chloride 100 ml @ 200 mls/hr Q24H IVPB ; Start 10/07/18 at 09:00 MELANIA SHAH NP October 06, 2018 13:56
--- NOTE | 2018-10-06 14:42 | PN ---
Date/Time of Note Date/Time of Note DATE: 10/06/18 TIME: 14:41 Assessment/Plan VTE Prophylaxis Risk score (from Nsg)>0 risk: 14 Pharmacological prophylaxis: heparin Assessment/Plan Hospital Course 63 yo man severely disabled years after stroke, now trach and vent dependent and vegetative; presents after cardiac arrest. #Cardiac arrest - Etiology unclear. Was PEA on arrival to ED. May have been hypoxic arrest related to trach like mucous plug or occlusion. - Patient has known very severe neurologic deficit. This precludes his eligibility for hypothermia protocol. -Wean off pressors - Minimal vent settings. - Per discussion with sister, patient is full code - Dr. Flores following #Vegetative state -Patient with history of multiple strokes and now anoxic encephalopathy with no reflexes noted and decorticate posturing -Neurology following #Bacteremia - Blood culture x1 growing staph luginensis, likely contaminant, replete blood cultures are negative - Continue Abx for now. No signs of sepsis -ID consultation appreciated #Facial twitching - Facial fasciculations likely myoclonic jerks. - EEG negative for seizure activity. - Neurology started keppra and phenytoin, these can likely be tapered off. - Will avoid sedating medications including benzos unless seizure is proven. #Oliguric CASTRO - Dr. Chand unable to get Gilman. Currently has condom cath. - New CASTRO with rising Cr - Due to his absence of meaningful neurologic function, would not offer dialysis to this patient. - Dr. Bernstein consulted. #Chronic disability after stroke - Patient trached, vent, not responsive, contractures - Supportive care - Continue tube feeds. #Acute diarrhea - Resolved - If no rectal tube output over next 24-48 hours, it can likely be pulled. #Gastritis - Cont home H2 merlyn and PPI #Dyslipidemia - Cont home statin #UTI secondary to Gilman catheter -Culture growing multidrug-resistant organisms -ID consultation obtained -Continue vancomycin and meropenem #Anemia likely of chronic disease and/or acute blood loss from GI bleed -Transfuse 1 unit today -No evidence of melena or shari bleed at this time, stool guaiac was positive DVT: Heparin GI: PPI DC planning: Patient with vegetative state and poor prognosis, family continues to want aggressive care including full code, bioethics meeting this coming Friday Result Diagram: 10/06/18 0500 10/06/18 0400 Results 24hrs Laboratory Tests Test 10/06/18 04:00 10/06/18 05:00 10/06/18 05:08 Sodium Level 142 Potassium Level 3.9 Chloride Level 114 H Carbon Dioxide Level 21 Anion Gap 7 Blood Urea Nitrogen 43 H Creatinine 1.49 H Est Glomerular Filtrat 57 L Rate mL/min Glucose Level 105 Calcium Level 9.0 Phosphorus Level 2.6 Magnesium Level 1.5 L White Blood Count 9.8 # Red Blood Count 2.87 L Hemoglobin 8.0 L Hematocrit 24.3 L Mean Corpuscular Volume 84.7 Mean Corpuscular Hemoglobin 27.9 L Mean Corpuscular 32.9 Hemoglobin Concent Red Cell Distribution Width 21.1 H Platelet Count 145 Mean Platelet Volume 11.2 H Immature Granulocytes % 0.600 H Neutrophils % 77.6 H Lymphocytes % 13.1 L Monocytes % 7.0 Eosinophils % 1.6 Basophils % 0.1 Nucleated Red Blood Cells % 0.0 Immature Granulocytes # 0.060 H Neutrophils # 7.6 H Lymphocytes # 1.3 Monocytes # 0.7 Eosinophils # 0.2 Basophils # 0.0 Nucleated Red Blood Cells # 0.0 Lab Scanned Report BLOOD TRANSFUSION Subjective 24 Hr Interval Summary Subjective hx not possible: pt non-verbal Exam/Review of Systems Exam Vitals Vital Signs Date Temp Pulse Resp B/P (MAP) Pulse Ox O2 O2 Flow FiO2 Time Delivery Rate 10/06/18 57 18 99 13:05 10/06/18 100/63 12:15 (75) 10/06/18 97.2 12:00 10/06/18 Mechanical 05:00 Ventilator 10/05/18 40 20:00 Intake and Output 10/05/18 10/05/18 10/06/18 1515:00 23:00 07:00 IntakeIntake Total 1316.4 ml 930.8 ml 612.4 ml OutputOutput Total 385 ml 370 ml 250 ml BalanceBalance 931.4 ml 560.8 ml 362.4 ml Constitutional: non-verbal Respiratory: clear to auscultation Cardiovascular: regular rate and rhythm Gastrointestinal: soft; No distended Musculoskeletal: nl extremities to inspection Results Results 24hrs Laboratory Tests Test 10/06/18 04:00 10/06/18 05:00 10/06/18 05:08 Sodium Level 142 Potassium Level 3.9 Chloride Level 114 H Carbon Dioxide Level 21 Anion Gap 7 Blood Urea Nitrogen 43 H Creatinine 1.49 H Est Glomerular Filtrat 57 L Rate mL/min Glucose Level 105 Calcium Level 9.0 Phosphorus Level 2.6 Magnesium Level 1.5 L White Blood Count 9.8 # Red Blood Count 2.87 L Hemoglobin 8.0 L Hematocrit 24.3 L Mean Corpuscular Volume 84.7 Mean Corpuscular Hemoglobin 27.9 L Mean Corpuscular 32.9 Hemoglobin Concent Red Cell Distribution Width 21.1 H Platelet Count 145 Mean Platelet Volume 11.2 H Immature Granulocytes % 0.600 H Neutrophils % 77.6 H Lymphocytes % 13.1 L Monocytes % 7.0 Eosinophils % 1.6 Basophils % 0.1 Nucleated Red Blood Cells % 0.0 Immature Granulocytes # 0.060 H Neutrophils # 7.6 H Lymphocytes # 1.3 Monocytes # 0.7 Eosinophils # 0.2 Basophils # 0.0 Nucleated Red Blood Cells # 0.0 Lab Scanned Report BLOOD TRANSFUSION Medications Medication Current Medications IV Flush (NS 3 ml) 3 ml PER PROTOCOL IV ; Start 09/28/18 at 17:30 Ondansetron HCl (Zofran Inj) 4 mg Q6H PRN IV NAUSEA/VOMITING; Start 09/28/18 at 17:30 Famotidine (Pepcid Iv) 20 mg DAILY IV Last administered on 10/06/18 08:32; Admin Dose 20 MG; Start 09/28/18 at 18:00 Norepinephrine 250 ml @ 1.875 mls/ hr TITRATE IV Last administered on 06:40; Admin Dose 1.875 MLS/HR; Start 09/28/18 at 19:30 Levetiracetam 100 ml @ 400 mls/hr Q12 IVPB Last administered on 10/06/18 08:26; Admin Dose 400 MLS/HR; Start 09/29/18 at 10:00 Lorazepam (Ativan) 1 mg Q10MIN PRN IV SEIZURES Last administered on 09/29/18 10:52; Admin Dose 1 MG; Start 09/29/18 at 10:00 Zinc Sulfate (Zinc Sulfate) 220 mg DAILY GTB Last administered on 10/06/18 08 :33; Admin Dose 220 MG; Start 09/30/18 at 09:00 Multivitamins (Multivitamin) 30 ml DAILY GTB Last administered on 10/06/18 08:34; Admin Dose 30 ML; Start 09/30/18 at 09:00 Ascorbic Acid (Vitamin C) 500 mg DAILY GTB Last administered on 10/06/18 08:33; Admin Dose 500 MG; Start 09/30/18 at 09:00 Aspirin (Aspirin) 81 mg DAILY PO Last administered on 10/06/18 08:33; Admin Dose 81 MG; Start 09/30/18 at 09:00 Sodium Hypochlorite (Dakins Diluted ()) 1 applic BID TP Last administered on 10/06/18 08:38; Admin Dose 1 APPLIC; Start 09/30/18 at 09:00 Heparin Sodium (Porcine) (Heparin (5000 Units/1ml)) 5,000 unit BID SC Last administered on 10/06/18 08:40; Admin Dose 5,000 UNIT; Start 10/01/18 at 09:00 Dopamine HCl/ Dextrose 250 ml @ 4.403 mls/ hr TITRATE IV Last administered on 10/04/18 17:48; Admin Dose 4.403 MLS/HR; Start 10/01/18 at 03:00 Mupirocin (Bactroban) 1 applic BID TOP Last administered on 10/06/18 08:34; Admin Dose 1 APPLIC; Start 10/01/18 at 21:00 Ferric Sodium Gluconate Complex 125 mg/Sodium Chloride 110 ml @ 110 mls/hr DAILY@1300 IVPB Last administered on 10/06/18 12:59; Admin Dose 110 MLS/HR; Start 10/03/18 at 13:00; Stop 10/07/18 at 13:59 Doxycycline Hyclate 100 mg/ Sodium Chloride 250 ml @ 250 mls/hr Q12 IVPB Last administered on 10/06/18 08:27; Admin Dose 250 MLS/HR; Start 10/04/18 at 21:00 Fluconazole (Diflucan) 100 mg DAILY PO Last administered on 10/06/18 08:33; Admin Dose 100 MG; Start 10/04/18 at 15:00 Colistimethate Sodium 100 mg/ Sodium Chloride 100 ml @ 200 mls/hr Q24H IVPB ; Start 10/07/18 at 09:00 RAMOS NOLAN October 06, 2018 14:41
[2018-10-06] MEDS: DOPamine-D5W 1.6 MG/ML 250 ML IV SCH (15:14)
[2018-10-07] VITALS (100 sets, daily range): BP systolic 71–153; BP diastolic 38–79; PULSE 47–71; RESP 17–19
[2018-10-07] MEDS: BALSAM PERU/CASTOR OIL 60 GM TUBE TOP SCH ×3 (05:56→21:27)
[2018-10-07] MEDS: DOXYCYCLINE 100 MG in SOD CHLORIDE 0.9% 250 ML IVPB SCH ×2 (08:13→21:22)
[2018-10-07] MEDS: LEVETIRACETAM 500 MG (PMX) 100 ML IVPB SCH ×2 (08:13→21:26)
--- NOTE | 2018-10-07 08:15 | PN ---
DATE: 10/07/2018 SUBJECTIVE: The patient is in a serious critical condition. The patient remains on dopamine, on ful l ventilatory support. No other events noted. OBJECTIVE: VITAL SIGNS: Blood pressure 93/56, respirations 18, pulse 87, temperature 98.6. HEENT: Head is normocephalic. NECK: Supple. HEART: Regular rate. LUNGS: Show diminished breath sounds at the base. ABDOMEN: Soft, nontender to palpation. No rebound or guarding. EXTREMITIES: Negative for clubbing, cyanosis, no edema. DERMATOLOGIC: No rashes. MUSCULOSKELETAL: No joint effusion. NEUROLOGIC: No change in exam. MEDICATIONS: Reviewed. LABORATORY DATA: Reviewed. ASSESSMENT AND PLAN: 1. Nonoliguric acute kidney injury with previous baseline creatinine of 0.69 mg/dL. Etiology of acu te kidney injury is secondary to acute tubular necrosis due to ischemic hypoperfusion and shock. The patient's renal function is slowly improving. Continue current treatment plan, supportive care, emelina ally dose all medications. 2. Anemia. Monitor hemoglobin and hematocrit levels. 3. Mineral bone disorder. Monitor calcium and phosphorus levels. 4. Shock, etiology is multifactorial secondary to septic, cardiac. The patient has been weaned off pressor support. Continue current antibiotic therapy and monitor. 5. Arrhythmia, bradycardia. Continue low-dose dopamine. 6. Ventilator-dependent respiratory failure. Vent settings and ABG was reviewed. Continue to monit or. 7. Cardiac arrest secondary to possible PA. The patient had return of spontaneous circulation. Con tinue to monitor. 8. Dysphagia. Continue tube feeding. 9. Chronic encephalopathy. 10. Dyslipidemia. Continue statin therapy. 11. Gastritis. Continue proton pump inhibitor. DISPOSITION: The patient's overall prognosis is poor. Consider comfort measures. Dictated By: DOT CONROY DO NR/NTS Conf#: [id number] DID#: [id number] CC: RAMOS NOLAN MD; ROSSANA MCKEON MD; TRUPTI EDGAR MD;*End*
[2018-10-07] MEDS: ASCORBIC ACID 500 MG TAB GTB SCH (08:40)
[2018-10-07] MEDS: ZINC SULFATE 220 MG CAP GTB SCH (08:41)
[2018-10-07] MEDS: ASPIRIN 81 MG TAB PO SCH (08:41)
[2018-10-07] MEDS: MULTIVITAMINS 30 ML CUP GTB SCH (08:41)
[2018-10-07] MEDS: FLUCONAZOLE 100 MG TAB PO SCH (08:41)
[2018-10-07] MEDS: DAKINS 0.0125%(1/40) 473 ML SOLUTION TP SCH ×2 (08:42→23:12)
[2018-10-07] MEDS: MUPIROCIN 2% 22 GM OINT TOP SCH ×2 (08:42→21:27)
[2018-10-07] MEDS: HEPARIN 5,000 UNIT/1 ML VIAL SC SCH ×2 (08:44→21:33)
[2018-10-07] MEDS: FAMOTIDINE 20 MG INJ IV SCH (08:45)
[2018-10-07] MEDS ORDERED: COLISTIMETHATE 100 MG in SOD CHLORIDE 0.9% 100 ML IVPB SCH (09:00)
--- NOTE | 2018-10-07 10:08 | CONS ---
Assessment/Plan Assessment/Plan Assessment/Plan (Daily) But with patient's daughter this morning who intubated that she is changed her mind and so far as patient's CODE STATUS. She will be here after 4:00 have given my cell phone number in the meantime we will try some save atypical anxiolytics to try and control patient's behavior. Consultation Date/Type/Reason Admit Date/Time September 28, 2018 at 15:36 Initial Consult Date 09/28/18 Requesting Provider: ROSSANA MCKEON MD Date/Time of Note DATE: 10/07/18 TIME: 10:05 24 HR Interval Summary Free Text/Dictation Assessment/Plan (Daily) S/P cardiac arrest respiratory failure encephalopathy renal insufficiency chronic dementia multiple CVA's by histrory malnutrition debility Exam/Review of Systems Exam Vitals Vital Signs Date Temp Pulse Resp B/P (MAP) Pulse Ox O2 O2 Flow FiO2 Time Delivery Rate 10/07/18 53 08:00 10/07/18 18 93/56 (68) 97 Mechanical 06:00 Ventilator 10/07/18 96.0 04:00 10/06/18 30 20:00 Intake and Output 10/06/18 10/06/18 10/07/18 1515:00 23:00 07:00 IntakeIntake Total 900.4 ml 901.6 ml 632.2 ml OutputOutput Total 400 ml 495 ml 470 ml BalanceBalance 500.4 ml 406.6 ml 162.2 ml Psych: anxiety (Screaming out not moaning and groaning, cranial nerves grossly intact does not follow simple commands incomprehensible speech moving all 4 extremities) Results Result Diagram: 10/07/18 0400 10/07/18 0400 Results 24hrs Laboratory Tests Test 10/07/18 04:00 White Blood Count 11.2 H Red Blood Count 3.04 L Hemoglobin 8.4 L Hematocrit 25.7 L Mean Corpuscular Volume 84.5 Mean Corpuscular Hemoglobin 27.6 L Mean Corpuscular Hemoglobin Concent 32.7 Red Cell Distribution Width 21.2 H Platelet Count 152 Mean Platelet Volume 11.6 H Immature Granulocytes % 0.400 Neutrophils % 84.6 H Lymphocytes % 8.6 L Monocytes % 4.5 Eosinophils % 1.8 Basophils % 0.1 Nucleated Red Blood Cells % 0.0 Immature Granulocytes # 0.040 H Neutrophils # 9.5 H Lymphocytes # 1.0 Monocytes # 0.5 Eosinophils # 0.2 Basophils # 0.0 Nucleated Red Blood Cells # 0.0 Sodium Level 141 Potassium Level 3.9 Chloride Level 114 H Carbon Dioxide Level 21 Anion Gap 6 Blood Urea Nitrogen 47 H Creatinine 1.25 H Est Glomerular Filtrat Rate mL/min > 60 Glucose Level 115 Calcium Level 9.3 Phosphorus Level 3.0 Magnesium Level 1.7 Medications Medication Current Medications IV Flush (NS 3 ml) 3 ml PER PROTOCOL IV ; Start 09/28/18 at 17:30 Ondansetron HCl (Zofran Inj) 4 mg Q6H PRN IV NAUSEA/VOMITING; Start 09/28/18 at 17:30 Famotidine (Pepcid Iv) 20 mg DAILY IV Last administered on 10/07/18 08:45; Adm in Dose 20 MG; Start 09/28/18 at 18:00 Norepinephrine 250 ml @ 1.875 mls/ hr TITRATE IV Last administered on 10/03/18 06:40; Admin Dose 1.875 MLS/HR; Start 09/28/18 at 19:30 Levetiracetam 100 ml @ 400 mls/hr Q12 IVPB Last administered on 10/07/18 08:13; Admin Dose 400 MLS/HR; Start 09/29/18 at 10:00 Lorazepam (Ativan) 1 mg Q10MIN PRN IV SEIZURES Last administered on 09/29/18 10:52; Admin Dose 1 MG; Start 09/29/18 at 10:00 Zinc Sulfate (Zinc Sulfate) 220 mg DAILY GTB Last administered on 10/07/18 08:41; Admin Dose 220 MG; Start 09/30/18 at 09:00 Multivitamins (Multivitamin) 30 ml DAILY GTB Last administered on 10/07/18 08:41; Admin Dose 30 ML; Start 09/30/18 at 09:00 Ascorbic Acid (Vitamin C) 500 mg DAILY GTB Last administered on 10/07/18 08:40; Admin Dose 500 MG; Start 09/30/18 at 09:00 Aspirin (Aspirin) 81 mg DAILY PO Last administered on 10/07/18 08:41; Admin Dose 81 MG; Start 09/30/18 at 09:00 Sodium Hypochlorite (Dakins Diluted (1/40)) 1 applic BID TP Last administered on 10/07/18 08:42; Admin Dose 1 APPLIC; Start 09/30/18 at 09:00 Heparin Sodium (Porcine) (Heparin (5000 Units/1ml)) 5,000 unit BID SC Last administered on 10/07/18 08:44; Admin Dose 5,000 UNIT; Start 10/01/18 at 09:00 Dopamine HCl/ Dextrose 250 ml @ 4.403 mls/ hr TITRATE IV Last administered on 10/06/18 15:14; Admin Dose 8.805 MLS/HR; Start 10/01/18 at 03:00 Mupirocin (Bactroban) 1 applic BID TOP Last administered on 10/07/18 08:42; Admin Dose 1 APPLIC; Start 10/01/18 at 21:00 Ferric Sodium Gluconate Complex 125 mg/Sodium Chloride 110 ml @ 110 mls/hr DAILY@1300 IVPB Last administered on 10/06/18 12:59; Admin Dose 110 MLS/HR; Start 10/03/18 at 13:00; Stop 10/07/18 at 13:59 Doxycycline Hyclate 100 mg/ Sodium Chloride 250 ml @ 250 mls/hr Q12 IVPB Last administered on 10/07/18 08:13; Admin Dose 250 MLS/HR; Start 10/04/18 at 21:00 Fluconazole (Diflucan) 100 mg DAILY PO Last administered on 10/07/18 08:41; Admin Dose 100 MG; Start 10/04/18 at 15:00 Colistimethate Sodium 100 mg/ Sodium Chloride 100 ml @ 200 mls/hr Q24H IVPB Last administered on 10/07/18 08:15; Admin Dose 200 MLS/HR; Start 10/07/18 at 09:00 LUZ CUMMINS October 07, 2018 10:08
--- NOTE | 2018-10-07 11:47 | CONS ---
Consult Date/Type/Reason Admit Date/Time September 28, 2018 at 15:36 Initial Consult Date 09/28/18 Type of Consult Pulmonary Requesting Provider: ROSSANA MCKEON MD Date/Time of Note DATE: 10/07/18 TIME: 11:46 Subjective Remains unresponsive on mechanical ventilation. Objective Vital Signs Date Temp Pulse Resp B/P (MAP) Pulse Ox O2 O2 Flow FiO2 Time Delivery Rate 10/07/18 61 18 97/62 (74) 99 10:30 10/07/18 Mechanical 10:00 Ventilator 10/07/18 96.0 08:00 10/06/18 30 20:00 Intake and Output 10/06/18 10/06/18 10/07/18 1515:00 23:00 07:00 IntakeIntake Total 900.4 ml 901.6 ml 632.2 ml OutputOutput Total 400 ml 495 ml 470 ml BalanceBalance 500.4 ml 406.6 ml 162.2 ml Exam PHYSICAL EXAMINATION: GENERAL: Elderly-appearing gentleman, unresponsive on mechanical ventilation. HEENT: Moist mucous membranes VITAL SIGNS: NECK: Trach site is clean and intact. CARDIAC: S1, S2. No added sounds or murmurs. CHEST: Diminished air entry bilaterally. ABDOMEN: Soft, nontender. No guarding or rebound. EXTREMITIES: No cyanosis, clubbing. Edema +2 NEUROLOGIC: Unable to assess, vegetative state. Vent Setting Ventilator Support Mode: AC Fraction of Inspired Oxygen pe: 30 Positive End Expiratory Pressu: 5.0 Results/Medications Result Diagram: 10/07/18 0400 10/07/18 0400 Results 24 hrs Laboratory Tests Test 10/07/18 04:00 White Blood Count 11.2 H Red Blood Count 3.04 L Hemoglobin 8.4 L Hematocrit 25.7 L Mean Corpuscular Volume 84.5 Mean Corpuscular Hemoglobin 27.6 L Mean Corpuscular Hemoglobin Concent 32.7 Red Cell Distribution Width 21.2 H Platelet Count 152 Mean Platelet Volume 11.6 H Immature Granulocytes % 0.400 Neutrophils % 84.6 H Lymphocytes % 8.6 L Monocytes % 4.5 Eosinophils % 1.8 Basophils % 0.1 Nucleated Red Blood Cells % 0.0 Immature Granulocytes # 0.040 H Neutrophils # 9.5 H Lymphocytes # 1.0 Monocytes # 0.5 Eosinophils # 0.2 Basophils # 0.0 Nucleated Red Blood Cells # 0.0 Sodium Level 141 Potassium Level 3.9 Chloride Level 114 H Carbon Dioxide Level 21 Anion Gap 6 Blood Urea Nitrogen 47 H Creatinine 1.25 H Est Glomerular Filtrat Rate mL/min > 60 Glucose Level 115 Calcium Level 9.3 Phosphorus Level 3.0 Magnesium Level 1.7 Medications Current Medications IV Flush (NS 3 ml) 3 ml PER PROTOCOL IV ; Start 09/28/18 at 17:30 Ondansetron HCl (Zofran Inj) 4 mg Q6H PRN IV NAUSEA/VOMITING; Start 09/28/18 at 17:30 Norepinephrine 250 ml @ 1.875 mls/ hr TITRATE IV Last administered on 10/03/18 06:40; Admin Dose 1.875 MLS/HR; Start 09/28/18 at 19:30 Levetiracetam 100 ml @ 400 mls/hr Q12 IVPB Last administered on 10/07/18 08:13; Admin Dose 400 MLS/HR; Start 09/29/18 at 10:00 Lorazepam (Ativan) 1 mg Q10MIN PRN IV SEIZURES Last administered on 09/29/18 10:52; Admin Dose 1 MG; Start 09/29/18 at 10:00 Zinc Sulfate (Zinc Sulfate) 220 mg DAILY GTB Last administered on 10/07/18 08:41; Admin Dose 220 MG; Start 09/30/18 at 09:00 Multivitamins (Multivitamin) 30 ml DAILY GTB Last administered on 10/07/18 08:41; Admin Dose 30 ML; Start 09/30/18 at 09:00 Ascorbic Acid (Vitamin C) 500 mg DAILY GTB Last administered on 10/07/18 08:40; Admin Dose 500 MG; Start 09/30/18 at 09:00 Aspirin (Aspirin) 81 mg DAILY PO Last administered on 10/07/18 08:41; Admin Dose 81 MG; Start 09/30/18 at 09:00 Sodium Hypochlorite (Dakins Diluted ()) 1 applic BID TP Last administered on 10/07/18 08:42; Admin Dose 1 APPLIC; Start 09/30/18 at 09:00 Heparin Sodium (Porcine) (Heparin (5000 Units/1ml)) 5,000 unit BID SC Last administered on 10/07/18 08:44; Admin Dose 5,000 UNIT; Start 10/01/18 at 09:00 Dopamine HCl/ Dextrose 250 ml @ 4.403 mls/ hr TITRATE IV Last administered on 10/06/18at 15:14; Admin Dose 8.805 MLS/HR; Start 10/01/18 at 03:00 Mupirocin (Bactroban) 1 applic BID TOP Last administered on 10/07/18at 08:42; Admin Dose 1 APPLIC; Start 10/01/18 at 21:00 Ferric Sodium Gluconate Complex 125 mg/Sodium Chloride 110 ml @ 110 mls/hr DAILY@1300 IVPB Last administered on 10/06/18at 12:59; Admin Dose 110 MLS/HR; Start 10/03/18 at 13:00; Stop 10/07/18 at 13:59 Doxycycline Hyclate 100 mg/ Sodium Chloride 250 ml @ 250 mls/hr Q12 IVPB Last administered on 10/07/18at 08:13; Admin Dose 250 MLS/HR; Start 10/04/18 at 21:00 Fluconazole (Diflucan) 100 mg DAILY PO Last administered on 10/07/18at 08:41; Admin Dose 100 MG; Start 10/04/18 at 15:00 Colistimethate Sodium 100 mg/ Sodium Chloride 100 ml @ 200 mls/hr Q24H IVPB Last administered on 10/07/18at 08:15; Admin Dose 200 MLS/HR; Start 10/07/18 at 09:00 Quetiapine Fumarate (Seroquel) 25 mg AM PO ; Start 10/08/18 at 09:00 Quetiapine Fumarate (Seroquel) 50 mg HS PO ; Start 10/07/18 at 21:00 Famotidine (Pepcid) 20 mg DAILY GTB ; Start 10/08/18 at 09:00 Assessment/Plan Hospital Course (Demo Recall) IMPRESSION: 1. Cardiopulmonary arrest. 2. Probable significant anoxic brain injury. 3. Status post septic shock, staph bacteremia noted. 4. History of dysphagia. 5. Acute renal failure probable ATN injury 6. Significant bradycardia requiring chronotropic support 7. Significant decubitus ulcer 8. Significant anemia but no active bleeding noted. PLAN: 1. Continue neurology recommendations supportive care 2. Continue vasopressor as needed. Cardiology recommendations 3. Continue mechanical ventilation unable to wean 4. DVT and GI prophylaxis. 5. Continue IV fluids, continue tube feeding as tolerated 6. Continue wound care Critical care time 40 minutes. Bioethics meeting today. LES CONDE MD, [facility] October 07, 2018 11:47
--- NOTE | 2018-10-07 12:08 | CONS ---
Assessment/Plan Assessment/Plan Hospital Course 63 yo M with extensive neurologic hx and multiple comorbidities who presents to the ICU following a cardiac arrest. TTM was deferred d/t pt's poor neurologic status at baseline. He was noted to have face and arm twitching, for which neurology is consulted. The clinical picture suggests seizures in the context of hypoxic ischemic cerebral injury....now resolved. CTH is without obvious acute intracranial pathology. EEG was without epileptiform activity, though diffusely slow. His prognosis for meaningful neurologic recovery is probably poor. P: OK to cont Keppra as scheduled. Ativan IV PRN seizure >5 min or for cluster ASA for secondary stroke prevention MRI brain when medically able Will follow clinically Consultation Date/Type/Reason Admit Date/Time September 28, 2018 at 15:36 Type of Consult Neurology Reason for Consultation eval for seizures Requesting Provider: ROSSANA MCKEON MD Date/Time of Note DATE: 10/07/18 TIME: 12:08 24 HR Interval Summary Free Text/Dictation Continues critical care. Pt's sister reportedly unable to attend bioethics meeting today. Subjective hx not possible: pt non-verbal, pt critical Exam Vital Signs Vitals Vital Signs Date Temp Pulse Resp B/P (MAP) Pulse Ox O2 O2 Flow FiO2 Time Delivery Rate 10/07/18 61 18 97/62 (74) 99 10:30 10/07/18 Mechanical 10:00 Ventilator 10/07/18 96.0 08:00 10/06/18 30 20:00 Intake and Output 10/06/18 10/06/18 10/07/18 1515:00 23:00 07:00 IntakeIntake Total 900.4 ml 901.6 ml 677.2 ml OutputOutput Total 400 ml 495 ml 520 ml BalanceBalance 500.4 ml 406.6 ml 157.2 ml Exam PE: Gen Appearance: No Apparent Distress HEENT: trached Cardiovascular: Regular rate Abdomen: Soft; PEG Extremities: Dry NE: The patient was comatose. Cranial nerve examination was limited by mental status. Pupils were pinpoint. There was no afferent pupillary defect. Funduscopic examination was limited. Face was grossly symmetric, w/ present corneal and cough reflexes. Tone was increased in the upper extremities. Muscle bulk was normal. I did not see fasciculations. The patient minimally withdrew his upper extremities to noxious stimuli. Coordination and gait testing was limited by mental status. Arm and leg reflexes were symmetric. Nicholson's sign was absent. Plantar responses were mute. ANOTNY SOLORZANO NP October 07, 2018 12:08
--- NOTE | 2018-10-07 12:23 | CONS ---
Assessment/Plan Assessment/Plan Hospital Course (Demo Recall) Patient remains unchanged, on low-dose dopamine, noncommunicative in no distress. Hypothermic. Microbiology: Blood culture on admission grew staph, MRSA swab came back positive, stool for C. difficile negative, urine culture grew Acinetobacter, Klebsiella and Nancie albicans Indwelling's: Trach PEG right IJ triple lumen catheter Antimicrobials: Colistin, fluconazole, doxycycline Physical examination: This is a chronically ill-appearing elderly man who is noncommunicative and in no distress. Head atraumatic normocephalic neck is supple chest rise symmetrical breath sounds diminished bases. Heart: S1-S2. Abdomen soft bowel sounds hypoactive extremities without edema. Skin patient has unstageable sacral wound and pressure sores on his feet Assessment: 1. Shock, status post PEA cardiac arrest 2. Multidrug-resistant UTI 3. MRSA nares colonization 4. Staph bacteremia consistent with contaminant 5. Acute possibly on chronic kidney disease 6. Acute on chronic encephalopathy likely anoxia 7. History of CVA Plan: Patient remains unchanged, continue present care and antibiotics, pending bio ethic committee Consultation Date/Type/Reason Admit Date/Time September 28, 2018 at 15:36 Initial Consult Date 09/28/18 Type of Consult id Requesting Provider: ROSSANA MCKEON MD Date/Time of Note DATE: 10/07/18 TIME: 12:21 Exam/Review of Systems Exam Vitals Vital Signs Date Temp Pulse Resp B/P (MAP) Pulse Ox O2 O2 Flow FiO2 Time Delivery Rate 10/07/18 61 18 97/62 (74) 99 10:30 10/07/18 Mechanical 10:00 Ventilator 10/07/18 96.0 08:00 10/06/18 30 20:00 Intake and Output 10/06/18 10/06/18 10/07/18 1414:59 22:59 06:59 IntakeIntake Total 898.2 ml 903.8 ml 683.8 ml OutputOutput Total 400 ml 635 ml 530 ml BalanceBalance 498.2 ml 268.8 ml 153.8 ml Results Result Diagram: 10/07/18 0400 10/07/18 0400 Results 24hrs Laboratory Tests Test 10/07/18 04:00 White Blood Count 11.2 H Red Blood Count 3.04 L Hemoglobin 8.4 L Hematocrit 25.7 L Mean Corpuscular Volume 84.5 Mean Corpuscular Hemoglobin 27.6 L Mean Corpuscular Hemoglobin Concent 32.7 Red Cell Distribution Width 21.2 H Platelet Count 152 Mean Platelet Volume 11.6 H Immature Granulocytes % 0.400 Neutrophils % 84.6 H Lymphocytes % 8.6 L Monocytes % 4.5 Eosinophils % 1.8 Basophils % 0.1 Nucleated Red Blood Cells % 0.0 Immature Granulocytes # 0.040 H Neutrophils # 9.5 H Lymphocytes # 1.0 Monocytes # 0.5 Eosinophils # 0.2 Basophils # 0.0 Nucleated Red Blood Cells # 0.0 Sodium Level 141 Potassium Level 3.9 Chloride Level 114 H Carbon Dioxide Level 21 Anion Gap 6 Blood Urea Nitrogen 47 H Creatinine 1.25 H Est Glomerular Filtrat Rate mL/min > 60 Glucose Level 115 Calcium Level 9.3 Phosphorus Level 3.0 Magnesium Level 1.7 Medications Medication Current Medications IV Flush (NS 3 ml) 3 ml PER PROTOCOL IV ; Start 09/28/18 at 17:30 Ondansetron HCl (Zofran Inj) 4 mg Q6H PRN IV NAUSEA/VOMITING; Start 09/28/18 at 17:30 Norepinephrine 250 ml @ 1.875 mls/ hr TITRATE IV Last administered on 10/03/18 06:40; Admin Dose 1.875 MLS/HR; Start 09/28/18 at 19:30 Levetiracetam 100 ml @ 400 mls/hr Q12 IVPB Last administered on 10/07/18 08:13; Admin Dose 400 MLS/HR; Start 09/29/18 at 10:00 Lorazepam (Ativan) 1 mg Q10MIN PRN IV SEIZURES Last administered on 09/29/18at 10:52; Admin Dose 1 MG; Start 09/29/18 at 10:00 Zinc Sulfate (Zinc Sulfate) 220 mg DAILY GTB Last administered on 10/07/18 08:41; Admin Dose 220 MG; Start 09/30/18 at 09:00 Multivitamins (Multivitamin) 30 ml DAILY GTB Last administered on 10/07/18 08:41; Admin Dose 30 ML; Start 09/30/18 at 09:00 Ascorbic Acid (Vitamin C) 500 mg DAILY GTB Last administered on 10/07/18 08:40; Admin Dose 500 MG; Start 09/30/18 at 09:00 Aspirin (Aspirin) 81 mg DAILY PO Last administered on 10/07/18 08:41; Admin Dose 81 MG; Start 09/30/18 at 09:00 Sodium Hypochlorite (Dakins Diluted ()) 1 applic BID TP Last administered on 10/07/18 08:42; Admin Dose 1 APPLIC; Start 09/30/18 at 09:00 Heparin Sodium (Porcine) (Heparin (5000 Units/1ml)) 5,000 unit BID SC Last administered on 10/07/18 08:44; Admin Dose 5,000 UNIT; Start 10/01/18 at 09:00 Dopamine HCl/ Dextrose 250 ml @ 4.403 mls/ hr TITRATE IV Last administered on 10/06/18 15:14; Admin Dose 8.805 MLS/HR; Start 10/01/18 at 03:00 Mupirocin (Bactroban) 1 applic BID TOP Last administered on 10/07/18 08:42; Admin Dose 1 APPLIC; Start 10/01/18 at 21:00 Ferric Sodium Gluconate Complex 125 mg/Sodium Chloride 110 ml @ 110 mls/hr DAILY@1300 IVPB Last administered on 10/06/18 12:59; Admin Dose 110 MLS/HR; Start 10/03/18 at 13:00; Stop 10/07/18 at 13:59 Doxycycline Hyclate 100 mg/ Sodium Chloride 250 ml @ 250 mls/hr Q12 IVPB Last administered on 10/07/18 08:13; Admin Dose 250 MLS/HR; Start 10/04/18 at 21:00 Fluconazole (Diflucan) 100 mg DAILY PO Last administered on 10/07/18 08:41; Admin Dose 100 MG; Start 10/04/18 at 15:00 Colistimethate Sodium 100 mg/ Sodium Chloride 100 ml @ 200 mls/hr Q24H IVPB Last administered on 10/07/18 08:15; Admin Dose 200 MLS/HR; Start 10/07/18 at 09:00 Quetiapine Fumarate (Seroquel) 25 mg AM PO ; Start 10/08/18 at 09:00 Quetiapine Fumarate (Seroquel) 50 mg HS PO ; Start 10/07/18 at 21:00 Famotidine (Pepcid) 20 mg DAILY GTB ; Start 10/08/18 at 09:00 MELANIA SHAH NP October 07, 2018 12:23
[2018-10-07] MEDS: SOD FERRIC GLUC COMPLX 125 MG in SOD CHLORIDE 0.9% 100 ML IVPB SCH (13:00)
--- NOTE | 2018-10-07 14:38 | PN ---
Date/Time of Note Date/Time of Note DATE: 10/07/18 TIME: 14:27 Assessment/Plan VTE Prophylaxis Risk score (from Nsg)>0 risk: 10 Pharmacological prophylaxis: heparin Assessment/Plan Hospital Course 63 yo man severely disabled years after stroke, now trach and vent dependent and vegetative; presents after cardiac arrest. #Cardiac arrest - Etiology unclear. Was PEA on arrival to ED. May have been hypoxic arrest related to trach like mucous plug or occlusion. - Patient has known very severe neurologic deficit. This precludes his eligibility for hypothermia protocol. -Wean off pressors - Minimal vent settings. - Per discussion with sister, patient is full code - Dr. Flores following #Vegetative state -Patient with history of multiple strokes and now anoxic encephalopathy with no reflexes noted and decorticate posturing -Neurology following #Bacteremia - Blood culture x1 growing staph luginensis, likely contaminant, replete blood cultures are negative - Continue Abx for now. No signs of sepsis -ID consultation appreciated #Facial twitching - Facial fasciculations likely myoclonic jerks. - EEG negative for seizure activity. - Neurology started keppra and phenytoin, these can likely be tapered off. - Will avoid sedating medications including benzos unless seizure is proven. #Oliguric CASTRO - Dr. Chand unable to get Gilman. Currently has condom cath. - New CASTRO with rising Cr - Due to his absence of meaningful neurologic function, would not offer dialysis to this patient. - Dr. Bernstein consulted. #Chronic disability after stroke - Patient trached, vent, not responsive, contractures - Supportive care - Continue tube feeds. #Acute diarrhea - Resolved - If no rectal tube output over next 24-48 hours, it can likely be pulled. #Gastritis - Cont home H2 merlyn and PPI #Dyslipidemia - Cont home statin #UTI secondary to Gilman catheter -Culture growing multidrug-resistant organisms -ID consultation obtained -Continue vancomycin and meropenem #Anemia likely of chronic disease and/or acute blood loss from GI bleed -Transfuse 1 unit today -No evidence of melena or shari bleed at this time, stool guaiac was positive DVT: Heparin GI: PPI DC planning: Patient with poor baseline prior to admission for cardiac arrest now with vegetative state and futility of care, family has refused to have a conversation of substance about goals of care, bioethics meeting held today and bioethics committee does support decision to make patient DO NOT RESUSCITATE as chest compressions would cause more harm and would be inhumane and ACLS would be considered futility of care for a patient with such a grave prognosis Result Diagram: 10/07/180 10/07/180 Results 24hrs Laboratory Tests Test 10/07/18 04:00 White Blood Count 11.2 H Red Blood Count 3.04 L Hemoglobin 8.4 L Hematocrit 25.7 L Mean Corpuscular Volume 84.5 Mean Corpuscular Hemoglobin 27.6 L Mean Corpuscular Hemoglobin Concent 32.7 Red Cell Distribution Width 21.2 H Platelet Count 152 Mean Platelet Volume 11.6 H Immature Granulocytes % 0.400 Neutrophils % 84.6 H Lymphocytes % 8.6 L Monocytes % 4.5 Eosinophils % 1.8 Basophils % 0.1 Nucleated Red Blood Cells % 0.0 Immature Granulocytes # 0.040 H Neutrophils # 9.5 H Lymphocytes # 1.0 Monocytes # 0.5 Eosinophils # 0.2 Basophils # 0.0 Nucleated Red Blood Cells # 0.0 Sodium Level 141 Potassium Level 3.9 Chloride Level 114 H Carbon Dioxide Level 21 Anion Gap 6 Blood Urea Nitrogen 47 H Creatinine 1.25 H Est Glomerular Filtrat Rate mL/min > 60 Glucose Level 115 Calcium Level 9.3 Phosphorus Level 3.0 Magnesium Level 1.7 Subjective 24 Hr Interval Summary Subjective hx not possible: pt non-verbal Exam/Review of Systems Exam Vitals Vital Signs Date Temp Pulse Resp B/P (MAP) Pulse Ox O2 O2 Flow FiO2 Time Delivery Rate 10/07/18 61 12:00 10/07/18 18 97/62 (74) 99 10:30 10/07/18 Mechanical 10:00 Ventilator 10/07/18 96.0 08:00 10/06/18 30 20:00 Intake and Output 10/06/18 10/06/18 10/07/18 1414:59 22:59 06:59 IntakeIntake Total 898.2 ml 903.8 ml 683.8 ml OutputOutput Total 400 ml 635 ml 530 ml BalanceBalance 498.2 ml 268.8 ml 153.8 ml Constitutional: non-verbal Respiratory: clear to auscultation Cardiovascular: regular rate and rhythm Gastrointestinal: soft; No distended Musculoskeletal: No nl extremities to inspection Results Results 24hrs Laboratory Tests Test 10/07/18 04:00 White Blood Count 11.2 H Red Blood Count 3.04 L Hemoglobin 8.4 L Hematocrit 25.7 L Mean Corpuscular Volume 84.5 Mean Corpuscular Hemoglobin 27.6 L Mean Corpuscular Hemoglobin Concent 32.7 Red Cell Distribution Width 21.2 H Platelet Count 152 Mean Platelet Volume 11.6 H Immature Granulocytes % 0.400 Neutrophils % 84.6 H Lymphocytes % 8.6 L Monocytes % 4.5 Eosinophils % 1.8 Basophils % 0.1 Nucleated Red Blood Cells % 0.0 Immature Granulocytes # 0.040 H Neutrophils # 9.5 H Lymphocytes # 1.0 Monocytes # 0.5 Eosinophils # 0.2 Basophils # 0.0 Nucleated Red Blood Cells # 0.0 Sodium Level 141 Potassium Level 3.9 Chloride Level 114 H Carbon Dioxide Level 21 Anion Gap 6 Blood Urea Nitrogen 47 H Creatinine 1.25 H Est Glomerular Filtrat Rate mL/min > 60 Glucose Level 115 Calcium Level 9.3 Phosphorus Level 3.0 Magnesium Level 1.7 Medications Medication Current Medications IV Flush (NS 3 ml) 3 ml PER PROTOCOL IV ; Start 09/28/18 at 17:30 Ondansetron HCl (Zofran Inj) 4 mg Q6H PRN IV NAUSEA/VOMITING; Start 09/28/18 at 17:30 Norepinephrine 250 ml @ 1.875 mls/ hr TITRATE IV Last administered on 10/03/18at 06:40; Admin Dose 1.875 MLS/HR; Start 09/28/18 at 19:30 Levetiracetam 100 ml @ 400 mls/hr Q12 IVPB Last administered on 10/07/18at 08:13; Admin Dose 400 MLS/HR; Start 09/29/18 at 10:00 Lorazepam (Ativan) 1 mg Q10MIN PRN IV SEIZURES Last administered on 09/29/18at 10:52; Admin Dose 1 MG; Start 09/29/18 at 10:00 Zinc Sulfate (Zinc Sulfate) 220 mg DAILY GTB Last administered on 10/07/18at 08:41; Admin Dose 220 MG; Start 09/30/18 at 09:00 Multivitamins (Multivitamin) 30 ml DAILY GTB Last administered on 10/07/18at 08:41; Admin Dose 30 ML; Start 09/30/18 at 09:00 Ascorbic Acid (Vitamin C) 500 mg DAILY GTB Last administered on 10/07/18 08:40; Admin Dose 500 MG; Start 09/30/18 at 09:00 Aspirin (Aspirin) 81 mg DAILY PO Last administered on 10/07/18 08:41; Admin Dose 81 MG; Start 09/30/18 at 09:00 Sodium Hypochlorite (Dakins Diluted ()) 1 applic BID TP Last administered on 10/07/18 08:42; Admin Dose 1 APPLIC; Start 09/30/18 at 09:00 Heparin Sodium (Porcine) (Heparin (5000 Units/1ml)) 5,000 unit BID SC Last administered on 10/07/18 08:44; Admin Dose 5,000 UNIT; Start 10/01/18 at 09:00 Dopamine HCl/ Dextrose 250 ml @ 4.403 mls/ hr TITRATE IV Last administered on 10/06/18 15:14; Admin Dose 8.805 MLS/HR; Start 10/01/18 at 03:00 Mupirocin (Bactroban) 1 applic BID TOP Last administered on 10/07/18 08:42; Admin Dose 1 APPLIC; Start 10/01/18 at 21:00 Doxycycline Hyclate 100 mg/ Sodium Chloride 250 ml @ 250 mls/hr Q12 IVPB Last administered on 10/07/18 08:13; Admin Dose 250 MLS/HR; Start 10/04/18 at 21:00 Fluconazole (Diflucan) 100 mg DAILY PO Last administered on 10/07/18 08:41; Admin Dose 100 MG; Start 10/04/18 at 15:00 Quetiapine Fumarate (Seroquel) 25 mg AM PO ; Start 10/08/18 at 09:00 Quetiapine Fumarate (Seroquel) 50 mg HS PO ; Start 10/07/18 at 21:00 Famotidine (Pepcid) 20 mg DAILY GTB ; Start 10/08/18 at 09:00 Colistimethate Sodium 75 mg/ Sodium Chloride 100 ml @ 200 mls/hr Q12 IVPB ; Start 10/07/18 at 21:00 RAMOS NOLAN October 07, 2018 14:37
[2018-10-07] MEDS: DOPamine-D5W 1.6 MG/ML 250 ML IV SCH (19:00)
[2018-10-07] MEDS: QUETIAPINE 25 MG TAB PO SCH (21:26)
[2018-10-07] MEDS: COLISTIMETHATE 75 MG in SOD CHLORIDE 0.9% 100 ML IVPB SCH (23:11)
[2018-10-08] VITALS (104 sets, daily range): BP systolic 85–130; BP diastolic 46–70; PULSE 57–76; RESP 14–19
--- NOTE | 2018-10-08 08:01 | CONS ---
Assessment/Plan Assessment/Plan Assessment/Plan (Daily) This is a 63-year-old gentleman who remains in the intensive care unit [facility]. Bioethics meeting was called yesterday October 07, 2018 family members were invited to discuss patient code status and ongoing level of care. Family declined to meet with the committee and a call was placed to patient's daughter stated that she did not want to speak to the members on a speakerphone but did say she would call back in two days possibly have a sitdown meeting with members of the committee on Friday, October 09, 2018. Patient is debilitated vegetative secondary to multiple strokes prior to this hospitalization he is peg'd ,trach'd and was admitted for PEA cardiac arrest. Cardiac arrest is hypothesized have been secondary to mucous plug of his ET tube. Patient remains in the intensive care unit that is still critically ill, neurological condition has not improved whatsoever he remains noncommunicative does not respond to any simple commands, has no purposeful activities, does not track is total body care. Patient is not brain- but severely neurologically impaired presumably secondary to multiple strokes and possible anoxic encephalopathy. Other comorbid medical problems include malnutrition dyslipidemia. It is the opinion of patient's primary care team that cardiopulmonary resuscitation with DC cardioversion would only prolong his suffering in the event that he survives. Even if he does survive the chances that he would have another catastrophic cardiopulmonary arrest are extremely high. His ECOG score is for palliative performance scale is zero. It is my recommendation to change patients code status from full code to do not resuscitate but to all other interventions including labs and x-rays antibiotics pulmonary HHN no procedures that would artificially prolong his life. Luz Cummins MD Consultation Date/Type/Reason Admit Date/Time September 28, 2018 at 15:36 Initial Consult Date 09/28/18 Requesting Provider: ROSSANA MCKEON MD Date/Time of Note DATE: 10/08/18 TIME: 07:59 Exam/Review of Systems Exam Vitals Vital Signs Date Temp Pulse Resp B/P (MAP) Pulse Ox O2 O2 Flow FiO2 Time Delivery Rate 10/08/18 67 18 102/54 100 Mechanical 06:00 (70) Ventilator 10/08/18 30 05:10 10/08/18 97.6 04:00 Intake and Output 10/07/18 10/07/18 10/08/18 1515:00 23:00 07:00 IntakeIntake Total 493 ml 827 ml 774.0 ml OutputOutput Total 520 ml 385 ml 435 ml BalanceBalance -27 ml 442 ml 339.0 ml Results Result Diagram: 10/07/18 0400 10/07/18 0400 Medications Medication Current Medications IV Flush (NS 3 ml) 3 ml PER PROTOCOL IV ; Start 09/28/18 at 17:30 Ondansetron HCl (Zofran Inj) 4 mg Q6H PRN IV NAUSEA/VOMITING; Start 09/28/18 at 17:30 Norepinephrine 250 ml @ 1.875 mls/ hr TITRATE IV Last administered on 10/03/18 06:40; Admin Dose 1.875 MLS/HR; Start 09/28/18 at 19:30 Levetiracetam 100 ml @ 400 mls/hr Q12 IVPB Last administered on 10/07/18 21:26; Admin Dose 400 MLS/HR; Start 09/29/18 at 10:00 Lorazepam (Ativan) 1 mg Q10MIN PRN IV SEIZURES Last administered on 09/29/18 10:52; Admin Dose 1 MG; Start 09/29/18 at 10:00 Zinc Sulfate (Zinc Sulfate) 220 mg DAILY GTB Last administered on 10/07/18 08:41; Admin Dose 220 MG; Start 09/30/18 at 09:00 Multivitamins (Multivitamin) 30 ml DAILY GTB Last administered on 10/07/18 08:41; Admin Dose 30 ML; Start 09/30/18 at 09:00 Ascorbic Acid (Vitamin C) 500 mg DAILY GTB Last administered on 10/07/18 08:40; Admin Dose 500 MG; Start 09/30/18 at 09:00 Aspirin (Aspirin) 81 mg DAILY PO Last administered on 10/07/18 08:41; Admin Dose 81 MG; Start 09/30/18 at 09:00 Sodium Hypochlorite (Dakins Diluted ()) 1 applic BID TP Last administered on 10/07/18 23:12; Admin Dose 1 APPLIC; Start 09/30/18 at 09:00 Heparin Sodium (Porcine) (Heparin (5000 Units/1ml)) 5,000 unit BID SC Last administered on 10/07/18 21:33; Admin Dose 5,000 UNIT; Start 10/01/18 at 09:00 Dopamine HCl/ Dextrose 250 ml @ 4.403 mls/ hr TITRATE IV Last administered on 10/07/18at 19:00; Admin Dose 11.006 MLS/HR; Start 10/01/18 at 03:00 Mupirocin (Bactroban) 1 applic BID TOP Last administered on 10/07/18at 21:27; Admin Dose 1 APPLIC; Start 10/01/18 at 21:00 Doxycycline Hyclate 100 mg/ Sodium Chloride 250 ml @ 250 mls/hr Q12 IVPB Last administered on 10/07/18at 21:22; Admin Dose 250 MLS/HR; Start 10/04/18 at 21:00 Fluconazole (Diflucan) 100 mg DAILY PO Last administered on 10/07/18at 08:41; Admin Dose 100 MG; Start 10/04/18 at 15:00 Quetiapine Fumarate (Seroquel) 25 mg AM PO ; Start 10/08/18 at 09:00 Quetiapine Fumarate (Seroquel) 50 mg HS PO Last administered on 10/07/18at 21:26; Admin Dose 50 MG; Start 10/07/18 at 21:00 Famotidine (Pepcid) 20 mg DAILY GTB ; Start 10/08/18 at 09:00 Colistimethate Sodium 75 mg/ Sodium Chloride 100 ml @ 200 mls/hr Q12 IVPB Last administered on 10/07/18at 23:11; Admin Dose 200 MLS/HR; Start 10/07/18 at 21:00 LUZ CUMMINS October 08, 2018 08:00
--- NOTE | 2018-10-08 08:22 | PN ---
DATE: 10/08/2018 SUBJECTIVE: The patient was critically ill on pressor support. No other acute events noted. No hem optysis, hematemesis or hematochezia. OBJECTIVE: VITAL SIGNS: Blood pressure is 134/72, pulse 72, respirations 18, temperature 98.0. HEENT: Head is normocephalic. NECK: Supple. HEART: Regular rate. LUNGS: Show diminished breath sounds at the base. ABDOMEN: Soft, nontender to palpation without rebound or guarding. EXTREMITIES: Negative for clubbing, cyanosis. Positive edema. DERMATOLOGIC: No rashes. MUSCULOSKELETAL: No joint effusion. NEUROLOGIC: No change in exam. MEDICATIONS: Reviewed. LABORATORY DATA: Has been reviewed. ASSESSMENT AND PLAN: 1. Nonoliguric acute kidney injury with previous baseline creatinine of 0.6 mg/dL. Etiology of acut e kidney injury is secondary to acute tubular necrosis due to ischemic hypoperfusion and shock. The patient's renal function is slowly improving. Continue current treatment plan, supportive care, puneet lly dose all meds. 2. Anemia. Continue to monitor hemoglobin and hematocrit levels. 3. Mineral bone disorder. Monitor calcium and phosphorus levels. 4. Shock, etiology is likely multifactorial secondary to cardiac, septic. The patient is currently on pressor support. We will continue. Continue current therapy. 5. Ventilator dependent respiratory failure. Vent settings and arterial blood gas was reviewed. Co ntinue to monitor. 6. Cardiac arrest secondary to PEA. Patient had spontaneous return of circulation, [facility] to [facility]. 7. Dysphagia. Continue tube feeding. 8. Chronic encephalopathy. 9. Dyslipidemia. Continue statin therapy. 10. Gastritis. Continue proton pump inhibitor. Dictated By: DOT CONROY DO NR/NTS Conf#: [id number] DID#: [id number] CC: ROSSANA MCKEON MD;*EndCC*
[2018-10-08] MEDS: LEVETIRACETAM 500 MG (PMX) 100 ML IVPB SCH ×2 (08:34→20:37)
[2018-10-08] MEDS: COLISTIMETHATE 75 MG in SOD CHLORIDE 0.9% 100 ML IVPB SCH ×2 (08:34→20:36)
[2018-10-08] MEDS: ZINC SULFATE 220 MG CAP GTB SCH (08:35)
[2018-10-08] MEDS: QUETIAPINE 25 MG TAB PO SCH ×2 (08:35→20:37)
[2018-10-08] MEDS: ASCORBIC ACID 500 MG TAB GTB SCH (08:35)
[2018-10-08] MEDS: FLUCONAZOLE 100 MG TAB PO SCH (08:35)
[2018-10-08] MEDS: ASPIRIN 81 MG TAB PO SCH (08:35)
[2018-10-08] MEDS: MULTIVITAMINS 30 ML CUP GTB SCH (08:35)
[2018-10-08] MEDS: FAMOTIDINE 20 MG TAB GTB SCH (08:35)
[2018-10-08] MEDS: DOXYCYCLINE 100 MG in SOD CHLORIDE 0.9% 250 ML IVPB SCH ×2 (08:35→20:37)
[2018-10-08] MEDS: DAKINS 0.0125%(1/40) 473 ML SOLUTION TP SCH ×2 (08:36→20:38)
[2018-10-08] MEDS: MUPIROCIN 2% 22 GM OINT TOP SCH ×2 (08:36→20:37)
[2018-10-08] MEDS: BALSAM PERU/CASTOR OIL 60 GM TUBE TOP SCH ×2 (08:36→20:38)
[2018-10-08] MEDS: HEPARIN 5,000 UNIT/1 ML VIAL SC SCH ×2 (08:42→20:41)
--- NOTE | 2018-10-08 10:32 | CONS ---
Consult Date/Type/Reason Admit Date/Time September 28, 2018 at 15:36 Initial Consult Date 09/28/18 Type of Consult Pulmonary Requesting Provider: ROSSANA MCKEON MD Date/Time of Note DATE: 10/08/18 TIME: 10:31 Subjective No significant changes. Patient continues low-dose dopamine remains unresponsive on mechanical ventilation. Objective Vital Signs Date Temp Pulse Resp B/P (MAP) Pulse Ox O2 O2 Flow FiO2 Time Delivery Rate 10/08/18 68 18 107/54 100 08:45 (71) 10/08/18 30 08:00 10/08/18 99.3 Mechanical 08:00 Ventilator Intake and Output 10/07/18 10/07/18 10/08/18 1515:00 23:00 07:00 IntakeIntake Total 493 ml 827 ml 834.409 ml OutputOutput Total 520 ml 385 ml 485 ml BalanceBalance -27 ml 442 ml 349.409 ml Exam PHYSICAL EXAMINATION: GENERAL: Elderly-appearing gentleman, unresponsive on mechanical ventilation. HEENT: Moist mucous membranes VITAL SIGNS: NECK: Trach site is clean and intact. CARDIAC: S1, S2. No added sounds or murmurs. CHEST: Diminished air entry bilaterally. ABDOMEN: Soft, nontender. No guarding or rebound. EXTREMITIES: No cyanosis, clubbing. Edema +2 NEUROLOGIC: Unable to assess, vegetative state. Vent Setting Ventilator Support Mode: AC Fraction of Inspired Oxygen pe: 30 Positive End Expiratory Pressu: 5.0 Results/Medications Result Diagram: 10/08/18 1018 10/07/18 0400 Results 24 hrs Laboratory Tests Test 10/08/18 10:18 White Blood Count 9.4 Red Blood Count 2.86 L Hemoglobin 7.8 L Hematocrit 24.4 L Mean Corpuscular Volume 85.3 Mean Corpuscular Hemoglobin 27.3 L Mean Corpuscular Hemoglobin Concent 32.0 Red Cell Distribution Width 21.8 H Platelet Count 159 Mean Platelet Volume 11.2 H Immature Granulocytes % 0.500 H Neutrophils % 76.0 Lymphocytes % 15.1 Monocytes % 6.4 Eosinophils % 1.8 Basophils % 0.2 Nucleated Red Blood Cells % 0.0 Immature Granulocytes # 0.050 H Neutrophils # 7.1 Lymphocytes # 1.4 Monocytes # 0.6 Eosinophils # 0.2 Basophils # 0.0 Nucleated Red Blood Cells # 0.0 Medications Current Medications IV Flush (NS 3 ml) 3 ml PER PROTOCOL IV ; Start 09/28/18 at 17:30 Ondansetron HCl (Zofran Inj) 4 mg Q6H PRN IV NAUSEA/VOMITING; Start 09/28/18 at 17:30 Norepinephrine 250 ml @ 1.875 mls/ hr TITRATE IV Last administered on 10/03/18 06:40; Admin Dose 1.875 MLS/HR; Start 09/28/18 at 19:30 Levetiracetam 100 ml @ 400 mls/hr Q12 IVPB Last administered on 10/08/18 08:34; Admin Dose 400 MLS/HR; Start 09/29/18 at 10:00 Lorazepam (Ativan) 1 mg Q10MIN PRN IV SEIZURES Last administered on 09/29/18 10:52; Admin Dose 1 MG; Start 09/29/18 at 10:00 Zinc Sulfate (Zinc Sulfate) 220 mg DAILY GTB Last administered on 10/08/18 08:35; Admin Dose 220 MG; Start 09/30/18 at 09:00 Multivitamins (Multivitamin) 30 ml DAILY GTB Last administered on 10/08/18 08:35; Admin Dose 30 ML; Start 09/30/18 at 09:00 Ascorbic Acid (Vitamin C) 500 mg DAILY GTB Last administered on 10/08/18 08:35; Admin Dose 500 MG; Start 09/30/18 at 09:00 Aspirin (Aspirin) 81 mg DAILY PO Last administered on 10/08/18 08:35; Admin Dose 81 MG; Start 09/30/18 at 09:00 Sodium Hypochlorite (Dakins Diluted ()) 1 applic BID TP Last administered on 10/08/18 08:36; Admin Dose 1 APPLIC; Start 09/30/18 at 09:00 Heparin Sodium (Porcine) (Heparin (5000 Units/1ml)) 5,000 unit BID SC Last administered on 10/08/18 08:42; Admin Dose 5,000 UNIT; Start 10/01/18 at 09:00 Dopamine HCl/ Dextrose 250 ml @ 4.403 mls/ hr TITRATE IV Last administered on 10/07/18 19:00; Admin Dose 11.006 MLS/HR; Start 10/01/18 at 03:00 Mupirocin (Bactroban) 1 applic BID TOP Last administered on 10/08/18 08:36; Admin Dose 1 APPLIC; Start 10/01/18 at 21:00 Doxycycline Hyclate 100 mg/ Sodium Chloride 250 ml @ 250 mls/hr Q12 IVPB Last administered on 10/08/18 08:35; Admin Dose 250 MLS/HR; Start 10/04/18 at 21:00 Fluconazole (Diflucan) 100 mg DAILY PO Last administered on 10/08/18 08:35; Admin Dose 100 MG; Start 10/04/18 at 15:00 Quetiapine Fumarate (Seroquel) 25 mg AM PO Last administered on 10/08/18 08:35; Admin Dose 25 MG; Start 10/08/18 at 09:00 Quetiapine Fumarate (Seroquel) 50 mg HS PO Last administered on 10/07/18 21:26; Admin Dose 50 MG; Start 10/07/18 at 21:00 Famotidine (Pepcid) 20 mg DAILY GTB Last administered on 10/08/18 08:35; Admin Dose 20 MG; Start 10/08/18 at 09:00 Colistimethate Sodium 75 mg/ Sodium Chloride 100 ml @ 200 mls/hr Q12 IVPB Last administered on 10/08/18 08:34; Admin Dose 200 MLS/HR; Start 10/07/18 at 21:00 Assessment/Plan Hospital Course (Demo Recall) IMPRESSION: 1. Cardiopulmonary arrest. 2. Probable significant anoxic brain injury. 3. Status post septic shock, staph bacteremia noted. 4. History of dysphagia. 5. Acute renal failure probable ATN injury 6. Significant bradycardia requiring chronotropic support 7. Significant decubitus ulcer 8. Significant anemia but no active bleeding noted. PLAN: 1. Continue neurology recommendations supportive care 2. Continue vasopressor as needed. Cardiology recommendations 3. Continue mechanical ventilation unable to wean 4. DVT and GI prophylaxis. 5. Continue IV fluids, continue tube feeding as tolerated 6. Continue wound care Critical care time 40 minutes. Bioethics meeting recommendations noted. Patient's condition and prognosis are extremely poor and DNR would be appropriate. LES CONDE MD, [facility] October 08, 2018 10:32
[2018-10-08] MEDS: DOPamine-D5W 1.6 MG/ML 250 ML IV SCH (11:40)
--- NOTE | 2018-10-08 12:26 | CONS ---
Assessment/Plan Assessment/Plan Hospital Course (Demo Recall) No acute changes patient looks comfortable WBC today 9.4 neutrophils 76 BUN 44 creatinine 1.22 Microbiology: Blood culture on admission grew staph, MRSA swab came back positive, stool for C. difficile negative, urine culture grew Acinetobacter, Klebsiella and Nancie albicans Indwelling's: Trach PEG right IJ triple lumen catheter Antimicrobials: Colistin, fluconazole, doxycycline Physical examination: This is a chronically ill-appearing elderly man who is noncommunicative and in no distress. Head atraumatic normocephalic neck is supple chest rise symmetrical breath sounds diminished bases. Heart: S1-S2. Abdomen soft bowel sounds hypoactive extremities without edema. Skin patient has unstageable sacral wound and pressure sores on his feet Assessment: 1. Shock, status post PEA cardiac arrest 2. Multidrug-resistant UTI 3. MRSA nares colonization 4. Staph bacteremia consistent with contaminant 5. Acute possibly on chronic kidney disease 6. Acute on chronic encephalopathy likely anoxia 7. History of CVA Plan: Patient remains unchanged, continue present care, care is futile Consultation Date/Type/Reason Admit Date/Time September 28, 2018 at 15:36 Initial Consult Date 09/28/18 Type of Consult id Requesting Provider: ROSSANA MCKEON MD Date/Time of Note DATE: 10/08/18 TIME: 12:25 Exam/Review of Systems Exam Vitals Vital Signs Date Temp Pulse Resp B/P (MAP) Pulse Ox O2 O2 Flow FiO2 Time Delivery Rate 10/08/18 70 18 109/55 100 11:45 (73) 10/08/18 Mechanical 11:00 Ventilator 10/08/18 30 08:00 10/08/18 99.3 08:00 Intake and Output 10/07/18 10/07/18 10/08/18 1515:00 23:00 07:00 IntakeIntake Total 493 ml 827 ml 834.409 ml OutputOutput Total 520 ml 385 ml 485 ml BalanceBalance -27 ml 442 ml 349.409 ml Results Result Diagram: 10/08/18 1018 10/08/18 1018 Results 24hrs Laboratory Tests Test 10/08/18 10:18 White Blood Count 9.4 Red Blood Count 2.86 L Hemoglobin 7.8 L Hematocrit 24.4 L Mean Corpuscular Volume 85.3 Mean Corpuscular Hemoglobin 27.3 L Mean Corpuscular Hemoglobin Concent 32.0 Red Cell Distribution Width 21.8 H Platelet Count 159 Mean Platelet Volume 11.2 H Immature Granulocytes % 0.500 H Neutrophils % 76.0 Lymphocytes % 15.1 Monocytes % 6.4 Eosinophils % 1.8 Basophils % 0.2 Nucleated Red Blood Cells % 0.0 Immature Granulocytes # 0.050 H Neutrophils # 7.1 Lymphocytes # 1.4 Monocytes # 0.6 Eosinophils # 0.2 Basophils # 0.0 Nucleated Red Blood Cells # 0.0 Sodium Level 141 Potassium Level 4.4 Chloride Level 114 H Carbon Dioxide Level 20 L Anion Gap 7 Blood Urea Nitrogen 44 H Creatinine 1.22 Est Glomerular Filtrat Rate mL/min > 60 Glucose Level 96 Calcium Level 9.6 Phosphorus Level 3.5 Magnesium Level 1.6 L Medications Medication Current Medications IV Flush (NS 3 ml) 3 ml PER PROTOCOL IV ; Start 09/28/18 at 17:30 Ondansetron HCl (Zofran Inj) 4 mg Q6H PRN IV NAUSEA/VOMITING; Start 09/28/18 at 17:30 Norepinephrine 250 ml @ 1.875 mls/ hr TITRATE IV Last administered on 10/03/18 06:40; Admin Dose 1.875 MLS/HR; Start 09/28/18 at 19:30 Levetiracetam 100 ml @ 400 mls/hr Q12 IVPB Last administered on 10/08/18 08:34; Admin Dose 400 MLS/HR; Start 09/29/18 at 10:00 Lorazepam (Ativan) 1 mg Q10MIN PRN IV SEIZURES Last administered on 09/29/18 10:52; Admin Dose 1 MG; Start 09/29/18 at 10:00 Zinc Sulfate (Zinc Sulfate) 220 mg DAILY GTB Last administered on 10/08/18 08:35; Admin Dose 220 MG; Start 09/30/18 at 09:00 Multivitamins (Multivitamin) 30 ml DAILY GTB Last administered on 10/08/18 08:35; Admin Dose 30 ML; Start 09/30/18 at 09:00 Ascorbic Acid (Vitamin C) 500 mg DAILY GTB Last administered on 10/08/18 08:35; Admin Dose 500 MG; Start 09/30/18 at 09:00 Aspirin (Aspirin) 81 mg DAILY PO Last administered on 10/08/18 08:35; Admin Dose 81 MG; Start 09/30/18 at 09:00 Sodium Hypochlorite (Dakins Diluted ()) 1 applic BID TP Last administered on 10/08/18 08:36; Admin Dose 1 APPLIC; Start 09/30/18 at 09:00 Heparin Sodium (Porcine) (Heparin (5000 Units/1ml)) 5,000 unit BID SC Last administered on 10/08/18 08:42; Admin Dose 5,000 UNIT; Start 10/01/18 at 09:00 Dopamine HCl/ Dextrose 250 ml @ 4.403 mls/ hr TITRATE IV Last administered on 10/08/18 11:40; Admin Dose 15.409 MLS/HR; Start 10/01/18 at 03:00 Mupirocin (Bactroban) 1 applic BID TOP Last administered on 10/08/18 08:36; Admin Dose 1 APPLIC; Start 10/01/18 at 21:00 Doxycycline Hyclate 100 mg/ Sodium Chloride 250 ml @ 250 mls/hr Q12 IVPB Last administered on 10/08/18 08:35; Admin Dose 250 MLS/HR; Start 10/04/18 at 21:00 Fluconazole (Diflucan) 100 mg DAILY PO Last administered on 10/08/18 08:35; Admin Dose 100 MG; Start 10/04/18 at 15:00 Quetiapine Fumarate (Seroquel) 25 mg AM PO Last administered on 10/08/18 08:35; Admin Dose 25 MG; Start 10/08/18 at 09:00 Quetiapine Fumarate (Seroquel) 50 mg HS PO Last administered on 10/07/18 21:26; Admin Dose 50 MG; Start 10/07/18 at 21:00 Famotidine (Pepcid) 20 mg DAILY GTB Last administered on 10/08/18 08:35; Admin Dose 20 MG; Start 10/08/18 at 09:00 Colistimethate Sodium 75 mg/ Sodium Chloride 100 ml @ 200 mls/hr Q12 IVPB Last administered on 10/08/18 08:34; Admin Dose 200 MLS/HR; Start 10/07/18 at 21:00 MELANIA SHAH NP October 08, 2018 12:26
--- NOTE | 2018-10-08 13:42 | CONS ---
Assessment/Plan Assessment/Plan Hospital Course 63 yo M with extensive neurologic hx and multiple comorbidities who presents to the ICU following a cardiac arrest. TTM was deferred d/t pt's poor neurologic status at baseline. He was noted to have face and arm twitching, for which neurology is consulted. The clinical picture suggests seizures in the context of hypoxic ischemic cerebral injury....now resolved. CTH is without obvious acute intracranial pathology. EEG was without epileptiform activity, though diffusely slow. His prognosis for meaningful neurologic recovery is probably poor. P: OK to cont Keppra as scheduled. Ativan IV PRN seizure >5 min or for cluster ASA for secondary stroke prevention MRI brain when medically able Will follow clinically Consultation Date/Type/Reason Admit Date/Time September 28, 2018 at 15:36 Type of Consult Neurology Reason for Consultation eval for seizures Requesting Provider: ROSSANA MCKEON MD Date/Time of Note DATE: 10/08/18 TIME: 13:42 24 HR Interval Summary Free Text/Dictation Continues critical care. Code status changed to DNR after bioethics meeting. Subjective hx not possible: pt non-verbal, pt critical Exam Vital Signs Vitals Vital Signs Date Temp Pulse Resp B/P (MAP) Pulse Ox O2 O2 Flow FiO2 Time Delivery Rate 10/08/18 70 18 109/55 100 11:45 (73) 10/08/18 30 11:19 10/08/18 Mechanical 11:00 Ventilator 10/08/18 99.3 08:00 Intake and Output 10/07/18 10/07/18 10/08/18 1515:00 23:00 07:00 IntakeIntake Total 493 ml 827 ml 834.409 ml OutputOutput Total 520 ml 385 ml 485 ml BalanceBalance -27 ml 442 ml 349.409 ml Exam PE: Gen Appearance: No Apparent Distress HEENT: trached Cardiovascular: Regular rate Abdomen: Soft; PEG Extremities: Dry NE: The patient was comatose. Cranial nerve examination was limited by mental status. Pupils were pinpoint. There was no afferent pupillary defect. Funduscopic examination was limited. Face was grossly symmetric, w/ present corneal and cough reflexes. Tone was increased in the upper extremities. Muscle bulk was normal. I did not see fasciculations. The patient minimally withdrew his upper extremities to noxious stimuli. Coordination and gait testing was limited by mental status. Arm and leg reflexes were symmetric. Nicholson's sign was absent. Plantar responses were mute. ANTONY SOLORZANO NP October 08, 2018 13:42
--- NOTE | 2018-10-08 17:40 | PN ---
Date/Time of Note Date/Time of Note DATE: 10/08/18 TIME: 17:37 Assessment/Plan VTE Prophylaxis Risk score (from Nsg)>0 risk: 11 Pharmacological prophylaxis: heparin Assessment/Plan Hospital Course 63 yo man severely disabled years after stroke, now trach and vent dependent and vegetative; presents after cardiac arrest. #Cardiac arrest - Etiology unclear. Was PEA on arrival to ED. May have been hypoxic arrest related to trach like mucous plug or occlusion. - Patient has known very severe neurologic deficit. This precludes his eligibility for hypothermia protocol. -Wean off pressors - Minimal vent settings. - Per discussion with sister, patient is full code - Dr. Flores following #Vegetative state -Patient with history of multiple strokes and now anoxic encephalopathy with no reflexes noted and decorticate posturing -Neurology following #Shock secondary to bacteremia and cardiac arrest - Blood culture x1 growing staph luginensis, likely contaminant, replete blood cultures are negative - Continue Abx for now. No signs of sepsis - ID consultation appreciated -Wean off pressors as able #Bradycardia -Continue dopamine, wean off as able #Facial twitching - Facial fasciculations likely myoclonic jerks. - EEG negative for seizure activity. - Neurology started keppra and phenytoin, these can likely be tapered off. - Will avoid sedating medications including benzos unless seizure is proven. #Oliguric CASTRO - Dr. Chand unable to get Gilman. Currently has condom cath. - New CASTRO with rising Cr - Due to his absence of meaningful neurologic function, would not offer dialysis to this patient. - Dr. Bernstein consulted. #Chronic disability after stroke - Patient trached, vent, not responsive, contractures - Supportive care - Continue tube feeds. #Acute diarrhea - Resolved - If no rectal tube output over next 24-48 hours, it can likely be pulled. #Gastritis - Cont home H2 merlyn and PPI #Dyslipidemia - Cont home statin #UTI secondary to Gilman catheter -Culture growing multidrug-resistant organisms -ID consultation obtained -Continue vancomycin and meropenem #Anemia likely of chronic disease and/or acute blood loss from GI bleed -Transfuse 1 unit today -No evidence of melena or shari bleed at this time, stool guaiac was positive DVT: Heparin GI: PPI DC planning: Patient with poor baseline prior to admission for cardiac arrest now with vegetative state and futility of care, family has refused to have a conversation of substance about goals of care, bioethics meeting held today and bioethics committee does support decision to make patient DO NOT RESUSCITATE as chest compressions would cause more harm and would be inhumane and ACLS would be considered futility of care for a patient with such a grave prognosis Result Diagram: 10/08/18 1018 10/08/18 1018 Results 24hrs Laboratory Tests Test 10/08/18 10:18 White Blood Count 9.4 Red Blood Count 2.86 L Hemoglobin 7.8 L Hematocrit 24.4 L Mean Corpuscular Volume 85.3 Mean Corpuscular Hemoglobin 27.3 L Mean Corpuscular Hemoglobin Concent 32.0 Red Cell Distribution Width 21.8 H Platelet Count 159 Mean Platelet Volume 11.2 H Immature Granulocytes % 0.500 H Neutrophils % 76.0 Lymphocytes % 15.1 Monocytes % 6.4 Eosinophils % 1.8 Basophils % 0.2 Nucleated Red Blood Cells % 0.0 Immature Granulocytes # 0.050 H Neutrophils # 7.1 Lymphocytes # 1.4 Monocytes # 0.6 Eosinophils # 0.2 Basophils # 0.0 Nucleated Red Blood Cells # 0.0 Sodium Level 141 Potassium Level 4.4 Chloride Level 114 H Carbon Dioxide Level 20 L Anion Gap 7 Blood Urea Nitrogen 44 H Creatinine 1.22 Est Glomerular Filtrat Rate mL/min > 60 Glucose Level 96 Calcium Level 9.6 Phosphorus Level 3.5 Magnesium Level 1.6 L Subjective 24 Hr Interval Summary Subjective hx not possible: pt non-verbal Exam/Review of Systems Exam Vitals Vital Signs Date Temp Pulse Resp B/P (MAP) Pulse Ox O2 O2 Flow FiO2 Time Delivery Rate 10/08/18 68 18 99 30 17:09 10/08/18 103/47 16:15 (65) 10/08/18 99.0 Mechanical 16:00 Ventilator Intake and Output 10/07/18 10/07/18 10/08/18 1515:00 23:00 07:00 IntakeIntake Total 493 ml 827 ml 834.409 ml OutputOutput Total 520 ml 385 ml 485 ml BalanceBalance -27 ml 442 ml 349.409 ml Constitutional: non-verbal Respiratory: clear to auscultation Cardiovascular: regular rate and rhythm Gastrointestinal: soft; No distended Musculoskeletal: nl extremities to inspection Results Results 24hrs Laboratory Tests Test 10/08/18 10:18 White Blood Count 9.4 Red Blood Count 2.86 L Hemoglobin 7.8 L Hematocrit 24.4 L Mean Corpuscular Volume 85.3 Mean Corpuscular Hemoglobin 27.3 L Mean Corpuscular Hemoglobin Concent 32.0 Red Cell Distribution Width 21.8 H Platelet Count 159 Mean Platelet Volume 11.2 H Immature Granulocytes % 0.500 H Neutrophils % 76.0 Lymphocytes % 15.1 Monocytes % 6.4 Eosinophils % 1.8 Basophils % 0.2 Nucleated Red Blood Cells % 0.0 Immature Granulocytes # 0.050 H Neutrophils # 7.1 Lymphocytes # 1.4 Monocytes # 0.6 Eosinophils # 0.2 Basophils # 0.0 Nucleated Red Blood Cells # 0.0 Sodium Level 141 Potassium Level 4.4 Chloride Level 114 H Carbon Dioxide Level 20 L Anion Gap 7 Blood Urea Nitrogen 44 H Creatinine 1.22 Est Glomerular Filtrat Rate mL/min > 60 Glucose Level 96 Calcium Level 9.6 Phosphorus Level 3.5 Magnesium Level 1.6 L Medications Medication Current Medications IV Flush (NS 3 ml) 3 ml PER PROTOCOL IV ; Start 09/28/18 at 17:30 Ondansetron HCl (Zofran Inj) 4 mg Q6H PRN IV NAUSEA/VOMITING; Start 09/28/18 at 17:30 Norepinephrine 250 ml @ 1.875 mls/ hr TITRATE IV Last administered on 10/03/18at 06:40; Admin Dose 1.875 MLS/HR; Start 09/28/18 at 19:30 Levetiracetam 100 ml @ 400 mls/hr Q12 IVPB Last administered on 10/08/18at 08:34; Admin Dose 400 MLS/HR; Start 09/29/18 at 10:00 Lorazepam (Ativan) 1 mg Q10MIN PRN IV SEIZURES Last administered on 09/29/18at 10:52; Admin Dose 1 MG; Start 09/29/18 at 10:00 Zinc Sulfate (Zinc Sulfate) 220 mg DAILY GTB Last administered on 10/08/18 08:35; Admin Dose 220 MG; Start 09/30/18 at 09:00 Multivitamins (Multivitamin) 30 ml DAILY GTB Last administered on 10/08/18at 08:35; Admin Dose 30 ML; Start 09/30/18 at 09:00 Ascorbic Acid (Vitamin C) 500 mg DAILY GTB Last administered on 10/08/18 08:35; Admin Dose 500 MG; Start 09/30/18 at 09:00 Aspirin (Aspirin) 81 mg DAILY PO Last administered on 10/08/18 08:35; Admin Dose 81 MG; Start 09/30/18 at 09:00 Sodium Hypochlorite (Dakins Diluted ()) 1 applic BID TP Last administered on 10/08/18 08:36; Admin Dose 1 APPLIC; Start 09/30/18 at 09:00 Heparin Sodium (Porcine) (Heparin (5000 Units/1ml)) 5,000 unit BID SC Last administered on 10/08/18 08:42; Admin Dose 5,000 UNIT; Start 10/01/18 at 09:00 Dopamine HCl/ Dextrose 250 ml @ 4.403 mls/ hr TITRATE IV Last administered on 10/08/18 11:40; Admin Dose 15.409 MLS/HR; Start 10/01/18 at 03:00 Mupirocin (Bactroban) 1 applic BID TOP Last administered on 10/08/18 08:36; Admin Dose 1 APPLIC; Start 10/01/18 at 21:00 Doxycycline Hyclate 100 mg/ Sodium Chloride 250 ml @ 250 mls/hr Q12 IVPB Last administered on 10/08/18 08:35; Admin Dose 250 MLS/HR; Start 10/04/18 at 21:00 Fluconazole (Diflucan) 100 mg DAILY PO Last administered on 10/08/18 08:35; Admin Dose 100 MG; Start 10/04/18 at 15:00 Quetiapine Fumarate (Seroquel) 25 mg AM PO Last administered on 10/08/18 08:35; Admin Dose 25 MG; Start 10/08/18 at 09:00 Quetiapine Fumarate (Seroquel) 50 mg HS PO Last administered on 10/07/18 21:26; Admin Dose 50 MG; Start 10/07/18 at 21:00 Famotidine (Pepcid) 20 mg DAILY GTB Last administered on 10/08/18 08:35; Admin Dose 20 MG; Start 10/08/18 at 09:00 Colistimethate Sodium 75 mg/ Sodium Chloride 100 ml @ 200 mls/hr Q12 IVPB Last administered on 5/23/19at 08:34; Admin Dose 200 MLS/HR; Start 10/07/18 at 21:00 RAMOS NOLAN October 08, 2018 17:40
[2018-10-09] VITALS (99 sets, daily range): BP systolic 80–145; BP diastolic 45–77; PULSE 47–74; RESP 16–26
[2018-10-09] MEDS: DOPamine-D5W 1.6 MG/ML 250 ML IV SCH (00:58)
--- NOTE | 2018-10-09 05:28 | CONS ---
Assessment/Plan Assessment/Plan Assessment/Plan (Daily) Will be available October 09 October 10 in the event that patient's family would like to have a bioethics consultation. Presently family members refused to have a meeting with us either in person or by phone. In the interim patient's CODE STATUS has been changed to DO NOT RESUSCITATE Consultation Date/Type/Reason Admit Date/Time September 28, 2018 at 15:36 Initial Consult Date 09/28/18 Requesting Provider: ROSSANA MCKEON MD Date/Time of Note DATE: 10/09/18 TIME: 05:27 Exam/Review of Systems Exam Vitals Vital Signs Date Temp Pulse Resp B/P (MAP) Pulse Ox O2 O2 Flow FiO2 Time Delivery Rate 10/09/18 64 106/52 100 Mechanical 05:00 (70) Ventilator 10/09/18 98.8 04:00 10/09/18 18 02:00 10/09/18 30 01:04 Intake and Output 10/08/18 10/08/18 10/09/18 1515:00 23:00 07:00 IntakeIntake Total 1187.064 ml 971.035 ml 85.8 ml OutputOutput Total 600 ml 295 ml BalanceBalance 587.064 ml 676.035 ml 85.8 ml Results Result Diagram: 10/08/18 1018 10/08/18 1018 Results 24hrs Laboratory Tests Test 10/08/18 10:18 White Blood Count 9.4 Red Blood Count 2.86 L Hemoglobin 7.8 L Hematocrit 24.4 L Mean Corpuscular Volume 85.3 Mean Corpuscular Hemoglobin 27.3 L Mean Corpuscular Hemoglobin Concent 32.0 Red Cell Distribution Width 21.8 H Platelet Count 159 Mean Platelet Volume 11.2 H Immature Granulocytes % 0.500 H Neutrophils % 76.0 Lymphocytes % 15.1 Monocytes % 6.4 Eosinophils % 1.8 Basophils % 0.2 Nucleated Red Blood Cells % 0.0 Immature Granulocytes # 0.050 H Neutrophils # 7.1 Lymphocytes # 1.4 Monocytes # 0.6 Eosinophils # 0.2 Basophils # 0.0 Nucleated Red Blood Cells # 0.0 Sodium Level 141 Potassium Level 4.4 Chloride Level 114 H Carbon Dioxide Level 20 L Anion Gap 7 Blood Urea Nitrogen 44 H Creatinine 1.22 Est Glomerular Filtrat Rate mL/min > 60 Glucose Level 96 Calcium Level 9.6 Phosphorus Level 3.5 Magnesium Level 1.6 L Medications Medication Current Medications IV Flush (NS 3 ml) 3 ml PER PROTOCOL IV ; Start 09/28/18 at 17:30 Ondansetron HCl (Zofran Inj) 4 mg Q6H PRN IV NAUSEA/VOMITING; Start 09/28/18 at 17:30 Norepinephrine 250 ml @ 1.875 mls/ hr TITRATE IV Last administered on 10/03/18 06:40; Admin Dose 1.875 MLS/HR; Start 09/28/18 at 19:30 Levetiracetam 100 ml @ 400 mls/hr Q12 IVPB Last administered on 10/08/18 20:37; Admin Dose 400 MLS/HR; Start 09/29/18 at 10:00 Lorazepam (Ativan) 1 mg Q10MIN PRN IV SEIZURES Last administered on 09/29/18 10:52; Admin Dose 1 MG; Start 09/29/18 at 10:00 Zinc Sulfate (Zinc Sulfate) 220 mg DAILY GTB Last administered on 10/08/18 08:35; Admin Dose 220 MG; Start 09/30/18 at 09:00 Multivitamins (Multivitamin) 30 ml DAILY GTB Last administered on 10/08/18 08:35; Admin Dose 30 ML; Start 09/30/18 at 09:00 Ascorbic Acid (Vitamin C) 500 mg DAILY GTB Last administered on 10/08/18 08:35; Admin Dose 500 MG; Start 09/30/18 at 09:00 Aspirin (Aspirin) 81 mg DAILY PO Last administered on 10/08/18 08:35; Admin Dose 81 MG; Start 09/30/18 at 09:00 Sodium Hypochlorite (Dakins Diluted ()) 1 applic BID TP Last administered on 10/08/18 20:38; Admin Dose 1 APPLIC; Start 09/30/18 at 09:00 Heparin Sodium (Porcine) (Heparin (5000 Units/1ml)) 5,000 unit BID SC Last administered on 10/08/18 20:41; Admin Dose 5,000 UNIT; Start 10/01/18 at 09:00 Dopamine HCl/ Dextrose 250 ml @ 4.403 mls/ hr TITRATE IV Last administered on 10/09/18 00:58; Admin Dose 15.409 MLS/HR; Start 10/01/18 at 03:00 Mupirocin (Bactroban) 1 applic BID TOP Last administered on 10/08/18 20:37; Admin Dose 1 APPLIC; Start 10/01/18 at 21:00 Doxycycline Hyclate 100 mg/ Sodium Chloride 250 ml @ 250 mls/hr Q12 IVPB Last administered on 10/08/18 20:37; Admin Dose 250 MLS/HR; Start 10/04/18 at 21:00 Fluconazole (Diflucan) 100 mg DAILY PO Last administered on 10/08/18 08:35; Admin Dose 100 MG; Start 10/04/18 at 15:00 Quetiapine Fumarate (Seroquel) 25 mg AM PO Last administered on 10/08/18 08:35; Admin Dose 25 MG; Start 10/08/18 at 09:00 Quetiapine Fumarate (Seroquel) 50 mg HS PO Last administered on 10/08/18 20:37; Admin Dose 50 MG; Start 10/07/18 at 21:00 Famotidine (Pepcid) 20 mg DAILY GTB Last administered on 10/08/18 08:35; Admin Dose 20 MG; Start 10/08/18 at 09:00 Colistimethate Sodium 75 mg/ Sodium Chloride 100 ml @ 200 mls/hr Q12 IVPB Last administered on 10/08/18 20:36; Admin Dose 200 MLS/HR; Start 10/07/18 at 21:00 LUZ CUMMINS October 09, 2018 05:28
[2018-10-09] MEDS ORDERED: MAGNESIUM SULFATE 2 GM/50 ML 50 ML IVPB ONE (08:00)
--- NOTE | 2018-10-09 08:08 | PN ---
DATE: 10/09/2018 SUBJECTIVE: The patient is stable, no events overnight. The patient is currently DNR. OBJECTIVE: VITAL SIGNS: Blood pressure is 112/56, respirations 16, pulse 61, temperature 98.6. HEENT: Head is normocephalic. NECK: Supple. HEART: Regular rate. LUNGS: Show diminished breath sounds at the base. ABDOMEN: Soft, nontender to palpation without rebound or guarding. EXTREMITIES: Negative for clubbing, cyanosis. Positive edema. DERMATOLOGIC: No rashes. MUSCULOSKELETAL: No joint effusion. NEUROLOGIC: No change in exam. MEDICATIONS: The patient's medications have been reviewed. LABORATORY DATA: From 10/08/2018 was reviewed. ASSESSMENT AND PLAN: 1. Nonoliguric acute kidney injury with previous baseline creatinine of 0.6 mg/dL. Etiology of acut e kidney injury is secondary to acute tubular necrosis. Renal function is improving. Continue to mo nitor. Continue current treatment plan, supportive care, renally dose all meds. 2. Anemia. Monitor hemoglobin and hematocrit levels. 3. Mineral bone disorder. Monitor calcium and phosphorus levels. 4. Shock, presumed septic, possible cardiac. The patient is currently on pressor support. Will sta rt the patient on midodrine, continue to monitor. Continue antibiotic therapy. 5. Ventilator dependent respiratory failure. Vent settings have been reviewed. Continue to monitor . Follow up with pulmonary. 6. Cardiac arrest secondary to PEA. 7. Continue to monitor. 8. Dysphagia. Continue tube feeding. 9. Chronic encephalopathy. 10. Dyslipidemia. Continue statin therapy. 11. Gastritis. Continue proton pump inhibitor. Dictated By: DOT CONROY DO NR/NTS Conf#: [id number] DID#: [id number] CC: ROSSANA MCKEON MD;*EndCC*
[2018-10-09] MEDS: MULTIVITAMINS 30 ML CUP GTB SCH (08:40)
[2018-10-09] MEDS: BALSAM PERU/CASTOR OIL 60 GM TUBE TOP SCH ×2 (08:40→21:48)
[2018-10-09] MEDS: DAKINS 0.0125%(1/40) 473 ML SOLUTION TP SCH ×2 (08:40→21:48)
[2018-10-09] MEDS: MUPIROCIN 2% 22 GM OINT TOP SCH ×2 (08:40→21:47)
[2018-10-09] MEDS: COLISTIMETHATE 75 MG in SOD CHLORIDE 0.9% 100 ML IVPB SCH (08:40)
[2018-10-09] MEDS: LEVETIRACETAM 500 MG (PMX) 100 ML IVPB SCH ×2 (08:41→21:43)
[2018-10-09] MEDS: FLUCONAZOLE 100 MG TAB PO SCH (08:41)
[2018-10-09] MEDS: DOXYCYCLINE 100 MG in SOD CHLORIDE 0.9% 250 ML IVPB SCH ×2 (08:41→21:43)
[2018-10-09] MEDS: MIDODRINE 5 MG TAB GTB SCH ×3 (08:41→18:52)
[2018-10-09] MEDS: ZINC SULFATE 220 MG CAP GTB SCH (08:41)
[2018-10-09] MEDS: ASCORBIC ACID 500 MG TAB GTB SCH (08:42)
[2018-10-09] MEDS: FAMOTIDINE 20 MG TAB GTB SCH (08:42)
[2018-10-09] MEDS: QUETIAPINE 25 MG TAB PO SCH ×2 (08:42→21:41)
[2018-10-09] MEDS: ASPIRIN 81 MG TAB PO SCH (08:42)
[2018-10-09] MEDS: HEPARIN 5,000 UNIT/1 ML VIAL SC SCH ×2 (08:45→21:47)
--- NOTE | 2018-10-09 09:10 | CONS ---
Consult Date/Type/Reason Admit Date/Time September 28, 2018 at 15:36 Initial Consult Date 09/28/18 Type of Consult Pulmonary Requesting Provider: ROSSANA MCKEON MD Date/Time of Note DATE: 10/09/18 TIME: 09:10 Subjective Remains dopamine dependant Objective Vital Signs Date Temp Pulse Resp B/P (MAP) Pulse Ox O2 O2 Flow FiO2 Time Delivery Rate 10/09/18 60 18 103/58 100 Mechanical 09:00 (73) Ventilator 10/09/18 98.5 08:00 10/09/18 30 05:02 Intake and Output 10/08/18 10/08/18 10/09/18 1515:00 23:00 07:00 IntakeIntake Total 1187.064 ml 1191.035 ml 732.208 ml OutputOutput Total 600 ml 365 ml 285 ml BalanceBalance 587.064 ml 826.035 ml 447.208 ml Exam PHYSICAL EXAMINATION: GENERAL: Elderly-appearing gentleman, unresponsive on mechanical ventilation. HEENT: Moist mucous membranes VITAL SIGNS: NECK: Trach site is clean and intact. CARDIAC: S1, S2. No added sounds or murmurs. CHEST: Diminished air entry bilaterally. ABDOMEN: Soft, nontender. No guarding or rebound. EXTREMITIES: No cyanosis, clubbing. Edema +2 NEUROLOGIC: Unable to assess, vegetative state. Vent Setting Ventilator Support Mode: AC Fraction of Inspired Oxygen pe: 30 Positive End Expiratory Pressu: 5.0 Results/Medications Result Diagram: 10/08/18 1018 10/08/18 1018 Results 24 hrs Laboratory Tests Test 10/08/18 10:18 White Blood Count 9.4 Red Blood Count 2.86 L Hemoglobin 7.8 L Hematocrit 24.4 L Mean Corpuscular Volume 85.3 Mean Corpuscular Hemoglobin 27.3 L Mean Corpuscular Hemoglobin Concent 32.0 Red Cell Distribution Width 21.8 H Platelet Count 159 Mean Platelet Volume 11.2 H Immature Granulocytes % 0.500 H Neutrophils % 76.0 Lymphocytes % 15.1 Monocytes % 6.4 Eosinophils % 1.8 Basophils % 0.2 Nucleated Red Blood Cells % 0.0 Immature Granulocytes # 0.050 H Neutrophils # 7.1 Lymphocytes # 1.4 Monocytes # 0.6 Eosinophils # 0.2 Basophils # 0.0 Nucleated Red Blood Cells # 0.0 Sodium Level 141 Potassium Level 4.4 Chloride Level 114 H Carbon Dioxide Level 20 L Anion Gap 7 Blood Urea Nitrogen 44 H Creatinine 1.22 Est Glomerular Filtrat Rate mL/min > 60 Glucose Level 96 Calcium Level 9.6 Phosphorus Level 3.5 Magnesium Level 1.6 L Medications Current Medications IV Flush (NS 3 ml) 3 ml PER PROTOCOL IV ; Start 09/28/18 at 17:30 Ondansetron HCl (Zofran Inj) 4 mg Q6H PRN IV NAUSEA/VOMITING; Start 09/28/18 at 17:30 Norepinephrine 250 ml @ 1.875 mls/ hr TITRATE IV Last administered on 10/03/18 06:40; Admin Dose 1.875 MLS/HR; Start 09/28/18 at 19:30 Levetiracetam 100 ml @ 400 mls/hr Q12 IVPB Last administered on 10/09/18 08:41; Admin Dose 400 MLS/HR; Start 09/29/18 at 10:00 Lorazepam (Ativan) 1 mg Q10MIN PRN IV SEIZURES Last administered on 09/29/18 10:52; Admin Dose 1 MG; Start 09/29/18 at 10:00 Zinc Sulfate (Zinc Sulfate) 220 mg DAILY GTB Last administered on 10/09/18 08:41; Admin Dose 220 MG; Start 09/30/18 at 09:00 Multivitamins (Multivitamin) 30 ml DAILY GTB Last administered on 10/09/18 08:40; Admin Dose 30 ML; Start 09/30/18 at 09:00 Ascorbic Acid (Vitamin C) 500 mg DAILY GTB Last administered on 10/09/18 08:42; Admin Dose 500 MG; Start 09/30/18 at 09:00 Aspirin (Aspirin) 81 mg DAILY PO Last administered on 10/09/18 08:42; Admin Dose 81 MG; Start 09/30/18 at 09:00 Sodium Hypochlorite (Dakins Diluted ()) 1 applic BID TP Last administered on 10/09/18 08:40; Admin Dose 1 APPLIC; Start 09/30/18 at 09:00 Heparin Sodium (Porcine) (Heparin (5000 Units/1ml)) 5,000 unit BID SC Last administered on 10/09/18 08:45; Admin Dose 5,000 UNIT; Start 10/01/18 at 09:00 Dopamine HCl/ Dextrose 250 ml @ 4.403 mls/ hr TITRATE IV Last administered on 10/09/18 00:58; Admin Dose 15.409 MLS/HR; Start 10/01/18 at 03:00 Mupirocin (Bactroban) 1 applic BID TOP Last administered on 10/09/18 08:40; Admin Dose 1 APPLIC; Start 10/01/18 at 21:00 Doxycycline Hyclate 100 mg/ Sodium Chloride 250 ml @ 250 mls/hr Q12 IVPB Last administered on 10/09/18 08:41; Admin Dose 250 MLS/HR; Start 10/04/18 at 21:00 Fluconazole (Diflucan) 100 mg DAILY PO Last administered on 10/09/18 08:41; Admin Dose 100 MG; Start 10/04/18 at 15:00 Quetiapine Fumarate (Seroquel) 25 mg AM PO Last administered on 10/09/18 08:42; Admin Dose 25 MG; Start 10/08/18 at 09:00 Quetiapine Fumarate (Seroquel) 50 mg HS PO Last administered on 10/08/18 20:37; Admin Dose 50 MG; Start 10/07/18 at 21:00 Famotidine (Pepcid) 20 mg DAILY GTB Last administered on 10/09/18 08:42; Admin Dose 20 MG; Start 10/08/18 at 09:00 Colistimethate Sodium 75 mg/ Sodium Chloride 100 ml @ 200 mls/hr Q12 IVPB Last administered on 10/09/18 08:40; Admin Dose 200 MLS/HR; Start 10/07/18 at 21:00 Magnesium Sulfate 50 ml @ 25 mls/hr ONCE ONCE IVPB ; Start 10/09/18 at 08:00; Stop 10/09/18 at 09:59 Midodrine (Proamatine) 5 mg TID@,13,17 GTB Last administered on 10/09/18 08:41; Admin Dose 5 MG; Start 10/09/18 at 09:00 Assessment/Plan Hospital Course (Demo Recall) IMPRESSION: 1. Cardiopulmonary arrest. 2. Probable significant anoxic brain injury. 3. Status post septic shock, staph bacteremia noted. 4. History of dysphagia. 5. Acute renal failure probable ATN injury 6. Significant bradycardia requiring chronotropic support 7. Significant decubitus ulcer 8. Significant anemia but no active bleeding noted. PLAN: 1. Continue neurology recommendations supportive care 2. Continue vasopressor as needed. Cardiology recommendations 3. Continue mechanical ventilation unable to wean 4. DVT and GI prophylaxis. 5. Continue IV fluids, continue tube feeding as tolerated 6. Continue wound care Critical care time 40 minutes. check cortisol. LES CONDE MD, [facility] October 09, 2018 09:10
--- NOTE | 2018-10-09 12:36 | CONS ---
Assessment/Plan Assessment/Plan Hospital Course 63 yo M with extensive neurologic hx and multiple comorbidities who presents to the ICU following a cardiac arrest. TTM was deferred d/t pt's poor neurologic status at baseline. He was noted to have face and arm twitching, for which neurology is consulted. The clinical picture suggests seizures in the context of hypoxic ischemic cerebral injury....now resolved. CTH is without obvious acute intracranial pathology. EEG was without epileptiform activity, though diffusely slow. His prognosis for meaningful neurologic recovery is probably poor. P: OK to cont Keppra as scheduled. Ativan IV PRN seizure >5 min or for cluster ASA for secondary stroke prevention MRI brain when medically able Will follow Consultation Date/Type/Reason Admit Date/Time September 28, 2018 at 15:36 Type of Consult Neurology Reason for Consultation eval for seizures Requesting Provider: ROSSANA MCKEON MD Date/Time of Note DATE: 10/09/18 TIME: 12:36 24 HR Interval Summary Free Text/Dictation Continues critical care. Family meeting today to discuss biothics decision to change code status. Family was reportedly more understanding today. No changes in pt condition reported. Subjective hx not possible: pt non-verbal, pt critical Exam Vital Signs Vitals Vital Signs Date Temp Pulse Resp B/P (MAP) Pulse Ox O2 O2 Flow FiO2 Time Delivery Rate 10/09/18 63 25 106/67 100 11:15 (80) 10/09/18 30 11:00 10/09/18 Mechanical 11:00 Ventilator 10/09/18 98.5 08:00 Intake and Output 10/08/18 10/08/18 10/09/18 1515:00 23:00 07:00 IntakeIntake Total 1187.064 ml 1191.035 ml 732.208 ml OutputOutput Total 600 ml 365 ml 285 ml BalanceBalance 587.064 ml 826.035 ml 447.208 ml Exam PE: Gen Appearance: No Apparent Distress HEENT: trached Cardiovascular: Regular rate Abdomen: Soft; PEG Extremities: Dry NE: The patient was comatose. Cranial nerve examination was limited by mental status. Pupils were pinpoint. There was no afferent pupillary defect. Funduscopic examination was limited. Face was grossly symmetric, w/ present corneal and cough reflexes. Tone was increased in the upper extremities. Muscle bulk was normal. I did not see fasciculations. The patient minimally withdrew his upper extremities to noxious stimuli. Coordination and gait testing was limited by mental status. Arm and leg reflexes were symmetric. Nicholson's sign was absent. Plantar responses were mute. ANTONY SOLORZANO NP October 09, 2018 12:36
--- NOTE | 2018-10-09 12:42 | QN ---
Documentation Comment Biomedical ethics committee The biomedical ethics committee convened on October 07, 2018 to discuss this gentleman's clinical situation. We had reached out to the patient's family ahead of time to be present at the meeting however they were unable to attend and requested that I have a follow-up separate discussion with him today when they would be present. Today present were his sister and one other sibling brother. At the original meeting on the his overall status including his prior history of CVA with chronic respiratory failure requiring tracheostomy and feeding tube were discussed along with his overall medical status. Was further elaborated that he had had a cardiac arrest with PEA twice on the day of admission to the facility and his clinical status was significantly compromised. In addition he had a decubitus ulcer at the time of his transfer to our facility. Given the totality of the situation it was compression of the committee that we were in agreement with the primary care team if he was to undergo another cardiac arrest the likelihood of successful resuscitation both short-term and long-term were nil. As such repeat resuscitation if it was required would not be in the patient's best interest the benefits would be less than the risk associated and would largely be a futile and ineffective therapy. As such we were in agreement with the primary medical team's specification that the patient should be DNR. This is now been discussed with the patient's family. At this time they are not giving up hope for his ultimate treatment. He however is not at the present time approaching a situation where we anticipate him having another cardiac arrest. They understand that the plan here is to get him better to the point that he can be taken off of supportive agents maintain on tube feedings and ventilator support and transferred back to his subacute facility. And has been in directed and informed to them that he is on DNR status while at our facility. Respectfully HELGA Rodriguez MD, MD October 09, 2018 12:42
--- NOTE | 2018-10-09 13:12 | CONS ---
Assessment/Plan Assessment/Plan Hospital Course (Demo Recall) No events overnight patient remains on dopamine drip he is unresponsive bradycardic, family conference in place Microbiology: Blood culture on admission grew staph, MRSA swab came back positive, stool for C. difficile negative, urine culture grew Acinetobacter, Klebsiella and Nancie albicans Indwelling's: Trach PEG right IJ triple lumen catheter Antimicrobials: Colistin, fluconazole, doxycycline Physical examination: This is a chronically ill-appearing elderly man who is noncommunicative and in no distress. Head atraumatic normocephalic neck is supple chest rise symmetrical breath sounds diminished bases. Heart: S1-S2. Abdomen soft bowel sounds hypoactive extremities without edema. Skin patient has unstageable sacral wound and pressure sores on his feet Assessment: 1. Shock, status post PEA cardiac arrest 2. Multidrug-resistant UTI 3. MRSA nares colonization 4. Staph bacteremia consistent with contaminant 5. Acute possibly on chronic kidney disease 6. Acute on chronic encephalopathy likely anoxia 7. History of CVA Plan: Patient remains unchanged, continue present care, CODE STATUS changed to DNR, care is futile Consultation Date/Type/Reason Admit Date/Time September 28, 2018 at 15:36 Initial Consult Date 09/28/18 Type of Consult id Requesting Provider: ROSSANA MCKEON MD Date/Time of Note DATE: 10/09/18 TIME: 13:11 Exam/Review of Systems Exam Vitals Vital Signs Date Temp Pulse Resp B/P (MAP) Pulse Ox O2 O2 Flow FiO2 Time Delivery Rate 10/09/18 59 12:00 10/09/18 25 106/67 100 11:15 (80) 10/09/18 30 11:00 10/09/18 Mechanical 11:00 Ventilator 10/09/18 98.5 08:00 Intake and Output 10/08/18 10/08/18 10/09/18 1515:00 23:00 07:00 IntakeIntake Total 1187.064 ml 1191.035 ml 732.208 ml OutputOutput Total 600 ml 365 ml 285 ml BalanceBalance 587.064 ml 826.035 ml 447.208 ml Results Result Diagram: 10/08/18 1018 10/09/18 0841 Results 24hrs Laboratory Tests Test 10/09/18 08:41 Sodium Level 140 Potassium Level 4.6 Chloride Level 114 H Carbon Dioxide Level 20 L Anion Gap 6 Blood Urea Nitrogen 46 H Creatinine 1.33 H Est Glomerular Filtrat Rate mL/min > 60 Glucose Level 78 Calcium Level 10.0 Magnesium Level 1.5 L Medications Medication Current Medications IV Flush (NS 3 ml) 3 ml PER PROTOCOL IV ; Start 09/28/18 at 17:30 Ondansetron HCl (Zofran Inj) 4 mg Q6H PRN IV NAUSEA/VOMITING; Start 09/28/18 at 17:30 Norepinephrine 250 ml @ 1.875 mls/ hr TITRATE IV Last administered on 10/03/18 06:40; Admin Dose 1.875 MLS/HR; Start 09/28/18 at 19:30 Levetiracetam 100 ml @ 400 mls/hr Q12 IVPB Last administered on 10/09/18 08:41; Admin Dose 400 MLS/HR; Start 09/29/18 at 10:00 Lorazepam (Ativan) 1 mg Q10MIN PRN IV SEIZURES Last administered on 09/29/18 10:52; Admin Dose 1 MG; Start 09/29/18 at 10:00 Zinc Sulfate (Zinc Sulfate) 220 mg DAILY GTB Last administered on 10/09/18 08:41; Admin Dose 220 MG; Start 09/30/18 at 09:00 Multivitamins (Multivitamin) 30 ml DAILY GTB Last administered on 10/09/18 08:40; Admin Dose 30 ML; Start 09/30/18 at 09:00 Ascorbic Acid (Vitamin C) 500 mg DAILY GTB Last administered on 10/09/18 08:42; Admin Dose 500 MG; Start 09/30/18 at 09:00 Aspirin (Aspirin) 81 mg DAILY PO Last administered on 10/09/18 08:42; Admin Dose 81 MG; Start 09/30/18 at 09:00 Sodium Hypochlorite (Dakins Diluted ()) 1 applic BID TP Last administered on 10/09/18 08:40; Admin Dose 1 APPLIC; Start 09/30/18 at 09:00 Heparin Sodium (Porcine) (Heparin (5000 Units/1ml)) 5,000 unit BID SC Last administered on 10/09/18 08:45; Admin Dose 5,000 UNIT; Start 10/01/18 at 09:00 Dopamine HCl/ Dextrose 250 ml @ 4.403 mls/ hr TITRATE IV Last administered on 10/09/18 00:58; Admin Dose 15.409 MLS/HR; Start 10/01/18 at 03:00 Mupirocin (Bactroban) 1 applic BID TOP Last administered on 10/09/18 08:40; Admin Dose 1 APPLIC; Start 10/01/18 at 21:00 Doxycycline Hyclate 100 mg/ Sodium Chloride 250 ml @ 250 mls/hr Q12 IVPB Last administered on 10/09/18 08:41; Admin Dose 250 MLS/HR; Start 10/04/18 at 21:00 Fluconazole (Diflucan) 100 mg DAILY PO Last administered on 10/09/18 08:41; Admin Dose 100 MG; Start 10/04/18 at 15:00 Quetiapine Fumarate (Seroquel) 25 mg AM PO Last administered on 10/09/18 08:42; Admin Dose 25 MG; Start 10/08/18 at 09:00 Quetiapine Fumarate (Seroquel) 50 mg HS PO Last administered on 10/08/18 20:37; Admin Dose 50 MG; Start 10/07/18 at 21:00 Famotidine (Pepcid) 20 mg DAILY GTB Last administered on 10/09/18 08:42; Admin Dose 20 MG; Start 10/08/18 at 09:00 Colistimethate Sodium 75 mg/ Sodium Chloride 100 ml @ 200 mls/hr Q12 IVPB Last administered on 10/09/18 08:40; Admin Dose 200 MLS/HR; Start 10/07/18 at 21:00 Midodrine (Proamatine) 5 mg TID@,,17 GTB Last administered on 10/09/18 08 :41; Admin Dose 5 MG; Start 10/09/18 at 09:00 MELANIA SHAH NP October 09, 2018 13:11
--- NOTE | 2018-10-09 16:09 | PN ---
Date/Time of Note Date/Time of Note DATE: 10/09/18 TIME: 16:08 Assessment/Plan VTE Prophylaxis Risk score (from Nsg)>0 risk: 12 Pharmacological prophylaxis: heparin Assessment/Plan Hospital Course 63 yo man severely disabled years after stroke, now trach and vent dependent and vegetative; presents after cardiac arrest. #Cardiac arrest - Etiology unclear. Was PEA on arrival to ED. May have been hypoxic arrest related to trach like mucous plug or occlusion. - Patient has known very severe neurologic deficit. This precludes his eligibility for hypothermia protocol. -Wean off pressors - Minimal vent settings. - Per discussion with sister, patient is full code - Dr. Flores following #Vegetative state -Patient with history of multiple strokes and now anoxic encephalopathy with no reflexes noted and decorticate posturing -Neurology following #Shock secondary to bacteremia and cardiac arrest - Blood culture x1 growing staph luginensis, likely contaminant, replete blood cultures are negative - Continue Abx for now. No signs of sepsis - ID consultation appreciated -Wean off pressors as able #Bradycardia -Continue dopamine, wean off as able #Facial twitching - Facial fasciculations likely myoclonic jerks. - EEG negative for seizure activity. - Neurology started keppra and phenytoin, these can likely be tapered off. - Will avoid sedating medications including benzos unless seizure is proven. #Oliguric CASTRO - Dr. Chand unable to get Gilman. Currently has condom cath. - New CASTRO with rising Cr - Due to his absence of meaningful neurologic function, would not offer dialysis to this patient. - Dr. Bernstein consulted. #Chronic disability after stroke - Patient trached, vent, not responsive, contractures - Supportive care - Continue tube feeds. #Acute diarrhea - Resolved - If no rectal tube output over next 24-48 hours, it can likely be pulled. #Gastritis - Cont home H2 merlyn and PPI #Dyslipidemia - Cont home statin #UTI secondary to Gilman catheter -Culture growing multidrug-resistant organisms -ID consultation obtained -Continue vancomycin and meropenem #Anemia likely of chronic disease and/or acute blood loss from GI bleed -Transfuse 1 unit today -No evidence of melena or shari bleed at this time, stool guaiac was positive DVT: Heparin GI: PPI DC planning: Patient with poor baseline prior to admission for cardiac arrest now with vegetative state and futility of care, family has refused to have a conversation of substance about goals of care, bioethics meeting held today and bioethics committee does support decision to make patient DO NOT RESUSCITATE as chest compressions would cause more harm and would be inhumane and ACLS would be considered futility of care for a patient with such a grave prognosis. Have spoken to family today and they are aware about CODE STATUS being DO NOT RESUSCITATE. Result Diagram: 10/08/18 1018 10/09/18 0841 Results 24hrs Laboratory Tests Test 10/09/18 08:41 Sodium Level 140 Potassium Level 4.6 Chloride Level 114 H Carbon Dioxide Level 20 L Anion Gap 6 Blood Urea Nitrogen 46 H Creatinine 1.33 H Est Glomerular Filtrat Rate mL/min > 60 Glucose Level 78 Calcium Level 10.0 Magnesium Level 1.5 L Subjective 24 Hr Interval Summary Subjective hx not possible: pt non-verbal Exam/Review of Systems Exam Vitals Vital Signs Date Temp Pulse Resp B/P (MAP) Pulse Ox O2 O2 Flow FiO2 Time Delivery Rate 10/09/18 59 12:00 10/09/18 25 106/67 100 11:15 (80) 10/09/18 30 11:00 10/09/18 Mechanical 11:00 Ventilator 10/09/18 98.5 08:00 Intake and Output 10/08/18 10/08/18 10/09/18 1515:00 23:00 07:00 IntakeIntake Total 1187.064 ml 1191.035 ml 732.208 ml OutputOutput Total 600 ml 365 ml 285 ml BalanceBalance 587.064 ml 826.035 ml 447.208 ml Constitutional: non-verbal Respiratory: clear to auscultation Cardiovascular: regular rate and rhythm Gastrointestinal: soft; No distended Musculoskeletal: nl extremities to inspection Results Results 24hrs Laboratory Tests Test 10/09/18 08:41 Sodium Level 140 Potassium Level 4.6 Chloride Level 114 H Carbon Dioxide Level 20 L Anion Gap 6 Blood Urea Nitrogen 46 H Creatinine 1.33 H Est Glomerular Filtrat Rate mL/min > 60 Glucose Level 78 Calcium Level 10.0 Magnesium Level 1.5 L Medications Medication Current Medications IV Flush (NS 3 ml) 3 ml PER PROTOCOL IV ; Start 09/28/18 at 17:30 Ondansetron HCl (Zofran Inj) 4 mg Q6H PRN IV NAUSEA/VOMITING; Start 09/28/18 at 17:30 Norepinephrine 250 ml @ 1.875 mls/ hr TITRATE IV Last administered on 10/03/18 06:40; Admin Dose 1.875 MLS/HR; Start 09/28/18 at 19:30 Levetiracetam 100 ml @ 400 mls/hr Q12 IVPB Last administered on 10/09/18 08:41; Admin Dose 400 MLS/HR; Start 09/29/18 at 10:00 Lorazepam (Ativan) 1 mg Q10MIN PRN IV SEIZURES Last administered on 09/29/18 10:52; Admin Dose 1 MG; Start 09/29/18 at 10:00 Zinc Sulfate (Zinc Sulfate) 220 mg DAILY GTB Last administered on 10/09/18 08:41; Admin Dose 220 MG; Start 09/30/18 at 09:00 Multivitamins (Multivitamin) 30 ml DAILY GTB Last administered on 10/09/18 08:40; Admin Dose 30 ML; Start 09/30/18 at 09:00 Ascorbic Acid (Vitamin C) 500 mg DAILY GTB Last administered on 10/09/18 08:42; Admin Dose 500 MG; Start 09/30/18 at 09:00 Aspirin (Aspirin) 81 mg DAILY PO Last administered on 10/09/18 08:42; Admin Dose 81 MG; Start 09/30/18 at 09:00 Sodium Hypochlorite (Dakins Diluted ()) 1 applic BID TP Last administered on 10/09/18 08:40; Admin Dose 1 APPLIC; Start 09/30/18 at 09:00 Heparin Sodium (Porcine) (Heparin (5000 Units/1ml)) 5,000 unit BID SC Last administered on 10/09/18 08:45; Admin Dose 5,000 UNIT; Start 10/01/18 at 09:00 Dopamine HCl/ Dextrose 250 ml @ 4.403 mls/ hr TITRATE IV Last administered on 10/09/18 00:58; Admin Dose 15.409 MLS/HR; Start 10/01/18 at 03:00 Mupirocin (Bactroban) 1 applic BID TOP Last administered on 10/09/18 08:40; Admin Dose 1 APPLIC; Start 10/01/18 at 21:00 Doxycycline Hyclate 100 mg/ Sodium Chloride 250 ml @ 250 mls/hr Q12 IVPB Last administered on 10/09/18 08:41; Admin Dose 250 MLS/HR; Start 10/04/18 at 21:00 Fluconazole (Diflucan) 100 mg DAILY PO Last administered on 10/09/18 08:41; Admin Dose 100 MG; Start 10/04/18 at 15:00 Quetiapine Fumarate (Seroquel) 25 mg AM PO Last administered on 10/09/18 08:42; Admin Dose 25 MG; Start 10/08/18 at 09:00 Quetiapine Fumarate (Seroquel) 50 mg HS PO Last administered on 10/08/18 20:37; Admin Dose 50 MG; Start 10/07/18 at 21:00 Famotidine (Pepcid) 20 mg DAILY GTB Last administered on 10/09/18 08:42; Admin Dose 20 MG; Start 10/08/18 at 09:00 Colistimethate Sodium 75 mg/ Sodium Chloride 100 ml @ 200 mls/hr Q12 IVPB Last administered on 10/09/18 08:40; Admin Dose 200 MLS/HR; Start 10/07/18 at 21:00 Midodrine (Proamatine) 5 mg TID@,,17 GTB Last administered on 10/09/18 13:29; Admin Dose 5 MG; Start 10/09/18 at 09:00 RAMOS NOLAN October 09, 2018 16:09
[2018-10-10] VITALS (89 sets, daily range): BP systolic 84–143; BP diastolic 47–76; PULSE 48–62; RESP 15–18
[2018-10-10] MEDS: COLISTIMETHATE 75 MG in SOD CHLORIDE 0.9% 100 ML IVPB SCH ×3 (02:35→20:48)
[2018-10-10] MEDS: DOPamine-D5W 1.6 MG/ML 250 ML IV SCH (04:51)
--- NOTE | 2018-10-10 08:09 | CONS ---
Assessment/Plan Assessment/Plan Assessment/Plan (Daily) Ventilator setting; assist control of 18, tidal volume 500, PEEP of 5, 30% FiO2. Assessment and recommendations; 1. Patient admitted with respiratory failure with history of tracheostomy and G-tube placement in the past. 2. Severe chronic encephalopathy. 3. Stable seizure disorder. 4. Chronic renal insufficiency. 5. UTI. 6. Gram-positive bacteremia with the most recent cultures being negative. 7. Anemia. 8. Mild hypotension. Continue current supportive care. Wean off dopamine as tolerated. Consultation Date/Type/Reason Admit Date/Time September 28, 2018 at 15:36 Initial Consult Date 09/28/18 Type of Consult Pulmonary/critical care Reason for Consultation Patient's condition remains critical. Requiring low-dose dopamine for hypotension. Patient remains essentially unresponsive. General exam; elderly male, on ventilator via tracheostomy, unresponsive, currently in no distress. Requesting Provider: ROSSANA MCKEON MD Date/Time of Note DATE: 10/10/18 TIME: 08:07 Exam/Review of Systems Exam Vitals Vital Signs Date Temp Pulse Resp B/P (MAP) Pulse Ox O2 O2 Flow FiO2 Time Delivery Rate 10/10/18 57 18 99 30 07:15 10/10/18 84/53 (63) Mechanical 04:15 Ventilator 10/10/18 98.4 00:00 Intake and Output 10/09/18 10/09/18 10/10/18 1515:00 23:00 07:00 IntakeIntake Total 1133.838 ml 360.612 ml 133.0 ml OutputOutput Total 305 ml 180 ml BalanceBalance 828.838 ml 180.612 ml 133.0 ml Exam H EENT exam; supple neck, no JVD. No lymphadenopathy. Midline trachea. No thyromegaly. Patient has a multiple carious teeth. Tracheostomy in place. Insertion site is clean. Pupils are small bilaterally. Chest exam; diminished but clear breath sounds. S1-S2 audible, no murmurs. Regular rhythm. Abdomen exam; soft, nondistended. No organomegaly. G-tube in place. Bowel sounds audible. Extremity exam; no edema or clubbing. Back examination; dressing applied over sacrum. [employer] exam; patient remains unresponsive. Results Result Diagram: 10/10/18 0525 10/10/18 0525 Results 24hrs Laboratory Tests Test 10/09/18 08:41 10/10/18 05:25 Sodium Level 140 139 Potassium Level 4.6 4.6 Chloride Level 114 H 113 H Carbon Dioxide Level 20 L 20 L Anion Gap 6 6 Blood Urea Nitrogen 46 H 44 H Creatinine 1.33 H 1.24 Est Glomerular Filtrat Rate mL/min > 60 > 60 Glucose Level 78 71 Calcium Level 10.0 10.2 Magnesium Level 1.5 L 1.8 White Blood Count 9.6 Red Blood Count 2.71 L Hemoglobin 7.5 L Hematocrit 23.1 L Mean Corpuscular Volume 85.2 Mean Corpuscular Hemoglobin 27.7 L Mean Corpuscular Hemoglobin Concent 32.5 Red Cell Distribution Width 21.8 H Platelet Count 212 # Mean Platelet Volume 10.8 H Immature Granulocytes % 0.700 H Neutrophils % 76.5 Lymphocytes % 14.4 L Monocytes % 6.2 Eosinophils % 2.0 Basophils % 0.2 Nucleated Red Blood Cells % 0.0 Immature Granulocytes # 0.070 H Neutrophils # 7.3 Lymphocytes # 1.4 Monocytes # 0.6 Eosinophils # 0.2 Basophils # 0.0 Nucleated Red Blood Cells # 0.0 Phosphorus Level 4.0 Random Cortisol 5.7 Medications Medication Current Medications IV Flush (NS 3 ml) 3 ml PER PROTOCOL IV ; Start 09/28/18 at 17:30 Ondansetron HCl (Zofran Inj) 4 mg Q6H PRN IV NAUSEA/VOMITING; Start 09/28/18 at 17:30 Norepinephrine 250 ml @ 1.875 mls/ hr TITRATE IV Last administered on 10/03/18at 06:40; Admin Dose 1.875 MLS/HR; Start 09/28/18 at 19:30 Levetiracetam 100 ml @ 400 mls/hr Q12 IVPB Last administered on 10/09/18at 21:43; Admin Dose 400 MLS/HR; Start 09/29/18 at 10:00 Lorazepam (Ativan) 1 mg Q10MIN PRN IV SEIZURES Last administered on 09/29/18at 10:52; Admin Dose 1 MG; Start 09/29/18 at 10:00 Zinc Sulfate (Zinc Sulfate) 220 mg DAILY GTB Last administered on 10/09/18at 08:41; Admin Dose 220 MG; Start 09/30/18 at 09:00 Multivitamins (Multivitamin) 30 ml DAILY GTB Last administered on 10/09/18 08:40; Admin Dose 30 ML; Start 09/30/18 at 09:00 Ascorbic Acid (Vitamin C) 500 mg DAILY GTB Last administered on 10/09/18 08:42; Admin Dose 500 MG; Start 09/30/18 at 09:00 Aspirin (Aspirin) 81 mg DAILY PO Last administered on 10/09/18 08:42; Admin Dose 81 MG; Start 09/30/18 at 09:00 Sodium Hypochlorite (Dakins Diluted ()) 1 applic BID TP Last administered on 10/09/18 21:48; Admin Dose 1 APPLIC; Start 09/30/18 at 09:00 Heparin Sodium (Porcine) (Heparin (5000 Units/1ml)) 5,000 unit BID SC Last administered on 10/09/18 21:47; Admin Dose 5,000 UNIT; Start 10/01/18 at 09:00 Dopamine HCl/ Dextrose 250 ml @ 4.403 mls/ hr TITRATE IV Last administered on 10/10/18 04:51; Admin Dose 6.604 MLS/HR; Start 10/01/18 at 03:00 Mupirocin (Bactroban) 1 applic BID TOP Last administered on 10/09/18 21:47; Admin Dose 1 APPLIC; Start 10/01/18 at 21:00 Doxycycline Hyclate 100 mg/ Sodium Chloride 250 ml @ 250 mls/hr Q12 IVPB Last administered on 10/09/18 21:43; Admin Dose 250 MLS/HR; Start 10/04/18 at 21:00 Fluconazole (Diflucan) 100 mg DAILY PO Last administered on 10/09/18 08:41; Admin Dose 100 MG; Start 10/04/18 at 15:00 Quetiapine Fumarate (Seroquel) 25 mg AM PO Last administered on 10/09/18 08:42; Admin Dose 25 MG; Start 10/08/18 at 09:00 Quetiapine Fumarate (Seroquel) 50 mg HS PO Last administered on 10/09/18 21:41; Admin Dose 50 MG; Start 10/07/18 at 21:00 Famotidine (Pepcid) 20 mg DAILY GTB Last administered on 5/24/19at 08:42; Admin Dose 20 MG; Start 10/08/18 at 09:00 Colistimethate Sodium 75 mg/ Sodium Chloride 100 ml @ 200 mls/hr Q12 IVPB Last administered on 10/10/18at 02:35; Admin Dose 200 MLS/HR; Start 10/07/18 at 21:00 Midodrine (Proamatine) 5 mg TID@09,13,17 GTB Last administered on 10/09/18at 18:52; Admin Dose 5 MG; Start 10/09/18 at 09:00 KAL DIAZ October 10, 2018 08:09
--- NOTE | 2018-10-10 08:14 | PN ---
DATE: 10/10/2018 SUBJECTIVE: The patient is stable. No events overnight. OBJECTIVE: VITAL SIGNS: Blood pressure is 84/53, respiration 19, pulse 56, temperature 98.6. HEENT: Head is normocephalic. NECK: Supple. HEART: Regular rate. LUNGS: Show diminished breath sounds at the base. ABDOMEN: Soft, nontender to palpation without rebound or guarding. EXTREMITIES: Negative for clubbing, cyanosis. Positive edema. DERMATOLOGIC: No rashes. MUSCULOSKELETAL: No joint effusion. NEUROLOGIC: No change in exam. MEDICATIONS: Reviewed. LABORATORY DATA: Has been reviewed. ASSESSMENT AND PLAN: 1. Nonoliguric acute kidney injury with a baseline creatinine of 0.6 mg/dL. Etiology of acute kidne y injury is secondary to acute tubular necrosis. Renal function is improving. Continue current anna tment plan, supportive care, renally dose all meds. 2. Anemia. Monitor hemoglobin and hematocrit levels. 3. Mineral bone disorder. Monitor calcium and phosphorus levels. 4. Septic shock. The patient is being weaned off pressors, currently on midodrine. Continue to mon itor. Continue antibiotic therapy. 5. Ventilator-dependent respiratory failure. Vent settings have been reviewed. Continue to monitor . Follow up with pulmonary. 6. Cardiac arrest secondary to PEA. Continue to monitor. 7. Dysphagia. Continue tube feeding. 8. Chronic encephalopathy. No change. 9. Dyslipidemia. Continue statin therapy. 10. Gastritis. Continue proton pump inhibitor. Dictated By: DOT CONROY DO NR/NTS Conf#: [id number] DID#: [id number] CC: ROSSANA MCKEON MD;*EndCC*
[2018-10-10] MEDS: DOXYCYCLINE 100 MG in SOD CHLORIDE 0.9% 250 ML IVPB SCH ×2 (08:18→20:49)
[2018-10-10] MEDS: LEVETIRACETAM 500 MG (PMX) 100 ML IVPB SCH ×2 (08:18→20:48)
[2018-10-10] MEDS: DAKINS 0.0125%(1/40) 473 ML SOLUTION TP SCH ×2 (08:18→20:52)
[2018-10-10] MEDS: MUPIROCIN 2% 22 GM OINT TOP SCH ×2 (08:18→20:51)
[2018-10-10] MEDS: MULTIVITAMINS 30 ML CUP GTB SCH (08:19)
[2018-10-10] MEDS: FAMOTIDINE 20 MG TAB GTB SCH (08:19)
[2018-10-10] MEDS: ASCORBIC ACID 500 MG TAB GTB SCH (08:19)
[2018-10-10] MEDS: QUETIAPINE 25 MG TAB PO SCH ×2 (08:19→21:49)
[2018-10-10] MEDS: FLUCONAZOLE 100 MG TAB PO SCH (08:19)
[2018-10-10] MEDS: MIDODRINE 5 MG TAB GTB SCH ×3 (08:19→17:12)
[2018-10-10] MEDS: BALSAM PERU/CASTOR OIL 60 GM TUBE TOP SCH ×2 (08:19→20:52)
[2018-10-10] MEDS: ASPIRIN 81 MG TAB PO SCH (08:20)
[2018-10-10] MEDS: ZINC SULFATE 220 MG CAP GTB SCH (08:20)
[2018-10-10] MEDS: HEPARIN 5,000 UNIT/1 ML VIAL SC SCH ×2 (08:21→20:53)
--- NOTE | 2018-10-10 09:34 | CONS ---
Assessment/Plan Assessment/Plan Hospital Course 63 yo M with extensive neurologic hx and multiple comorbidities who presents to the ICU following a cardiac arrest. TTM was deferred d/t pt's poor neurologic status at baseline. He was noted to have face and arm twitching, for which neurology is consulted. The clinical picture suggests seizures in the context of hypoxic ischemic cerebral injury....now resolved. CTH is without obvious acute intracranial pathology. EEG was without epileptiform activity, though diffusely slow. His prognosis for meaningful neurologic recovery is probably poor. P: OK to cont Keppra as scheduled. Ativan IV PRN seizure >5 min or for cluster ASA for secondary stroke prevention MRI brain when medically able Will follow Consultation Date/Type/Reason Admit Date/Time September 28, 2018 at 15:36 Type of Consult Neurology Reason for Consultation eval for seizures Requesting Provider: ROSSANA MCKEON MD Date/Time of Note DATE: 10/10/18 TIME: 09:34 24 HR Interval Summary Free Text/Dictation Continues critical care. No change in pt condition reported. Subjective hx not possible: pt non-verbal, pt critical Exam Vital Signs Vitals Vital Signs Date Temp Pulse Resp B/P (MAP) Pulse Ox O2 O2 Flow FiO2 Time Delivery Rate 10/10/18 57 18 99 30 07:15 10/10/18 84/53 (63) Mechanical 04:15 Ventilator 10/10/18 98.4 00:00 Intake and Output 10/09/18 10/09/18 10/10/18 1515:00 23:00 07:00 IntakeIntake Total 1133.838 ml 360.612 ml 133.0 ml OutputOutput Total 305 ml 180 ml BalanceBalance 828.838 ml 180.612 ml 133.0 ml Exam E: Gen Appearance: No Apparent Distress HEENT: trached Cardiovascular: Regular rate Abdomen: Soft; PEG Extremities: Dry NE: The patient was comatose. Cranial nerve examination was limited by mental status. Pupils were pinpoint. There was no afferent pupillary defect. Funduscopic examination was limited. Face was grossly symmetric, w/ present corneal and cough reflexes. Tone was increased in the upper extremities. Muscle bulk was normal. I did not see fasciculations. The patient had decorticate posturing to noxious stimuli, Coordination and gait testing was limited by mental status. Arm and leg reflexes were symmetric. Nicholson's sign was absent. Plantar responses were mute. ANTONY SOLORZANO NP October 10, 2018 09:34
--- NOTE | 2018-10-10 11:41 | PN ---
Date/Time of Note Date/Time of Note DATE: 10/10/18 TIME: 11:40 Assessment/Plan VTE Prophylaxis Risk score (from Nsg)>0 risk: 12 Pharmacological prophylaxis: heparin Assessment/Plan Hospital Course 63 yo man severely disabled years after stroke, now trach and vent dependent and vegetative; presents after cardiac arrest. #Cardiac arrest - Etiology unclear. Was PEA on arrival to ED. May have been hypoxic arrest related to trach like mucous plug or occlusion. - Patient has known very severe neurologic deficit. This precludes his eligibility for hypothermia protocol. -Wean off pressors - Minimal vent settings. - Per discussion with sister, patient is full code - Dr. Flores following #Vegetative state -Patient with history of multiple strokes and now anoxic encephalopathy with no reflexes noted and decorticate posturing -Neurology following #Shock secondary to bacteremia and cardiac arrest - Blood culture x1 growing staph luginensis, likely contaminant, replete blood cultures are negative - Continue Abx for now. No signs of sepsis - ID consultation appreciated -Wean off pressors as able -Increase midodrine dose to 10 mg 3 times daily #Bradycardia -Continue dopamine, wean off as able #Facial twitching - Facial fasciculations likely myoclonic jerks. - EEG negative for seizure activity. - Neurology started keppra and phenytoin, these can likely be tapered off. - Will avoid sedating medications including benzos unless seizure is proven. #Oliguric CASTRO - Dr. Chand unable to get Gilman. Currently has condom cath. - New CASTRO with rising Cr - Due to his absence of meaningful neurologic function, would not offer dialysis to this patient. - Dr. Bernstein consulted. #Chronic disability after stroke - Patient trached, vent, not responsive, contractures - Supportive care - Continue tube feeds. #Acute diarrhea - Resolved - If no rectal tube output over next 24-48 hours, it can likely be pulled. #Gastritis - Cont home H2 merlyn and PPI #Dyslipidemia - Cont home statin #UTI secondary to Gilman catheter -Culture growing multidrug-resistant organisms -ID consultation obtained -Continue vancomycin and meropenem #Anemia likely of chronic disease and/or acute blood loss from GI bleed -Transfuse 1 unit today -No evidence of melena or shari bleed at this time, stool guaiac was positive DVT: Heparin GI: PPI DC planning: Patient with poor baseline prior to admission for cardiac arrest now with vegetative state and futility of care, family has refused to have a conversation of substance about goals of care, bioethics meeting held today and bioethics committee does support decision to make patient DO NOT RESUSCITATE as chest compressions would cause more harm and would be inhumane and ACLS would be considered futility of care for a patient with such a grave prognosis. Have spoken to family today and they are aware about CODE STATUS being DO NOT RESUSCITATE. Result Diagram: 10/10/1852410/10/18524 Results 24hrs Laboratory Tests Test 10/10/18 05:25 White Blood Count 9.6 Red Blood Count 2.71 L Hemoglobin 7.5 L Hematocrit 23.1 L Mean Corpuscular Volume 85.2 Mean Corpuscular Hemoglobin 27.7 L Mean Corpuscular Hemoglobin Concent 32.5 Red Cell Distribution Width 21.8 H Platelet Count 212 # Mean Platelet Volume 10.8 H Immature Granulocytes % 0.700 H Neutrophils % 76.5 Lymphocytes % 14.4 L Monocytes % 6.2 Eosinophils % 2.0 Basophils % 0.2 Nucleated Red Blood Cells % 0.0 Immature Granulocytes # 0.070 H Neutrophils # 7.3 Lymphocytes # 1.4 Monocytes # 0.6 Eosinophils # 0.2 Basophils # 0.0 Nucleated Red Blood Cells # 0.0 Sodium Level 139 Potassium Level 4.6 Chloride Level 113 H Carbon Dioxide Level 20 L Anion Gap 6 Blood Urea Nitrogen 44 H Creatinine 1.24 Est Glomerular Filtrat Rate mL/min > 60 Glucose Level 71 Calcium Level 10.2 Phosphorus Level 4.0 Magnesium Level 1.8 Random Cortisol 5.7 Subjective 24 Hr Interval Summary Subjective hx not possible: pt non-verbal Exam/Review of Systems Exam Vitals Vital Signs Date Temp Pulse Resp B/P (MAP) Pulse Ox O2 O2 Flow FiO2 Time Delivery Rate 10/10/18 61 18 102/69 99 09:45 (80) 10/10/18 30 09:30 10/10/18 Mechanical 09:00 Ventilator Trach Collar 10/10/18 97.9 08:00 Intake and Output 10/09/18 10/09/18 10/10/18 1515:00 23:00 07:00 IntakeIntake Total 1133.838 ml 360.612 ml 184.604 ml OutputOutput Total 305 ml 180 ml 30 ml BalanceBalance 828.838 ml 180.612 ml 154.604 ml Constitutional: non-verbal ENMT: intubated Respiratory: clear to auscultation Cardiovascular: regular rate and rhythm Gastrointestinal: soft; No distended Musculoskeletal: nl extremities to inspection Results Results 24hrs Laboratory Tests Test 10/10/18 05:25 White Blood Count 9.6 Red Blood Count 2.71 L Hemoglobin 7.5 L Hematocrit 23.1 L Mean Corpuscular Volume 85.2 Mean Corpuscular Hemoglobin 27.7 L Mean Corpuscular Hemoglobin Concent 32.5 Red Cell Distribution Width 21.8 H Platelet Count 212 # Mean Platelet Volume 10.8 H Immature Granulocytes % 0.700 H Neutrophils % 76.5 Lymphocytes % 14.4 L Monocytes % 6.2 Eosinophils % 2.0 Basophils % 0.2 Nucleated Red Blood Cells % 0.0 Immature Granulocytes # 0.070 H Neutrophils # 7.3 Lymphocytes # 1.4 Monocytes # 0.6 Eosinophils # 0.2 Basophils # 0.0 Nucleated Red Blood Cells # 0.0 Sodium Level 139 Potassium Level 4.6 Chloride Level 113 H Carbon Dioxide Level 20 L Anion Gap 6 Blood Urea Nitrogen 44 H Creatinine 1.24 Est Glomerular Filtrat Rate mL/min > 60 Glucose Level 71 Calcium Level 10.2 Phosphorus Level 4.0 Magnesium Level 1.8 Random Cortisol 5.7 Medications Medication Current Medications IV Flush (NS 3 ml) 3 ml PER PROTOCOL IV ; Start 09/28/18 at 17:30 Ondansetron HCl (Zofran Inj) 4 mg Q6H PRN IV NAUSEA/VOMITING; Start 09/28/18 at 17:30 Norepinephrine 250 ml @ 1.875 mls/ hr TITRATE IV Last administered on 10/03/18at 06:40; Admin Dose 1.875 MLS/HR; Start 09/28/18 at 19:30 Levetiracetam 100 ml @ 400 mls/hr Q12 IVPB Last administered on 10/10/18at 08:18; Admin Dose 400 MLS/HR; Start 09/29/18 at 10:00 Lorazepam (Ativan) 1 mg Q10MIN PRN IV SEIZURES Last administered on 09/29/18at 10:52; Admin Dose 1 MG; Start 09/29/18 at 10:00 Zinc Sulfate (Zinc Sulfate) 220 mg DAILY GTB Last administered on 10/10/18 08:20; Admin Dose 220 MG; Start 09/30/18 at 09:00 Multivitamins (Multivitamin) 30 ml DAILY GTB Last administered on 10/10/18 08:19; Admin Dose 30 ML; Start 09/30/18 at 09:00 Ascorbic Acid (Vitamin C) 500 mg DAILY GTB Last administered on 10/10/18 08:19; Admin Dose 500 MG; Start 09/30/18 at 09:00 Aspirin (Aspirin) 81 mg DAILY PO Last administered on 10/10/18 08:20; Admin Dose 81 MG; Start 09/30/18 at 09:00 Sodium Hypochlorite (Dakins Diluted ()) 1 applic BID TP Last administered on 10/10/18 08:18; Admin Dose 1 APPLIC; Start 09/30/18 at 09:00 Heparin Sodium (Porcine) (Heparin (5000 Units/1ml)) 5,000 unit BID SC Last administered on 10/10/18 08:21; Admin Dose 5,000 UNIT; Start 10/01/18 at 09:00 Dopamine HCl/ Dextrose 250 ml @ 4.403 mls/ hr TITRATE IV Last administered on 10/10/18 04:51; Admin Dose 6.604 MLS/HR; Start 10/01/18 at 03:00 Mupirocin (Bactroban) 1 applic BID TOP Last administered on 10/10/18 08:18; Admin Dose 1 APPLIC; Start 10/01/18 at 21:00 Doxycycline Hyclate 100 mg/ Sodium Chloride 250 ml @ 250 mls/hr Q12 IVPB Last administered on 10/10/18 08:18; Admin Dose 250 MLS/HR; Start 10/04/18 at 21:00 Fluconazole (Diflucan) 100 mg DAILY PO Last administered on 10/10/18 08:19; Admin Dose 100 MG; Start 10/04/18 at 15:00 Quetiapine Fumarate (Seroquel) 25 mg AM PO Last administered on 10/10/18 08:19; Admin Dose 25 MG; Start 10/08/18 at 09:00 Quetiapine Fumarate (Seroquel) 50 mg HS PO Last administered on 10/09/18 21 :41; Admin Dose 50 MG; Start 10/07/18 at 21:00 Famotidine (Pepcid) 20 mg DAILY GTB Last administered on 10/10/18at 08:19; Admin Dose 20 MG; Start 10/08/18 at 09:00 Colistimethate Sodium 75 mg/ Sodium Chloride 100 ml @ 200 mls/hr Q12 IVPB Last administered on 10/10/18at 09:03; Admin Dose 200 MLS/HR; Start 10/07/18 at 21:00 Midodrine (Proamatine) 10 mg TID@,,17 GTB ; Start 10/10/18 at 13:00 RAMOS NOLAN October 10, 2018 11:41
--- NOTE | 2018-10-10 16:40 | CONS ---
Assessment/Plan Assessment/Plan Hospital Course (Demo Recall) ID PROGRESS NOTE CURRENT ABX: DAY #=>Colistin, Fluconazole, Doxycycline 10/10/18 0525 10/10/18 0525 24H INTERVAL SUMMARY * Noncommunicative on the Vent -- Dopamine Gtt -- unresponsive bradycardic * Indwelling's: Trach PEG right IJ triple lumen catheter * Microbiology: Blood culture on admission grew staph, MRSA swab came back positive, stool for C. difficile negative, urine culture grew Acinetobacter, Klebsiella and Nancie albicans MICRO/OTHER * Microbiology: Blood culture on admission grew staph, MRSA swab came back positive, stool for C. difficile negative, urine culture grew Acinetobacter, Klebsiella and Nancie albicans * PHYSICAL EXAMINATION: GENERAL: VSS, NAD, HEENT: AT, NC, NECK: WNL CHEST: Equal chest rise bilaterally without dyspnea on observation ABD: Soft, ND EXTREMITIES: Warm, dry SKIN: No rash, no diaphoresis --unstageable sacral wound and pressure sores on his feet ID ASSESSMENT 63 yo admit with: 1. Shock, status post PEA cardiac arrest 2. Multidrug-resistant UTI 3. MRSA nares colonization 4. Staph bacteremia consistent with contaminant 5. Acute possibly on chronic kidney disease 6. Acute on chronic encephalopathy likely anoxia 7. History of CVA (+)MRSA Nares ABX ALLERGIES: NKDA INVASIVES: PIV CURRENT ABX: DAY # =>Colistin, Fluconazole, Doxycycline ID RECOMMENDATIONS/PLAN: 1. Continue present care, CODE STATUS changed to DNR, poor quality of life . Consultation Date/Type/Reason Admit Date/Time September 28, 2018 at 15:36 Initial Consult Date 09/28/18 Requesting Provider: ROSSANA MCKEON MD Date/Time of Note DATE: 10/10/18 TIME: 16:40 Exam/Review of Systems Exam Vitals Vital Signs Date Temp Pulse Resp B/P (MAP) Pulse Ox O2 O2 Flow FiO2 Time Delivery Rate 10/10/18 65 18 100 30 15:05 10/10/18 103/57 Mechanical 14:00 (72) Ventilator Trach Collar 10/10/18 97.4 12:00 Intake and Output 10/09/18 10/09/18 10/10/18 1515:00 23:00 07:00 IntakeIntake Total 1133.838 ml 360.612 ml 184.604 ml OutputOutput Total 305 ml 180 ml 30 ml BalanceBalance 828.838 ml 180.612 ml 154.604 ml Results Result Diagram: 10/10/1852410/10/18 0525 Results 24hrs Laboratory Tests Test 10/10/18 05:25 White Blood Count 9.6 Red Blood Count 2.71 L Hemoglobin 7.5 L Hematocrit 23.1 L Mean Corpuscular Volume 85.2 Mean Corpuscular Hemoglobin 27.7 L Mean Corpuscular Hemoglobin Concent 32.5 Red Cell Distribution Width 21.8 H Platelet Count 212 # Mean Platelet Volume 10.8 H Immature Granulocytes % 0.700 H Neutrophils % 76.5 Lymphocytes % 14.4 L Monocytes % 6.2 Eosinophils % 2.0 Basophils % 0.2 Nucleated Red Blood Cells % 0.0 Immature Granulocytes # 0.070 H Neutrophils # 7.3 Lymphocytes # 1.4 Monocytes # 0.6 Eosinophils # 0.2 Basophils # 0.0 Nucleated Red Blood Cells # 0.0 Sodium Level 139 Potassium Level 4.6 Chloride Level 113 H Carbon Dioxide Level 20 L Anion Gap 6 Blood Urea Nitrogen 44 H Creatinine 1.24 Est Glomerular Filtrat Rate mL/min > 60 Glucose Level 71 Calcium Level 10.2 Phosphorus Level 4.0 Magnesium Level 1.8 Random Cortisol 5.7 Medications Medication Current Medications IV Flush (NS 3 ml) 3 ml PER PROTOCOL IV ; Start 09/28/18 at 17:30 Ondansetron HCl (Zofran Inj) 4 mg Q6H PRN IV NAUSEA/VOMITING; Start 09/28/18 at 17:30 Norepinephrine 250 ml @ 1.875 mls/ hr TITRATE IV Last administered on 10/03/18at 06:40; Admin Dose 1.875 MLS/HR; Start 09/28/18 at 19:30 Levetiracetam 100 ml @ 400 mls/hr Q12 IVPB Last administered on 10/10/18at 08:18; Admin Dose 400 MLS/HR; Start 09/29/18 at 10:00 Lorazepam (Ativan) 1 mg Q10MIN PRN IV SEIZURES Last administered on 09/29/18at 10:52; Admin Dose 1 MG; Start 09/29/18 at 10:00 Zinc Sulfate (Zinc Sulfate) 220 mg DAILY GTB Last administered on 10/10/18at 08:20; Admin Dose 220 MG; Start 09/30/18 at 09:00 Multivitamins (Multivitamin) 30 ml DAILY GTB Last administered on 10/10/18 08:19; Admin Dose 30 ML; Start 09/30/18 at 09:00 Ascorbic Acid (Vitamin C) 500 mg DAILY GTB Last administered on 10/10/18 08:19; Admin Dose 500 MG; Start 09/30/18 at 09:00 Aspirin (Aspirin) 81 mg DAILY PO Last administered on 10/10/18 08:20; Admin Dose 81 MG; Start 09/30/18 at 09:00 Sodium Hypochlorite (Dakins Diluted (40)) 1 applic BID TP Last administered on 10/10/18 08:18; Admin Dose 1 APPLIC; Start 09/30/18 at 09:00 Heparin Sodium (Porcine) (Heparin (5000 Units/1ml)) 5,000 unit BID SC Last administered on 10/10/18 08:21; Admin Dose 5,000 UNIT; Start 10/01/18 at 09:00 Dopamine HCl/ Dextrose 250 ml @ 4.403 mls/ hr TITRATE IV Last administered on 10/10/18 04:51; Admin Dose 6.604 MLS/HR; Start 10/01/18 at 03:00 Mupirocin (Bactroban) 1 applic BID TOP Last administered on 10/10/18 08:18; Admin Dose 1 APPLIC; Start 10/01/18 at 21:00 Doxycycline Hyclate 100 mg/ Sodium Chloride 250 ml @ 250 mls/hr Q12 IVPB Last administered on 10/10/18 08:18; Admin Dose 250 MLS/HR; Start 10/04/18 at 21:00 Fluconazole (Diflucan) 100 mg DAILY PO Last administered on 10/10/18 08:19; Admin Dose 100 MG; Start 10/04/18 at 15:00 Quetiapine Fumarate (Seroquel) 25 mg AM PO Last administered on 10/10/18 08:19; Admin Dose 25 MG; Start 10/08/18 at 09:00 Quetiapine Fumarate (Seroquel) 50 mg HS PO Last administered on 10/09/18 21:41; Admin Dose 50 MG; Start 10/07/18 at 21:00 Famotidine (Pepcid) 20 mg DAILY GTB Last administered on 10/10/18at 08:19; Admin Dose 20 MG; Start 10/08/18 at 09:00 Colistimethate Sodium 75 mg/ Sodium Chloride 100 ml @ 200 mls/hr Q12 IVPB Last administered on 10/10/18at 09:03; Admin Dose 200 MLS/HR; Start 10/07/18 at 21:00 Midodrine (Proamatine) 10 mg TID@,13,17 GTB Last administered on 10/10/18at 13 :19; Admin Dose 10 MG; Start 10/10/18 at 13:00 KATHY RODRIGUEZ NP October 10, 2018 16:40
[2018-10-11] VITALS (98 sets, daily range): BP systolic 77–148; BP diastolic 44–100; PULSE 48–63; RESP 12–19
[2018-10-11] MEDS: LEVETIRACETAM 500 MG (PMX) 100 ML IVPB SCH ×2 (08:27→20:14)
[2018-10-11] MEDS: ZINC SULFATE 220 MG CAP GTB SCH (08:36)
[2018-10-11] MEDS: MIDODRINE 5 MG TAB GTB SCH ×3 (08:37→17:21)
[2018-10-11] MEDS: MULTIVITAMINS 30 ML CUP GTB SCH (08:37)
[2018-10-11] MEDS: FAMOTIDINE 20 MG TAB GTB SCH (08:37)
[2018-10-11] MEDS: FLUCONAZOLE 100 MG TAB PO SCH (08:37)
[2018-10-11] MEDS: ASPIRIN 81 MG TAB PO SCH (08:37)
[2018-10-11] MEDS: QUETIAPINE 25 MG TAB PO SCH ×2 (08:37→20:14)
[2018-10-11] MEDS: DOXYCYCLINE 100 MG in SOD CHLORIDE 0.9% 250 ML IVPB SCH ×2 (08:38→20:14)
[2018-10-11] MEDS: ASCORBIC ACID 500 MG TAB GTB SCH (08:38)
[2018-10-11] MEDS: COLISTIMETHATE 75 MG in SOD CHLORIDE 0.9% 100 ML IVPB SCH ×2 (08:38→20:19)
[2018-10-11] MEDS: HEPARIN 5,000 UNIT/1 ML VIAL SC SCH ×2 (08:39→20:25)
[2018-10-11] MEDS: DAKINS 0.0125%(1/40) 473 ML SOLUTION TP SCH ×2 (08:40→20:15)
[2018-10-11] MEDS: BALSAM PERU/CASTOR OIL 60 GM TUBE TOP SCH ×2 (08:40→20:15)
[2018-10-11] MEDS: MUPIROCIN 2% 22 GM OINT TOP SCH ×2 (08:40→20:15)
--- NOTE | 2018-10-11 09:12 | PN ---
DATE: 10/11/2018 SUBJECTIVE: The patient remains in critical condition on pressor support. No other acute events not ed. No hemoptysis, hematemesis, hematochezia. OBJECTIVE: VITAL SIGNS: Blood pressure is 89/52, respiration 18, pulse 73, temperature 98.6. HEENT: Head is normocephalic. NECK: Supple. HEART: Regular rate. LUNGS: Show diminished breath sounds at the base. ABDOMEN: Soft, nontender to palpation without rebound or guarding. EXTREMITIES: Negative for clubbing, cyanosis. Trace edema. DERMATOLOGIC: No rashes. MUSCULOSKELETAL: No joint effusion. NEUROLOGIC: No change in exam. MEDICATIONS: The patient's medications have been reviewed. LABORATORY DATA: Has been reviewed. ASSESSMENT AND PLAN: 1. Nonoliguric acute kidney injury with a baseline creatinine of 0.6 mg/dL. Etiology of acute kidne y injury is secondary to acute tubular necrosis. Renal function is improving. Continue current anna tment plan, supportive care, continue to renally dose all meds. 2. Anemia. Monitor hemoglobin and hematocrit levels. 3. Mineral bone disorder. Monitor calcium and phosphorus levels. 4. Septic shock. The patient currently is on low-dose dopamine and midodrine. Will continue. Cont inue antibiotic therapy. 5. Ventilator-dependent respiratory failure. Vent settings have been reviewed. Continue to monitor . 6. Cardiac arrest secondary to PEA. Continue to monitor. 7. Dysphagia. Continue tube feeding. 8. Chronic encephalopathy. No change. 9. Dyslipidemia. Continue statin therapy. 10. History of gastritis. Dictated By: DOT CONROY DO NR/NTS Conf#: [id number] DID#: [id number] CC: ROSSANA MCKEON MD; TRUPTI EDGAR MD; RAMOS NOLAN MD;*EndCC*
--- NOTE | 2018-10-11 09:26 | CONS ---
Assessment/Plan Assessment/Plan Assessment/Plan (Daily) Ventilator setting; AC of 18, tidal volume 500, PEEP of 5, 30% FiO2. Patient is currently on dopamine 2 mics per kilogram per minute. Assessment and recommendations; 1. Patient admitted with sepsis with history of VDRF and advanced dementia. 2. Mild hypotension, on low-dose dopamine drip. 3. Sacral ulcer. 4. Anemia. 5. Chronic renal insufficiency. 6. Stable seizure disorder. 7. Gram-positive bacteremia, most recent blood cultures are negative. Continue current supportive care. Wean down dopamine as tolerated. Overall prognosis remains very poor. Consultation Date/Type/Reason Admit Date/Time September 28, 2018 at 15:36 Initial Consult Date 09/28/18 Type of Consult Pulmonary/critical care Requesting Provider: ROSSANA MCKEON MD Date/Time of Note DATE: 10/11/18 TIME: 09:23 24 HR Interval Summary Free Text/Dictation Patient's condition remains critical. Remains mildly hypotensive on low-dose dopamine drip. General exam; elderly male, on ventilator via tracheostomy, unresponsive, currently in no distress. Exam/Review of Systems Exam Vitals Vital Signs Date Temp Pulse Resp B/P (MAP) Pulse Ox O2 O2 Flow FiO2 Time Delivery Rate 10/11/18 53 18 89/52 (64) 100 Mechanical 06:00 Ventilator 10/11/18 30 04:45 10/11/18 98.2 04:00 Intake and Output 10/10/18 10/10/18 10/11/18 1515:00 23:00 07:00 IntakeIntake Total 1122.832 ml 1059.806 ml 646.4 ml OutputOutput Total 275 ml 285 ml 250 ml BalanceBalance 847.832 ml 774.806 ml 396.4 ml Exam HEENT exam; supple neck, no JVD. No lymphadenopathy. Midline trachea. No thyromegaly. Tracheostomy in place. Patient is edentulous. Pupils are small bilaterally. No neck masses. Chest exam; diminished but clear breath sounds. S1-S2 audible, no murmurs. Regular rhythm. Abdomen exam; soft, nondistended. No organomegaly. G-tube in place. Bowel sounds are audible. Extremity exam; no peripheral edema clubbing. Back exam; sacral decubitus ulcer. No signs of active infection. [employer] HE[employer] EDUC[employer] exam; patient remains unresponsive. Results Result Diagram: 10/10/1852410/10/18524 Medications Medication Current Medications IV Flush (NS 3 ml) 3 ml PER PROTOCOL IV ; Start 09/28/18 at 17:30 Ondansetron HCl (Zofran Inj) 4 mg Q6H PRN IV NAUSEA/VOMITING; Start 09/28/18 at 17:30 Norepinephrine 250 ml @ 1.875 mls/ hr TITRATE IV Last administered on 10/03/18 06:40; Admin Dose 1.875 MLS/HR; Start 09/28/18 at 19:30 Levetiracetam 100 ml @ 400 mls/hr Q12 IVPB Last administered on 10/11/18 08:27; Admin Dose 400 MLS/HR; Start 09/29/18 at 10:00 Lorazepam (Ativan) 1 mg Q10MIN PRN IV SEIZURES Last administered on 09/29/18 10:52; Admin Dose 1 MG; Start 09/29/18 at 10:00 Zinc Sulfate (Zinc Sulfate) 220 mg DAILY GTB Last administered on 10/11/18 08:36; Admin Dose 220 MG; Start 09/30/18 at 09:00 Multivitamins (Multivitamin) 30 ml DAILY GTB Last administered on 10/11/18 08:37; Admin Dose 30 ML; Start 09/30/18 at 09:00 Ascorbic Acid (Vitamin C) 500 mg DAILY GTB Last administered on 10/11/18 08:38; Admin Dose 500 MG; Start 09/30/18 at 09:00 Aspirin (Aspirin) 81 mg DAILY PO Last administered on 10/11/18 08:37; Admin Dose 81 MG; Start 09/30/18 at 09:00 Sodium Hypochlorite (Dakins Diluted (/40)) 1 applic BID TP Last administered on 10/11/18 08:40; Admin Dose 1 APPLIC; Start 09/30/18 at 09:00 Heparin Sodium (Porcine) (Heparin (5000 Units/1ml)) 5,000 unit BID SC Last administered on 10/11/18 08:39; Admin Dose 5,000 UNIT; Start 10/01/18 at 09:00 Dopamine HCl/ Dextrose 250 ml @ 4.403 mls/ hr TITRATE IV Last administered on 10/10/18 04:51; Admin Dose 6.604 MLS/HR; Start 10/01/18 at 03:00 Mupirocin (Bactroban) 1 applic BID TOP Last administered on 10/11/18 08:40; Admin Dose 1 APPLIC; Start 10/01/18 at 21:00 Doxycycline Hyclate 100 mg/ Sodium Chloride 250 ml @ 250 mls/hr Q12 IVPB Last administered on 10/11/18 08:38; Admin Dose 250 MLS/HR; Start 10/04/18 at 21:00 Fluconazole (Diflucan) 100 mg DAILY PO Last administered on 10/11/18 08:37; Admin Dose 100 MG; Start 10/04/18 at 15:00 Quetiapine Fumarate (Seroquel) 25 mg AM PO Last administered on 10/11/18 08:37; Admin Dose 25 MG; Start 10/08/18 at 09:00 Quetiapine Fumarate (Seroquel) 50 mg HS PO Last administered on 10/10/18 21:49; Admin Dose 50 MG; Start 10/07/18 at 21:00 Famotidine (Pepcid) 20 mg DAILY GTB Last administered on 10/11/18 08:37; Admin Dose 20 MG; Start 10/08/18 at 09:00 Colistimethate Sodium 75 mg/ Sodium Chloride 100 ml @ 200 mls/hr Q12 IVPB Last administered on 10/11/18 08:38; Admin Dose 200 MLS/HR; Start 10/07/18 at 21:00 Midodrine (Proamatine) 10 mg TID@,,17 GTB Last administered on 10/11/18 08:37; Admin Dose 10 MG; Start 10/10/18 at 13:00 KAL DIAZ October 11, 2018 09:26
--- NOTE | 2018-10-11 11:08 | CONS ---
Assessment/Plan Assessment/Plan Hospital Course (Demo Recall) ID PROGRESS NOTE CURRENT ABX: DAY #=>Colistin, Fluconazole, Doxycycline 10/10/18 0525 10/10/18 0525 24H INTERVAL SUMMARY * Remains critically ill w/poor prognosis per pulmonary * Noncommunicative on the Vent -- Dopamine Gtt --Patient is currently on dopamine 2 mics per kilogram per minute. * Indwelling's: Trach PEG right IJ triple lumen catheter * Ventilator setting; AC of 18, tidal volume 500, PEEP of 5, 30% FiO2. * Microbiology: Blood culture on admission grew staph, MRSA swab came back positive, stool for C. difficile negative, urine culture grew Acinetobacter, Klebsiella and Nancie albicans MICRO/OTHER * Microbiology: Blood culture on admission grew staph, MRSA swab came back positive, stool for C. difficile negative, urine culture grew Acinetobacter, Klebsiella and Nancie albicans * PHYSICAL EXAMINATION: GENERAL: VSS, NAD, HEENT: AT, NC, NECK: WNL CHEST: Equal chest rise bilaterally without dyspnea on observation ABD: Soft, ND EXTREMITIES: Warm, dry SKIN: No rash, no diaphoresis --unstageable sacral wound and pressure sores on his feet ID ASSESSMENT 63 yo admit with: 1. Shock, status post PEA cardiac arrest 2. Multidrug-resistant UTI 3. MRSA nares colonization 4. Staph bacteremia consistent with contaminant 5. Acute possibly on chronic kidney disease 6. Acute on chronic encephalopathy likely anoxia 7. History of CVA (+)MRSA Nares ABX ALLERGIES: NKDA INVASIVES: PIV CURRENT ABX: DAY # =>Colistin, Fluconazole, Doxycycline ID RECOMMENDATIONS/PLAN: 1. Continue present care, CODE STATUS changed to DNR, poor prognosis per consultants . Consultation Date/Type/Reason Admit Date/Time September 28, 2018 at 15:36 Initial Consult Date 09/28/18 Requesting Provider: ROSSANA MCKEON MD Date/Time of Note DATE: 10/11/18 TIME: 11:06 Exam/Review of Systems Exam Vitals Vital Signs Date Temp Pulse Resp B/P (MAP) Pulse Ox O2 O2 Flow FiO2 Time Delivery Rate 10/11/18 51 18 100 09:05 10/11/18 30 07:00 10/11/18 89/52 (64) Mechanical 06:00 Ventilator 10/11/18 98.2 04:00 Intake and Output 10/10/18 10/10/1810/11/19 1515:00 23:00 07:00 IntakeIntake Total 1122.832 ml 1059.806 ml 646.4 ml OutputOutput Total 275 ml 285 ml 250 ml BalanceBalance 847.832 ml 774.806 ml 396.4 ml Results Result Diagram: 10/10/18 0525 10/10/18 0525 Medications Medication Current Medications IV Flush (NS 3 ml) 3 ml PER PROTOCOL IV ; Start 09/28/18 at 17:30 Ondansetron HCl (Zofran Inj) 4 mg Q6H PRN IV NAUSEA/VOMITING; Start 09/28/18 at 17:30 Norepinephrine 250 ml @ 1.875 mls/ hr TITRATE IV Last administered on 10/03/18 06:40; Admin Dose 1.875 MLS/HR; Start 09/28/18 at 19:30 Levetiracetam 100 ml @ 400 mls/hr Q12 IVPB Last administered on 10/11/18 08:27; Admin Dose 400 MLS/HR; Start 09/29/18 at 10:00 Lorazepam (Ativan) 1 mg Q10MIN PRN IV SEIZURES Last administered on 09/29/18 10:52; Admin Dose 1 MG; Start 09/29/18 at 10:00 Zinc Sulfate (Zinc Sulfate) 220 mg DAILY GTB Last administered on 10/11/18 08:36; Admin Dose 220 MG; Start 09/30/18 at 09:00 Multivitamins (Multivitamin) 30 ml DAILY GTB Last administered on 10/11/18 08:37; Admin Dose 30 ML; Start 09/30/18 at 09:00 Ascorbic Acid (Vitamin C) 500 mg DAILY GTB Last administered on 10/11/18 08:38; Admin Dose 500 MG; Start 09/30/18 at 09:00 Aspirin (Aspirin) 81 mg DAILY PO Last administered on 10/11/18 08:37; Admin Dose 81 MG; Start 09/30/18 at 09:00 Sodium Hypochlorite (Dakins Diluted ()) 1 applic BID TP Last administered on 10/11/18 08:40; Admin Dose 1 APPLIC; Start 09/30/18 at 09:00 Heparin Sodium (Porcine) (Heparin (5000 Units/1ml)) 5,000 unit BID SC Last administered on 10/11/18 08:39; Admin Dose 5,000 UNIT; Start 10/01/18 at 09:00 Dopamine HCl/ Dextrose 250 ml @ 4.403 mls/ hr TITRATE IV Last administered on 10/10/18 04:51; Admin Dose 6.604 MLS/HR; Start 10/01/18 at 03:00 Mupirocin (Bactroban) 1 applic BID TOP Last administered on 10/11/18 08:40; Admin Dose 1 APPLIC; Start 10/01/18 at 21:00 Doxycycline Hyclate 100 mg/ Sodium Chloride 250 ml @ 250 mls/hr Q12 IVPB Last administered on 10/11/18 08:38; Admin Dose 250 MLS/HR; Start 10/04/18 at 21:00 Fluconazole (Diflucan) 100 mg DAILY PO Last administered on 10/11/18 08:37; Admin Dose 100 MG; Start 10/04/18 at 15:00 Quetiapine Fumarate (Seroquel) 25 mg AM PO Last administered on 10/11/18 08:37; Admin Dose 25 MG; Start 10/08/18 at 09:00 Quetiapine Fumarate (Seroquel) 50 mg HS PO Last administered on 10/10/18 21:49; Admin Dose 50 MG; Start 10/07/18 at 21:00 Famotidine (Pepcid) 20 mg DAILY GTB Last administered on 10/11/18 08:37; Admin Dose 20 MG; Start 10/08/18 at 09:00 Colistimethate Sodium 75 mg/ Sodium Chloride 100 ml @ 200 mls/hr Q12 IVPB Last administered on 10/11/18 08:38; Admin Dose 200 MLS/HR; Start 10/07/18 at 21:00 Midodrine (Proamatine) 10 mg TID@,,17 GTB Last administered on 10/11/18 08:37; Admin Dose 10 MG; Start 10/10/18 at 13:00 KATHY RODRIGUEZ NP October 11, 2018 11:08
--- NOTE | 2018-10-11 11:10 | CONS ---
Assessment/Plan Assessment/Plan Hospital Course 63 yo M with extensive neurologic hx and multiple comorbidities who presents to the ICU following a cardiac arrest. TTM was deferred d/t pt's poor neurologic status at baseline. He was noted to have face and arm twitching, for which neurology is consulted. The clinical picture suggests seizures in the context of hypoxic ischemic cerebral injury....now resolved. CTH is without obvious acute intracranial pathology. EEG was without epileptiform activity, though diffusely slow. His prognosis for meaningful neurologic recovery is probably poor. P: OK to cont Keppra as scheduled. Ativan IV PRN seizure >5 min or for cluster ASA for secondary stroke prevention MRI brain when medically able Will follow Consultation Date/Type/Reason Admit Date/Time September 28, 2018 at 15:36 Type of Consult Neurology Reason for Consultation eval for seizures Requesting Provider: ROSSANA MCKEON MD Date/Time of Note DATE: 10/11/18 TIME: 11:10 24 HR Interval Summary Free Text/Dictation Continues critical care. Exam Vital Signs Vitals Vital Signs Date Temp Pulse Resp B/P (MAP) Pulse Ox O2 O2 Flow FiO2 Time Delivery Rate 10/11/18 51 18 100 09:05 10/11/18 30 07:00 10/11/18 89/52 (64) Mechanical 06:00 Ventilator 10/11/18 98.2 04:00 Intake and Output 10/10/18 10/10/18 10/11/18 1515:00 23:00 07:00 IntakeIntake Total 1122.832 ml 1059.806 ml 646.4 ml OutputOutput Total 275 ml 285 ml 250 ml BalanceBalance 847.832 ml 774.806 ml 396.4 ml Exam PE: Gen Appearance: No Apparent Distress HEENT: trached Cardiovascular: Regular rate Abdomen: Soft; PEG Extremities: Dry NE: The patient was comatose. Cranial nerve examination was limited by mental status. Pupils were pinpoint. There was no afferent pupillary defect. Funduscopic examination was limited. Face was grossly symmetric, w/ present corneal and cough reflexes. Tone was increased in the upper extremities. Muscle bulk was normal. I did not see fasciculations. The patient minimally withdrew his upper extremities to noxious stimuli. Coordination and gait testing was limited by mental status. Arm and leg reflexes were symmetric. Nicholson's sign was absent. Plantar responses were mute. ANTONY SOLORZANO NP October 11, 2018 11:10
--- NOTE | 2018-10-11 18:00 | PN ---
Date/Time of Note Date/Time of Note DATE: 10/11/18 TIME: 17:58 Assessment/Plan VTE Prophylaxis Risk score (from Nsg)>0 risk: 10 Pharmacological prophylaxis: heparin Assessment/Plan Hospital Course 63 yo man severely disabled years after stroke, now trach and vent dependent and vegetative; presents after cardiac arrest. #Cardiac arrest - Etiology unclear. Was PEA on arrival to ED. May have been hypoxic arrest related to trach like mucous plug or occlusion. - Patient has known very severe neurologic deficit. This precludes his eligibility for hypothermia protocol. -Wean off pressors - Minimal vent settings. - Per discussion with sister, patient is full code - Dr. Flores following #Vegetative state -Patient with history of multiple strokes and now anoxic encephalopathy with no reflexes noted and decorticate posturing -Neurology following #Shock secondary to bacteremia and cardiac arrest - Blood culture x1 growing staph luginensis, likely contaminant, replete blood cultures are negative - Continue Abx for now. No signs of sepsis - ID consultation appreciated -Wean off pressors as able -Increase midodrine dose to 10 mg every 6 hours #Bradycardia -Continue dopamine, wean off as able #Facial twitching - Facial fasciculations likely myoclonic jerks. - EEG negative for seizure activity. - Neurology started keppra and phenytoin, these can likely be tapered off. - Will avoid sedating medications including benzos unless seizure is proven. #Oliguric CASTRO - Dr. Chand unable to get Gilman. Currently has condom cath. - New CASTRO with rising Cr - Due to his absence of meaningful neurologic function, would not offer dialysis to this patient. - Dr. Bernstein consulted. #Chronic disability after stroke - Patient trached, vent, not responsive, contractures - Supportive care - Continue tube feeds. #Acute diarrhea - Resolved - If no rectal tube output over next 24-48 hours, it can likely be pulled. #Gastritis - Cont home H2 merlyn and PPI #Dyslipidemia - Cont home statin #UTI secondary to Gilman catheter -Culture growing multidrug-resistant organisms -ID consultation obtained -Continue vancomycin and meropenem #Anemia likely of chronic disease and/or acute blood loss from GI bleed -Transfuse 1 unit today -No evidence of melena or shari bleed at this time, stool guaiac was positive DVT: Heparin GI: PPI DC planning: Patient with poor baseline prior to admission for cardiac arrest now with vegetative state and futility of care, family has refused to have a conversation of substance about goals of care, bioethics meeting held and bioethics committee does support decision to make patient DO NOT RESUSCITATE as chest compressions would cause more harm and would be inhumane and ACLS would be considered futility of care for a patient with such a grave prognosis. Have spoken to family and they are aware about CODE STATUS being DO NOT RESUSCITATE. Wean off pressors with plan to DC back to subacute in the coming days Result Diagram: 10/10/1852410/10/18524 Subjective 24 Hr Interval Summary Subjective hx not possible: pt non-verbal Exam/Review of Systems Exam Vitals Vital Signs Date Temp Pulse Resp B/P (MAP) Pulse Ox O2 O2 Flow FiO2 Time Delivery Rate 10/11/18 52 18 100 17:00 10/11/18 121/66 13:15 (84) 10/11/18 Mechanical 13:00 Ventilator Trach Collar 10/11/18 97.4 12:00 10/11/18 30 07:00 Intake and Output 10/10/18 10/10/18 10/11/18 1515:00 23:00 07:00 IntakeIntake Total 1122.832 ml 1059.806 ml 646.4 ml OutputOutput Total 275 ml 285 ml 250 ml BalanceBalance 847.832 ml 774.806 ml 396.4 ml Constitutional: non-verbal ENMT: intubated Respiratory: clear to auscultation Cardiovascular: regular rate and rhythm Gastrointestinal: soft; No distended Musculoskeletal: nl extremities to inspection Medications Medication Current Medications IV Flush (NS 3 ml) 3 ml PER PROTOCOL IV ; Start 09/28/18 at 17:30 Ondansetron HCl (Zofran Inj) 4 mg Q6H PRN IV NAUSEA/VOMITING; Start 09/28/18 at 17:30 Norepinephrine 250 ml @ 1.875 mls/ hr TITRATE IV Last administered on 10/03/18at 06:40; Admin Dose 1.875 MLS/HR; Start 09/28/18 at 19:30 Levetiracetam 100 ml @ 400 mls/hr Q12 IVPB Last administered on 10/11/18at 08:27; Admin Dose 400 MLS/HR; Start 09/29/18 at 10:00 Lorazepam (Ativan) 1 mg Q10MIN PRN IV SEIZURES Last administered on 09/29/18 10:52; Admin Dose 1 MG; Start 09/29/18 at 10:00 Zinc Sulfate (Zinc Sulfate) 220 mg DAILY GTB Last administered on 10/11/18 08:36; Admin Dose 220 MG; Start 09/30/18 at 09:00 Multivitamins (Multivitamin) 30 ml DAILY GTB Last administered on 10/11/18 08:37; Admin Dose 30 ML; Start 09/30/18 at 09:00 Ascorbic Acid (Vitamin C) 500 mg DAILY GTB Last administered on 10/11/18 08:38; Admin Dose 500 MG; Start 09/30/18 at 09:00 Aspirin (Aspirin) 81 mg DAILY PO Last administered on 10/11/18 08:37; Admin Dose 81 MG; Start 09/30/18 at 09:00 Sodium Hypochlorite (Dakins Diluted ()) 1 applic BID TP Last administered on 10/11/18 08:40; Admin Dose 1 APPLIC; Start 09/30/18 at 09:00 Heparin Sodium (Porcine) (Heparin (5000 Units/1ml)) 5,000 unit BID SC Last administered on 10/11/18 08:39; Admin Dose 5,000 UNIT; Start 10/01/18 at 09:00 Dopamine HCl/ Dextrose 250 ml @ 4.403 mls/ hr TITRATE IV Last administered on 10/10/18 04:51; Admin Dose 6.604 MLS/HR; Start 10/01/18 at 03:00 Mupirocin (Bactroban) 1 applic BID TOP Last administered on 10/11/18 08:40; Admin Dose 1 APPLIC; Start 10/01/18 at 21:00 Doxycycline Hyclate 100 mg/ Sodium Chloride 250 ml @ 250 mls/hr Q12 IVPB Last administered on 10/11/18 08:38; Admin Dose 250 MLS/HR; Start 10/04/18 at 21:00 Fluconazole (Diflucan) 100 mg DAILY PO Last administered on 10/11/18 08:37; Admin Dose 100 MG; Start 10/04/18 at 15:00 Quetiapine Fumarate (Seroquel) 25 mg AM PO Last administered on 10/11/18 08:37; Admin Dose 25 MG; Start 10/08/18 at 09:00 Quetiapine Fumarate (Seroquel) 50 mg HS PO Last administered on 10/10/18at 21:4 9; Admin Dose 50 MG; Start 10/07/18 at 21:00 Famotidine (Pepcid) 20 mg DAILY GTB Last administered on 10/11/18 08:37; Admin Dose 20 MG; Start 10/08/18 at 09:00 Colistimethate Sodium 75 mg/ Sodium Chloride 100 ml @ 200 mls/hr Q12 IVPB Last administered on 10/11/18 08:38; Admin Dose 200 MLS/HR; Start 10/07/18 at 21:00 Midodrine (Proamatine) 10 mg Q6 GTB Last administered on 10/11/18at 17:21; Admin Dose 10 MG; Start 10/11/18 at 18:00 RAMOS NOLAN October 11, 2018 18:00
[2018-10-12] VITALS (91 sets, daily range): BP systolic 69–148; BP diastolic 40–83; PULSE 37–65; RESP 12–19
[2018-10-12] MEDS: MIDODRINE 5 MG TAB GTB SCH ×4 (00:27→17:39)
[2018-10-12] MEDS: DOPamine-D5W 1.6 MG/ML 250 ML IV SCH (02:34)
[2018-10-12] MEDS ORDERED: MAGNESIUM SULFATE 2 GM/50 ML 50 ML IVPB ONE (08:00)
--- NOTE | 2018-10-12 08:09 | PN ---
DATE: 10/12/2018 SUBJECTIVE: The patient is in critical, but stable condition. The patient remains on low dose dopam ine for bradycardia. No other events noted. OBJECTIVE: VITAL SIGNS: Blood pressure is 134/69, respirations 18, pulse 51, temperature 98.6. HEENT: Head is normocephalic. NECK: Supple. HEART: Regular rate. LUNGS: Show diminished breath sounds at the base. ABDOMEN: Soft, nontender to palpation without rebound or guarding. EXTREMITIES: Negative for clubbing, cyanosis. Trace edema. DERMATOLOGIC: No rashes. MUSCULOSKELETAL: No joint effusion. NEUROLOGIC: No change in exam. MEDICATIONS: Reviewed. LABORATORY DATA: Reviewed. ASSESSMENT AND PLAN: 1. Nonoliguric acute kidney injury with previous baseline creatinine of 0.6 mg/dL. Etiology of acut e kidney injury is secondary to acute tubular necrosis. Renal function is fluctuating. Continue cur rent treatment plan, supportive care, renally dose all medications. 2. Anemia. Monitor hemoglobin and hematocrit levels. 3. Mineral bone disorder, monitor calcium and phosphorus levels. 4. Hypomagnesemia. We will replete with magnesium sulfate. 5. Septic shock. The patient is on low dose dopamine and midodrine, will continue and continue anti biotic therapy. 6. Ventilator-dependent respiratory failure. Vent settings have been reviewed. Continue to monitor . 7. Cardiac arrest secondary to PA. Continue to monitor. 8. Dysphagia. Continue tube feeding. 9. Chronic encephalopathy. No change. 10. Dyslipidemia. Continue statin therapy. 11. History of gastritis. Dictated By: DOT CONROY DO NR/NTS Conf#: [id number] DID#: [id number] CC: RAMOS NOLAN MD; ROSSANA MCKEON MD; TRUPTI EDGAR MD;*EndCC*
[2018-10-12] MEDS: MULTIVITAMINS 30 ML CUP GTB SCH (09:02)
[2018-10-12] MEDS: FAMOTIDINE 20 MG TAB GTB SCH (09:02)
[2018-10-12] MEDS: ASCORBIC ACID 500 MG TAB GTB SCH (09:02)
[2018-10-12] MEDS: QUETIAPINE 25 MG TAB PO SCH ×2 (09:02→20:46)
[2018-10-12] MEDS: ZINC SULFATE 220 MG CAP GTB SCH (09:03)
[2018-10-12] MEDS: ASPIRIN 81 MG TAB PO SCH (09:03)
[2018-10-12] MEDS: FLUCONAZOLE 100 MG TAB PO SCH (09:03)
[2018-10-12] MEDS: HEPARIN 5,000 UNIT/1 ML VIAL SC SCH ×2 (09:05→20:49)
[2018-10-12] MEDS: COLISTIMETHATE 75 MG in SOD CHLORIDE 0.9% 100 ML IVPB SCH ×2 (09:07→20:45)
[2018-10-12] MEDS: DOXYCYCLINE 100 MG in SOD CHLORIDE 0.9% 250 ML IVPB SCH ×2 (09:07→20:45)
[2018-10-12] MEDS: LEVETIRACETAM 500 MG (PMX) 100 ML IVPB SCH ×2 (09:07→20:46)
[2018-10-12] MEDS: DAKINS 0.0125%(1/40) 473 ML SOLUTION TP SCH ×2 (09:08→20:47)
[2018-10-12] MEDS: MUPIROCIN 2% 22 GM OINT TOP SCH ×2 (09:08→20:47)
[2018-10-12] MEDS: BALSAM PERU/CASTOR OIL 60 GM TUBE TOP SCH ×2 (09:08→20:46)
--- NOTE | 2018-10-12 09:44 | CONS ---
Assessment/Plan Assessment/Plan Hospital Course 63 yo M with extensive neurologic hx and multiple comorbidities who presents to the ICU following a cardiac arrest. TTM was deferred d/t pt's poor neurologic status at baseline. He was noted to have face and arm twitching, for which neurology is consulted. The clinical picture was consistent with seizures in the context of hypoxic ischemic cerebral injury....now resolved. CTH is without obvious acute intracranial pathology. EEG was without epileptiform activity, though diffusely slow. His prognosis for meaningful neurologic recovery is poor. P: OK to cont Keppra as scheduled. Ativan IV PRN seizure >5 min or for cluster ASA for secondary stroke prevention Will follow clinically Consultation Date/Type/Reason Admit Date/Time September 28, 2018 at 15:36 Type of Consult Neurology Reason for Consultation eval for seizures Requesting Provider: ROSSANA MCKEON MD Date/Time of Note DATE: 10/12/18 TIME: 09:44 24 HR Interval Summary Free Text/Dictation Continues critical care. Pt remains unresponsive. Off dopamine gtt. Subjective hx not possible: pt non-verbal, pt critical Exam Vital Signs Vitals Vital Signs Date Temp Pulse Resp B/P (MAP) Pulse Ox O2 O2 Flow FiO2 Time Delivery Rate 10/12/18 45 18 100 30 09:41 10/12/18 134/69 Mechanical 06:00 (90) Ventilator 10/12/18 96.7 04:00 Intake and Output 10/11/18 10/11/18 10/12/18 1515:00 23:00 07:00 IntakeIntake Total 1104.122 ml 1089.805 ml 601.4 ml OutputOutput Total 405 ml 370 ml 390 ml BalanceBalance 699.122 ml 719.805 ml 211.4 ml Exam PE: Gen Appearance: No Apparent Distress HEENT: trached Cardiovascular: Regular rate Abdomen: Soft; PEG Extremities: Dry NE: The patient was comatose. Cranial nerve examination was limited by mental status. Pupils were pinpoint. There was no afferent pupillary defect. Funduscopic examination was limited. Face was grossly symmetric, w/ present corneal and cough reflexes. Tone was increased in the upper extremities. Muscle bulk was normal. I did not see fasciculations. The patient did not withdraw extremities to noxious stimuli. Coordination and gait testing was limited by mental status. Arm and leg reflexes were symmetric. Nicholson's sign was absent. Plantar responses were mute. ANTONY SOLORZANO NP October 12, 2018 09:44 AZALIA ENRIQUE October 13, 2018 07:35
--- NOTE | 2018-10-12 09:50 | CONS ---
Consult Date/Type/Reason Admit Date/Time September 28, 2018 at 15:36 Initial Consult Date 09/28/18 Type of Consult Pulmonary Requesting Provider: ROSSANA MCKEON MD Date/Time of Note DATE: 10/12/18 TIME: 09:48 Subjective Remains unresponsive on mechanical ventilation. No gag and pupil is unreactive. Objective Vital Signs Date Temp Pulse Resp B/P (MAP) Pulse Ox O2 O2 Flow FiO2 Time Delivery Rate 10/12/18 45 18 100 30 09:41 10/12/18 134/69 Mechanical 06:00 (90) Ventilator 10/12/18 96.7 04:00 Intake and Output 10/11/18 10/11/18 10/12/18 1515:00 23:00 07:00 IntakeIntake Total 1104.122 ml 1089.805 ml 601.4 ml OutputOutput Total 405 ml 370 ml 390 ml BalanceBalance 699.122 ml 719.805 ml 211.4 ml Exam GENERAL: Frail elderly gentleman on mechanical ventilation via tracheostomy VITAL SIGNS: per chart NECK: Supple. No JVD or lymphadenopathy. CARDIAC EXAM: S1, S2. No added sounds or murmurs. CHEST: Diminished air entry bilaterally ABDOMEN: Soft, nontender. No guarding or rebound. EXTREMITIES: No cyanosis, clubbing edema +2 NEUROLOGIC: Unable to assess no gag pupils fixed and dilated Vent Setting Ventilator Support Mode: AC Fraction of Inspired Oxygen pe: 30 Positive End Expiratory Pressu: 5.0 Results/Medications Result Diagram: 10/12/18 0400 10/12/18 0400 Results 24 hrs Laboratory Tests Test 10/12/18 04:00 White Blood Count 8.4 Red Blood Count 2.57 L Hemoglobin 7.1 L Hematocrit 22.0 L Mean Corpuscular Volume 85.6 Mean Corpuscular Hemoglobin 27.6 L Mean Corpuscular Hemoglobin Concent 32.3 Red Cell Distribution Width 21.6 H Platelet Count 203 Mean Platelet Volume 10.6 H Immature Granulocytes % 0.700 H Neutrophils % 72.4 Lymphocytes % 15.1 Monocytes % 9.4 Eosinophils % 2.0 Basophils % 0.4 Nucleated Red Blood Cells % 0.0 Immature Granulocytes # 0.060 H Neutrophils # 6.1 Lymphocytes # 1.3 Monocytes # 0.8 Eosinophils # 0.2 Basophils # 0.0 Nucleated Red Blood Cells # 0.0 Sodium Level 138 Potassium Level 4.6 Chloride Level 113 H Carbon Dioxide Level 19 L Anion Gap 6 Blood Urea Nitrogen 43 H Creatinine 1.32 H Est Glomerular Filtrat Rate mL/min > 60 Glucose Level 86 Calcium Level 10.9 H Phosphorus Level 4.6 Magnesium Level 1.5 L Medications Current Medications IV Flush (NS 3 ml) 3 ml PER PROTOCOL IV ; Start 09/28/18 at 17:30 Ondansetron HCl (Zofran Inj) 4 mg Q6H PRN IV NAUSEA/VOMITING; Start 09/28/18 at 17:30 Norepinephrine 250 ml @ 1.875 mls/ hr TITRATE IV Last administered on 10/03/18 06:40; Admin Dose 1.875 MLS/HR; Start 09/28/18 at 19:30 Levetiracetam 100 ml @ 400 mls/hr Q12 IVPB Last administered on 10/12/18 09:07; Admin Dose 400 MLS/HR; Start 09/29/18 at 10:00 Lorazepam (Ativan) 1 mg Q10MIN PRN IV SEIZURES Last administered on 09/29/18 10:52; Admin Dose 1 MG; Start 09/29/18 at 10:00 Zinc Sulfate (Zinc Sulfate) 220 mg DAILY GTB Last administered on 10/12/18 09:03; Admin Dose 220 MG; Start 09/30/18 at 09:00 Multivitamins (Multivitamin) 30 ml DAILY GTB Last administered on 10/12/18 09 :02; Admin Dose 30 ML; Start 09/30/18 at 09:00 Ascorbic Acid (Vitamin C) 500 mg DAILY GTB Last administered on 10/12/18 09:02; Admin Dose 500 MG; Start 09/30/18 at 09:00 Aspirin (Aspirin) 81 mg DAILY PO Last administered on 10/12/18 09:03; Admin Dose 81 MG; Start 09/30/18 at 09:00 Sodium Hypochlorite (Dakins Diluted ()) 1 applic BID TP Last administered on 10/12/18 09:08; Admin Dose 1 APPLIC; Start 09/30/18 at 09:00 Heparin Sodium (Porcine) (Heparin (5000 Units/1ml)) 5,000 unit BID SC Last administered on 10/12/18 09:05; Admin Dose 5,000 UNIT; Start 10/01/18 at 09:00 Dopamine HCl/ Dextrose 250 ml @ 4.403 mls/ hr TITRATE IV Last administered on 10/12/18 02:34; Admin Dose 4.403 MLS/HR; Start 10/01/18 at 03:00 Mupirocin (Bactroban) 1 applic BID TOP Last administered on 10/12/18 09:08; Admin Dose 1 APPLIC; Start 10/01/18 at 21:00 Doxycycline Hyclate 100 mg/ Sodium Chloride 250 ml @ 250 mls/hr Q12 IVPB Last administered on 10/12/18 09:07; Admin Dose 250 MLS/HR; Start 10/04/18 at 21:00 Fluconazole (Diflucan) 100 mg DAILY PO Last administered on 10/12/18 09:03; Admin Dose 100 MG; Start 10/04/18 at 15:00 Quetiapine Fumarate (Seroquel) 25 mg AM PO Last administered on 10/12/18 09:02; Admin Dose 25 MG; Start 10/08/18 at 09:00 Quetiapine Fumarate (Seroquel) 50 mg HS PO Last administered on 10/11/18 20:14; Admin Dose 50 MG; Start 10/07/18 at 21:00 Famotidine (Pepcid) 20 mg DAILY GTB Last administered on 10/12/18 09:02; Admin Dose 20 MG; Start 10/08/18 at 09:00 Colistimethate Sodium 75 mg/ Sodium Chloride 100 ml @ 200 mls/hr Q12 IVPB Last administered on 10/12/18 09:07; Admin Dose 200 MLS/HR; Start 10/07/18 at 21:00 Midodrine (Proamatine) 10 mg Q6 GTB Last administered on 10/12/18 05:24; Admin Dose 10 MG; Start 10/11/18 at 18:00 Magnesium Sulfate 50 ml @ 25 mls/hr ONCE ONCE IVPB Last administered on 10/12/18 09:03; Admin Dose 25 MLS/HR; Start 10/12/18 at 08:00; Stop 10/12/18 at 09:59 Assessment/Plan Hospital Course (Demo Recall) IMPRESSION: 1. Cardiopulmonary arrest. 2. Probable significant anoxic brain injury. Questionable brain . 3. Status post septic shock, staph bacteremia noted. 4. History of dysphagia. 5. Acute renal failure probable ATN injury 6. Significant bradycardia requiring chronotropic support currently off dopamine 7. Significant decubitus ulcer 8. Significant anemia but no active bleeding noted. PLAN: 1. Continue neurology recommendations supportive care, case was discussed we will repeat EEG and apnea testing 2. Continue vasopressor as needed. Cardiology recommendations 3. Continue mechanical ventilation unable to wean 4. DVT and GI prophylaxis. 5. Continue IV fluids, continue tube feeding as tolerated 6. Continue wound care Critical care time 40 minutes. LES CONDE MD, [facility] October 12, 2018 09:50
--- NOTE | 2018-10-12 12:57 | CONS ---
Assessment/Plan Assessment/Plan Assessment/Plan (Daily) S/P cardiac arrest respiratory failure encephalopathy renal insufficiency chronic dementia multiple CVA's by histrory malnutrition debility Anoxic encephalopathy There has been been an acute change in his neurological condition pupils are fixed dilated he has no gag reflex. Apnea test and EEG to be repeated today. If patient is brain family members will be contacted Consultation Date/Type/Reason Admit Date/Time September 28, 2018 at 15:36 Initial Consult Date 09/28/18 Requesting Provider: ROSSANA MCKEON MD Date/Time of Note DATE: 10/12/18 TIME: 12:56 Exam/Review of Systems Exam Vitals Vital Signs Date Temp Pulse Resp B/P (MAP) Pulse Ox O2 O2 Flow FiO2 Time Delivery Rate 10/12/18 30 12:21 10/12/18 41 18 100 11:22 10/12/18 97/54 (68) Mechanical 10:30 Ventilator 10/12/18 96.0 08:00 Intake and Output 10/11/18 10/11/18 10/12/18 1515:00 23:00 07:00 IntakeIntake Total 1104.122 ml 1089.805 ml 646.4 ml OutputOutput Total 405 ml 370 ml 430 ml BalanceBalance 699.122 ml 719.805 ml 216.4 ml Results Result Diagram: 10/12/18 0400 10/12/18 0400 Results 24hrs Laboratory Tests Test 10/12/18 04:00 10/12/18 11:30 White Blood Count 8.4 Red Blood Count 2.57 L Hemoglobin 7.1 L Hematocrit 22.0 L Mean Corpuscular Volume 85.6 Mean Corpuscular Hemoglobin 27.6 L Mean Corpuscular Hemoglobin Concent 32.3 Red Cell Distribution Width 21.6 H Platelet Count 203 Mean Platelet Volume 10.6 H Immature Granulocytes % 0.700 H Neutrophils % 72.4 Lymphocytes % 15.1 Monocytes % 9.4 Eosinophils % 2.0 Basophils % 0.4 Nucleated Red Blood Cells % 0.0 Immature Granulocytes # 0.060 H Neutrophils # 6.1 Lymphocytes # 1.3 Monocytes # 0.8 Eosinophils # 0.2 Basophils # 0.0 Nucleated Red Blood Cells # 0.0 Sodium Level 138 Potassium Level 4.6 Chloride Level 113 H Carbon Dioxide Level 19 L Anion Gap 6 Blood Urea Nitrogen 43 H Creatinine 1.32 H Est Glomerular Filtrat Rate mL/min > 60 Glucose Level 86 Calcium Level 10.9 H Phosphorus Level 4.6 Magnesium Level 1.5 L Blood Gas Specimen Source Blood arterial Arterial Blood Date Drawn 10/12/2018 11:50:25 AM Arterial Blood pH (Temp corrected) 7.419 Arterial Blood pCO2 (Temp correct) 29.7 L Arterial Blood pO2 (Temp corrected) 88.7 Arterial Blood HCO3 18.8 L Arterial Blood Base Excess -5.2 L Arterial Blood Oxygen Saturation 96.4 Amadeo Test ACCEPTAB Arterial Blood Gas Puncture Site Left Radial Arterial Blood Carboxyhemoglobin 0.3 Arterial Blood Methemoglobin 0.7 Blood Gas A-a O2 Differential 90.3 H Oxyhemoglobin Percent 95.4 Blood Gas Temperature 37.0 Blood Gas Respiration Rate 18.0 Blood Gas Actual Respiration Rate 18 Blood Gas Modality VENT - AC FiO2 30.0 Blood Gas Tidal Volume 500.0 Blood Gas High PEEP Setting 5.0 Blood Gas Notified Whom T [facility] Blood Gas Notified Time 10/12/2018 12:02:55 PM Medications Medication Current Medications IV Flush (NS 3 ml) 3 ml PER PROTOCOL IV ; Start 09/28/18 at 17:30 Ondansetron HCl (Zofran Inj) 4 mg Q6H PRN IV NAUSEA/VOMITING; Start 09/28/18 at 17:30 Norepinephrine 250 ml @ 1.875 mls/ hr TITRATE IV Last administered on 10/03/18 06:40; Admin Dose 1.875 MLS/HR; Start 09/28/18 at 19:30 Levetiracetam 100 ml @ 400 mls/hr Q12 IVPB Last administered on 10/12/18 09:07; Admin Dose 400 MLS/HR; Start 09/29/18 at 10:00 Lorazepam (Ativan) 1 mg Q10MIN PRN IV SEIZURES Last administered on 09/29/18 10:52; Admin Dose 1 MG; Start 09/29/18 at 10:00 Zinc Sulfate (Zinc Sulfate) 220 mg DAILY GTB Last administered on 10/12/18 09:03; Admin Dose 220 MG; Start 09/30/18 at 09:00 Multivitamins (Multivitamin) 30 ml DAILY GTB Last administered on 10/12/18 09:02; Admin Dose 30 ML; Start 09/30/18 at 09:00 Ascorbic Acid (Vitamin C) 500 mg DAILY GTB Last administered on 10/12/18 09:02; Admin Dose 500 MG; Start 09/30/18 at 09:00 Aspirin (Aspirin) 81 mg DAILY PO Last administered on 10/12/18 09:03; Admin Dose 81 MG; Start 09/30/18 at 09:00 Sodium Hypochlorite (Dakins Diluted (40)) 1 applic BID TP Last administered on 10/12/18 09:08; Admin Dose 1 APPLIC; Start 09/30/18 at 09:00 Heparin Sodium (Porcine) (Heparin (5000 Units/1ml)) 5,000 unit BID SC Last administered on 10/12/18 09:05; Admin Dose 5,000 UNIT; Start 10/01/18 at 09:00 Dopamine HCl/ Dextrose 250 ml @ 4.403 mls/ hr TITRATE IV Last administered on 10/12/18 02:34; Admin Dose 4.403 MLS/HR; Start 10/01/18 at 03:00 Mupirocin (Bactroban) 1 applic BID TOP Last administered on 10/12/18 09:08; Admin Dose 1 APPLIC; Start 10/01/18 at 21:00 Doxycycline Hyclate 100 mg/ Sodium Chloride 250 ml @ 250 mls/hr Q12 IVPB Last administered on 10/12/18 09:07; Admin Dose 250 MLS/HR; Start 10/04/18 at 21:00 Fluconazole (Diflucan) 100 mg DAILY PO Last administered on 10/12/18 09:03; Admin Dose 100 MG; Start 10/04/18 at 15:00 Quetiapine Fumarate (Seroquel) 25 mg AM PO Last administered on 10/12/18 09:02; Admin Dose 25 MG; Start 10/08/18 at 09:00 Quetiapine Fumarate (Seroquel) 50 mg HS PO Last administered on 10/11/18 20:14; Admin Dose 50 MG; Start 10/07/18 at 21:00 Famotidine (Pepcid) 20 mg DAILY GTB Last administered on 10/12/18 09:02; Admin Dose 20 MG; Start 10/08/18 at 09:00 Colistimethate Sodium 75 mg/ Sodium Chloride 100 ml @ 200 mls/hr Q12 IVPB Last administered on 10/12/18at 09:07; Admin Dose 200 MLS/HR; Start 10/07/18 at 21:00 Midodrine (Proamatine) 10 mg Q6 GTB Last administered on 10/12/18at 05:24; Admin Dose 10 MG; Start 10/11/18 at 18:00 LUZ CUMMINS October 12, 2018 12:57
[2018-10-13] VITALS (92 sets, daily range): BP systolic 68–127; BP diastolic 40–72; PULSE 52–80; RESP 11–20
[2018-10-13] MEDS: MIDODRINE 5 MG TAB GTB SCH ×4 (00:41→18:41)
[2018-10-13] MEDS ORDERED: MAGNESIUM SULFATE 2 GM/50 ML 50 ML IVPB ONE ×2 (07:30→08:00)
--- NOTE | 2018-10-13 08:17 | PN ---
DATE: 10/13/2018 SUBJECTIVE: The patient remains critically ill on pressor support. No other events noted. OBJECTIVE: VITAL SIGNS: Blood pressure is 87/52, respirations 14, pulse 52, temperature 98.6. HEENT: Head is normocephalic. NECK: Supple. HEART: Regular rate. LUNGS: Show diminished breath sounds at the base. ABDOMEN: Soft, nontender to palpation without rebound or guarding. EXTREMITIES: Negative for clubbing, cyanosis. Positive edema. DERMATOLOGIC: No rashes. MUSCULOSKELETAL: No joint effusion. NEUROLOGIC: No change in exam. MEDICATIONS: Reviewed. LABORATORY DATA: Reviewed. ABG was reviewed. ASSESSMENT AND PLAN: 1. Nonoliguric acute kidney injury with previous baseline creatinine of 0.6 mg/dL. Etiology of acut e kidney injury is secondary to acute tubular necrosis. Renal function has been fluctuating. We milind l continue current treatment plan, supportive care, renally dose all medications. 2. Anemia. Monitor hemoglobin and hematocrit levels. 3. Mineral bone disorder, monitor calcium and phosphorus levels. The patient is hypocalcemic likely due to immobilization. Continue to monitor. 4. Hypomagnesemia. Continue to monitor and replete. 5. Septic shock, continue dopamine and midodrine. Continue antibiotic therapy. 6. Ventilator-dependent respiratory failure. Vent settings have been reviewed. Continue to monitor . 7. Cardiac arrest secondary to PA. Continue to monitor. 8. Dysphagia. Continue tube feeding. 9. Chronic encephalopathy. No change. 10. Dyslipidemia. Continue statin therapy. 11. History of gastritis. 12. Mixed acid base disorder. The patient has a metabolic and respiratory acidosis. Etiology is se condary to acute kidney injury, encephalopathy. We will continue to monitor. We would consider poss ible bicarbonate drip if acidemia worsens. Dictated By: DOT CONROY DO NR/NTS Conf#: [id number] DID#: [id number] CC: TRUPTI EDGAR MD; ROSSANA MCKEON MD; SARAH AVILA MD;*End*
[2018-10-13] MEDS: FAMOTIDINE 20 MG TAB GTB SCH (08:31)
[2018-10-13] MEDS: FLUCONAZOLE 100 MG TAB PO SCH (08:32)
[2018-10-13] MEDS: QUETIAPINE 25 MG TAB PO SCH ×2 (08:33→21:07)
[2018-10-13] MEDS: ASCORBIC ACID 500 MG TAB GTB SCH (08:36)
[2018-10-13] MEDS: ZINC SULFATE 220 MG CAP GTB SCH (08:37)
[2018-10-13] MEDS: MULTIVITAMINS 30 ML CUP GTB SCH (08:38)
[2018-10-13] MEDS: DOXYCYCLINE 100 MG in SOD CHLORIDE 0.9% 250 ML IVPB SCH ×2 (08:40→21:07)
[2018-10-13] MEDS: ASPIRIN 81 MG TAB PO SCH (08:42)
[2018-10-13] MEDS: LEVETIRACETAM 500 MG (PMX) 100 ML IVPB SCH ×2 (08:42→22:23)
[2018-10-13] MEDS: HEPARIN 5,000 UNIT/1 ML VIAL SC SCH ×2 (08:48→21:09)
[2018-10-13] MEDS: MUPIROCIN 2% 22 GM OINT TOP SCH ×2 (08:49→21:07)
[2018-10-13] MEDS: BALSAM PERU/CASTOR OIL 60 GM TUBE TOP SCH ×2 (08:49→21:07)
[2018-10-13] MEDS: DAKINS 0.0125%(1/40) 473 ML SOLUTION TP SCH ×2 (08:49→21:07)
--- NOTE | 2018-10-13 08:59 | CONS ---
Consult Date/Type/Reason Admit Date/Time September 28, 2018 at 15:36 Initial Consult Date 09/28/18 Type of Consult Pulmonary Requesting Provider: ROSSANA MCKEON MD Date/Time of Note DATE: 10/13/18 TIME: 08:58 Subjective Patient remains unresponsive this morning. No new events. Apnea test performed yesterday with a rise of PCO2 by 19 points. Pending cerebral perfusion study and EEG today. Objective Vital Signs Date Temp Pulse Resp B/P (MAP) Pulse Ox O2 O2 Flow FiO2 Time Delivery Rate 10/13/18 97.4 58 14 94/53 (67) 92 Mechanical 08:00 Ventilator 10/13/18 30 04:44 Intake and Output 10/12/18 10/12/18 10/13/18 1515:00 23:00 07:00 IntakeIntake Total 1040.6 ml 1130.692 ml 636.635 ml OutputOutput Total 420 ml 495 ml 495 ml BalanceBalance 620.6 ml 635.692 ml 141.635 ml Exam GENERAL: Frail elderly gentleman on mechanical ventilation via tracheostomy VITAL SIGNS: per chart NECK: Supple. No JVD or lymphadenopathy. CARDIAC EXAM: S1, S2. No added sounds or murmurs. CHEST: Diminished air entry bilaterally ABDOMEN: Soft, nontender. No guarding or rebound. EXTREMITIES: No cyanosis, clubbing edema +2 NEUROLOGIC: Unable to assess no gag pupils fixed and dilated Vent Setting Ventilator Support Mode: AC Fraction of Inspired Oxygen pe: 30 Positive End Expiratory Pressu: 5.0 Results/Medications Result Diagram: 10/12/18 0400 10/13/18 0442 Results 24 hrs Laboratory Tests Test 10/12/18 11:30 10/12/18 13:30 10/12/18 14:00 10/13/18 04:42 Blood Gas Blood arterial Blood arterial Blood Specimen arterial Source Arterial Blood 10/12/2018 11:50 10/12/2018 1:45: 10/12/2018 2:25 Date Drawn :25 AM 47 PM :54 PM Arterial Blood 7.419 7.293 *L 7.140 *L pH (Temp corrected ) Arterial Blood 29.7 L 39.1 59.0 H pCO2 (Temp correct) Arterial Blood 88.7 115.8 H 390.7 H pO2 (Temp corrected ) Arterial Blood 18.8 L 18.5 L 19.6 L HCO3 Arterial Blood -5.2 L -7.4 L -9.2 L Base Excess Arterial Blood 96.4 97.5 99.5 H Oxygen Saturati on Amadeo Test ACCEPTAB N/A N/A Arterial Blood Left Radial Right Brachial Right Gas Brachial Puncture Site Arterial 0.3 0.3 0.3 Blood Carboxyhe moglobin Arterial Blood 0.7 0.6 0.6 Methemoglobin Blood Gas A-a 90.3 H 52.2 H 263.3 H O2 Differential Oxyhemoglobin 95.4 96.6 98.6 Percent Blood Gas 37.0 37.0 37.0 Temperature Blood Gas 18.0 14.0 Respiration Rate Blood Gas 18 14 Actual Respiration Rat e Blood Gas VENT - AC VENT - AC NASAL CANNULA Modality FiO2 30.0 30.0 100.0 Blood Gas Tidal 500.0 450.0 Volume Blood Gas High 5.0 5.0 PEEP Setting Blood Gas T KASSAII OPERATING ENGINEER APPRENTICE T KASSAII OPERATING ENGINEER APPRENTICE T [facility] Notified Whom Blood Gas 10/12/2018 12:02 10/12/2018 1:54: 10/12/2018 2:35 Notified Time :55 PM 42 PM :21 PM Blood Gas Y ELINOR YU RN Critical Value Read Back Sodium Level 139 Potassium Level 4.7 Chloride Level 113 H Carbon Dioxide 19 L Level Anion Gap 7 Blood Urea 41 H Nitrogen Creatinine 1.30 H Est Glomerular > 60 Filtrat Rate mL/min Glucose Level 105 Calcium Level 10.9 H Phosphorus 5.7 H Level Magnesium Level 1.6 L Medications Current Medications IV Flush (NS 3 ml) 3 ml PER PROTOCOL IV ; Start 09/28/18 at 17:30 Ondansetron HCl (Zofran Inj) 4 mg Q6H PRN IV NAUSEA/VOMITING; Start 09/28/18 at 17:30 Norepinephrine 250 ml @ 1.875 mls/ hr TITRATE IV Last administered on 10/03/18a t 06:40; Admin Dose 1.875 MLS/HR; Start 09/28/18 at 19:30 Levetiracetam 100 ml @ 400 mls/hr Q12 IVPB Last administered on 10/13/18at 08:42; Admin Dose 400 MLS/HR; Start 09/29/18 at 10:00 Lorazepam (Ativan) 1 mg Q10MIN PRN IV SEIZURES Last administered on 09/29/18 10:52; Admin Dose 1 MG; Start 09/29/18 at 10:00 Zinc Sulfate (Zinc Sulfate) 220 mg DAILY GTB Last administered on 10/13/18 08:37; Admin Dose 220 MG; Start 09/30/18 at 09:00 Multivitamins (Multivitamin) 30 ml DAILY GTB Last administered on 10/13/18 08:38; Admin Dose 30 ML; Start 09/30/18 at 09:00 Ascorbic Acid (Vitamin C) 500 mg DAILY GTB Last administered on 10/13/18 08:36; Admin Dose 500 MG; Start 09/30/18 at 09:00 Aspirin (Aspirin) 81 mg DAILY PO Last administered on 10/13/18 08:42; Admin Dose 81 MG; Start 09/30/18 at 09:00 Sodium Hypochlorite (Dakins Diluted ()) 1 applic BID TP Last administered on 10/13/18 08:49; Admin Dose 1 APPLIC; Start 09/30/18 at 09:00 Heparin Sodium (Porcine) (Heparin (5000 Units/1ml)) 5,000 unit BID SC Last administered on 10/13/18 08:48; Admin Dose 5,000 UNIT; Start 10/01/18 at 09:00 Dopamine HCl/ Dextrose 250 ml @ 4.403 mls/ hr TITRATE IV Last administered on 10/12/18 02:34; Admin Dose 4.403 MLS/HR; Start 10/01/18 at 03:00 Mupirocin (Bactroban) 1 applic BID TOP Last administered on 10/13/18 08:49; Admin Dose 1 APPLIC; Start 10/01/18 at 21:00 Doxycycline Hyclate 100 mg/ Sodium Chloride 250 ml @ 250 mls/hr Q12 IVPB Last administered on 10/13/18 08:40; Admin Dose 250 MLS/HR; Start 10/04/18 at 21:00 Fluconazole (Diflucan) 100 mg DAILY PO Last administered on 10/13/18 08:32; Admin Dose 100 MG; Start 10/04/18 at 15:00 Quetiapine Fumarate (Seroquel) 25 mg AM PO Last administered on 10/13/18 08:33; Admin Dose 25 MG; Start 10/08/18 at 09:00 Quetiapine Fumarate (Seroquel) 50 mg HS PO Last administered on 10/12/18at 20:46; Admin Dose 50 MG; Start 10/07/18 at 21:00 Famotidine (Pepcid) 20 mg DAILY GTB Last administered on 10/13/18 08:31; Admin Dose 20 MG; Start 10/08/18 at 09:00 Colistimethate Sodium 75 mg/ Sodium Chloride 100 ml @ 200 mls/hr Q12 IVPB Last administered on 10/12/18at 20:45; Admin Dose 200 MLS/HR; Start 10/07/18 at 21:00 Midodrine (Proamatine) 10 mg Q6 GTB Last administered on 10/13/18at 05:48; Admin Dose 10 MG; Start 10/11/18 at 18:00 Magnesium Sulfate 50 ml @ 25 mls/hr ONCE ONCE IVPB Last administered on 10/13/18 07:01; Admin Dose 25 MLS/HR; Start 10/13/18 at 07:30; Stop 10/13/18 at 09:29 Assessment/Plan Hospital Course (Demo Recall) IMPRESSION: 1. Cardiopulmonary arrest. 2. Probable significant anoxic brain injury. Questionable brain . 3. Status post septic shock, staph bacteremia noted. 4. History of dysphagia. 5. Acute renal failure probable ATN injury 6. Significant bradycardia requiring chronotropic support currently off dopamine 7. Significant decubitus ulcer 8. Significant anemia but no active bleeding noted. PLAN: 1. Continue work-up for possible brain . 2. Continue vasopressor as needed. 3. Continue mechanical ventilation unable to wean 4. DVT and GI prophylaxis. 5. Continue IV fluids, continue tube feeding as tolerated 6. Continue wound care Critical care time 40 minutes. [facility] October 13, 2018 08:59
--- NOTE | 2018-10-13 10:08 | CONS ---
Assessment/Plan Assessment/Plan Assessment/Plan (Daily) S/P cardiac arrest respiratory failure encephalopathy renal insufficiency chronic dementia multiple CVA's by histrory malnutrition debility Anoxic encephalopathy There has been been an acute change in his neurological condition pupils are fixed dilated he has no gag reflex. Apnea test and EEG to be repeated today. If patient is brain family members will be contacted EEG not done yesterday we will order a cerebral flow study today prior to contacting family members Consultation Date/Type/Reason Admit Date/Time September 28, 2018 at 15:36 Initial Consult Date 09/28/18 Requesting Provider: ROSSANA MCKEON MD Date/Time of Note DATE: 10/13/18 TIME: 10:06 Exam/Review of Systems Exam Vitals Vital Signs Date Temp Pulse Resp B/P (MAP) Pulse Ox O2 O2 Flow FiO2 Time Delivery Rate 10/13/18 97.4 58 14 94/53 (67) 92 Mechanical 08:00 Ventilator 10/13/18 30 04:44 Intake and Output 10/12/18 10/12/18 10/13/18 1515:00 23:00 07:00 IntakeIntake Total 1040.6 ml 1130.692 ml 690.440 ml OutputOutput Total 420 ml 495 ml 545 ml BalanceBalance 620.6 ml 635.692 ml 145.440 ml Results Result Diagram: 10/12/18 0400 10/13/18 0442 Results 24hrs Laboratory Tests Test 10/12/18 11:30 10/12/18 13:30 10/12/18 14:00 10/13/18 04:42 Blood Gas Blood arterial Blood arterial Blood Specimen arterial Source Arterial Blood 10/12/2018 11:50 10/12/2018 1:45: 10/12/2018 2:25 Date Drawn :25 AM 47 PM :54 PM Arterial Blood 7.419 7.293 *L 7.140 *L pH (Temp corrected ) Arterial Blood 29.7 L 39.1 59.0 H pCO2 (Temp correct) Arterial Blood 88.7 115.8 H 390.7 H pO2 (Temp corrected ) Arterial Blood 18.8 L 18.5 L 19.6 L HCO3 Arterial Blood -5.2 L -7.4 L -9.2 L Base Excess Arterial Blood 96.4 97.5 99.5 H Oxygen Saturati on Amadeo Test ACCEPTAB N/A N/A Arterial Blood Left Radial Right Brachial Right Gas Brachial Puncture Site Arterial 0.3 0.3 0.3 Blood Carboxyhe moglobin Arterial Blood 0.7 0.6 0.6 Methemoglobin Blood Gas A-a 90.3 H 52.2 H 263.3 H O2 Differential Oxyhemoglobin 95.4 96.6 98.6 Percent Blood Gas 37.0 37.0 37.0 Temperature Blood Gas 18.0 14.0 Respiration Rate Blood Gas 18 14 Actual Respiration Rat e Blood Gas VENT - AC VENT - AC NASAL CANNULA Modality FiO2 30.0 30.0 100.0 Blood Gas Tidal 500.0 450.0 Volume Blood Gas High 5.0 5.0 PEEP Setting Blood Gas T KASSAII SET UP MECHANIC CROWN ASSEMBLY MACHINE T KASSAII SET UP MECHANIC CROWN ASSEMBLY MACHINE T [facility] Notified Whom Blood Gas 10/12/2018 12:02 10/12/2018 1:54: 10/12/2018 2:35 Notified Time :55 PM 42 PM :21 PM Blood Gas Y ELINOR YU RN Critical Value Read Back Sodium Level 139 Potassium Level 4.7 Chloride Level 113 H Carbon Dioxide 19 L Level Anion Gap 7 Blood Urea 41 H Nitrogen Creatinine 1.30 H Est Glomerular > 60 Filtrat Rate mL/min Glucose Level 105 Calcium Level 10.9 H Phosphorus 5.7 H Level Magnesium Level 1.6 L Medications Medication Current Medications IV Flush (NS 3 ml) 3 ml PER PROTOCOL IV ; Start 09/28/18 at 17:30 Ondansetron HCl (Zofran Inj) 4 mg Q6H PRN IV NAUSEA/VOMITING; Start 09/28/18 at 17:30 Norepinephrine 250 ml @ 1.875 mls/ hr TITRATE IV Last administered on 10/03/18at 06:40; Admin Dose 1.875 MLS/HR; Start 09/28/18 at 19:30 Levetiracetam 100 ml @ 400 mls/hr Q12 IVPB Last administered on 10/13/18at 08:42; Admin Dose 400 MLS/HR; Start 09/29/18 at 10:00 Lorazepam (Ativan) 1 mg Q10MIN PRN IV SEIZURES Last administered on 09/29/18at 10:52; Admin Dose 1 MG; Start 09/29/18 at 10:00 Zinc Sulfate (Zinc Sulfate) 220 mg DAILY GTB Last administered on 10/13/18 08:37; Admin Dose 220 MG; Start 09/30/18 at 09:00 Multivitamins (Multivitamin) 30 ml DAILY GTB Last administered on 10/13/18 08:38; Admin Dose 30 ML; Start 09/30/18 at 09:00 Ascorbic Acid (Vitamin C) 500 mg DAILY GTB Last administered on 10/13/18 08:36; Admin Dose 500 MG; Start 09/30/18 at 09:00 Aspirin (Aspirin) 81 mg DAILY PO Last administered on 10/13/18 08:42; Admin Dose 81 MG; Start 09/30/18 at 09:00 Sodium Hypochlorite (Dakins Diluted ()) 1 applic BID TP Last administered on 10/13/18 08:49; Admin Dose 1 APPLIC; Start 09/30/18 at 09:00 Heparin Sodium (Porcine) (Heparin (5000 Units/1ml)) 5,000 unit BID SC Last administered on 10/13/18 08:48; Admin Dose 5,000 UNIT; Start 10/01/18 at 09:00 Dopamine HCl/ Dextrose 250 ml @ 4.403 mls/ hr TITRATE IV Last administered on 10/12/18 02:34; Admin Dose 4.403 MLS/HR; Start 10/01/18 at 03:00 Mupirocin (Bactroban) 1 applic BID TOP Last administered on 10/13/18 08:49; Admin Dose 1 APPLIC; Start 10/01/18 at 21:00 Doxycycline Hyclate 100 mg/ Sodium Chloride 250 ml @ 250 mls/hr Q12 IVPB Last administered on 10/13/18 08:40; Admin Dose 250 MLS/HR; Start 10/04/18 at 21:00 Fluconazole (Diflucan) 100 mg DAILY PO Last administered on 10/13/18 08:32; Admin Dose 100 MG; Start 10/04/18 at 15:00 Quetiapine Fumarate (Seroquel) 25 mg AM PO Last administered on 10/13/18 08:33; Admin Dose 25 MG; Start 10/08/18 at 09:00 Quetiapine Fumarate (Seroquel) 50 mg HS PO Last administered on 10/12/18 20:46; Admin Dose 50 MG; Start 10/07/18 at 21:00 Famotidine (Pepcid) 20 mg DAILY GTB Last administered on 10/13/18at 08:31; Admin Dose 20 MG; Start 10/08/18 at 09:00 Colistimethate Sodium 75 mg/ Sodium Chloride 100 ml @ 200 mls/hr Q12 IVPB Last administered on 10/12/18at 20:45; Admin Dose 200 MLS/HR; Start 10/07/18 at 21:00 Midodrine (Proamatine) 10 mg Q6 GTB Last administered on 10/13/18at 05:48; Admin Dose 10 MG; Start 10/11/18 at 18:00 LUZ CUMMINS October 13, 2018 10:08
[2018-10-13] MEDS: COLISTIMETHATE 75 MG in SOD CHLORIDE 0.9% 100 ML IVPB SCH ×2 (10:30→21:06)
--- NOTE | 2018-10-13 11:57 | CONS ---
Assessment/Plan Assessment/Plan Hospital Course (Demo Recall) No acute events patient is noncommunicative in no distress afebrile Microbiology: Blood culture on admission grew staph, MRSA swab came back positive, stool for C. difficile negative, urine culture grew Acinetobacter, Klebsiella and Nancie albicans Indwelling's: Trach PEG right IJ triple lumen catheter Antimicrobials: Colistin, fluconazole, doxycycline Physical examination: This is a chronically ill-appearing elderly man who is noncommunicative and in no distress. Head atraumatic normocephalic neck is supple chest rise symmetrical breath sounds diminished bases. Heart: S1-S2. Ab domen soft bowel sounds hypoactive extremities without edema. Skin patient has unstageable sacral wound and pressure sores on his feet Assessment: 1. Shock, status post PEA cardiac arrest 2. Multidrug-resistant UTI 3. MRSA nares colonization 4. Staph bacteremia consistent with contaminant 5. Acute possibly on chronic kidney disease 6. Acute on chronic encephalopathy, poss brain 7. History of CVA Plan: Patient remains unchanged, continue present care, per neurology Consultation Date/Type/Reason Admit Date/Time September 28, 2018 at 15:36 Initial Consult Date 09/28/18 Type of Consult id Requesting Provider: ROSSANA MCKEON MD Date/Time of Note DATE: 10/13/18 TIME: 11:56 Exam/Review of Systems Exam Vitals Vital Signs Date Temp Pulse Resp B/P (MAP) Pulse Ox O2 O2 Flow FiO2 Time Delivery Rate 10/13/18 60 14 82/50 (61) 98 09:15 10/13/18 Mechanical 09:00 Ventilator 10/13/18 30 08:10 10/13/18 97.4 08:00 Intake and Output 10/12/18 10/12/18 10/13/18 1515:00 23:00 07:00 IntakeIntake Total 1040.6 ml 1130.692 ml 690.440 ml OutputOutput Total 420 ml 495 ml 545 ml BalanceBalance 620.6 ml 635.692 ml 145.440 ml Results Result Diagram: 10/12/18 0400 10/13/18 0442 Results 24hrs Laboratory Tests Test 10/12/18 13:30 10/12/18 14:00 10/13/18 04:42 Blood Gas Specimen Blood arterial Blood arterial Source Arterial Blood Date 10/12/2018 1:45:47 PM 10/12/2018 2:25:54 PM Drawn Arterial Blood pH 7.293 *L 7.140 *L (Temp corrected) Arterial Blood pCO2 39.1 59.0 H (Temp correct) Arterial Blood pO2 115.8 H 390.7 H (Temp corrected) Arterial Blood HCO3 18.5 L 19.6 L Arterial Blood Base -7.4 L -9.2 L Excess Arterial Blood 97.5 99.5 H Oxygen Saturation Amadeo Test N/A N/A Arterial Blood Gas Right Brachial Right Brachial Puncture Site Arterial 0.3 0.3 Blood Carboxyhemoglob in Arterial Blood 0.6 0.6 Methemoglobin Blood Gas A-a O2 52.2 H 263.3 H Differential Oxyhemoglobin Percent 96.6 98.6 Blood Gas Temperature 37.0 37.0 Blood Gas Respiration 14.0 Rate Blood Gas Actual 14 Respiration Rate Blood Gas Modality VENT - AC NASAL CANNULA FiO2 30.0 100.0 Blood Gas Tidal 450.0 Volume Blood Gas High PEEP 5.0 Setting Blood Gas Critical Celine YU RN Value Read Back Blood Gas Notified Danelle ANDREWS [employer]ino [employer] Whom Blood Gas Notified 10/12/2018 1:54:42 PM 10/12/2018 2:35:21 PM Time Sodium Level 139 Potassium Level 4.7 Chloride Level 113 H Carbon Dioxide Level 19 L Anion Gap 7 Blood Urea Nitrogen 41 H Creatinine 1.30 H Est Glomerular > 60 Filtrat Rate mL/min Glucose Level 105 Calcium Level 10.9 H Phosphorus Level 5.7 H Magnesium Level 1.6 L Medications Medication Current Medications IV Flush (NS 3 ml) 3 ml PER PROTOCOL IV ; Start 09/28/18 at 17:30 Ondansetron HCl (Zofran Inj) 4 mg Q6H PRN IV NAUSEA/VOMITING; Start 09/28/18 at 17:30 Norepinephrine 250 ml @ 1.875 mls/ hr TITRATE IV Last administered on 10/03/18at 06:40; Admin Dose 1.875 MLS/HR; Start 09/28/18 at 19:30 Levetiracetam 100 ml @ 400 mls/hr Q12 IVPB Last administered on 10/13/18at 08:42; Admin Dose 400 MLS/HR; Start 09/29/18 at 10:00 Lorazepam (Ativan) 1 mg Q10MIN PRN IV SEIZURES Last administered on 09/29/18 10:52; Admin Dose 1 MG; Start 09/29/18 at 10:00 Zinc Sulfate (Zinc Sulfate) 220 mg DAILY GTB Last administered on 10/13/18 08:37; Admin Dose 220 MG; Start 09/30/18 at 09:00 Multivitamins (Multivitamin) 30 ml DAILY GTB Last administered on 10/13/18 08:38; Admin Dose 30 ML; Start 09/30/18 at 09:00 Ascorbic Acid (Vitamin C) 500 mg DAILY GTB Last administered on 10/13/18 08:36; Admin Dose 500 MG; Start 09/30/18 at 09:00 Aspirin (Aspirin) 81 mg DAILY PO Last administered on 10/13/18 08:42; Admin Dose 81 MG; Start 09/30/18 at 09:00 Sodium Hypochlorite (Dakins Diluted ()) 1 applic BID TP Last administered o n 10/13/18 08:49; Admin Dose 1 APPLIC; Start 09/30/18 at 09:00 Heparin Sodium (Porcine) (Heparin (5000 Units/1ml)) 5,000 unit BID SC Last administered on 10/13/18 08:48; Admin Dose 5,000 UNIT; Start 10/01/18 at 09:00 Dopamine HCl/ Dextrose 250 ml @ 4.403 mls/ hr TITRATE IV Last administered on 10/12/18 02:34; Admin Dose 4.403 MLS/HR; Start 10/01/18 at 03:00 Mupirocin (Bactroban) 1 applic BID TOP Last administered on 10/13/18 08:49; Admin Dose 1 APPLIC; Start 10/01/18 at 21:00 Doxycycline Hyclate 100 mg/ Sodium Chloride 250 ml @ 250 mls/hr Q12 IVPB Last administered on 10/13/18 08:40; Admin Dose 250 MLS/HR; Start 10/04/18 at 21:00 Fluconazole (Diflucan) 100 mg DAILY PO Last administered on 10/13/18 08:32; Admin Dose 100 MG; Start 10/04/18 at 15:00 Quetiapine Fumarate (Seroquel) 25 mg AM PO Last administered on 10/13/18 08:33; Admin Dose 25 MG; Start 10/08/18 at 09:00 Quetiapine Fumarate (Seroquel) 50 mg HS PO Last administered on 10/12/18at 20:46; Admin Dose 50 MG; Start 10/07/18 at 21:00 Famotidine (Pepcid) 20 mg DAILY GTB Last administered on 10/13/18at 08:31; Admin Dose 20 MG; Start 10/08/18 at 09:00 Colistimethate Sodium 75 mg/ Sodium Chloride 100 ml @ 200 mls/hr Q12 IVPB Last administered on 10/13/18at 10:30; Admin Dose 200 MLS/HR; Start 10/07/18 at 21:00 Midodrine (Proamatine) 10 mg Q6 GTB Last administered on 10/13/18at 05:48; Admin Dose 10 MG; Start 10/11/18 at 18:00 MELANIA SHAH NP October 13, 2018 11:57
--- NOTE | 2018-10-13 12:31 | CONS ---
Assessment/Plan Assessment/Plan Hospital Course 63 yo M with extensive neurologic hx and multiple comorbidities who presents to the ICU following a cardiac arrest. TTM was deferred d/t pt's poor neurologic status at baseline. He was noted to have face and arm twitching, for which neurology is consulted. The clinical picture was consistent with seizures in the context of hypoxic ischemic cerebral injury....now resolved. CTH is without obvious acute intracranial pathology. EEG was without epileptiform activity, though diffusely slow. His prognosis for meaningful neurologic recovery is poor. P: OK to cont Keppra as scheduled. Ativan IV PRN seizure >5 min or for cluster ASA for secondary stroke prevention Will follow clinically Consultation Date/Type/Reason Admit Date/Time September 28, 2018 at 15:36 Type of Consult Neurology Reason for Consultation eval for seizures Requesting Provider: ROSSANA MCKEON MD Date/Time of Note DATE: 10/13/18 TIME: 12:31 24 HR Interval Summary Free Text/Dictation Continues critical care. Remains on dopamine gtt. Subjective hx not possible: pt non-verbal, pt critical Exam Vital Signs Vitals Vital Signs Date Temp Pulse Resp B/P (MAP) Pulse Ox O2 O2 Flow FiO2 Time Delivery Rate 10/13/18 60 14 82/50 (61) 98 09:15 10/13/18 Mechanical 09:00 Ventilator 10/13/18 30 08:10 10/13/18 97.4 08:00 Intake and Output 10/12/18 10/12/18 10/13/18 1515:00 23:00 07:00 IntakeIntake Total 1040.6 ml 1130.692 ml 690.440 ml OutputOutput Total 420 ml 495 ml 545 ml BalanceBalance 620.6 ml 635.692 ml 145.440 ml Exam PE: Gen Appearance: No Apparent Distress HEENT: trached Cardiovascular: Regular rate Abdomen: Soft; PEG Extremities: Dry NE: The patient was comatose. Cranial nerve examination was limited by mental status. Pupils were pinpoint. There was no afferent pupillary defect. Funduscopic examination was limited. Face was grossly symmetric, w/ present corneal and cough reflexes. Tone was increased in the upper extremities. Muscle bulk was normal. I did not see fasciculations. The patient did not withdraw extremities to noxious stimuli. Coordination and gait testing was limited by mental status. Arm and leg reflexes were symmetric. Nicholson's sign was absent. Plantar responses were mute. ANTONY SOLORZANO NP October 13, 2018 12:31
[2018-10-13] MEDS: DOPamine-D5W 1.6 MG/ML 250 ML IV SCH (14:28)
--- NOTE | 2018-10-13 17:25 | PN ---
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 Found to have brain - Management per DR Flores, likely terminal extubation - Continue mechanical venitlation for now Result Diagram: 10/12/18 0400 10/13/18 0442 Results 24hrs Laboratory Tests Test 10/13/18 04:42 Sodium Level 139 Potassium Level 4.7 Chloride Level 113 H Carbon Dioxide Level 19 L Anion Gap 7 Blood Urea Nitrogen 41 H Creatinine 1.30 H Est Glomerular Filtrat Rate mL/min > 60 Glucose Level 105 Calcium Level 10.9 H Phosphorus Level 5.7 H Magnesium Level 1.6 L Subjective 24 Hr Interval Summary Free Text/Dictation No evidence of brain blood flow Apnea test positive Exam/Review of Systems Exam Vitals Vital Signs Date Temp Pulse Resp B/P (MAP) Pulse Ox O2 O2 Flow FiO2 Time Delivery Rate 10/13/18 55 15 90/47 (61) 99 16:15 10/13/18 30 16:00 10/13/18 Mechanical 16:00 Ventilator 10/13/18 97.4 08:00 Intake and Output 10/12/18 10/12/18 10/13/18 1515:00 23:00 07:00 IntakeIntake Total 1040.6 ml 1130.692 ml 690.440 ml OutputOutput Total 420 ml 495 ml 545 ml BalanceBalance 620.6 ml 635.692 ml 145.440 ml Results Results 24hrs Laboratory Tests Test 10/13/18 04:42 Sodium Level 139 Potassium Level 4.7 Chloride Level 113 H Carbon Dioxide Level 19 L Anion Gap 7 Blood Urea Nitrogen 41 H Creatinine 1.30 H Est Glomerular Filtrat Rate mL/min > 60 Glucose Level 105 Calcium Level 10.9 H Phosphorus Level 5.7 H Magnesium Level 1.6 L Medications Medication Current Medications IV Flush (NS 3 ml) 3 ml PER PROTOCOL IV ; Start 09/28/18 at 17:30 Ondansetron HCl (Zofran Inj) 4 mg Q6H PRN IV NAUSEA/VOMITING; Start 09/28/18 at 17:30 Norepinephrine 250 ml @ 1.875 mls/ hr TITRATE IV Last administered on 10/03/18 06:40; Admin Dose 1.875 MLS/HR; Start 09/28/18 at 19:30 Levetiracetam 100 ml @ 400 mls/hr Q12 IVPB Last administered on 10/13/18 08:42; Admin Dose 400 MLS/HR; Start 09/29/18 at 10:00 Lorazepam (Ativan) 1 mg Q10MIN PRN IV SEIZURES Last administered on 09/29/18 10:52; Admin Dose 1 MG; Start 09/29/18 at 10:00 Zinc Sulfate (Zinc Sulfate) 220 mg DAILY GTB Last administered on 10/13/18 08:37; Admin Dose 220 MG; Start 09/30/18 at 09:00 Multivitamins (Multivitamin) 30 ml DAILY GTB Last administered on 10/13/18 08:38; Admin Dose 30 ML; Start 09/30/18 at 09:00 Ascorbic Acid (Vitamin C) 500 mg DAILY GTB Last administered on 10/13/18 08:36; Admin Dose 500 MG; Start 09/30/18 at 09:00 Aspirin (Aspirin) 81 mg DAILY PO Last administered on 10/13/18 08:42; Admin Dose 81 MG; Start 09/30/18 at 09:00 Sodium Hypochlorite (Dakins Diluted ()) 1 applic BID TP Last administered on 10/13/18 08:49; Admin Dose 1 APPLIC; Start 09/30/18 at 09:00 Heparin Sodium (Porcine) (Heparin (5000 Units/1ml)) 5,000 unit BID SC Last administered on 10/13/18 08:48; Admin Dose 5,000 UNIT; Start 10/01/18 at 09:00 Dopamine HCl/ Dextrose 250 ml @ 4.403 mls/ hr TITRATE IV Last administered on 10/13/18 14:28; Admin Dose 13.208 MLS/HR; Start 10/01/18 at 03:00 Mupirocin (Bactroban) 1 applic BID TOP Last administered on 10/13/18 08:49; Admin Dose 1 APPLIC; Start 10/01/18 at 21:00 Doxycycline Hyclate 100 mg/ Sodium Chloride 250 ml @ 250 mls/hr Q12 IVPB Last administered on 10/13/18 08:40; Admin Dose 250 MLS/HR; Start 10/04/18 at 21:00 Fluconazole (Diflucan) 100 mg DAILY PO Last administered on 10/13/18 08:32; Admin Dose 100 MG; Start 10/04/18 at 15:00 Quetiapine Fumarate (Seroquel) 25 mg AM PO Last administered on 10/13/18 08:33; Admin Dose 25 MG; Start 10/08/18 at 09:00 Quetiapine Fumarate (Seroquel) 50 mg HS PO Last administered on 10/12/18 20:46; Admin Dose 50 MG; Start 10/07/18 at 21:00 Famotidine (Pepcid) 20 mg DAILY GTB Last administered on 10/13/18 08:31; Admin Dose 20 MG; Start 10/08/18 at 09:00 Colistimethate Sodium 75 mg/ Sodium Chloride 100 ml @ 200 mls/hr Q12 IVPB Last administered on 10/13/18 10:30; Admin Dose 200 MLS/HR; Start 10/07/18 at 21:00 Midodrine (Proamatine) 10 mg Q6 GTB Last administered on 10/13/18 11:56; Admin Dose 10 MG; Start 10/11/18 at 18:00 SARAH AVILA MD October 13, 2018 17:25
[2018-10-14] VITALS (60 sets, daily range): BP systolic 53–119; BP diastolic 35–71; PULSE 0–112; RESP 13–17
--- NOTE | 2018-10-14 05:40 | EEG ---
EEG NOTE Report Details DATE OF TEST: 10/13/18 HISTORY: The patient is a 63-year-old M who presents in coma s/p cardiac arrest. This EEG is requested to evaluate for electrocerebral inactivity. SEDATION: None. CONDITIONS OF RECORDING: This EEG was recorded digitally on the [employer] machine, using the International 10-20 System of electrodes plus anterior temporals and [place]. STATES SAMPLED: Comatose. FINDINGS: At highest sensitivities, there is episodic high frequency activity in the right temporal region, which may be artifactual. IMPRESSION: Inconclusive electroencephalogram due to: episodic high frequency activity in the right temporal region, which may be artifactual. AZALIA ENRIQUE October 14, 2018 05:40
[2018-10-14] MEDS: DOPamine-D5W 1.6 MG/ML 250 ML IV SCH (05:46)
[2018-10-14] MEDS: MIDODRINE 5 MG TAB GTB SCH ×2 (05:49)
--- NOTE | 2018-10-14 08:58 | PN ---
DATE: 10/14/2018 SUBJECTIVE: The patient remains critically ill. The patient is pending possible terminal extubation today. No other events noted. OBJECTIVE: VITAL SIGNS: Blood pressure is 83/48, respirations 14, pulse 96, temperature 98.6. HEENT: Head is normocephalic. NECK: Supple. HEART: Regular rate. LUNGS: Show diminished breath sounds at the base. ABDOMEN: Soft, nontender to palpation without rebound or guarding. EXTREMITIES: Negative for clubbing, cyanosis. Positive edema. DERMATOLOGIC: No rashes. MUSCULOSKELETAL: No joint effusion. NEUROLOGIC: No change in exam. MEDICATIONS: Reviewed. LABORATORY DATA: Reviewed. ASSESSMENT AND PLAN: 1. Nonoliguric acute kidney injury with previous baseline creatinine of 0.6 mg/dL. Etiology of acut e kidney injury is secondary to acute tubular necrosis. The patient's renal function is fluctuating. Continue to monitor. 2. Anemia. Monitor hemoglobin and hematocrit levels. 3. Mineral bone disorder. The patient is hypercalcemic likely due to immobilization. Continue to m onitor. 4. Hyperkalemia secondary to acute kidney injury. Continue to monitor. 5. Hypomagnesemia. Continue to monitor. 6. Septic shock. The patient is on pressor support, IV antibiotics. We will continue. 7. Ventilator-dependent respiratory failure. Vent settings have been reviewed. 8. Cardiac arrest secondary to PEA, continue to monitor. 9. Dysphagia. The patient is on tube feedings. 10. Chronic encephalopathy with possible anoxic injury. Continue to monitor. Follow up with neurol finn. 11. Mixed acid base disorder. 12. Gastritis. The patient has poor prognosis pending possible terminal extubation. Dictated By: DOT CONROY DO NR/NTS Conf#: [id number] DID#: [id number] CC: TRUPTI EDGAR MD; ROSSANA MCKEON MD; SARAH AVILA MD;*End*
[2018-10-14] MEDS: ASPIRIN 81 MG TAB PO SCH (09:11)
[2018-10-14] MEDS: MULTIVITAMINS 30 ML CUP GTB SCH (09:11)
[2018-10-14] MEDS: ZINC SULFATE 220 MG CAP GTB SCH (09:11)
[2018-10-14] MEDS: LEVETIRACETAM 500 MG (PMX) 100 ML IVPB SCH (09:12)
[2018-10-14] MEDS: ASCORBIC ACID 500 MG TAB GTB SCH (09:12)
[2018-10-14] MEDS: DOXYCYCLINE 100 MG in SOD CHLORIDE 0.9% 250 ML IVPB SCH (09:12)
[2018-10-14] MEDS: FLUCONAZOLE 100 MG TAB PO SCH (09:12)
[2018-10-14] MEDS: QUETIAPINE 25 MG TAB PO SCH (09:12)
[2018-10-14] MEDS: FAMOTIDINE 20 MG TAB GTB SCH (09:12)
--- NOTE | 2018-10-14 09:12 | CONS ---
Consult Date/Type/Reason Admit Date/Time September 28, 2018 at 15:36 Initial Consult Date 09/28/18 Type of Consult Pulmonary Requesting Provider: ROSSANA MCKEON MD Date/Time of Note DATE: 10/14/18 TIME: 09:11 Subjective Work-up for brain noted. Apnea test and cerebral perfusion scan consistent with brain . Objective Vital Signs Date Temp Pulse Resp B/P (MAP) Pulse Ox O2 O2 Flow FiO2 Time Delivery Rate 10/14/18 98 14 91/52 (65) 100 08:30 10/14/18 99.2 Mechanical 08:00 Ventilator 10/14/18 30 05:45 Intake and Output 10/13/18 10/13/18 10/14/18 1414:59 22:59 06:59 IntakeIntake Total 965.010 ml 1057.9 ml 887.2 ml OutputOutput Total 370 ml 270 ml BalanceBalance 595.010 ml 787.9 ml 887.2 ml Exam GENERAL: Frail elderly gentleman on mechanical ventilation via tracheostomy VITAL SIGNS: per chart NECK: Supple. No JVD or lymphadenopathy. Pupils fixed and dilated CARDIAC EXAM: S1, S2. No added sounds or murmurs. CHEST: Diminished air entry bilaterally ABDOMEN: Soft, nontender. No guarding or rebound. EXTREMITIES: No cyanosis, clubbing edema +2 NEUROLOGIC: Unable to assess no gag pupils fixed and dilated Vent Setting Ventilator Support Mode: AC Fraction of Inspired Oxygen pe: 30 Positive End Expiratory Pressu: 5.0 Results/Medications Result Diagram: 10/14/18 0513 10/14/18 0513 Results 24 hrs Laboratory Tests Test 10/14/18 05:13 White Blood Count 7.1 Red Blood Count 2.70 L Hemoglobin 7.3 L Hematocrit 23.8 L Mean Corpuscular Volume 88.1 Mean Corpuscular Hemoglobin 27.0 L Mean Corpuscular Hemoglobin Concent 30.7 L Red Cell Distribution Width 21.7 H Platelet Count 207 Mean Platelet Volume 9.9 Immature Granulocytes % 0.900 H Neutrophils % 74.5 Lymphocytes % 16.2 Monocytes % 6.5 Eosinophils % 1.6 Basophils % 0.3 Nucleated Red Blood Cells % 0.0 Immature Granulocytes # 0.060 H Neutrophils # 5.3 Lymphocytes # 1.1 Monocytes # 0.5 Eosinophils # 0.1 Basophils # 0.0 Nucleated Red Blood Cells # 0.0 Sodium Level 139 Potassium Level 5.3 H Chloride Level 114 H Carbon Dioxide Level 21 Anion Gap 4 L Blood Urea Nitrogen 42 H Creatinine 1.48 H Est Glomerular Filtrat Rate mL/min 58 L Glucose Level 86 Calcium Level 11.1 H Phosphorus Level 5.7 H Magnesium Level 1.9 Medications Current Medications IV Flush (NS 3 ml) 3 ml PER PROTOCOL IV ; Start 09/28/18 at 17:30 Ondansetron HCl (Zofran Inj) 4 mg Q6H PRN IV NAUSEA/VOMITING; Start 09/28/18 at 17:30 Norepinephrine 250 ml @ 1.875 mls/ hr TITRATE IV Last administered on 10/03/18 06:40; Admin Dose 1.875 MLS/HR; Start 09/28/18 at 19:30 Levetiracetam 100 ml @ 400 mls/hr Q12 IVPB Last administered on 10/13/18 22:23; Admin Dose 400 MLS/HR; Start 09/29/18 at 10:00 Lorazepam (Ativan) 1 mg Q10MIN PRN IV SEIZURES Last administered on 09/29/18 10:52; Admin Dose 1 MG; Start 09/29/18 at 10:00 Zinc Sulfate (Zinc Sulfate) 220 mg DAILY GTB Last administered on 10/13/18 08:37; Admin Dose 220 MG; Start 09/30/18 at 09:00 Multivitamins (Multivitamin) 30 ml DAILY GTB Last administered on 10/13/18 08:38; Admin Dose 30 ML; Start 09/30/18 at 09:00 Ascorbic Acid (Vitamin C) 500 mg DAILY GTB Last administered on 10/13/18 08:36; Admin Dose 500 MG; Start 09/30/18 at 09:00 Aspirin (Aspirin) 81 mg DAILY PO Last administered on 10/13/18 08:42; Admin Dose 81 MG; Start 09/30/18 at 09:00 Sodium Hypochlorite (Dakins Diluted ()) 1 applic BID TP Last administered on 10/13/18 21:07; Admin Dose 1 APPLIC; Start 09/30/18 at 09:00 Heparin Sodium (Porcine) (Heparin (5000 Units/1ml)) 5,000 unit BID SC Last administered on 10/13/18 21:09; Admin Dose 5,000 UNIT; Start 10/01/18 at 09:00 Dopamine HCl/ Dextrose 250 ml @ 4.403 mls/ hr TITRATE IV Last administered on 10/14/18 05:46; Admin Dose 26.415 MLS/HR; Start 10/01/18 at 03:00 Mupirocin (Bactroban) 1 applic BID TOP Last administered on 10/13/18 21:07; Admin Dose 1 APPLIC; Start 10/01/18 at 21:00 Doxycycline Hyclate 100 mg/ Sodium Chloride 250 ml @ 250 mls/hr Q12 IVPB Last administered on 10/13/18 21:07; Admin Dose 250 MLS/HR; Start 10/04/18 at 21:00 Fluconazole (Diflucan) 100 mg DAILY PO Last administered on 10/13/18 08:32; Admin Dose 100 MG; Start 10/04/18 at 15:00 Quetiapine Fumarate (Seroquel) 25 mg AM PO Last administered on 10/13/18 08:33; Admin Dose 25 MG; Start 10/08/18 at 09:00 Quetiapine Fumarate (Seroquel) 50 mg HS PO Last administered on 10/13/18 21:07; Admin Dose 50 MG; Start 10/07/18 at 21:00 Famotidine (Pepcid) 20 mg DAILY GTB Last administered on 10/13/18 08:31; Admin Dose 20 MG; Start 10/08/18 at 09:00 Colistimethate Sodium 75 mg/ Sodium Chloride 100 ml @ 200 mls/hr Q12 IVPB Last administered on 10/13/18 21:06; Admin Dose 200 MLS/HR; Start 10/07/18 at 21:00 Midodrine (Proamatine) 10 mg Q6 GTB Last administered on 10/14/18 05:49; Admin Dose 10 MG; Start 10/11/18 at 18:00 Assessment/Plan Hospital Course (Demo Recall) IMPRESSION: 1. Cardiopulmonary arrest. 2. Examination and apnea test and cerebral perfusion scan consistent with brain .. 3. Status post septic shock, staph bacteremia noted. 4. History of dysphagia. 5. Acute renal failure probable ATN injury 6. Significant bradycardia requiring chronotropic support currently off dopamine 7. Significant decubitus ulcer 8. Significant anemia but no active bleeding noted. PLAN: 1. Clinical examination and work-up consistent with brain . 2. Palliative care to contact family regarding above findings. Critical care time 40 minutes. L[facility] CONDE [facility] October 14, 2018 09:12
[2018-10-14] MEDS: DAKINS 0.0125%(1/40) 473 ML SOLUTION TP SCH (09:13)
[2018-10-14] MEDS: BALSAM PERU/CASTOR OIL 60 GM TUBE TOP SCH (09:13)
[2018-10-14] MEDS: MUPIROCIN 2% 22 GM OINT TOP SCH (09:14)
[2018-10-14] MEDS: HEPARIN 5,000 UNIT/1 ML VIAL SC SCH (09:14)
[2018-10-14] MEDS: COLISTIMETHATE 75 MG in SOD CHLORIDE 0.9% 100 ML IVPB SCH (09:17)
--- NOTE | 2018-10-14 12:13 | CONS ---
Assessment/Plan Assessment/Plan Hospital Course (Demo Recall) No acute events patient is noncommunicative in no distress family at bedside Microbiology: Blood culture on admission grew staph, MRSA swab came back positive, stool for C. difficile negative, urine culture grew Acinetobacter, Klebsiella and Nancie albicans Indwelling's: Trach PEG right IJ triple lumen catheter Antimicrobials: Colistin, fluconazole, doxycycline Physical examination: This is a chronically ill-appearing elderly man who is noncommunicative and in no distress. Head atraumatic normocephalic neck is supple chest rise symmetrical breath sounds diminished bases. Heart: S1-S2. Abdomen soft bowel sounds hypoactive extremities without edema. Skin patient has unstageable sacral wound and pressure sores on his feet Assessment: 1. Shock, status post PEA cardiac arrest 2. Multidrug-resistant UTI 3. MRSA nares colonization 4. Staph bacteremia consistent with contaminant 5. Acute possibly on chronic kidney disease 6. Acute on chronic encephalopathy, poss brain 7. History of CVA Plan: Patient remains unchanged, pending transition to comfort care Consultation Date/Type/Reason Admit Date/Time September 28, 2018 at 15:36 Initial Consult Date 09/28/18 Type of Consult id Requesting Provider: ROSSANA MCKEON MD Date/Time of Note DATE: 10/14/18 TIME: 12:12 Exam/Review of Systems Exam Vitals Vital Signs Date Temp Pulse Resp B/P (MAP) Pulse Ox O2 O2 Flow FiO2 Time Delivery Rate 10/14/18 81 15 99 30 11:10 10/14/18 91/52 (65) 08:30 10/14/18 99.2 Mechanical 08:00 Ventilator Intake and Output 10/13/18 10/13/18 10/14/18 1515:00 23:00 07:00 IntakeIntake Total 962.805 ml 1164.5 ml 729.0 ml OutputOutput Total 370 ml 220 ml BalanceBalance 592.805 ml 944.5 ml 729.0 ml Results Result Diagram: 10/14/18 0513 10/14/18 0513 Results 24hrs Laboratory Tests Test 10/14/18 05:13 White Blood Count 7.1 Red Blood Count 2.70 L Hemoglobin 7.3 L Hematocrit 23.8 L Mean Corpuscular Volume 88.1 Mean Corpuscular Hemoglobin 27.0 L Mean Corpuscular Hemoglobin Concent 30.7 L Red Cell Distribution Width 21.7 H Platelet Count 207 Mean Platelet Volume 9.9 Immature Granulocytes % 0.900 H Neutrophils % 74.5 Lymphocytes % 16.2 Monocytes % 6.5 Eosinophils % 1.6 Basophils % 0.3 Nucleated Red Blood Cells % 0.0 Immature Granulocytes # 0.060 H Neutrophils # 5.3 Lymphocytes # 1.1 Monocytes # 0.5 Eosinophils # 0.1 Basophils # 0.0 Nucleated Red Blood Cells # 0.0 Sodium Level 139 Potassium Level 5.3 H Chloride Level 114 H Carbon Dioxide Level 21 Anion Gap 4 L Blood Urea Nitrogen 42 H Creatinine 1.48 H Est Glomerular Filtrat Rate mL/min 58 L Glucose Level 86 Calcium Level 11.1 H Phosphorus Level 5.7 H Magnesium Level 1.9 Medications Medication Current Medications IV Flush (NS 3 ml) 3 ml PER PROTOCOL IV ; Start 09/28/18 at 17:30 Ondansetron HCl (Zofran Inj) 4 mg Q6H PRN IV NAUSEA/VOMITING; Start 09/28/18 at 17:30 Norepinephrine 250 ml @ 1.875 mls/ hr TITRATE IV Last administered on 10/03/18 06:40; Admin Dose 1.875 MLS/HR; Start 09/28/18 at 19:30 Levetiracetam 100 ml @ 400 mls/hr Q12 IVPB Last administered on 10/14/18 09:12; Admin Dose 400 MLS/HR; Start 09/29/18 at 10:00 Lorazepam (Ativan) 1 mg Q10MIN PRN IV SEIZURES Last administered on 09/29/18 10:52; Admin Dose 1 MG; Start 09/29/18 at 10:00 Zinc Sulfate (Zinc Sulfate) 220 mg DAILY GTB Last administered on 10/14/18 09:11; Admin Dose 220 MG; Start 09/30/18 at 09:00 Multivitamins (Multivitamin) 30 ml DAILY GTB Last administered on 10/14/18 09:11; Admin Dose 30 ML; Start 09/30/18 at 09:00 Ascorbic Acid (Vitamin C) 500 mg DAILY GTB Last administered on 10/14/18 09:12; Admin Dose 500 MG; Start 09/30/18 at 09:00 Aspirin (Aspirin) 81 mg DAILY PO Last administered on 10/14/18 09:11; Admin Dose 81 MG; Start 09/30/18 at 09:00 Sodium Hypochlorite (Dakins Diluted ()) 1 applic BID TP Last administered on 10/14/18 09:13; Admin Dose 1 APPLIC; Start 09/30/18 at 09:00 Heparin Sodium (Porcine) (Heparin (5000 Units/1ml)) 5,000 unit BID SC Last administered on 10/14/18 09:14; Admin Dose 5,000 UNIT; Start 10/01/18 at 09:00 Dopamine HCl/ Dextrose 250 ml @ 4.403 mls/ hr TITRATE IV Last administered on 10/14/18 05:46; Admin Dose 26.415 MLS/HR; Start 10/01/18 at 03:00 Mupirocin (Bactroban) 1 applic BID TOP Last administered on 10/14/18 09:14; Admin Dose 1 APPLIC; Start 10/01/18 at 21:00 Doxycycline Hyclate 100 mg/ Sodium Chloride 250 ml @ 250 mls/hr Q12 IVPB Last administered on 10/14/18 09:12; Admin Dose 250 MLS/HR; Start 10/04/18 at 21:00 Fluconazole (Diflucan) 100 mg DAILY PO Last administered on 10/14/18 09:12; Admin Dose 100 MG; Start 10/04/18 at 15:00 Quetiapine Fumarate (Seroquel) 25 mg AM PO Last administered on 10/14/18 09:12; Admin Dose 25 MG; Start 10/08/18 at 09:00 Quetiapine Fumarate (Seroquel) 50 mg HS PO Last administered on 10/13/18 21:07; Admin Dose 50 MG; Start 10/07/18 at 21:00 Famotidine (Pepcid) 20 mg DAILY GTB Last administered on 10/14/18 09:12; Admin Dose 20 MG; Start 10/08/18 at 09:00 Colistimethate Sodium 75 mg/ Sodium Chloride 100 ml @ 200 mls/hr Q12 IVPB Last administered on 10/14/18 09:17; Admin Dose 200 MLS/HR; Start 10/07/18 at 21:00 Midodrine (Proamatine) 10 mg Q6 GTB Last administered on 5/29/19at 05:49; Admin Dose 10 MG; Start 10/11/18 at 18:00 MELANIA SHAH NP October 14, 2018 12:13
--- NOTE | 2018-10-14 12:47 | CONS ---
Assessment/Plan Assessment/Plan Hospital Course 63 yo M with extensive neurologic hx and multiple comorbidities who presents to the ICU following a cardiac arrest. TTM was deferred d/t pt's poor neurologic status at baseline. He was noted to have face and arm twitching, for which neurology is consulted. The clinical picture was consistent with seizures in the context of hypoxic ischemic cerebral injury....now resolved. CTH is without obvious acute intracranial pathology. EEG was without epileptiform activity, though diffusely slow. Repeat EEG was inconclusive. Apnea test and cerebral perfusion scan confirmed brain . His prognosis for meaningful neurologic recovery is poor. P: Terminal extubation per primary Will sign off Consultation Date/Type/Reason Admit Date/Time September 28, 2018 at 15:36 Type of Consult Neurology Reason for Consultation eval for seizures Requesting Provider: ROSSANA MCKEON MD Date/Time of Note DATE: 10/14/18 TIME: 12:47 24 HR Interval Summary Free Text/Dictation Continues critical care. Terminal extubation planned for today. Apnea test and cerebral perfusion scan reportedly confirmed cerebral/brainstem inactivity Subjective hx not possible: pt non-verbal, pt critical Exam Vital Signs Vitals Vital Signs Date Temp Pulse Resp B/P (MAP) Pulse Ox O2 O2 Flow FiO2 Time Delivery Rate 10/14/18 81 15 99 30 11:10 10/14/18 91/52 (65) 08:30 10/14/18 99.2 Mechanical 08:00 Ventilator Intake and Output 10/13/18 10/13/18 10/14/18 1515:00 23:00 07:00 IntakeIntake Total 962.805 ml 1164.5 ml 729.0 ml OutputOutput Total 370 ml 220 ml BalanceBalance 592.805 ml 944.5 ml 729.0 ml Exam PE: Gen Appearance: No Apparent Distress HEENT: trached Cardiovascular: Regular rate Abdomen: Soft; PEG Extremities: Dry NE: The patient was comatose. Cranial nerve examination was limited by mental status. Pupils were pinpoint. There was no afferent pupillary defect. Funduscopic examination was limited. Face was grossly symmetric, w/ present corneal and cough reflexes. Tone was increased in the upper extremities. Muscle bulk was normal. I did not see fasciculations. The patient did not withdraw extremities to noxious stimuli. Coordination and gait testing was limited by mental status. Arm and leg reflexes were symmetric. Nicholson's sign was absent. Plantar responses were mute. ANTONY SOLORZANO NP October 14, 2018 12:47 AZALIA ENRIQUE October 15, 2018 06:35
--- NOTE | 2018-10-14 15:07 | DES ---
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 He was maintained on mechanical ventilation and given vasopressors and antibiotics for septic shock Found to have brain by neuroimaging and apnea test Per Dr Flores terminal extubation was performed Patient pronounced by myself at 2:54 with brother at bedside who I informed Pending Labs/Cultures Laboratory Tests Test 10/14/18 05:13 White Blood Count 7.1 10^3/ul (4.8-10.8) Red Blood Count 2.70 10^6/ul (4.70-6.10) Hemoglobin 7.3 g/dl (14.0-18.0) Hematocrit 23.8 % (42.0-52.0) Mean Corpuscular Volume 88.1 fl (82.0-101.0) Mean Corpuscular Hemoglobin 27.0 pg (29.0-33.0) Mean Corpuscular Hemoglobin Concent 30.7 g/dl (32.0-37.0) Red Cell Distribution Width 21.7 % (11.5-14.5) Platelet Count 207 10^3/UL (140-415) Mean Platelet Volume 9.9 fl (7.4-10.4) Immature Granulocytes % 0.900 % (0.001-0.429) Neutrophils % 74.5 % (39.0-77.0) Lymphocytes % 16.2 % (15.0-51.0) Monocytes % 6.5 % (0.0-11.0) Eosinophils % 1.6 % (0.0-7.0) Basophils % 0.3 % (0.0-2.0) Nucleated Red Blood Cells % 0.0 /100WBC (0.0-0.0) Immature Granulocytes # 0.060 10^3/ul (0.0-0.031) Neutrophils # 5.3 10^3/ul (1.6-7.5) Lymphocytes # 1.1 10^3/ul (0.8-2.9) Monocytes # 0.5 10^3/ul (0.3-0.9) Eosinophils # 0.1 10^3/ul (0.0-0.5) Basophils # 0.0 10^3/ul (0.0-0.1) Nucleated Red Blood Cells # 0.0 10^3/ul (0.0-0.0) Sodium Level 139 mmol/L (135-144) Potassium Level 5.3 mmol/L (3.5-5.1) Chloride Level 114 mmol/L (97-110) Carbon Dioxide Level 21 mmol/L (21-31) Anion Gap 4 (5-13) Blood Urea Nitrogen 42 mg/dl (7-20) Creatinine 1.48 mg/dl (0.61-1.24) Est Glomerular Filtrat Rate mL/min 58 mL/min (>60) Glucose Level 86 mg/dl (70-220) Calcium Level 11.1 mg/dl (8.4-10.2) Phosphorus Level 5.7 mg/dl (2.5-4.9) Magnesium Level 1.9 mg/dl (1.7-2.5) SARAH AVILA MD October 14, 2018 15:07
--- NOTE | 2018-10-14 15:08 | EN ---
Date/Time of Note Date/Time of Note DATE: 10/14/18 TIME: 15:07 Event Note Medicine Medicine Event Note Called to bedside for asystole Patient without evidence of cranial nerve reflexes. No spontaneous respirations or pulse x 100 seconds. Pronounced . Time of 2:54 PM SARAH AVILA MD October 14, 2018 15:08
--- NOTE | 2018-10-15 07:43 | CONS ---
Assessment/Plan Assessment/Plan Assessment/Plan (Daily) Late entry for family conference 09/24/2018 [place] conversation with 7 family members, 2 daughters and control of patient's ongoing level of care conference was done outside patient's room. I explained to patient is brain by all clinical and objective criteria. Patient has had a consistent with an apnea test patient does not breathe, flow study which shows no activity and physical findings consistent with brain . They had few questions but was somewhat accusatory of both her care at the outside facility and questionable as to why he . I explained in detail that patient had end-stage medical problems including cardiopulmonary, bouts of sepsis syndromes multiple open decubiti and as we have spoken to them in the past likelihood of surviving this hospitalization was extremely low. Patient's medical condition was discussed with bioethics and at that time he was changed to a DNR only. Family members refused to attend a conference family members refused to speak by phone. When I left the hospital on October 14 I received a phone call that family members wanted a physician to come back to the intensive care unit at approximately [phone] explained to them once again why patient . Consultation Date/Type/Reason Admit Date/Time September 28, 2018 at 15:36 Initial Consult Date 09/28/18 Requesting Provider: ROSSANA MCKEON MD Date/Time of Note DATE: 10/15/18 TIME: 07:03 Exam/Review of Systems Exam Vitals Vital Signs Date Temp Pulse Resp B/P (MAP) Pulse Ox O2 O2 Flow FiO2 Time Delivery Rate 10/14/18 0 14:48 10/14/18 14 98 30 13:10 10/14/18 53/35 (41) 13:00 10/14/18 99.2 Mechanical 08:00 Ventilator Results Result Diagram: 10/14/18 0513 10/14/18 0513 LUZ CUMMINS October 15, 2018 07:43
== END 2018-10-14 14:50 | disposition expired | DRG 870 ==
LOC: E/R 12:31 → ICU 15:36 → EDBEDREQ 15:53 → SUATTDRO 16:05 → ICU 10-01 00:11
PROVIDERS: ADMIT Internal Medicine; ATTEND Internal Medicine
PROC: 02HV33Z Insertion of Infusion Device into Superior Vena Cava, Percutaneous Approach (ICD-10-PCS; principal; 2018-09-28)
PROC: 5A1955Z Respiratory Ventilation, Greater than 96 Consecutive Hours (ICD-10-PCS; 2018-09-28)
PROC: 0WJR7ZZ Inspection of Genitourinary Tract, Via Natural or Artificial Opening Approach (ICD-10-PCS; 2018-09-28)
PROC: 30233N1 Transfusion of Nonautologous Red Blood Cells into Peripheral Vein, Percutaneous Approach (ICD-10-PCS; 2018-10-03)
DX: A41.9 Sepsis, unspecified organism (principal); R65.21 Severe sepsis with septic shock; N17.0 Acute kidney failure with tubular necrosis; R40.20 Unspecified coma; L89.154 Pressure ulcer of sacral region, stage 4; G93.49 Other encephalopathy; N39.0 Urinary tract infection, site not specified; J96.10 Chronic respiratory failure, unspecified whether with hypoxia or hypercapnia; Z99.11 Dependence on respirator [ventilator] status; R40.3 Persistent vegetative state; G93.1 Anoxic brain damage, not elsewhere classified; E46 Unspecified protein-calorie malnutrition; Z68.1 Body mass index [BMI] 19.9 or less, adult; E87.4 Mixed disorder of acid-base balance; I46.9 Cardiac arrest, cause unspecified; K29.70 Gastritis, unspecified, without bleeding; E78.5 Hyperlipidemia, unspecified; Z93.0 Tracheostomy status; J44.9 Chronic obstructive pulmonary disease, unspecified; I69.920 Aphasia following unspecified cerebrovascular disease; R13.10 Dysphagia, unspecified; R19.7 Diarrhea, unspecified; E87.6 Hypokalemia; D64.9 Anemia, unspecified; F03.90 Unspecified dementia, unspecified severity, without behavioral disturbance, psychotic disturbance, mood disturbance, and anxiety; T17.990A Other foreign object in respiratory tract, part unspecified in causing asphyxiation, initial encounter; E83.42 Hypomagnesemia; R00.1 Bradycardia, unspecified; R53.81 Other malaise; R56.9 Unspecified convulsions; I69.998 Other sequelae following unspecified cerebrovascular disease; Z93.1 Gastrostomy status; Z16.24 Resistance to multiple antibiotics; Z74.01 Bed confinement status; Z66 Do not resuscitate; Z22.322 Carrier or suspected carrier of Methicillin resistant Staphylococcus aureus
CPT/HCPCS: 36415; 36430; 36600; 70450; 71045; 76775; 78606; 80048; 80053; 80185; 80202; 80307; 81001; 81003; 82043; 82270; 82533; 82728; 82803; 82962; 83036; 83540; 83605; 83690; 83735; 84100; 84155; 84300; 84484; 85014; 85018; 85025; 85610; 85730; 86850; 86870; 86880; 86900; 86901; 86902; 86920; 87045; 87070; 87075; 87086; 93005; 94003; 95819; 96365; 96366; A9512; J0171; J1165; J1265; J1644; J1650; J1953; J2060; J2185; J2916; J3370; J3475; J7030; J7040; J7050; P9016; P9047